=== PATIENT | male | born 1930 | race Caucasian/White ===

== ENCOUNTER 2016-09-11 19:34 | Inpatient (IN) | payer OTHER ==
[~2016-09-11] VITALS: Ht 170.2 cm; Wt 68.2 kg
[~2016-09-11 19:34] MED LIST: ACET-1311 PO; ASPEC81 PO; ATOR-22 PO; CLOP1TAB5 PO; ESCI1TAB9 PO; FINA5TAB PO; LEVO100T7 PO; MECL1TAB42 PO; NRN100 PO; OMEG10007 PO; PANT40TA PO; TAMS0.4C38 PO
[2016-09-11] MEDS ORDERED: SODIUM CHLORIDE 0.9% 1000ML 1,000 ML IV SCH (19:43)
[2016-09-11] MEDS ORDERED: OMEP20CA59 PO (19:56)
[2016-09-11] MEDS ORDERED: NiCARDipine IV 25 MG in SODIUM CHLORIDE 0.9% 250ML 240 ML IV STA (20:01)
--- NOTE | 2016-09-11 20:05 | DIAGNOSTIC IMAGING REPORT ---
SINGLE VIEW CHEST CLINICAL HISTORY: Strokelike symptoms. FINDINGS: An AP, portable, upright chest radiograph is compared to study dated 02/20/2016. The examination is degraded by portable technique and patient rotation. The heart is top normal for projection and there is atherosclerotic calcification of the thoracic aorta. The pulmonary vasculature is noncongested. There is chronic elevation of right hemidiaphragm. Bibasilar airspace opacities are identified. No large pleural effusion or pneumothorax is seen. The skeletal structures are osteopenic. Degenerative change is noted throughout the thoracic spine. IMPRESSION: 1. There are bibasilar airspace opacities. This could represent atelectasis and/or an infectious/inflammatory pneumonitis. Clinical correlation will be required. 2. No large pleural effusion is seen. Electronically signed by: Ayo Wiggins M.D. 09/11/2016 8:04 PM Dictated Date/Time: 09/11/2016 8:02 PM
--- NOTE | 2016-09-11 20:08 | EMERGENCY ROOM VISIT NOTE ---
History Report prepared by Kobe: Jose Gomez Under the Supervision of: Dr. Lio Roy M.D. First contact with patient: 19:43 Chief Complaint: STROKE SYMPTOMS Stated Complaint: STROKE SX History of Present Illness The patient is a 85 year old male who presents to the Emergency Room via ALS with complaints of stroke-like symptoms that began 4 hours ago. The patient experienced a flash of light behind his left eye earlier in the day that has resolved at this time. This evening, he had a sudden onset of left sided weakness. He currently lives at home. He denies any other symptoms at this time. Source of History: patient Onset: 4 hours ago Position: other (Left side) Symptom Intensity: moderate Quality: other (weakness) Timing: constant Note: He had a flash of light in his left eye this morning. The patient denies any other symptoms. Review of Systems See HPI for pertinent positives & negatives. A total of 10 systems reviewed and were otherwise negative. Past Medical & Surgical Medical Problems: (1) Ferrer esophagus (2) BPH (benign prostatic hyperplasia) (3) CKD (chronic kidney disease), stage III (4) CVA (cerebral vascular accident) (5) CVA (cerebral vascular accident) (6) Diabetes type 2, controlled (7) Dyslipidemia (8) Heart attack (9) HTN (hypertension) (10) Hypothyroid (11) Stroke (12) Subdural bleeding (13) TIA (transient ischemic attack) (14) Unilateral weakness Surgical Problems: (1) H/O esophagogastroduodenoscopy (2) History of hip replacement, total (3) History of prostate surgery (4) S/P hernia repair (5) S/P hip replacement Family History Omitted due to advanced age. Social History Smoking Status: Former Smoker Alcohol Use: none Drug Use: none Marital Status: Housing Status: lives with family, other Occupation Status: retired Current/Historical Medications Scheduled Aspirin (Aspirin EC Low Dose), 162 MG PO QAM Atorvastatin (Lipitor), 20 MG PO QPM Clopidogrel Bisulfate (Plavix), 75 MG PO QAM Escitalopram Oxalate (Lexapro), 10 MG PO QAM Finasteride (Proscar), 5 MG PO DAILY Omeprazole (Prilosec), 20 MG PO BID Pantoprazole (Protonix), 40 MG PO QPM Tamsulosin Hcl (Flomax), 0.4 MG PO QPM Scheduled PRN Acetaminophen (Tylenol), 650 MG PO Q4 PRN for Pain Meclizine Hcl (Meclizine Hcl), 1 TAB PO TID PRN for Dizziness or Vertigo Allergies Coded Allergies: Clindamycin (Verified Allergy, Intermediate, rash, 09/11/16) Sulfamethoxazole w/Trimethoprim (Verified Allergy, Mild, RASH, 09/11/16) redness os face Vancomycin (Verified Allergy, Mild, RASH, DRY SKIN, 09/11/16) Sulfa Antibiotics (Unverified Allergy, Unknown, unknown, 09/11/16) Physical Exam Vital Signs Date Time Temp Pulse Resp B/P Pulse Ox O2 Delivery O2 Flow Rate FiO2 09/11/16 23:37 75 09/11/16 23:27 87 20 138/85 96 Nasal Cannula 2.0 09/11/16 22:15 74 132/70 94 Room Air 09/11/16 22:01 86 128/59 97 Room Air 09/11/16 21:50 88 129/63 97 Room Air 09/11/16 21:40 88 20 135/67 97 Room Air 09/11/16 21:25 96 20 146/70 96 09/11/16 21:20 91 20 150/68 97 Room Air 09/11/16 21:15 92 18 150/77 96 Room Air 09/11/16 21:10 89 20 150/67 95 Room Air 09/11/16 21:05 94 20 156/78 95 Room Air 09/11/16 20:55 106 18 172/85 94 Room Air 09/11/16 20:43 206/107 09/11/16 20:21 91 12 211/116 98 Nasal Cannula 2.0 09/11/16 19:59 82 09/11/16 19:51 36.8 86 12 229/121 100 Nasal Cannula 4.0 09/11/16 19:51 100 Nasal Cannula 2.0 Physical Exam GENERAL: Patient is a healthy-appearing well-nourished HEAD: Normocephalic atraumatic EYES: Ocular movements intact pupils equal and react to light OROPHARYNX mucous membranes are moist no exudates present no erythema or edema present NECK: Supple no nuchal rigidity CHEST: Good equal expansion LUNGS: Clear and equal to auscultation CARDIAC: Normal S1 and S2 ABDOMEN: Soft nontender no guarding BACK: No CVA tenderness EXTREMITIES: No pain upon palpation normal muscle strength in all groups no clubbing cyanosis or edema NEURO: Patient is following commands is answering questions appropriately. Alert and oriented x3 Cranial Nerves 2-12 grossly intact. The patient has 3/5 strength in his left arm and leg. Medical Decision & Procedures ER Provider Diagnostic Interpretation: Radiology results as stated below per my review and radiologist interpretation: CT SCAN OF THE BRAIN WITHOUT IV CONTRAST CLINICAL HISTORY: Strokelike symptoms. COMPARISON STUDY: CT of the brain dated 02/18/2016. MRI of the brain dated 02/19/2016. TECHNIQUE: Unenhanced axial CT scan of the brain is performed from the vertex to the skull base. CT DOSE: 537.48 mGy.cm FINDINGS: Brain parenchyma: Right MCA territory encephalomalacia is unchanged and consistent with a remote infarct. There are age-related involutional changes noting moderate subcortical and periventricular microangiopathic change. Wallerian degeneration is noted in the right alok. There is no hemorrhage, mass effect, or evidence of acute territorial ischemia by CT criteria. Faria-white matter is preserved. No extra-axial fluid collection is seen. Ventricles, sulci, cisterns: Prominent secondary to involutional change. Intracranial vasculature: There is atherosclerotic calcification of the cavernous carotid and vertebral arteries. Calvarium: Unremarkable. Sinuses and mastoids: The visualized paranasal sinuses are clear. The mastoid air cells are well pneumatized. Orbits: The bony orbits are grossly intact. There are bilateral ocular lens implants. IMPRESSION: 1. There is no hemorrhage, mass effect, or evidence of acute territorial ischemia by CT criteria. 2. Senescent changes and remote right MCA territory infarct as above. Electronically signed by: Ayo Wiggins M.D. 09/11/2016 8:22 PM Dictated Date/Time: 09/11/2016 8:19 PM SINGLE VIEW CHEST CLINICAL HISTORY: Strokelike symptoms. FINDINGS: An AP, portable, upright chest radiograph is compared to study dated 02/20/2016. The examination is degraded by portable technique and patient rotation. The heart is top normal for projection and there is atherosclerotic calcification of the thoracic aorta. The pulmonary vasculature is noncongested. There is chronic elevation of right hemidiaphragm. Bibasilar airspace opacities are identified. No large pleural effusion or pneumothorax is seen. The skeletal structures are osteopenic. Degenerative change is noted throughout the thoracic spine. IMPRESSION: 1. There are bibasilar airspace opacities. This could represent atelectasis and/or an infectious/inflammatory pneumonitis. Clinical correlation will be required. 2. No large pleural effusion is seen. Electronically signed by: Ayo Wiggins M.D. 09/11/2016 8:04 PM Dictated Date/Time: 09/11/2016 8:02 PM MRI HEAD: No evidence of acute infarct. No ICH, mass effect or edema. No abnormal foci or enhancement in the brain parenchyma. Unchanged right MCA territory encephalomalacia, compatible with prior infarct. FLAIR signal hyperintensities in the periventricular and subcortical white matter, likely chronic small vessel disease. 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 Unchanged atherosclerosis of the proximal left ICA with less than 50% stenosis. Visualized vertebral arteries are patent. No evidence of dissection. Radiologist: Gino Snyder MD Laboratory Results Test 09/11/16 19:40 09/11/16 20:27 09/11/16 23:47 Prothrombin Time 10.5 SECONDS (9.0-12.0) Prothromb Time International Ratio 1.0 (0.9-1.1) Activated Partial Thromboplast Time 27.6 SECONDS (21.0-31.0) Partial Thromboplastin Ratio 1.1 Total Creatine Kinase 115 U/L (39-308) Creatine Kinase MB 1.0 ng/ml (0.5-3.6) Creatine Kinase MB Ratio 0.9 (0-3.0) Chemistry Specimen Hemolysis Bedside Prothrombin Time INR 1.0 (0.9-1.1) Magnesium Level 1.8 mg/dl (1.8-2.4) Total Bilirubin 0.5 mg/dl (0.2-1) Direct Bilirubin 0.1 mg/dl (0-0.2) Aspartate Amino Transf (AST/SGOT) 42 U/L (15-37) Alanine Aminotransferase (ALT/SGPT) 52 U/L (12-78) Alkaline Phosphatase 141 U/L (45-117) Total Protein 7.4 gm/dl (6.4-8.2) Thyroid Stimulating Hormone (TSH) 131.000 uIu/ml (0.300-4.500) Labs reviewed by ED physician. Medications Administered Medications (Trade) Dose Ordered Sig/Octavia Route Start Time Stop Time Status Last Admin Dose Admin Sodium Chloride 1,000 ml @ 50 mls/hr Q20H IV 09/11/16 19:43 09/12/16 01:11 DC 09/11/16 21:15 50 MLS/HR Nicardipine HCl 25 mg/Sodium Chloride 250 ml @ 0 mls/hr Q0M STAT IV 09/11/16 20:01 09/11/16 20:02 DC 09/11/16 20:41 50 MLS/HR Levetiracetam/ Dextrose (Keppra Iv/D5 100ml) 110 ml @ 440 mls/hr ONE STAT IV 09/11/16 20:43 09/11/16 20:57 DC 09/11/16 21:03 440 MLS/HR Lorazepam (Ativan Inj) 1 mg NOW STAT IV 09/11/16 21:03 09/11/16 21:04 DC 09/11/16 21:07 1 MG ECG Indication: weakness Rate (beats per minute): 88 Rhythm: normal sinus Findings: other (Left ventricular Hypertrophy and an old septal infarct) ED Course 1942: Past medical records reviewed. The patient was evaluated in room A9. A complete history and physical examination was performed. 1942: Sodium Chloride 1000 ml @ 50 mls/hr IV 2000: Nicardipine HCl 25 mg/Sodium Chloride 250 ml @ 0 mls/hr Protocol 0 MG/HR IV 2042: Levetiracetam 1000 mg/Dextrose 110 ml @ 440 mls/hr IV 3: Lorazepam 1 mg IV 2330: Upon reexamination the patient is resting. I discussed results and treatment plan with the patient. He verbalizes agreement and understanding. I spoke with Dr. Mclean from the [facility]. The patient will be evaluated for further management. Medical Decision Differential diagnosis: Etiologies such as metabolic, infection, hypo/hyperglycemia, electrolyte abnormalities, cardiac sources, intracerebral event, toxicologic, neurologic, as well as others were entertained. This is an 85-year-old male who presents emergency part complaining of left- sided weakness. The patient is out of time frame window for the use of TPA and in addition has several other contraindications including the history of a subdural hematoma, his high blood pressure as well as seizure-like activity. After riding in the emergency department the patient began having left-sided seizure-like activity where his left arm and left leg began jerking. Because of this the patient was loaded with the thousand milligrams of Keppra and given Ativan in the emergency department. He was originally started on a nicardipine drip however after the Ativan the patient's blood pressure fell and the nicardipine drip was stopped. Repeat examination revealed improvement patient' s symptoms. the patient's CAT scan does not show any acute process. Therefore he was sent for an MRI of the head and neck area I will discuss the case with the hospitalist service. Consults Time Called: 2319 Consulting Physician: Dr. Vinay Colin Hospitalist Returned Call: 2330 He will be evaluating the patient for further management. Impression Primary Impression: Left-sided weakness Additional Impression: Seizure Critical Care I have personally spent greater than 90 minutes of critical care time in the direct management of this patient. This includes bedside care, interpretation of diagnostic studies, and testing, discussion with consultants, patient, and family members, and other required patient management activities. This 90 minutes is in excess of all separately billable procedures. Scribe Attestation The scribe's documentation has been prepared under my direction and personally reviewed by me in its entirety. I confirm that the note above accurately reflects all work, treatment, procedures, and medical decision making performed by me. Departure Information Dispostion Being Evaluated By Hospitalist Referrals Aniceto Horvath M.D. (PCP) Patient Instructions My [facility] Problem Qualifiers
--- NOTE | 2016-09-11 20:23 | DIAGNOSTIC IMAGING REPORT ---
CT SCAN OF THE BRAIN WITHOUT IV CONTRAST CLINICAL HISTORY: Strokelike symptoms. COMPARISON STUDY: CT of the brain dated 02/18/2016. MRI of the brain dated 02/19/2016. TECHNIQUE: Unenhanced axial CT scan of the brain is performed from the vertex to the skull base. CT DOSE: 537.48 mGy.cm FINDINGS: Brain parenchyma: Right MCA territory encephalomalacia is unchanged and consistent with a remote infarct. There are age-related involutional changes noting moderate subcortical and periventricular microangiopathic change. Wallerian degeneration is noted in the right alok. There is no hemorrhage, mass effect, or evidence of acute territorial ischemia by CT criteria. Faria-white matter is preserved. No extra-axial fluid collection is seen. Ventricles, sulci, cisterns: Prominent secondary to involutional change. Intracranial vasculature: There is atherosclerotic calcification of the cavernous carotid and vertebral arteries. Calvarium: Unremarkable. Sinuses and mastoids: The visualized paranasal sinuses are clear. The mastoid air cells are well pneumatized. Orbits: The bony orbits are grossly intact. There are bilateral ocular lens implants. IMPRESSION: 1. There is no hemorrhage, mass effect, or evidence of acute territorial ischemia by CT criteria. 2. Senescent changes and remote right MCA territory infarct as above. Electronically signed by: Ayo Wiggins M.D. 09/11/2016 8:22 PM Dictated Date/Time: 09/11/2016 8:19 PM
[2016-09-11 20:26] LABS: BASO ABS # 0.06 K/uL (0-0.2); COMPLETE YES; EOS % 8.5 %; HEMATOCRIT 40.5 % (42-52); IG% 0.2 %; LYMPH % 16.2 %; LYMPH ABS # 1.01 K/uL (1.2-3.4); MEAN CELL VOLUME 89.8 fL (80-100); MEAN CORPUSCULAR HEMOGLOBIN 29.9 pg (25-34); MEAN CORPUSCULAR HGB CONC 33.3 g/dl (32-36); MEAN PLATELET VOLUME 9.9 fL (7.4-10.4); MONO % 7.1 %; PLATELET COUNT 258 K/uL (130-400); RED BLOOD COUNT 4.51 M/uL (4.7-6.1); WHITE BLOOD COUNT 6.23 K/uL (4.8-10.8)
[2016-09-11] MEDS ORDERED: LEVETIRACETAM IV 1,000 MG in DEXTROSE 5% 100ML 100 ML IV STA (20:43)
[2016-09-11 20:53] LABS: PARTIAL THROMBOPLASTIN RATIO 1.1; PROTHROMBIN TIME (PATIENT) 10.5 SECONDS (9.0-12.0)
[2016-09-11] MEDS ORDERED: LORAZEPAM 2 MG/ML 1 ML VIAL IV STA (21:03)
[2016-09-11 21:10] LABS: BUN/CREATININE RATIO 13.6 (10-20); CALCIUM 9.1 mg/dl (8.5-10.1); CKMB/CK RATIO 0.9 (0-3.0); CREATININE 1.7 mg/dl (0.60-1.40); POTASSIUM 4.1 mmol/L (3.5-5.1)
[2016-09-11] MEDS ORDERED: GADAVIST IV PRN (23:15)
[2016-09-12] VITALS (9 sets, daily range): BP systolic 146–171; BP diastolic 73–83; PULSE 59–86; TEMP 36.6–37.1; O2SAT 93–100; Ht 170.2 cm; Wt 68.2 kg
[2016-09-12] MEDS ORDERED: GLUCOSE 40% GEL 15 GM TUBE PO PRN (00:30)
[2016-09-12] MEDS ORDERED: NITROGLYCERIN 0.4 MG SL PER TAB CHARGE SL PRN (00:30)
[2016-09-12] MEDS ORDERED: GLUCOSE 10 TABS/TUBE PO PRN (00:30)
[2016-09-12] MEDS ORDERED: ACETAMINOPHEN 325 MG TAB PO PRN ×2 (00:30)
[2016-09-12] MEDS ORDERED: PHARMACIST DISCHARGE MED REC CONSULT PRN (00:30)
[2016-09-12] MEDS ORDERED: GLUCAGON FOR INJ 1 MG VIAL SQ PRN (00:30)
[2016-09-12] MEDS ORDERED: SODIUM CHLORIDE 0.9% 1000ML 1,000 ML IV ONE (00:30)
[2016-09-12] MEDS ORDERED: LORAZEPAM INJ 1 MG in SYRINGE 0.5 ML IV PRN (00:30)
[2016-09-12] MEDS ORDERED: DEXTROSE 50% 50 ML SYR IV PRN (00:30)
[2016-09-12 00:47] LABS: MAGNESIUM 1.8 mg/dl (1.8-2.4)
--- NOTE | 2016-09-12 02:19 | HISTORY & PHYSICAL EXAMINATION ---
DATE OF ADMISSION: 09/11/2016 PRIMARY CARE PHYSICIAN: Dr. Mckee. History obtained from the patient, records, and the patient's . Limited history from the patient secondary to obtunded state. CHIEF COMPLAINT: Stroke. HISTORY OF PRESENT ILLNESS: Medical history is significant for CVA, history of subdural hematoma secondary to fall, hypertension, hypothyroidism, (chronic anemia, baseline hemoglobin 13), BPH, chronic renal insufficiency (baseline creatinine 1.6), PVD as per records, history of MRSA as per records. hypothyroidism Recent confinement 2015 for left-sided weakness. MRI showed tiny infarct in the right ventricular region. Patient was already on Aspirin and Plavix at that time. Aspirin dose increased from 162 mg daily. Yesterday afternoon, the patient complained to of transient flash of light on the left eye. Later on, the patient was noted to have weakness on the left side, unable to walk, some facial drooping, slurring speech noted by . compliant w/ giving px home meds. In the Emergency Room, SBP was noted to be 220s. Patient started on Cardene drip. Generalized tonic clonic seizures witnessed in the Emergency Room. Patient given Keppra. Patient currently obtunded. MEDICAL HISTORY: As above. Carotid Dopplers from 07/2015 showed occluded right ICA, unchanged from previous exam, 50% left ICA occlusion. SURGERIES: He has had hip replacement, prostate surgery, hernia surgery. HOME MEDICATIONS: Tylenol, Lipitor, Plavix, Lexapro, Proscar, meclizine, Prilosec, Protonix, Flomax (Levoxyl 100 mcg daily as per outpx EMR) ALLERGIES: ALLERGIC TO CLINDAMYCIN, VANCOMYCIN, BACTRIM, SULFA. FAMILY HISTORY: Heart disease. PERSONAL AND SOCIAL HISTORY: Past tobacco abuse. 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 Lives with . REVIEW OF SYSTEMS: Could not be obtained. PHYSICAL EXAMINATION: VITAL SIGNS: Blood pressure was noted to be 229/121, later 130/80, pulse rate 86, RR 18, temperature 36.8, sats 98 on room air. GENERAL: Noted to be obtunded. No respiratory distress. Frail. SKIN: Pallor. HEENT: Pale palpebral conjunctivae. Dry mucosa. Facial droop on the left. NECK: No JVD. Supple. CHEST: Decreased effort. HEART: Regular rate and rhythm. ABDOMEN: Soft. EXTREMITIES: No edema, no tenderness. NEUROLOGIC: Obtunded. left facial asymmetry. Decreased movement, L LABORATORY DATA: Hemoglobin 13.7, hematocrit 41, white cell count 6.1, platelets 252. Sodium 140, potassium 4.1, chloride 106, CO2 of 28, BUN 20, creatinine 1.7, glucose 103. TSH 130. CT of the head, old stroke on the right MCA. EKG: Normal sinus rhythm with PACs. ASSESSMENT: 1. Left-sided weakness possible recurrent cerebrovascular accident. 2. New onset seizures. 3. Hypertensive urgency improved after nicardipine infusion started in the ER. Not on maintenance meds at home. 4. Hypothyroidism. TSH markedly elevated. ? compliance 5. Past tobacco abuse. 6. Chronic renal insufficiency, creatinine at baseline. 7. DM2, diet controlled. Well controlled as of recent outpx HgA1c. 8. History of traumatic subdural hematoma. PLAN: PCU, neuro checks. Continue home antiplatelet tx for secondary stroke prevention Follow MRI results. EEG. Keppra for seizure prophylaxis. Further management pending MRI results. Neurology consult RE L sided weakness and seizures. Permissive hypertension for now. Insulin sliding scale BG goal 140-180, px due for hemoglobin A1c check. Clarify levothyroxine med intake w/ px (med listed in outpx med list but not listed in med rec list done at the ER) DNR as per , Jo-Ann Franz, requesting updates [phone]. MTDD
[2016-09-12 05:41] LABS: BASO % 0.1 %; BASO ABS # 0.01 K/uL (0-0.2); COMPLETE YES; EOS % 0.1 %; HEMATOCRIT 37.1 % (42-52); IG% 0.1 %; LYMPH % 4.9 %; LYMPH ABS # 0.43 K/uL (1.2-3.4); MEAN CELL VOLUME 91.2 fL (80-100); MEAN CORPUSCULAR HEMOGLOBIN 30.7 pg (25-34); MEAN CORPUSCULAR HGB CONC 33.7 g/dl (32-36); MEAN PLATELET VOLUME 9.4 fL (7.4-10.4); MONO % 5.5 %; NEUT % 89.3 %; PLATELET COUNT 240 K/uL (130-400); RED BLOOD COUNT 4.07 M/uL (4.7-6.1); WHITE BLOOD COUNT 8.75 K/uL (4.8-10.8)
[2016-09-12 06:06] LABS: BUN/CREATININE RATIO 15.5 (10-20); CALCIUM 8.1 mg/dl (8.5-10.1); CREATININE 1.4 mg/dl (0.60-1.40); POTASSIUM 4.4 mmol/L (3.5-5.1)
[2016-09-12] MEDS: HEPARIN SOD 5000 UNIT/0.5 ML CARP SQ SCH ×3 (06:07→20:05)
[2016-09-12 06:59] LABS: ESTIMATED AVERAGE GLUCOSE 117 mg/dl; HA1C FLAG Normal (Normal)
[2016-09-12] MEDS: INSULIN ASPART 100 UNITS/ML 3 ML PEN SC SCH ×4 (07:00→20:28)
--- NOTE | 2016-09-12 07:12 | DIAGNOSTIC IMAGING REPORT ---
NECK MRA HISTORY: Dyspnea. Mental status change. Pt c/o left sided weakness TECHNIQUE: [id number] and gadolinium-enhanced MRA of the neck was performed both before and after the intravenous administration of contrast. All measurements were calculated based on NASCET criteria. COMPARISON STUDY: 02/19/2016 FINDINGS: The aortic arch and proximal great vessels are widely patent. Continued occlusion right internal carotid artery. This is unchanged. 40-50% narrowing left internal carotid artery. Unremarkable vertebral basilar component of the study. IMPRESSION: 1. Complete occlusion right internal carotid artery. 2. This is unchanged from the prior study of 02/19/2016. 3. Moderate atherosclerotic change left carotid bifurcation and left internal carotid artery with no evidence for a high-grade stenosis. A 40-50% narrowing may be present. Electronically signed by: Raj Hernandez M.D. 09/12/2016 7:11 AM Dictated Date/Time: 09/12/2016 7:09 AM
--- NOTE | 2016-09-12 07:44 | DIAGNOSTIC IMAGING REPORT ---
Brain MRI WITH AND WITHOUT CONTRAST HISTORY: Pt c/o left sided weakness TECHNIQUE: Multiplanar multisequence MRI of the brain was performed both before and after the intravenous administration of contrast. COMPARISON STUDY: Head CT 09/11/2016. Brain MRI 2115. FINDINGS: No areas of restricted diffusion to suggest acute infarction. Old large right MCA territory infarct is again noted. Presumed moderate microvascular ischemic changes are again noted. The paranasal sinuses and right mastoid air cells are clear. There are few partially opacified left inferior mastoid air cells, unchanged. Chronic occlusion of the right internal carotid artery is again noted. Old lacunar infarction within the alok and bilateral basal ganglia persist. Mild to moderate atrophic changes within the brain. No abnormal enhancement. IMPRESSION: No significant change compared to the prior study. No acute intracranial abnormality. Old infarcts as described above. Electronically signed by: Artie Guerrero M.D. 09/12/2016 7:43 AM Dictated Date/Time: 09/12/2016 7:38 AM
[2016-09-12 08:13] LABS: URINE APPEARANCE CLEAR (CLEAR); URINE BILIRUBIN NEG (NEG); URINE COLOR YELLOW; URINE EPITHELIAL CELL AUTO >30 /lpf (0-5); URINE NITRITE NEG (NEG); URINE SPECIFIC GRAVITY 1.018 (1.000-1.030); UROBILINOGEN NEG (NEG); ZZUR CULT IF INDIC CLEAN CATCH NO
[2016-09-12 08:18] LABS: MANUAL MICROSCOPIC REQUIRED? NO; REVIEW REQ? YES
[2016-09-12] MEDS ORDERED: NON-FORMULARY MEDICATION (Omeprazole (Prilosec) 20 MG) PO SCH (09:00)
[2016-09-12 09:07] LABS: BENZODIAZEPINE, URINE NEG (NEG); COCAINE,URINE NEG (NEG); PHENCYCLIDINE, URINE NEG (NEG)
[2016-09-12] MEDS: LEVETIRACETAM IV 500 MG in DEXTROSE 5% 100ML 100 ML IV SCH ×2 (09:13→20:04)
[2016-09-12] MEDS ORDERED: CLONIDINE HCL 0.1 MG TAB PO PRN (09:45)
--- NOTE | 2016-09-12 10:00 | Progress Note ---
Medicine Progress Note Date & Time of Visit: Sep 12, 2016 at 09:45. Subjective patient seen resting in bed, comfortable states he could not fall asleep last night, tired this AM, dizzy when standing today left sided weakness, slurred speech resolved though denies any focal neuro symptoms no headache, chest pain, palpitations ,nausea no other symptoms Objective Last 8 Hrs Date Time Temp Pulse Resp B/P Pulse Ox O2 Delivery O2 Flow Rate FiO2 09/12/16 07:39 36.9 67 18 155/83 99 2.0 09/12/16 04:12 36.8 74 22 163/76 99 Nasal Cannula 2.0 09/12/16 04:00 98 Nasal Cannula 2.0 Physical Exam: General- oriented x 3, not in distress, speaks in sentences Head- atraumatic Eyes- EOMI, anicteric Neck- supple, no JVD, no adenopathy Lungs- clear to auscultation bilaterally Heart- normal rate, regular rhythm; no murmurs Abdomen- normal bowel sounds, soft, nontender Extremities- no pretibial edema, no calf tenderness; peripheral pulses intact Neuro- alert, oriented x 3; CN 2-12 grossly intact, motor 5/5 except left lower leg 4/5, sensation 100% Skin- warm & dry Laboratory Results: Last 24 Hours Test 09/11/16 19:40 09/11/16 20:06 09/11/16 20:27 09/11/16 23:47 White Blood Count 6.23 K/uL Red Blood Count 4.51 M/uL Hemoglobin 13.5 g/dL Hematocrit 40.5 % Mean Corpuscular Volume 89.8 fL Mean Corpuscular Hemoglobin 29.9 pg Mean Corpuscular Hemoglobin Concent 33.3 g/dl Platelet Count 258 K/uL Mean Platelet Volume 9.9 fL Neutrophils (%) (Auto) 67.0 % Lymphocytes (%) (Auto) 16.2 % Monocytes (%) (Auto) 7.1 % Eosinophils (%) (Auto) 8.5 % Basophils (%) (Auto) 1.0 % Neutrophils # (Auto) 4.18 K/uL Lymphocytes # (Auto) 1.01 K/uL Monocytes # (Auto) 0.44 K/uL Eosinophils # (Auto) 0.53 K/uL Basophils # (Auto) 0.06 K/uL RDW Standard Deviation 49.5 fL RDW Coefficient of Variation 15.2 % Immature Granulocyte % (Auto) 0.2 % Immature Granulocyte # (Auto) 0.01 K/uL Prothrombin Time 10.5 SECONDS Prothromb Time International Ratio 1.0 Activated Partial Thromboplast Time 27.6 SECONDS Partial Thromboplastin Ratio 1.1 Sodium Level 140 mmol/L Potassium Level 4.1 mmol/L Chloride Level 105 mmol/L Carbon Dioxide Level 28 mmol/L Anion Gap 7.0 mmol/L Blood Urea Nitrogen 23 mg/dl Creatinine 1.70 mg/dl Est Creatinine Clear Calc Drug Dose 30.8 ml/min Estimated GFR () 42.3 Estimated GFR (Non- 36.5 BUN/Creatinine Ratio 13.6 Random Glucose 115 mg/dl Calcium Level 9.1 mg/dl Total Creatine Kinase 115 U/L Creatine Kinase MB 1.0 ng/ml Creatine Kinase MB Ratio 0.9 Troponin I 0.057 ng/ml Chemistry Specimen Hemolysis Bedside Glucose 113 mg/dl Bedside Prothrombin Time INR 1.0 Magnesium Level 1.8 mg/dl Total Bilirubin 0.5 mg/dl Direct Bilirubin 0.1 mg/dl Aspartate Amino Transf (AST/SGOT) 42 U/L Alanine Aminotransferase (ALT/SGPT) 52 U/L Alkaline Phosphatase 141 U/L Total Protein 7.4 gm/dl Albumin 3.6 gm/dl Thyroid Stimulating Hormone (TSH) 131.000 uIu/ml Test 09/12/16 05:25 09/12/16 06:33 09/12/16 07:50 White Blood Count 8.75 K/uL Red Blood Count 4.07 M/uL Hemoglobin 12.5 g/dL Hematocrit 37.1 % Mean Corpuscular Volume 91.2 fL Mean Corpuscular Hemoglobin 30.7 pg Mean Corpuscular Hemoglobin Concent 33.7 g/dl Platelet Count 240 K/uL Mean Platelet Volume 9.4 fL Neutrophils (%) (Auto) 89.3 % Lymphocytes (%) (Auto) 4.9 % Monocytes (%) (Auto) 5.5 % Eosinophils (%) (Auto) 0.1 % Basophils (%) (Auto) 0.1 % Neutrophils # (Auto) 7.81 K/uL Lymphocytes # (Auto) 0.43 K/uL Monocytes # (Auto) 0.48 K/uL Eosinophils # (Auto) 0.01 K/uL Basophils # (Auto) 0.01 K/uL RDW Standard Deviation 50.9 fL RDW Coefficient of Variation 15.2 % Immature Granulocyte % (Auto) 0.1 % Immature Granulocyte # (Auto) 0.01 K/uL Sodium Level 139 mmol/L Potassium Level 4.4 mmol/L Chloride Level 104 mmol/L Carbon Dioxide Level 26 mmol/L Anion Gap 9.0 mmol/L Blood Urea Nitrogen 22 mg/dl Creatinine 1.40 mg/dl Est Creatinine Clear Calc Drug Dose 37.4 ml/min Estimated GFR () 53.5 Estimated GFR (Non- 46.1 BUN/Creatinine Ratio 15.5 Random Glucose 134 mg/dl Estimated Average Glucose 117 mg/dl Hemoglobin A1c 5.7 % Calcium Level 8.1 mg/dl Troponin I 0.048 ng/ml Albumin 3.4 gm/dl Free Thyroxine 0.48 ng/dl Bedside Glucose 111 mg/dl Urine Color YELLOW Urine Appearance CLEAR Urine pH 7.0 Urine Specific [place] 1.018 Urine Protein 2+ Urine Glucose (UA) NEG Urine Ketones NEG Urine Occult Blood TRACE Urine Nitrite NEG Urine Bilirubin NEG Urine Urobilinogen NEG Urine Leukocyte Esterase NEG Urine WBC (Auto) 1-5 /hpf Urine RBC (Auto) 0-4 /hpf Urine Hyaline Casts (Auto) 1-5 /lpf Urine Epithelial Cells (Auto) >30 /lpf Urine Bacteria (Auto) NEG Urine Renal Epithelial Cells /lpf Urine Opiates Screen NEG Urine Methadone, Qualitative NEG Urine Barbiturates NEG Urine Phencyclidine (PCP) Level NEG Ur Amphetamine/Methamphetamine NEG MDMA (Ecstasy) Screen NEG Urine Benzodiazepines Screen NEG Urine Cocaine Metabolite NEG Urine Marijuana (THC) NEG Assessment & Plan 85 year old male with history of CVA, Subdural hematoma secondary to Fall, HTN, CKD 3, Hypothyroidism, BPH, PVD, presenting with left sided weakness. LEFT SIDED WEAKNESS, RESOLVED, POSSIBLE TIA HISTORY OF R MCA CVA, R ICA OCCLUSION - Brain MRI: IMPRESSION: No significant change compared to the prior study. No acute intracranial abnormality. Old infarcts as described above. Head MRA: IMPRESSION: 1. Complete occlusion right internal carotid artery. 2. This is unchanged from the prior study of 02/19/2016. 3. Moderate atherosclerotic change left carotid bifurcation and left internal carotid artery with no evidence for a high-grade stenosis. A 40-50% narrowing may be present. - symptoms seems to have resolved as of this morning - on Aspirin, Plavix, Atorvastatin management of Hypertension as noted below Neuro consulted HYPERTENSIVE EMERGENCY, RESOLVED - Nicardipine drip discontinue - BP 150s-170s - maintain BP on the higher for adequate cerebral perfusion PRN Hydralazine for systolic BP > 180 - may need to be started on regular BP medication in the future NEW ONSET GENERALIZED TONIC CLONIC SEIZURES - in the setting of above - Keppra 500mg BID started POSSIBLE BILATERAL LOWER LOBE PNEUMONIA, secondary to Aspiration Pneumonia in the setting of recent CVA, current TIA, and Seizure - patient reports episodes of coughing while eating at home has noted cough recently, occasionally productive - start Augmentin BID x 5 days at least HYPOTHYROIDISM - TSH 131, t4 0.48 - adherent with medications per patient - increase Lthyroxine from 100 to 125mcg daily repeat Thyroid Function Tests in 3-4 weeks HISTORY OF SUBDURAL HEMATOMA CKD 3 at baseline crea 1.6 usually BPH no urinary symptoms DVT Prophylaxis Heparin Disposition pending lives at home with , requires walker with ambulation PT/OT Current Inpatient Medications: Current Inpatient Medications Medications (Trade) Dose Ordered Sig/Octavia Route Start Time Stop Time Status Last Admin Dose Admin Gadobutrol (Gadavist) 7 mmol UD PRN IV 09/11/16 23:15 09/15/16 23:14 Heparin Sodium (Porcine) 5000 unit 5,000 unit Q8 SQ 09/12/16 06:00 10/12/16 05:59 09/12/16 06:07 5,000 UNIT Sodium Chloride (Nss 1000ml) 1,000 ml @ 60 mls/hr [id number] ONCE IV 09/12/16 00:30 09/12/16 17:09 09/12/16 06:07 60 MLS/HR Acetaminophen (Tylenol Tab) 650 mg Q4H PRN PO 09/12/16 00:30 10/12/16 00:29 Nitroglycerin (Nitrostat Tab) 0.4 mg UD PRN SL 09/12/16 00:30 10/12/16 00:29 Insulin Aspart (novoLOG ASPART) SLIDING SCALE If C... ACHS SC 09/12/16 07:00 10/12/16 06:59 Glucose (Glucose 40% Gel) 15-30 GRAMS 15 GRAMS... UD PRN PO 09/12/16 00:30 10/12/16 00:29 Glucose (Glucose Chew Tab) 4-8 Tablets 4 Tabl... UD PRN PO 09/12/16 00:30 10/12/16 00:29 Dextrose (Dextrose 50% 50ML Syringe) 25-50ML OF 50% DW IV FOR... UD PRN IV 09/12/16 00:30 10/12/16 00:29 Glucagon 1 mg 1 mg UD PRN SQ 09/12/16 00:30 10/12/16 00:29 Lorazepam 1 mg/ Syringe 1 ml @ 0.5 mls/min Q5M PRN IV 09/12/16 00:30 10/12/16 00:29 Levetiracetam/ Dextrose (Keppra Iv/D5 100ml) 105 ml @ 420 mls/hr Q12H IV 09/12/16 09:00 10/12/16 08:59 09/12/16 09:13 420 MLS/HR Aspirin (Ecotrin Tab) 162 mg QAM PO 09/12/16 09:00 10/12/16 08:59 Atorvastatin Calcium (Lipitor Tab) 20 mg QPM PO 09/12/16 21:00 10/12/16 20:59 Clopidogrel Bisulfate (plAVix TAB) 75 mg QAM PO 09/12/16 09:00 10/12/16 08:59 Escitalopram Oxalate (Lexapro Tab) 10 mg QAM PO 09/12/16 09:00 10/12/16 08:59 Pantoprazole Sodium (Protonix Tab) 40 mg QPM PO 09/12/16 21:00 10/12/16 20:59 Tamsulosin HCl (Flomax Cap) 0.4 mg QPM PO 09/12/16 21:00 10/12/16 20:59 Miscellaneous Information (Pharmacist Discharge Med Rec Consult) 1 ea UD PRN N/A 09/12/16 00:30 10/12/16 00:29
[2016-09-12] MEDS: ESCITALOPRAM OXALATE 10 MG TAB PO SCH (10:17)
[2016-09-12] MEDS: ASPIRIN 81 MG ECTAB PO SCH (10:17)
[2016-09-12] MEDS: CLOPIDOGREL BISULFATE 75 MG TAB PO SCH (10:18)
[2016-09-12] MEDS ORDERED: AMOXICILLIN/CLAVULANATE TAB 875 MG TAB PO SCH (11:00)
[2016-09-12] MEDS: AMOXICILLIN/CLAV POTAS 600 MG/42.9MG/5 ML 75 ML PO SCH ×2 (12:06→18:29)
--- NOTE | 2016-09-12 13:50 | Neurology Consultation ---
Neurology Consultation Date of Consultation: Sep 12, 2016. Attending Physician: Elmo Tejeda MD Primary Care Physician: No Doctor, Assigned Reason for Consultation: ?seizure, left sided weakness History of Present Illness Source: patient Angus is a 85 year old male with PMH CVA, history of SDH, HTN, hypothyroidism, ( chronic anemia, baseline hemoglobin 13), BPH, chronic renal insufficiency ( baseline creatinine 1.6), PVD as per records, history of MRSA as per records.hypothyroidism He had a hospitalization in 2016 for Left-sided weakness. He was on aspirin and plavix at that time and the aspirin was increased to 162 mg daily. He reportedly had a flash of light in the left eye, left sided weakness, facial drooping, slurred speech. His blood pressure on this admission in ED was 220s. there was a witnessed seizure in the ED and patient was started on Keppra. Past Medical/Surgical History Medical Problems: (1) CVA (cerebral vascular accident) Status: Acute Social History Smoking Status: Never smoker Drug Use: none Marital Status: Housing Status: lives with family, other Occupation Status: retired Allergies Coded Allergies: Clindamycin (Verified Allergy, Intermediate, rash, 09/11/16) Sulfamethoxazole w/Trimethoprim (Verified Allergy, Mild, RASH, 09/11/16) redness os face Vancomycin (Verified Allergy, Mild, RASH, DRY SKIN, 09/11/16) Sulfa Antibiotics (Unverified Allergy, Unknown, unknown, 09/11/16) Current Inpatient Medications Current Inpatient Medications Medications (Trade) Dose Ordered Sig/Octavia Route Start Time Stop Time Status Last Admin Dose Admin Gadobutrol (Gadavist) 7 mmol UD PRN IV 09/11/16 23:15 09/15/16 23:14 Heparin Sodium (Porcine) 5000 unit 5,000 unit Q8 SQ 09/12/16 06:00 10/12/16 05:59 09/12/16 06:07 5,000 UNIT Sodium Chloride (Nss 1000ml) 1,000 ml @ 60 mls/hr [id number] ONCE IV 09/12/16 00:30 09/12/16 17:09 09/12/16 06:07 60 MLS/HR Acetaminophen (Tylenol Tab) 650 mg Q4H PRN PO 09/12/16 00:30 10/12/16 00:29 Nitroglycerin (Nitrostat Tab) 0.4 mg UD PRN SL 09/12/16 00:30 10/12/16 00:29 Insulin Aspart (novoLOG ASPART) SLIDING SCALE If C... ACHS SC 09/12/16 07:00 10/12/16 06:59 Glucose (Glucose 40% Gel) 15-30 GRAMS 15 GRAMS... UD PRN PO 09/12/16 00:30 10/12/16 00:29 Glucose (Glucose Chew Tab) 4-8 Tablets 4 Tabl... UD PRN PO 09/12/16 00:30 10/12/16 00:29 Dextrose (Dextrose 50% 50ML Syringe) 25-50ML OF 50% DW IV FOR... UD PRN IV 09/12/16 00:30 10/12/16 00:29 Glucagon 1 mg 1 mg UD PRN SQ 09/12/16 00:30 10/12/16 00:29 Lorazepam 1 mg/ Syringe 1 ml @ 0.5 mls/min Q5M PRN IV 09/12/16 00:30 10/12/16 00:29 Levetiracetam/ Dextrose (Keppra Iv/D5 100ml) 105 ml @ 420 mls/hr Q12H IV 09/12/16 09:00 10/12/16 08:59 09/12/16 09:13 420 MLS/HR Aspirin (Ecotrin Tab) 162 mg QAM PO 09/12/16 09:00 10/12/16 08:59 09/12/16 10:17 162 MG Atorvastatin Calcium (Lipitor Tab) 20 mg QPM PO 09/12/16 21:00 10/12/16 20:59 Clopidogrel Bisulfate (plAVix TAB) 75 mg QAM PO 09/12/16 09:00 10/12/16 08:59 09/12/16 10:18 75 MG Escitalopram Oxalate (Lexapro Tab) 10 mg QAM PO 09/12/16 09:00 10/12/16 08:59 09/12/16 10:17 10 MG Pantoprazole Sodium (Protonix Tab) 40 mg QPM PO 09/12/16 21:00 10/12/16 20:59 Tamsulosin HCl (Flomax Cap) 0.4 mg QPM PO 09/12/16 21:00 10/12/16 20:59 Miscellaneous Information (Pharmacist Discharge Med Rec Consult) 1 ea UD PRN N/A 09/12/16 00:30 10/12/16 00:29 Clonidine HCl (Catapres Tab) 0.1 mg Q6H PRN PO 09/12/16 09:45 10/12/16 09:44 Amoxicillin/ Clavulanate Potassium (Augmentin Es 600 Mg/42.9mg 5 ml Susp) 875 mg BIDM PO 09/12/16 11:30 09/19/16 11:29 09/12/16 12:06 875 MG Physical Exam Vital Signs (Past 24 Hrs): Date Time Temp Pulse Resp B/P Pulse Ox O2 Delivery O2 Flow Rate FiO2 09/12/16 12:00 Nasal Cannula 2.0 09/12/16 11:51 78 153/75 09/12/16 11:03 37.1 59 18 146/73 100 2.0 09/12/16 08:00 Nasal Cannula 2.0 09/12/16 07:39 36.9 67 18 155/83 99 2.0 09/12/16 04:12 36.8 74 22 163/76 99 Nasal Cannula 2.0 09/12/16 04:00 98 Nasal Cannula 2.0 09/12/16 01:00 36.7 86 18 171/75 98 Nasal Cannula 2.0 09/12/16 00:34 100 Nasal Cannula 2.0 09/12/16 00:32 80 20 123/94 99 Nasal Cannula 2.0 09/12/16 00:27 78 18 111/76 99 Nasal Cannula 2.0 09/11/16 23:37 75 09/11/16 23:27 87 20 138/85 96 Nasal Cannula 2.0 09/11/16 22:15 74 132/70 94 Room Air 09/11/16 22:01 86 128/59 97 Room Air 09/11/16 21:50 88 129/63 97 Room Air 09/11/16 21:40 88 20 135/67 97 Room Air 09/11/16 21:25 96 20 146/70 96 09/11/16 21:20 91 20 150/68 97 Room Air 09/11/16 21:15 92 18 150/77 96 Room Air 09/11/16 21:10 89 20 150/67 95 Room Air 09/11/16 21:05 94 20 156/78 95 Room Air 09/11/16 20:55 106 18 172/85 94 Room Air 09/11/16 20:43 206/107 09/11/16 20:21 91 12 211/116 98 Nasal Cannula 2.0 09/11/16 19:59 82 09/11/16 19:51 36.8 86 12 229/121 100 Nasal Cannula 4.0 09/11/16 19:51 100 Nasal Cannula 2.0 Physical Exam: Constitutional: appearance nourished, healthy and normal Ears, Nose, Mouth and Throat: mucous membranes moist, no injection and skin normal, eyes normal Cardiovascular: normal S-1 and S-2 and regular rate and rhythm Respiratory: clear to auscultation (CTA) and no rales, rhonchi or wheeze Musculoskeletal: no peripheral edema and good distal pulses Skin: no stigmata of neurocutaneous disease noted and normal and intact Eyes: PERRL miotic, left sided field cut NEUROLOGIC EXAMINATION: Mental status: Alert and interactive Oriented 2017, [facility] Oriented to person Speech fluent with no evidence of aphasia Cranial Nerves smile and eye brow raise symmetric, tongue midline Reflexes: Deep tendon reflexes were symmetrical and graded 2/5. Plantar responses were flexor. Sensory: no deficit to cool or light touch Coordination: holds hand in air without pronator drift Gait/Stance: Posture lying in bed Strength: left side hand bioassayist, biceps triceps 4/5, right 5/5 bilaterally lifts legs against gravity Laboratory Results Past 24 Hours: 09/12/16 05:25 Red Blood Count 4.07, Mean Corpuscular Volume 91.2, Mean Corpuscular Hemoglobin 30.7, Mean Corpuscular Hemoglobin Concent 33.7, Mean Platelet Volume 9.4, Neutrophils (%) (Auto) 89.3, Lymphocytes (%) (Auto) 4.9, Monocytes (%) (Auto) 5.5, Eosinophils (%) (Auto) 0.1, Basophils (%) (Auto) 0.1, Neutrophils # (Auto) 7.81, Lymphocytes # (Auto) 0.43, Monocytes # (Auto) 0.48, Eosinophils # (Auto) 0.01, Basophils # (Auto) 0.01 09/12/16 05:25 Test 09/11/16 19:40 09/11/16 20:27 09/11/16 23:47 09/12/16 05:25 Prothrombin Time 10.5 SECONDS (9.0-12.0) Prothromb Time International Ratio 1.0 (0.9-1.1) Activated Partial Thromboplast Time 27.6 SECONDS (21.0-31.0) Partial Thromboplastin Ratio 1.1 Total Creatine Kinase 115 U/L (39-308) Creatine Kinase MB 1.0 ng/ml (0.5-3.6) Creatine Kinase MB Ratio 0.9 (0-3.0) Chemistry Specimen Hemolysis Bedside Prothrombin Time INR 1.0 (0.9-1.1) Magnesium Level 1.8 mg/dl (1.8-2.4) Total Bilirubin 0.5 mg/dl (0.2-1) Direct Bilirubin 0.1 mg/dl (0-0.2) Aspartate Amino Transf (AST/SGOT) 42 U/L (15-37) Alanine Aminotransferase (ALT/SGPT) 52 U/L (12-78) Alkaline Phosphatase 141 U/L (45-117) Total Protein 7.4 gm/dl (6.4-8.2) Thyroid Stimulating Hormone (TSH) 131.000 uIu/ml (0.300-4.500) White Blood Count 8.75 K/uL (4.8-10.8) Red Blood Count 4.07 M/uL (4.7-6.1) Hemoglobin 12.5 g/dL (14.0-18.0) Hematocrit 37.1 % (42-52) Mean Corpuscular Volume 91.2 fL (80-100) Mean Corpuscular Hemoglobin 30.7 pg (25-34) Mean Corpuscular Hemoglobin Concent 33.7 g/dl (32-36) Platelet Count 240 K/uL (130-400) Mean Platelet Volume 9.4 fL (7.4-10.4) Neutrophils (%) (Auto) 89.3 % Lymphocytes (%) (Auto) 4.9 % Monocytes (%) (Auto) 5.5 % Eosinophils (%) (Auto) 0.1 % Basophils (%) (Auto) 0.1 % Neutrophils # (Auto) 7.81 K/uL (1.4-6.5) Lymphocytes # (Auto) 0.43 K/uL (1.2-3.4) Monocytes # (Auto) 0.48 K/uL (0.11-0.59) Eosinophils # (Auto) 0.01 K/uL (0-0.5) Basophils # (Auto) 0.01 K/uL (0-0.2) RDW Standard Deviation 50.9 fL (36.4-46.3) RDW Coefficient of Variation 15.2 % (11.5-14.5) Immature Granulocyte % (Auto) 0.1 % Immature Granulocyte # (Auto) 0.01 K/uL (0.00-0.02) Anion Gap 9.0 mmol/L (3-11) Est Creatinine Clear Calc Drug Dose 37.4 ml/min Estimated GFR () 53.5 Estimated GFR (Non- 46.1 BUN/Creatinine Ratio 15.5 (10-20) Estimated Average Glucose 117 mg/dl Hemoglobin A1c 5.7 % (4.5-5.6) Calcium Level 8.1 mg/dl (8.5-10.1) Troponin I 0.048 ng/ml (0-0.045) Albumin 3.4 gm/dl (3.4-5.0) Free Thyroxine 0.48 ng/dl (0.80-1.60) Test 09/12/16 07:50 09/12/16 11:09 Urine Color YELLOW Urine Appearance CLEAR (CLEAR) Urine pH 7.0 (4.5-7.5) Urine Specific [place] 1.018 (1.000-1.030) Urine Protein 2+ (NEG) Urine Glucose (UA) NEG (NEG) Urine Ketones NEG (NEG) Urine Occult Blood TRACE (NEG) Urine Nitrite NEG (NEG) Urine Bilirubin NEG (NEG) Urine Urobilinogen NEG (NEG) Urine Leukocyte Esterase NEG (NEG) Urine WBC (Auto) 1-5 /hpf (0-5) Urine RBC (Auto) 0-4 /hpf (0-4) Urine Hyaline Casts (Auto) 1-5 /lpf (0-5) Urine Epithelial Cells (Auto) >30 /lpf (0-5) Urine Bacteria (Auto) NEG (NEG) Urine Renal Epithelial Cells /lpf (0-5) Urine Opiates Screen NEG (NEG) Urine Methadone, Qualitative NEG (NEG) Urine Barbiturates NEG (NEG) Urine Phencyclidine (PCP) Level NEG (NEG) Ur Amphetamine/Methamphetamine NEG (NEG) MDMA (Ecstasy) Screen NEG (NEG) Urine Benzodiazepines Screen NEG (NEG) Urine Cocaine Metabolite NEG (NEG) Urine Marijuana (THC) NEG (NEG) Bedside Glucose 116 mg/dl (70-99) Imaging MRI with and without contrast- No areas of restricted diffusion to suggest acute infarction. Old large right MCA territory infarct is again noted. Presumed moderate microvascular ischemic changes are again noted. The paranasal sinuses and right mastoid air cells are clear. There are few partially opacified left inferior mastoid air cells, unchanged. Chronic occlusion of the right internal carotid artery is again noted. Old lacunar infarction within the alok and bilateral basal ganglia persist. Mild to moderate atrophic changes within the brain. No abnormal enhancement. MRA -Complete occlusion right internal carotid artery. This is unchanged from the prior study of 02/19/2016. Moderate atherosclerotic change left carotid bifurcation and left internal carotid artery with no evidence for a high-grade stenosis. A 40-50% narrowing may be present. CT head- hemorrhage, mass effect, or evidence of acute territorial ischemia by CT criteria. Senescent changes and remote right MCA territory infarct as above. Impression 85 year old male with left sided weakness and witnessed seizure in ED Plan 1. seizure was loaded with 1 g Keppra and started on Keppra 500 mg q 12 hours 2. PT/OT, speech therapy 3. continue aspirin 162 mg and plavix 75 mg daily 4. 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 EEG read pending 6. permissive hypertension consider patients age 7. likely seizure event no evidence of new stroke. Hypo perfusion due to occluded CHRISTINA but blood pressure was high in ED I have seen and discussed above patient with Dr Darling Longoria, neurology Pt with known, remote CHRISTINA occlusion and large RMCA infarct. Pt is a poor historian, noted vaguely described lightheadedness and flashing in L(?) eye and increase in L weakness which pt feels has still persisted. He subsequently noted to have sz activity LUE in the ER. There was no clear documented hypotension. MRI of the brain does not show a new ischemic event and there is no evidence of PRES. The pt could have potentially had an unwitnessed partial or generalized sz with an increase in L weakness post-sz. Thereafter pt did have a witnessed sz. The pt There is no obvious toxic or metabolic reason for increased baseline weakness. The pt could have hypoperfused relate to arrhythmia and that cause the visual phen and increased weakness. I would continue Keppra perform and echo, EEG and telemetric monitoring. I would modify stroke risk factors and if no cardioembolic source found not change antiplt tx as the pt has not had a new stroke. Will follow with you, BOOGIE Longoria MD
[2016-09-12] MEDS: TAMSULOSIN HCL 0.4 MG CAP PO SCH (20:05)
[2016-09-12] MEDS: ATORVASTATIN 20 MG TAB PO SCH (20:05)
[2016-09-12] MEDS: PANTOprazole SOD 40 MG TAB PO SCH (20:05)
[2016-09-13] VITALS (12 sets, daily range): BP systolic 157–171; BP diastolic 78–87; PULSE 51–66; TEMP 36.5–36.8; O2SAT 95–99
[2016-09-13] MEDS: HEPARIN SOD 5000 UNIT/0.5 ML CARP SQ SCH ×3 (06:13→21:22)
[2016-09-13 06:33] LABS: BASO % 1.1 %; BASO ABS # 0.07 K/uL (0-0.2); COMPLETE YES; EOS % 6.3 %; HEMATOCRIT 36.8 % (42-52); IG% 0.2 %; LYMPH % 11.2 %; LYMPH ABS # 0.73 K/uL (1.2-3.4); MEAN CORPUSCULAR HGB CONC 32.6 g/dl (32-36); MONO % 8.3 %; NEUT % 72.9 %; PLATELET COUNT 231 K/uL (130-400); WHITE BLOOD COUNT 6.51 K/uL (4.8-10.8)
[2016-09-13] MEDS: INSULIN ASPART 100 UNITS/ML 3 ML PEN SC SCH ×4 (07:00→21:00)
[2016-09-13 07:08] LABS: BUN/CREATININE RATIO 14.6 (10-20); CALCIUM 8.4 mg/dl (8.5-10.1); CREATININE 1.5 mg/dl (0.60-1.40); POTASSIUM 4.1 mmol/L (3.5-5.1)
[2016-09-13 07:12] LABS: CHOLESTEROL/HDL RATIO 1.7
[2016-09-13] MEDS: LEVETIRACETAM IV 500 MG in DEXTROSE 5% 100ML 100 ML IV SCH ×2 (08:17→21:21)
[2016-09-13] MEDS: ASPIRIN 81 MG ECTAB PO SCH (08:17)
[2016-09-13] MEDS: ESCITALOPRAM OXALATE 10 MG TAB PO SCH (08:18)
[2016-09-13] MEDS: CLOPIDOGREL BISULFATE 75 MG TAB PO SCH (08:18)
[2016-09-13] MEDS: AMOXICILLIN/CLAV POTAS 600 MG/42.9MG/5 ML 75 ML PO SCH ×2 (08:31→16:20)
--- NOTE | 2016-09-13 10:31 | Clinical Documentation Query ---
CLINICAL DOCUMENTATION QUERY 85 year old male with hx of recent CVA who presents with seizure and TIA. Daily progress notes state possible pneumonia and episodes of cough while eating at home. In your clinical opinion is this patient being managed for: ( ) Possible aspiration pneumonia in setting of recent CVA, current TIA, and/or seizure. ( ) Other explanation of clinical findings (Please Explain) ( ) Unable to determine (Please Define) ( ) Need to Discuss ( ) Not Agree The medical record reflects the following clinical findings, treatment, and risk factors. Clinical Indicators: As above. Treatment: Aspiration precautions, oral care, mechanical soft diet w/ honey thick liquids, speech therapy consult, Augmentin Risk Factors: Age, CVA, Seizure, and cough with PO intake. Please clarify and document your clinical opinion in the progress notes and discharge summary. Terms such as "probable", "suspected", "likely", "questionable", "possible", or "still to be ruled out" are acceptable. IF IN AGREEMENT, YOU MUST DOCUMENT ABOVE DIAGNOSTIC STATEMENT IN DAILY PROGRESS NOTES AND DISCHARGE SUMMARY. This document is not part of the patient's record. Thank You, Kyle Barton, RUKHSANA [phone]
[2016-09-13] MEDS ORDERED: METOCLOPRAMIDE HCL INJ 5 MG/ML 2 ML VIAL IV PRN (10:45)
--- NOTE | 2016-09-13 12:50 | ECHOCARDIOGRAM REPORT ---
*NOTICE TO RECEIVING CONSTITUTION PARTY AGENCY This information is strictly Confidential and protected under [place] law. [place] law prohibits you from making any further disclosure of this information unless further disclosure is expressly permitted by the written consent of the person to whom it pertains or is authorized by law. A general authorization for the release of medical or other information is not sufficient for this purpose. Hospital accepts no responsibility if the information is made available to any other person, INCLUDING THE PATIENT. Interpretation Summary * Name: MARIS HAWK Study Date: 09/13/2016 09:00 AM BP: 160/80 mmHg * Patient Location: C.2T\S\S234\S\1 HR: 58 * : 1930 (M/d/yyyy) Gender: Male Height: 67 in * Age: 85 yrs Ethnicity: [place] Weight: 152 lb * Ordering Physician: Elmo Tejeda * Referring Physician: Self, Referred * Performed By: Marianna Santana RCS * * Reason For Study: ELEVATED TROPONIN * BSA: 1.8 m2 * -- Conclusions -- * The left ventricular cavity is small. * There is severe concentric left ventricular hypertrophy. * Ejection Fraction = 45-50%. * There is severe right ventricular hypertrophy. * The right ventricular systolic function is normal. * Grade I diastolic dysfunction, (abnormal relaxation pattern). Procedure Details * A complete two-dimensional transthoracic echocardiogram was performed (2D, M-mode, Doppler and color flow Doppler). Left Ventricle * The left ventricular cavity is small. * There is severe concentric left ventricular hypertrophy. * Ejection Fraction = 45-50%. Right Ventricle * The right ventricle is grossly normal size. * There is severe right ventricular hypertrophy. * The right ventricular systolic function is normal. Atria * The left atrial size is normal. * Right atrial size is normal. * The interatrial septum is intact with no evidence for an atrial septal defect. Mitral Valve * The mitral valve leaflets appear thickened, but open well. * Significant mitral regurgitation is absent. Tricuspid Valve * The tricuspid valve is not well visualized, but is grossly normal. * Significant tricuspid regurgitation is absent. Aortic Valve * The aortic valve is tricuspid. The leaflet thickness if normal. There is no aortic stenosis, and no significant insufficiency. * Aortic valve sclerosis mild, without significant aortic valvular stenosis. * There is no significant aortic regurgitation. Pulmonic Valve * The pulmonic valve is not well visualized. * There is no significant pulmonary regurgitation. Great Vessels * The aortic root and proximal ascending aorta are normal sized. Pericardium/Pleural * There is no pericardial effusion. Left Ventricular Diastolic Function * Grade I diastolic dysfunction, (abnormal relaxation pattern). MMode 2D Measurements and Calculations IVSd 2.0 cm IVSs 2.0 cm LVIDd 3.4 cm LVIDs 2.4 cm LVPWd 1.6 cm LVPWs 1.6 cm IVS/LVPW 1.3 FS 30.4 % EDV(Teich) 49.1 ml ESV(Teich) 20.2 ml EF(Teich) 59.0 % EDV(cubed) 41.1 ml ESV(cubed) 13.8 ml EF(cubed) 66.3 % % IVS thick -10 % % LVPW thick 1.5 % LV mass(C)d 260.2 grams LV mass(C)dI 144.6 grams/m\S\2 LV mass(C)s 170.8 grams LV mass(C)sI 94.9 grams/m\S\2 SV(Teich) 29.0 ml SI(Teich) 16.1 ml/m\S\2 SV(cubed) 27.2 ml SI(cubed) 15.1 ml/m\S\2 Ao root diam 4.4 cm Ao root area 15.5 cm\S\2 ACS 2.1 cm LA dimension 2.5 cm LA/Ao 0.56 LVOT diam 2.0 cm LVOT area 3.1 cm\S\2 LVAd ap4 26.9 cm\S\2 LVLd ap4 7.4 cm EDV(MOD-sp4) 78.7 ml EDV(sp4-el) 83.4 ml LVAs ap4 17.4 cm\S\2 LVLs ap4 6.4 cm ESV(MOD-sp4) 40.6 ml ESV(sp4-el) 40.3 ml EF(MOD-sp4) 48.3 % EF(sp4-el) 51.7 % LVAd ap2 22.4 cm\S\2 LVLd ap2 6.0 cm EDV(MOD-sp2) 70.0 ml EDV(sp2-el) 70.6 ml LVAs ap2 14.9 cm\S\2 LVLs ap2 5.1 cm ESV(MOD-sp2) 38.9 ml ESV(sp2-el) 36.8 ml EF(MOD-sp2) 44.4 % EF(sp2-el) 47.9 % LVLd %diff -22.62 % EDV(MOD-bp) 80.9 ml LVLs %diff -24.26 % ESV(MOD-bp) 44.3 ml EF(MOD-bp) 45.2 % SV(MOD-sp4) 38.0 ml SI(MOD-sp4) 21.1 ml/m\S\2 SV(MOD-sp2) 31.1 ml SI(MOD-sp2) 17.3 ml/m\S\2 SV(MOD-bp) 36.6 ml SI(MOD-bp) 20.3 ml/m\S\2 SV(sp4-el) 43.1 ml SI(sp4-el) 23.9 ml/m\S\2 SV(sp2-el) 33.8 ml SI(sp2-el) 18.8 ml/m\S\2 Doppler Measurements and Calculations MV E max florian 71.2 cm/sec MV A max florian 108.9 cm/sec MV E/A 0.65 MV P1/2t max florian 90.6 cm/sec MV P1/2t 90.5 msec MVA(P1/2t) 2.4 cm\S\2 MV dec slope 293.4 cm/sec\S\2 MV dec time 0.44 sec Ao V2 max 123.3 cm/sec Ao max PG 6.1 mmHg Ao max PG (full) 2.1 mmHg CHRISTINE(V,A) 2.5 cm\S\2 CHRISTINE(V,D) 2.5 cm\S\2 LV V1 max PG 3.9 mmHg LV V1 max 99.2 cm/sec MR max florian 542.7 cm/sec MR max PG 117.8 mmHg PA V2 max 89.5 cm/sec PA max PG 3.2 mmHg
--- NOTE | 2016-09-13 13:19 | ELECTROENCEPHALOGRAPH REPORT ---
CLINICAL DIAGNOSIS: Acute right hemisphere cerebrovascular accident with seizure at presentation. REQUESTING: Dr. Mclean. ELECTROENCEPHALOGRAM DIAGNOSIS: Mildly diffusely abnormal EEG during wakefulness. DESCRIPTION OF TRACING: This EEG was done as a bedside recording with a simultaneous video analysis of patient movement and behavior. No stimulation in the form of photic stimulation or hyperventilation was performed and drowsiness appears to occur towards the end of the recording. Under these conditions, there is evidence for a background rhythm in the alpha range of 9 Hz of maximum frequency and often shifts into the theta range of about 8 Hz. This is maximum posterior head regions and bilaterally symmetrical. Polymorphic mid frequency to slightly lower frequency theta activity is seen over all head regions. From time to time, there appears to be an excess amount of theta activity over the T5 electrode, but after checking various montages this appears to be electrode artifact but does occur intermittently. Otherwise, there is no significant focal slow wave activity, rhythmic discharges, spike wave activity or other potentially epileptogenic discharges. Beta activity is difficult to see in the frontal leads. As the tracing progresses the rhythm shifts into slightly slower frequencies but sustained periods of sleep were not seen. INTERPRETATION: This EEG reveals evidence for at most a mild nonspecific generalized abnormalities consisting of a poorly sustained background alpha rhythm and slightly excessive amounts of theta activity. Despite the presence of an underlying right middle cerebral artery infarction there is no focal slowing over the right hemisphere nor is there evidence for potentially epileptogenic activity despite the history of seizure at presentation. The absence of such activity; however, does not exclude the diagnosis of a seizure disorder.
--- NOTE | 2016-09-13 14:26 | Neurology Progress Notes ---
Neurology Progress Note Date of Service Sep 13, 2016. Aung Greco is a 85 year old male with PMH CVA, history of SDH, HTN, hypothyroidism, ( chronic anemia, baseline hemoglobin 13), BPH, chronic renal insufficiency ( baseline creatinine 1.6), PVD as per records, history of MRSA as per records.hypothyroidism He had a hospitalization in 2016 for Left-sided weakness. He was on aspirin and plavix at that time and the aspirin was increased to 162 mg daily. He reportedly had a flash of light in the left eye, left sided weakness, facial drooping, slurred speech. His blood pressure on this admission in ED was 220s. there was a witnessed seizure in the ED and patient was started on Keppra. Today is alert and more conversive, denies pain, CP, SOB, abdominal pain, N, V, headache Objective Date Time Temp Pulse Resp B/P Pulse Ox O2 Delivery O2 Flow Rate FiO2 09/13/16 12:36 36.6 62 20 157/85 95 Room Air 09/13/16 12:10 95 Room Air 09/13/16 10:40 60 96 09/13/16 08:00 99 Nasal Cannula 2.0 09/13/16 07:42 36.8 51 18 160/80 99 2.0 09/13/16 04:03 36.6 58 20 158/82 98 Nasal Cannula 2.0 09/13/16 04:00 Nasal Cannula 2.0 09/13/16 00:12 36.6 56 18 159/78 98 Nasal Cannula 2.0 09/13/16 00:00 Nasal Cannula 2.0 09/12/16 20:37 36.6 62 20 154/73 93 Room Air 09/12/16 16:00 Nasal Cannula 2.0 09/12/16 15:22 36.8 60 20 161/76 98 Nasal Cannula 2.0 Last 24 Hours Test 09/12/16 16:09 09/12/16 20:08 09/13/16 05:40 09/13/16 06:36 Bedside Glucose 95 mg/dl 111 mg/dl 94 mg/dl White Blood Count 6.51 K/uL Red Blood Count 4.00 M/uL Hemoglobin 12.0 g/dL Hematocrit 36.8 % Mean Corpuscular Volume 92.0 fL Mean Corpuscular Hemoglobin 30.0 pg Mean Corpuscular Hemoglobin Concent 32.6 g/dl Platelet Count 231 K/uL Mean Platelet Volume 10.0 fL Neutrophils (%) (Auto) 72.9 % Lymphocytes (%) (Auto) 11.2 % Monocytes (%) (Auto) 8.3 % Eosinophils (%) (Auto) 6.3 % Basophils (%) (Auto) 1.1 % Neutrophils # (Auto) 4.75 K/uL Lymphocytes # (Auto) 0.73 K/uL Monocytes # (Auto) 0.54 K/uL Eosinophils # (Auto) 0.41 K/uL Basophils # (Auto) 0.07 K/uL RDW Standard Deviation 51.1 fL RDW Coefficient of Variation 15.0 % Immature Granulocyte % (Auto) 0.2 % Immature Granulocyte # (Auto) 0.01 K/uL Sodium Level 139 mmol/L Potassium Level 4.1 mmol/L Chloride Level 106 mmol/L Carbon Dioxide Level 28 mmol/L Anion Gap 5.0 mmol/L Blood Urea Nitrogen 22 mg/dl Creatinine 1.50 mg/dl Est Creatinine Clear Calc Drug Dose 34.9 ml/min Estimated GFR () 49.2 Estimated GFR (Non- 42.4 BUN/Creatinine Ratio 14.6 Random Glucose 101 mg/dl Calcium Level 8.4 mg/dl Triglycerides Level 54 mg/dl Cholesterol Level 118 mg/dl HDL Cholesterol 70 mg/dl LDL Cholesterol, Calculated 37 mg/dl VLDL Cholesterol, Calculated 11 mg/dl Cholesterol/HDL Ratio 1.7 Test 09/13/16 11:07 Bedside Glucose 94 mg/dl Imaging: EEG reveals evidence for at most a mild nonspecific generalized abnormalities consisting of a poorly sustained background alpha rhythm and slightly excessive amounts of theta activity. Despite the presence of an underlying right middle cerebral artery infarction there is no focal slowing over the right hemisphere nor is there evidence for potentially epileptogenic activity despite the history of seizure at presentation. The absence of such activity; however, does not exclude the diagnosis of a seizure disorder. TTE- The left ventricular cavity is small. * There is severe concentric left ventricular hypertrophy. * Ejection Fraction = 45-50%. * There is severe right ventricular hypertrophy. * The right ventricular systolic function is normal. * Grade I diastolic dysfunction, (abnormal relaxation pattern). NO ASD Exam: Physical Exam: Constitutional: appearance nourished, thin frail Ears, Nose, Mouth and Throat: mucous membranes moist, no injection and skin normal, eyes normal Cardiovascular: normal S-1 and S-2 and regular rate and rhythm Respiratory: clear to auscultation (CTA) and no rales, rhonchi or wheeze Musculoskeletal: no peripheral edema and good distal pulses Skin: no stigmata of neurocutaneous disease noted and normal and intact Eyes: extraocular muscles intact (EOMI) and pupils equal, round and reactive to light (PERRL), miotic, field cut to left hemianopsia NEUROLOGIC EXAMINATION: Mental status: Alert and interactive Oriented hospital but states is in the [facility] Oriented to person Speech fluent with no evidence of aphasia Cranial Nerves smile and eye brow raise symmetric tongue midline Reflexes: Deep tendon reflexes were symmetrical and graded 2/5. Plantar responses were flexor. 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 ACHS SC 09/12/16 07:00 10/12/16 06:59 Glucose (Glucose 40% Gel) 15-30 GRAMS 15 GRAMS... UD PRN PO 09/12/16 00:30 10/12/16 00:29 Glucose (Glucose Chew Tab) 4-8 Tablets 4 Tabl... UD PRN PO 09/12/16 00:30 10/12/16 00:29 Dextrose (Dextrose 50% 50ML Syringe) 25-50ML OF 50% DW IV FOR... UD PRN IV 09/12/16 00:30 10/12/16 00:29 Glucagon 1 mg 1 mg UD PRN SQ 09/12/16 00:30 10/12/16 00:29 Lorazepam 1 mg/ Syringe 1 ml @ 0.5 mls/min Q5M PRN IV 09/12/16 00:30 10/12/16 00:29 Levetiracetam/ Dextrose (Keppra Iv/D5 100ml) 105 ml @ 420 mls/hr Q12H IV 09/12/16 09:00 10/12/16 08:59 09/13/16 08:17 420 MLS/HR Aspirin (Ecotrin Tab) 162 mg QAM PO 09/12/16 09:00 10/12/16 08:59 09/13/16 08:17 162 MG Atorvastatin Calcium (Lipitor Tab) 20 mg QPM PO 09/12/16 21:00 10/12/16 20:59 09/12/16 20:05 20 MG Clopidogrel Bisulfate (plAVix TAB) 75 mg QAM PO 09/12/16 09:00 10/12/16 08:59 09/13/16 08:18 75 MG Escitalopram Oxalate (Lexapro Tab) 10 mg QAM PO 09/12/16 09:00 10/12/16 08:59 09/13/16 08:18 10 MG Pantoprazole Sodium (Protonix Tab) 40 mg QPM PO 09/12/16 21:00 10/12/16 20:59 09/12/16 20:05 40 MG Tamsulosin HCl (Flomax Cap) 0.4 mg QPM PO 09/12/16 21:00 10/12/16 20:59 09/12/16 20:05 0.4 MG Clonidine HCl (Catapres Tab) 0.1 mg Q6H PRN PO 09/12/16 09:45 10/12/16 09:44 Amoxicillin/ Clavulanate Potassium (Augmentin Es 600 Mg/42.9mg 5 ml Susp) 875 mg BIDM PO 09/12/16 11:30 09/19/16 11:29 09/13/16 08:31 875 MG Metoclopramide HCl (Reglan Inj) 10 mg Q6H PRN IV 09/13/16 10:45 10/13/16 10:44 Impression 85 year old male with left sided weakness and witnessed seizure in ED Plan 1. seizure was loaded with 1 g Keppra and started on Keppra 500 mg q 12 hours 2. PT/OT, speech therapy 3. continue aspirin 162 mg and plavix 75 mg daily 4. 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 EEG read no epileptic spikes 6. permissive hypertension consider patients age 7. likely seizure event no evidence of new stroke. Hypo perfusion due to occluded CHRISTINA but blood pressure was high in ED 8. will need outpatient monitoring with ZIO patch for possible hypo perfusion due to occlusion of CHRISTINA 9. discharge to home with home PT follow with neurology 3-4 weeks Darling Ashraf PAC schedule I have seen and discussed above patient with Dr Darling Longoria, neurology PT seen and examined, feels he has residual mild L weakness worse than after his stroke. Witnessed sz in ER, but weakness complaint preceded. Given no new infarct and subsequent sz suspect unwitnessed sz prior to increased weakness. The pt could have hypoperfused at at home given his visual complaints, rec monitoring. Pt will need to see us in follow-up post dc. Will sign off, BOOGIE Longoria MD
--- NOTE | 2016-09-13 18:46 | Progress Note ---
Medicine Progress Note Date & Time of Visit: Sep 13, 2016 at 18:42. Subjective patient seen resting in bed, comfortable states he feels fine overall no new weakness/numbness or focal neuro deficit denies chest pain, dyspnea no other symptoms Objective Last 8 Hrs Date Time Temp Pulse Resp B/P Pulse Ox O2 Delivery O2 Flow Rate FiO2 09/13/16 16:00 99 Room Air 09/13/16 15:24 36.5 62 20 163/87 97 Room Air 09/13/16 12:36 36.6 62 20 157/85 95 Room Air 09/13/16 12:10 95 Room Air 09/13/16 12:00 99 Room Air Physical Exam: General- oriented x 3, not in distress, speaks in sentences Eyes- anicteric Neck- no JVD, no adenopathy Lungs- clear to auscultation bilaterally, no rales/wheeze Heart- normal rate, regular rhythm; no murmurs Abdomen- normal bowel sounds, soft, nontender Extremities- no pretibial edema, no calf tenderness; peripheral pulses intact Neuro- alert, oriented x 3; no gross deficits Skin- warm & dry Laboratory Results: Last 24 Hours Test 09/12/16 20:08 09/13/16 05:40 09/13/16 06:36 09/13/16 11:07 Bedside Glucose 111 mg/dl 94 mg/dl 94 mg/dl White Blood Count 6.51 K/uL Red Blood Count 4.00 M/uL Hemoglobin 12.0 g/dL Hematocrit 36.8 % Mean Corpuscular Volume 92.0 fL Mean Corpuscular Hemoglobin 30.0 pg Mean Corpuscular Hemoglobin Concent 32.6 g/dl Platelet Count 231 K/uL Mean Platelet Volume 10.0 fL Neutrophils (%) (Auto) 72.9 % Lymphocytes (%) (Auto) 11.2 % Monocytes (%) (Auto) 8.3 % Eosinophils (%) (Auto) 6.3 % Basophils (%) (Auto) 1.1 % Neutrophils # (Auto) 4.75 K/uL Lymphocytes # (Auto) 0.73 K/uL Monocytes # (Auto) 0.54 K/uL Eosinophils # (Auto) 0.41 K/uL Basophils # (Auto) 0.07 K/uL RDW Standard Deviation 51.1 fL RDW Coefficient of Variation 15.0 % Immature Granulocyte % (Auto) 0.2 % Immature Granulocyte # (Auto) 0.01 K/uL Sodium Level 139 mmol/L Potassium Level 4.1 mmol/L Chloride Level 106 mmol/L Carbon Dioxide Level 28 mmol/L Anion Gap 5.0 mmol/L Blood Urea Nitrogen 22 mg/dl Creatinine 1.50 mg/dl Est Creatinine Clear Calc Drug Dose 34.9 ml/min Estimated GFR () 49.2 Estimated GFR (Non- 42.4 BUN/Creatinine Ratio 14.6 Random Glucose 101 mg/dl Calcium Level 8.4 mg/dl Triglycerides Level 54 mg/dl Cholesterol Level 118 mg/dl HDL Cholesterol 70 mg/dl LDL Cholesterol, Calculated 37 mg/dl VLDL Cholesterol, Calculated 11 mg/dl Cholesterol/HDL Ratio 1.7 Test 09/13/16 16:11 Bedside Glucose 95 mg/dl Assessment & Plan 85 year old male with history of CVA, Subdural hematoma secondary to Fall, HTN, CKD 3, Hypothyroidism, BPH, PVD, presenting with left sided weakness. LEFT SIDED WEAKNESS, RESOLVED, POSSIBLE TIA HISTORY OF R MCA CVA, R ICA OCCLUSION - Brain MRI: IMPRESSION: No significant change compared to the prior study. No acute intracranial abnormality. Old infarcts as described above. Head MRA: IMPRESSION: 1. Complete occlusion right internal carotid artery. 2. This is unchanged from the prior study of 02/19/2016. 3. Moderate atherosclerotic change left carotid bifurcation and left internal carotid artery with no evidence for a high-grade stenosis. A 40-50% narrowing may be present. - symptoms resolved - already on Aspirin, Plavix, Atorvastatin management of Hypertension as noted below appreciate Neuro consult HYPERTENSIVE EMERGENCY, RESOLVED - Nicardipine drip discontinue - BP 150s-170s - maintain BP on the higher for adequate cerebral perfusion PRN Hydralazine for systolic BP > 180 - may need to be started on regular BP medication in the future CHF, SYSTOLIC AND DIASTOLIC, NEW - no signs of overt volume overload - will consult Cardiology NEW ONSET GENERALIZED TONIC CLONIC SEIZURES - in the setting of above - Keppra 500mg BID started EEG noted POSSIBLE BILATERAL LOWER LOBE PNEUMONIA, secondary to Aspiration Pneumonia in the setting of recent CVA, current TIA, and Seizure - patient reports episodes of coughing while eating at home has noted cough recently, occasionally productive - Day 2 Augmentin BID x 5 days at least - Speech Therapy eval noted HYPOTHYROIDISM - TSH 131, t4 0.48 - adherent with medications per patient - increase Lthyroxine from 100 to 125mcg daily repeat Thyroid Function Tests in 3-4 weeks HISTORY OF SUBDURAL HEMATOMA CKD 3 at baseline crea 1.6 usually BPH no urinary symptoms DVT Prophylaxis Heparin Disposition pending lives at home with , requires walker with ambulation PT/OT Current Inpatient Medications: Current Inpatient Medications Medications (Trade) Dose Ordered Sig/Octavia Route Start Time Stop Time Status Last Admin Dose Admin Gadobutrol (Gadavist) 7 mmol UD PRN IV 09/11/16 23:15 09/15/16 23:14 Heparin Sodium (Porcine) (Heparin Sq 5000 Unit/0.5ml) 5,000 unit Q8 SQ 09/12/16 06:00 10/12/16 05:59 09/13/16 16:21 5,000 UNIT Acetaminophen (Tylenol Tab) 650 mg Q4H PRN PO 09/12/16 00:30 10/12/16 00:29 Nitroglycerin (Nitrostat Tab) 0.4 mg UD PRN SL 09/12/16 00:30 10/12/16 00:29 Insulin Aspart (novoLOG ASPART) SLIDING SCALE If C... ACHS SC 09/12/16 07:00 10/12/16 06:59 Glucose (Glucose 40% Gel) 15-30 GRAMS 15 GRAMS... UD PRN PO 09/12/16 00:30 10/12/16 00:29 Glucose (Glucose Chew Tab) 4-8 Tablets 4 Tabl... UD PRN PO 09/12/16 00:30 10/12/16 00:29 Dextrose (Dextrose 50% 50ML Syringe) 25-50ML OF 50% DW IV FOR... UD PRN IV 09/12/16 00:30 10/12/16 00:29 Glucagon 1 mg 1 mg UD PRN SQ 09/12/16 00:30 10/12/16 00:29 Lorazepam 1 mg/ Syringe 1 ml @ 0.5 mls/min Q5M PRN IV 09/12/16 00:30 10/12/16 00:29 Levetiracetam/ Dextrose (Keppra Iv/D5 100ml) 105 ml @ 420 mls/hr Q12H IV 09/12/16 09:00 10/12/16 08:59 09/13/16 08:17 420 MLS/HR Aspirin (Ecotrin Tab) 162 mg QAM PO 09/12/16 09:00 10/12/16 08:59 09/13/16 08:17 162 MG Atorvastatin Calcium (Lipitor Tab) 20 mg QPM PO 09/12/16 21:00 10/12/16 20:59 09/12/16 20:05 20 MG Clopidogrel Bisulfate (plAVix TAB) 75 mg QAM PO 09/12/16 09:00 10/12/16 08:59 09/13/16 08:18 75 MG Escitalopram Oxalate (Lexapro Tab) 10 mg QAM PO 09/12/16 09:00 10/12/16 08:59 09/13/16 08:18 10 MG Pantoprazole Sodium (Protonix Tab) 40 mg QPM PO 09/12/16 21:00 10/12/16 20:59 09/12/16 20:05 40 MG Tamsulosin HCl (Flomax Cap) 0.4 mg QPM PO 09/12/16 21:00 10/12/16 20:59 09/12/16 20:05 0.4 MG Clonidine HCl (Catapres Tab) 0.1 mg Q6H PRN PO 09/12/16 09:45 10/12/16 09:44 Amoxicillin/ Clavulanate Potassium (Augmentin Es 600 Mg/42.9mg 5 ml Susp) 875 mg BIDM PO 09/12/16 11:30 09/19/16 11:29 09/13/16 16:20 875 MG Metoclopramide HCl (Reglan Inj) 10 mg Q6H PRN IV 09/13/16 10:45 10/13/16 10:44
[2016-09-13] MEDS: ATORVASTATIN 20 MG TAB PO SCH (21:22)
[2016-09-13] MEDS: PANTOprazole SOD 40 MG TAB PO SCH (21:22)
[2016-09-13] MEDS: TAMSULOSIN HCL 0.4 MG CAP PO SCH (21:22)
[2016-09-14] VITALS (7 sets, daily range): BP systolic 121–204; BP diastolic 72–95; PULSE 59–65; TEMP 36.5–37; O2SAT 91–98
[2016-09-14] MEDS: HEPARIN SOD 5000 UNIT/0.5 ML CARP SQ SCH ×4 (05:57→22:17)
[2016-09-14] MEDS: LEVOTHYROXINE 125 MCG TAB PO SCH (05:58)
[2016-09-14 06:35] LABS: BASO ABS # 0.07 K/uL (0-0.2); COMPLETE YES; EOS % 9.1 %; HEMATOCRIT 38.8 % (42-52); IG% 0.1 %; LYMPH % 13.8 %; LYMPH ABS # 0.93 K/uL (1.2-3.4); MEAN CELL VOLUME 90.2 fL (80-100); MEAN CORPUSCULAR HEMOGLOBIN 30.2 pg (25-34); MEAN CORPUSCULAR HGB CONC 33.5 g/dl (32-36); MEAN PLATELET VOLUME 9.8 fL (7.4-10.4); MONO % 10.1 %; NEUT % 65.9 %; PLATELET COUNT 250 K/uL (130-400); WHITE BLOOD COUNT 6.73 K/uL (4.8-10.8)
[2016-09-14] MEDS: INSULIN ASPART 100 UNITS/ML 3 ML PEN SC SCH ×3 (07:00→16:15)
[2016-09-14] MEDS: CLOPIDOGREL BISULFATE 75 MG TAB PO SCH (09:23)
[2016-09-14] MEDS: LEVETIRACETAM IV 500 MG in DEXTROSE 5% 100ML 100 ML IV SCH ×2 (09:23→20:11)
[2016-09-14] MEDS: AMOXICILLIN/CLAV POTAS 600 MG/42.9MG/5 ML 75 ML PO SCH ×2 (09:23→17:46)
[2016-09-14] MEDS: ESCITALOPRAM OXALATE 10 MG TAB PO SCH (09:23)
[2016-09-14] MEDS: ASPIRIN 81 MG ECTAB PO SCH (09:24)
--- NOTE | 2016-09-14 12:18 | CARDIOLOGY CONSULTATION ---
DATE OF CONSULTATION: 09/14/2016 CONSULTATION FOR: [facility] p[facility]. REASON FOR CONSULTATION: Heart failure. HISTORY OF PRESENT ILLNESS: The patient is an 85-year-old who was admitted with a TIA and seizures. The patient has known cerebrovascular disease and a previous subdural hematoma. On the day of admission, he told his he was having transient flashes in his left eye and then developed left-sided weakness. He was brought to the Emergency Department where he had a generalized tonic clonic seizure. He was also noted to be markedly hypertensive, which has improved after admission. He has been seen by neurology term managing his seizures. Our last contact with this patient was in 2012 whenever we cleared him for an orthopedic procedure. Despite having cerebrovascular disease including severe carotid artery disease, the patient has no significant past cardiac history. No history of congestive heart failure or ischemic heart disease. I have reviewed the patient's chest x-ray on admission and it shows no significant evidence of congestive heart failure. The patient's cardiac troponins are modestly elevated and are not related to acute coronary syndrome. ALLERGIES: SULFA ANTIBIOTICS, CLINDAMYCIN AND VANCOMYCIN. PAST MEDICAL HISTORY: As outlined above, the patient has a significant cerebrovascular disease including severe carotid artery disease and a previous subdural hematoma. He is treated for hypothyroidism, hypertension, chronic renal insufficiency, and benign prostatic hypertrophy. SOCIAL HISTORY: He is a lifelong nonsmoker. He is and lives with his family. FAMILY MEDICAL HISTORY: Noncontributory. REVIEW OF SYSTEMS: A 10-point review of systems is negative except for the history of chief complaint. PHYSICAL EXAMINATION: GENERAL: The patient was comfortably sitting in a chair. VITAL SIGNS: Blood pressure is 120/70, pulse is regular at 60. He is afebrile. HEENT: He is normocephalic. Pupils are equal and reactive to light. Extraocular muscles are intact bilaterally. NECK: The neck veins are flat. Carotids have good upstrokes bilaterally without bruits. Thyroid is nonpalpable. RESPIRATORY: Breath sounds equal bilaterally and clear to auscultation. CARDIOVASCULAR: Heart has a regular rhythm. Normal S1, S2. No S3, S4. No cardiac rubs or murmurs. GASTROINTESTINAL: Abdomen is soft, nontender without organomegaly. EXTREMITIES: Free of edema, digit clubbing, or cyanosis. NEUROLOGIC: Grossly intact. SKIN: Warm to touch. LYMPH NODES: Negative to palpation. LABORATORY AND IMAGING DATA: Creatinine is 1.5, potassium is 4.4; hemoglobin is 13.0. He is currently in sinus rhythm on telemetry. Echocardiogram this admission suggests hypertrophic cardiomyopathy without an outflow track obstruction, most likely due to hypertension and hypertensive heart disease. His estimated left ventricular ejection fraction is mildly reduced at around 45-50%. There is evidence of diastolic dysfunction. IMPRESSION: 1. Acute cerebrovascular accident in an elderly gentleman with severe cerebrovascular disease. 2. Seizure disorder. 3. Doubt acute heart failure despite the echocardiogram findings of mildly reduced systolic function and a hypertrophic cardiomyopathy. RECOMMENDATIONS: I think conservative management is indicated at this time and the patient should be treated for his acute CVA and seizures. I would also as you have done, manage his hypertension.
--- NOTE | 2016-09-14 12:56 | Neurology Progress Notes ---
Neurology Progress Note Date of Service Sep 14, 2016. Aung Greco is a 85 year old male with PMH CVA, history of SDH, HTN, hypothyroidism, ( chronic anemia, baseline hemoglobin 13), BPH, chronic renal insufficiency ( baseline creatinine 1.6), PVD as per records, history of MRSA as per records.hypothyroidism He had a hospitalization in 2016 for Left-sided weakness. He was on aspirin and plavix at that time and the aspirin was increased to 162 mg daily. He reportedly had a flash of light in the left eye, left sided weakness, facial drooping, slurred speech. His blood pressure on this admission in ED was 220s. there was a witnessed seizure in the ED and patient was started on Keppra. He is currently sitting bedside eating his dinner and hoping to go home soon. denies CP, SOB, abdominal pain, new one sided weakness, numbness tingling, N, V. Objective Date Time Temp Pulse Resp B/P Pulse Ox O2 Delivery O2 Flow Rate FiO2 09/14/16 12:00 Room Air 09/14/16 10:55 36.7 61 18 121/72 96 Room Air 09/14/16 08:00 Room Air 09/14/16 07:28 37.0 63 18 174/85 96 Room Air 09/14/16 04:00 Room Air 09/14/16 03:27 36.5 61 17 161/83 98 Room Air 09/14/16 00:01 97 Room Air 09/13/16 23:41 36.8 57 16 164/87 97 Room Air 09/13/16 20:06 36.7 66 20 171/79 96 Room Air 09/13/16 20:00 Room Air 09/13/16 16:00 99 Room Air 09/13/16 15:24 36.5 62 20 163/87 97 Room Air Last 24 Hours Test 09/13/16 16:11 09/13/16 20:46 09/14/16 06:06 09/14/16 06:59 Bedside Glucose 95 mg/dl 87 mg/dl 90 mg/dl White Blood Count 6.73 K/uL Red Blood Count 4.30 M/uL Hemoglobin 13.0 g/dL Hematocrit 38.8 % Mean Corpuscular Volume 90.2 fL Mean Corpuscular Hemoglobin 30.2 pg Mean Corpuscular Hemoglobin Concent 33.5 g/dl Platelet Count 250 K/uL Mean Platelet Volume 9.8 fL Neutrophils (%) (Auto) 65.9 % Lymphocytes (%) (Auto) 13.8 % Monocytes (%) (Auto) 10.1 % Eosinophils (%) (Auto) 9.1 % Basophils (%) (Auto) 1.0 % Neutrophils # (Auto) 4.43 K/uL Lymphocytes # (Auto) 0.93 K/uL Monocytes # (Auto) 0.68 K/uL Eosinophils # (Auto) 0.61 K/uL Basophils # (Auto) 0.07 K/uL RDW Standard Deviation 48.4 fL RDW Coefficient of Variation 14.7 % Immature Granulocyte % (Auto) 0.1 % Immature Granulocyte # (Auto) 0.01 K/uL Test 09/14/16 11:12 Bedside Glucose 99 mg/dl Imaging: no new imaging Exam: Physical Exam: Constitutional: appearance nourished, healthy and normal Ears, Nose, Mouth and Throat: mucous membranes moist, no injection and skin normal, eyes normal Cardiovascular: normal S-1 and S-2 and regular rate and rhythm Respiratory: clear to auscultation (CTA) and no rales, ronchi or wheeze Musculoskeletal: no peripheral edema and good distal pulses Skin: no stigmata of neurocutaneous disease noted and normal and intact Eyes: extraocular muscles intact (EOMI) and pupils equal, round and reactive to light (PERRL), left hemianopsia (previous stroke) NEUROLOGIC EXAMINATION: Mental status: Alert and interactive Oriented he thinks he is in the [facility] Oriented to person Speech fluent with no evidence of aphasia Cranial Nerves slight left sided nasolabial flattening Coordination: right sided finger to nose left bi pass due to field cut Gait/Stance: Posture sitting up in bed 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 ACHS SC 09/12/16 07:00 10/12/16 06:59 Glucose (Glucose 40% Gel) 15-30 GRAMS 15 GRAMS... UD PRN PO 09/12/16 00:30 10/12/16 00:29 Glucose (Glucose Chew Tab) 4-8 Tablets 4 Tabl... UD PRN PO 09/12/16 00:30 10/12/16 00:29 Dextrose (Dextrose 50% 50ML Syringe) 25-50ML OF 50% DW IV FOR... UD PRN IV 09/12/16 00:30 10/12/16 00:29 Glucagon 1 mg 1 mg UD PRN SQ 09/12/16 00:30 10/12/16 00:29 Lorazepam 1 mg/ Syringe 1 ml @ 0.5 mls/min Q5M PRN IV 09/12/16 00:30 10/12/16 00:29 Levetiracetam/ Dextrose (Keppra Iv/D5 100ml) 105 ml @ 420 mls/hr Q12H IV 09/12/16 09:00 10/12/16 08:59 09/14/16 09:23 420 MLS/HR Aspirin (Ecotrin Tab) 162 mg QAM PO 09/12/16 09:00 10/12/16 08:59 09/14/16 09:24 162 MG Atorvastatin Calcium (Lipitor Tab) 20 mg QPM PO 09/12/16 21:00 10/12/16 20:59 09/13/16 21:22 20 MG Clopidogrel Bisulfate (plAVix TAB) 75 mg QAM PO 09/12/16 09:00 10/12/16 08:59 09/14/16 09:23 75 MG Escitalopram Oxalate (Lexapro Tab) 10 mg QAM PO 09/12/16 09:00 10/12/16 08:59 09/14/16 09:23 10 MG Pantoprazole Sodium (Protonix Tab) 40 mg QPM PO 09/12/16 21:00 10/12/16 20:59 09/13/16 21:22 40 MG Tamsulosin HCl (Flomax Cap) 0.4 mg QPM PO 09/12/16 21:00 10/12/16 20:59 09/13/16 21:22 0.4 MG Clonidine HCl (Catapres Tab) 0.1 mg Q6H PRN PO 09/12/16 09:45 10/12/16 09:44 Amoxicillin/ Clavulanate Potassium (Augmentin Es 600 Mg/42.9mg 5 ml Susp) 875 mg BIDM PO 09/12/16 11:30 09/19/16 11:29 09/14/16 09:23 875 MG Metoclopramide HCl (Reglan Inj) 10 mg Q6H PRN IV 09/13/16 10:45 10/13/16 10:44 Levothyroxine Sodium (Synthroid Tab) 125 mcg DAILYBB PO 09/14/16 06:00 10/14/16 05:59 09/14/16 05:58 125 MCG Impression 85 year old male with left sided weakness and witnessed seizure in ED Plan 1. seizure was loaded with 1 g Keppra and started on Keppra 500 mg q 12 hours may need to increase at some point but currently has not had any additional seizure- he does not drive but should have safety information and first aid information for home use 2. PT/OT, speech therapy 3. continue aspirin 162 mg and Plavix 75 mg daily may need to continue dual therapy for life time 4. 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 EEG read no epileptic spikes 6. optimize blood pressure but no tight control due to age 7. likely seizure event no evidence of new stroke. Hypo perfusion due to occluded CHRISTINA but blood pressure was high in ED 8. will need outpatient monitoring with ZIO patch for possible hypo perfusion due to occlusion of CHRISTINA 9. discharge to home with home PT 10. will sign off for now call with questions concerns follow with neurology 3-4 weeks Darling Ashraf PAC schedule I have discussed above patient with Dr Aashish Gray, neurology Reviewed and patient examined minor left sided weakness at most and he feels this is baseline for him agree event could have been post cva seizure but also could have been a focal hypoperfusion issue due to collateral failure in light of total ica occlusion on right and dependency on cross filling from left carotid and posterior circulation will be on keppra 500 bid and asa and follow up with Darling vega and Darling Longoria MD assuming discharge today or tomorrow Aashish Gray MD
--- NOTE | 2016-09-14 18:27 | Progress Note ---
Medicine Progress Note Date & Time of Visit: Sep 14, 2016 at 18:26. Subjective delayed entry date of service as noted above resting in bed, comfortable denies new weakness or numbness no chest pain,dyspnea, dizziness no other symptoms Objective Last 8 Hrs Date Time Temp Pulse Resp B/P Pulse Ox O2 Delivery O2 Flow Rate FiO2 09/14/16 16:00 Room Air 09/14/16 15:53 37.0 59 20 156/80 94 Room Air 09/14/16 12:00 Room Air 09/14/16 10:55 36.7 61 18 121/72 96 Room Air Physical Exam: General- oriented x 3, not in distress Eyes- anicteric Neck- no JVD Lungs- clear to auscultation bilaterally, no rales/wheeze Heart- normal rate, regular rhythm; no murmurs Abdomen- normal bowel sounds, soft, nontender Extremities- no pretibial edema, no calf tenderness Neuro- alert, oriented x 3; no gross deficits Skin- warm & dry Laboratory Results: Last 24 Hours Test 09/13/16 20:46 09/14/16 06:06 09/14/16 06:59 09/14/16 11:12 Bedside Glucose 87 mg/dl 90 mg/dl 99 mg/dl White Blood Count 6.73 K/uL Red Blood Count 4.30 M/uL Hemoglobin 13.0 g/dL Hematocrit 38.8 % Mean Corpuscular Volume 90.2 fL Mean Corpuscular Hemoglobin 30.2 pg Mean Corpuscular Hemoglobin Concent 33.5 g/dl Platelet Count 250 K/uL Mean Platelet Volume 9.8 fL Neutrophils (%) (Auto) 65.9 % Lymphocytes (%) (Auto) 13.8 % Monocytes (%) (Auto) 10.1 % Eosinophils (%) (Auto) 9.1 % Basophils (%) (Auto) 1.0 % Neutrophils # (Auto) 4.43 K/uL Lymphocytes # (Auto) 0.93 K/uL Monocytes # (Auto) 0.68 K/uL Eosinophils # (Auto) 0.61 K/uL Basophils # (Auto) 0.07 K/uL RDW Standard Deviation 48.4 fL RDW Coefficient of Variation 14.7 % Immature Granulocyte % (Auto) 0.1 % Immature Granulocyte # (Auto) 0.01 K/uL Test 09/14/16 16:10 Bedside Glucose 92 mg/dl Assessment & Plan 85 year old male with history of CVA, Subdural hematoma secondary to Fall, HTN, CKD 3, Hypothyroidism, BPH, PVD, presenting with left sided weakness. LEFT SIDED WEAKNESS, RESOLVED, POSSIBLE TIA HISTORY OF R MCA CVA, R ICA OCCLUSION - Brain MRI: IMPRESSION: No significant change compared to the prior study. No acute intracranial abnormality. Old infarcts as described above. Head MRA: IMPRESSION: 1. Complete occlusion right internal carotid artery. 2. This is unchanged from the prior study of 02/19/2016. 3. Moderate atherosclerotic change left carotid bifurcation and left internal carotid artery with no evidence for a high-grade stenosis. A 40-50% narrowing may be present. - symptoms resolved - already on Aspirin, Plavix, Atorvastatin management of Hypertension as noted below appreciate Neuro consult - repeat PT eval to determine need for Rehab/SNF HYPERTENSIVE EMERGENCY, RESOLVED - Nicardipine drip discontinue - BP 150s-170s - maintain BP on the higher for adequate cerebral perfusion PRN Hydralazine for systolic BP > 180 - monitor CHF, SYSTOLIC AND DIASTOLIC, NEW - no signs of overt volume overload - Cardiology consulted: no further interventions at this time NEW ONSET GENERALIZED TONIC CLONIC SEIZURES - in the setting of above - Keppra 500mg BID started EEG noted POSSIBLE BILATERAL LOWER LOBE PNEUMONIA, secondary to Aspiration Pneumonia in the setting of recent CVA, current TIA, and Seizure - patient reports episodes of coughing while eating at home has noted cough recently, occasionally productive - Day 3 Augmentin BID x 5 days at least - Speech Therapy eval noted HYPOTHYROIDISM - TSH 131, t4 0.48 - adherent with medications per patient - increased Lthyroxine from 100 to 125mcg daily repeat Thyroid Function Tests in 3-4 weeks HISTORY OF SUBDURAL HEMATOMA CKD 3 at baseline crea 1.6 usually BPH no urinary symptoms DVT Prophylaxis Heparin Disposition pending lives at home with , requires walker with ambulation PT/OT Current Inpatient Medications: Current Inpatient Medications Medications (Trade) Dose Ordered Sig/Octavia Route Start Time Stop Time Status Last Admin Dose Admin Gadobutrol (Gadavist) 7 mmol UD PRN IV 09/11/16 23:15 09/15/16 23:14 Heparin Sodium (Porcine) (Heparin Sq 5000 Unit/0.5ml) 5,000 unit Q8 SQ 09/12/16 06:00 10/12/16 05:59 09/14/16 05:57 5,000 UNIT Acetaminophen (Tylenol Tab) 650 mg Q4H PRN PO 09/12/16 00:30 10/12/16 00:29 Nitroglycerin (Nitrostat Tab) 0.4 mg UD PRN SL 09/12/16 00:30 10/12/16 00:29 Glucose (Glucose 40% Gel) 15-30 GRAMS 15 GRAMS... UD PRN PO 09/12/16 00:30 10/12/16 00:29 Glucose (Glucose Chew Tab) 4-8 Tablets 4 Tabl... UD PRN PO 09/12/16 00:30 10/12/16 00:29 Dextrose (Dextrose 50% 50ML Syringe) 25-50ML OF 50% DW IV FOR... UD PRN IV 09/12/16 00:30 10/12/16 00:29 Glucagon 1 mg 1 mg UD PRN SQ 09/12/16 00:30 10/12/16 00:29 Lorazepam 1 mg/ Syringe 1 ml @ 0.5 mls/min Q5M PRN IV 09/12/16 00:30 10/12/16 00:29 Levetiracetam/ Dextrose (Keppra Iv/D5 100ml) 105 ml @ 420 mls/hr Q12H IV 09/12/16 09:00 10/12/16 08:59 09/14/16 09:23 420 MLS/HR Aspirin (Ecotrin Tab) 162 mg QAM PO 09/12/16 09:00 10/12/16 08:59 09/14/16 09:24 162 MG Atorvastatin Calcium (Lipitor Tab) 20 mg QPM PO 09/12/16 21:00 10/12/16 20:59 09/13/16 21:22 20 MG Clopidogrel Bisulfate (plAVix TAB) 75 mg QAM PO 09/12/16 09:00 10/12/16 08:59 09/14/16 09:23 75 MG Escitalopram Oxalate (Lexapro Tab) 10 mg QAM PO 09/12/16 09:00 10/12/16 08:59 09/14/16 09:23 10 MG Pantoprazole Sodium (Protonix Tab) 40 mg QPM PO 09/12/16 21:00 10/12/16 20:59 09/13/16 21:22 40 MG Tamsulosin HCl (Flomax Cap) 0.4 mg QPM PO 09/12/16 21:00 10/12/16 20:59 09/13/16 21:22 0.4 MG Clonidine HCl (Catapres Tab) 0.1 mg Q6H PRN PO 09/12/16 09:45 10/12/16 09:44 Amoxicillin/ Clavulanate Potassium (Augmentin Es 600 Mg/42.9mg 5 ml Susp) 875 mg BIDM PO 09/12/16 11:30 09/19/16 11:29 09/14/16 17:46 875 MG Metoclopramide HCl (Reglan Inj) 10 mg Q6H PRN IV 09/13/16 10:45 10/13/16 10:44 Levothyroxine Sodium (Synthroid Tab) 125 mcg DAILYBB PO 09/14/16 06:00 10/14/16 05:59 09/14/16 05:58 125 MCG
[2016-09-14] MEDS: TAMSULOSIN HCL 0.4 MG CAP PO SCH (20:10)
[2016-09-14] MEDS: ATORVASTATIN 20 MG TAB PO SCH (20:10)
[2016-09-14] MEDS: PANTOprazole SOD 40 MG TAB PO SCH (20:11)
[2016-09-15] VITALS (10 sets, daily range): BP systolic 121–180; BP diastolic 71–88; PULSE 48–74; TEMP 36.4–37; O2SAT 95–98
[2016-09-15] MEDS: LEVOTHYROXINE 125 MCG TAB PO SCH (05:57)
[2016-09-15] MEDS: HEPARIN SOD 5000 UNIT/0.5 ML CARP SQ SCH ×3 (05:57→22:13)
[2016-09-15 06:20] LABS: BASO % 1.6 %; BASO ABS # 0.09 K/uL (0-0.2); COMPLETE YES; EOS % 11.6 %; HEMATOCRIT 36.3 % (42-52); IG% 0.2 %; LYMPH % 14.5 %; LYMPH ABS # 0.84 K/uL (1.2-3.4); MEAN CORPUSCULAR HEMOGLOBIN 30.4 pg (25-34); MEAN CORPUSCULAR HGB CONC 34.2 g/dl (32-36); MEAN PLATELET VOLUME 9.6 fL (7.4-10.4); MONO % 15.3 %; NEUT % 56.8 %; PLATELET COUNT 234 K/uL (130-400); RED BLOOD COUNT 4.08 M/uL (4.7-6.1)
[2016-09-15] MEDS: ESCITALOPRAM OXALATE 10 MG TAB PO SCH (07:46)
[2016-09-15] MEDS: LEVETIRACETAM IV 500 MG in DEXTROSE 5% 100ML 100 ML IV SCH (07:46)
[2016-09-15] MEDS: ASPIRIN 81 MG ECTAB PO SCH (07:47)
[2016-09-15] MEDS: CLOPIDOGREL BISULFATE 75 MG TAB PO SCH (07:47)
[2016-09-15] MEDS: AMOXICILLIN/CLAV POTAS 600 MG/42.9MG/5 ML 75 ML PO SCH ×2 (07:49→17:09)
--- NOTE | 2016-09-15 12:45 | CARDIOLOGY PROGRESS NOTE ---
DATE: 09/15/2016 DATE: 09/15/2016. FOLLOW-UP VISIT SUBJECTIVE: The patient is an 85-year-old who was admitted with a TIA and seizures. He had an uneventful night and is currently sitting up in the chair eating lunch. He states that he feels well and has no complaints. OBJECTIVE: GENERAL: He is alert and oriented. VITAL SIGNS: Blood pressure is 130/70. Pulse is regular at 60. He is afebrile. HEAD, EYES, EARS, NOSE, AND THROAT: Normocephalic. Pupils are equal and reactive to light. Extraocular muscles are intact bilaterally. NECK: The neck veins are flat. Carotids have good upstrokes bilaterally without bruits. Thyroid is nonpalpable. RESPIRATORY: Breath sounds equal bilaterally and clear to auscultation. CARDIOVASCULAR: Heart has a regular rhythm. Normal S1, S2. No S3, S4. No cardiac rubs or murmurs. GASTROINTESTINAL: Abdomen is soft, nontender without organomegaly. EXTREMITIES: Free of edema, digit clubbing, or cyanosis. NEUROLOGIC: Grossly intact. SKIN: Warm to touch. LYMPH NODES: Negative to palpation. LABORATORY DATA: The patient reminds in a sinus rhythm on telemetry. IMPRESSION: 1. Acute cerebrovascular accident in an elderly gentleman with severe cerebrovascular disease. 2. Seizure disorder. RECOMMENDATIONS: The patient is stable from a cardiac standpoint and can be discharged to a rehab center or for outpatient followup per the hospitalist.
--- NOTE | 2016-09-15 16:46 | Progress Note ---
Medicine Progress Note Date & Time of Visit: Sep 15, 2016 at 16:42. Subjective resting inbed, comfortable tolerating PT denies headache, chest pain, dyspnea, palpitations, dizziness no neuro symptoms no other symptoms Objective Last 8 Hrs Date Time Temp Pulse Resp B/P Pulse Ox O2 Delivery O2 Flow Rate FiO2 09/15/16 16:20 74 177/88 09/15/16 16:00 Room Air 09/15/16 14:51 36.7 63 18 180/84 98 Room Air 09/15/16 12:00 Room Air 09/15/16 10:50 36.8 59 20 159/79 96 Room Air Physical Exam: General- oriented x 3, not in distress Neck- no JVD Lungs- clear breath sounds bilaterally, no rales/wheeze Heart- normal rate, regular rhythm; no murmurs Abdomen- normal bowel sounds, soft, nontender Extremities- no pretibial edema, no calf tenderness Neuro- alert, oriented x 3; no gross deficits Skin- warm & dry Laboratory Results: Last 24 Hours Test 09/14/16 20:37 09/15/16 05:35 09/15/16 06:31 09/15/16 10:47 Bedside Glucose 126 mg/dl 85 mg/dl 95 mg/dl White Blood Count 5.80 K/uL Red Blood Count 4.08 M/uL Hemoglobin 12.4 g/dL Hematocrit 36.3 % Mean Corpuscular Volume 89.0 fL Mean Corpuscular Hemoglobin 30.4 pg Mean Corpuscular Hemoglobin Concent 34.2 g/dl Platelet Count 234 K/uL Mean Platelet Volume 9.6 fL Neutrophils (%) (Auto) 56.8 % Lymphocytes (%) (Auto) 14.5 % Monocytes (%) (Auto) 15.3 % Eosinophils (%) (Auto) 11.6 % Basophils (%) (Auto) 1.6 % Neutrophils # (Auto) 3.30 K/uL Lymphocytes # (Auto) 0.84 K/uL Monocytes # (Auto) 0.89 K/uL Eosinophils # (Auto) 0.67 K/uL Basophils # (Auto) 0.09 K/uL RDW Standard Deviation 48.6 fL RDW Coefficient of Variation 15.0 % Immature Granulocyte % (Auto) 0.2 % Immature Granulocyte # (Auto) 0.01 K/uL Test 3/18/17 16:20 Bedside Glucose 92 mg/dl Assessment & Plan 85 year old male with history of CVA, Subdural hematoma secondary to Fall, HTN, CKD 3, Hypothyroidism, BPH, PVD, presenting with left sided weakness. LEFT SIDED WEAKNESS, RESOLVED, POSSIBLE TIA HISTORY OF R MCA CVA, R ICA OCCLUSION - Brain MRI: IMPRESSION: No significant change compared to the prior study. No acute intracranial abnormality. Old infarcts as described above. Head MRA: IMPRESSION: 1. Complete occlusion right internal carotid artery. 2. This is unchanged from the prior study of 02/19/2016. 3. Moderate atherosclerotic change left carotid bifurcation and left internal carotid artery with no evidence for a high-grade stenosis. A 40-50% narrowing may be present. - symptoms resolved - already on Aspirin, Plavix, Atorvastatin management of Hypertension as noted below appreciate Neuro consult - PT recommending inpatient Rehab/SNF HYPERTENSIVE EMERGENCY, RESOLVED - Nicardipine drip discontinued - BP today 180s PRN Clonidine CHF, SYSTOLIC AND DIASTOLIC, NEW - no signs of overt volume overload - Cardiology consulted: no further interventions at this time appreciate the recommendations NEW ONSET GENERALIZED TONIC CLONIC SEIZURES - in the setting of above - Keppra 500mg BID started EEG noted POSSIBLE BILATERAL LOWER LOBE PNEUMONIA, secondary to Aspiration Pneumonia in the setting of recent CVA, current TIA, and Seizure - patient reports episodes of coughing while eating at home has noted cough recently, occasionally productive - Day 4 Augmentin BID x 5 days at least no respiratory symptoms - Speech Therapy eval noted HYPOTHYROIDISM - TSH 131, t4 0.48 - adherent with medications per patient - increased Lthyroxine from 100 to 125mcg daily repeat Thyroid Function Tests in 3-4 weeks HISTORY OF SUBDURAL HEMATOMA CKD 3 at baseline crea 1.6 usually BPH no urinary symptoms DVT Prophylaxis Heparin Disposition pending lives at home with , requires walker with ambulation PT/OT Current Inpatient Medications: Current Inpatient Medications Medications (Trade) Dose Ordered Sig/Octavia Route Start Time Stop Time Status Last Admin Dose Admin Gadobutrol (Gadavist) 7 mmol UD PRN IV 09/11/16 23:15 09/15/16 23:14 Heparin Sodium (Porcine) (Heparin Sq 5000 Unit/0.5ml) 5,000 unit Q8 SQ 09/12/16 06:00 10/12/16 05:59 09/14/16 05:57 5,000 UNIT Acetaminophen (Tylenol Tab) 650 mg Q4H PRN PO 09/12/16 00:30 10/12/16 00:29 Nitroglycerin (Nitrostat Tab) 0.4 mg UD PRN SL 09/12/16 00:30 10/12/16 00:29 Glucose (Glucose 40% Gel) 15-30 GRAMS 15 GRAMS... UD PRN PO 09/12/16 00:30 10/12/16 00:29 Glucose (Glucose Chew Tab) 4-8 Tablets 4 Tabl... UD PRN PO 09/12/16 00:30 10/12/16 00:29 Dextrose (Dextrose 50% 50ML Syringe) 25-50ML OF 50% DW IV FOR... UD PRN IV 09/12/16 00:30 10/12/16 00:29 Glucagon 1 mg 1 mg UD PRN SQ 09/12/16 00:30 10/12/16 00:29 Lorazepam 1 mg/ Syringe 1 ml @ 0.5 mls/min Q5M PRN IV 09/12/16 00:30 10/12/16 00:29 Levetiracetam/ Dextrose (Keppra Iv/D5 100ml) 105 ml @ 420 mls/hr Q12H IV 09/12/16 09:00 10/12/16 08:59 09/15/16 07:46 420 MLS/HR Aspirin (Ecotrin Tab) 162 mg QAM PO 09/12/16 09:00 10/12/16 08:59 09/15/16 07:47 162 MG Atorvastatin Calcium (Lipitor Tab) 20 mg QPM PO 09/12/16 21:00 10/12/16 20:59 09/14/16 20:10 20 MG Clopidogrel Bisulfate (plAVix TAB) 75 mg QAM PO 09/12/16 09:00 10/12/16 08:59 09/15/16 07:47 75 MG Escitalopram Oxalate (Lexapro Tab) 10 mg QAM PO 09/12/16 09:00 10/12/16 08:59 09/15/16 07:46 10 MG Pantoprazole Sodium (Protonix Tab) 40 mg QPM PO 09/12/16 21:00 10/12/16 20:59 09/14/16 20:11 40 MG Tamsulosin HCl (Flomax Cap) 0.4 mg QPM PO 09/12/16 21:00 10/12/16 20:59 09/14/16 20:10 0.4 MG Clonidine HCl (Catapres Tab) 0.1 mg Q6H PRN PO 09/12/16 09:45 10/12/16 09:44 Amoxicillin/ Clavulanate Potassium (Augmentin Es 600 Mg/42.9mg 5 ml Susp) 875 mg BIDM PO 09/12/16 11:30 09/19/16 11:29 09/15/16 07:49 875 MG Metoclopramide HCl (Reglan Inj) 10 mg Q6H PRN IV 09/13/16 10:45 10/13/16 10:44 Levothyroxine Sodium (Synthroid Tab) 125 mcg DAILYBB PO 09/14/16 06:00 10/14/16 05:59 09/15/16 05:57 125 MCG Amlodipine Besylate (Norvasc Tab) 2.5 mg QAM PO 09/16/16 09:00 10/16/16 08:59 Amlodipine Besylate (Norvasc Tab) 2.5 mg 1700 ONCE PO 09/15/16 17:00 09/15/16 17:01
--- NOTE | 2016-09-15 16:49 | Progress Note ---
Progress Note Date of Service Sep 15, 2016. Progress Note attempted to call Jo-Ann and daughter Aguila but no answer will try again Elmo Tejeda MD
[2016-09-15] MEDS ORDERED: AMLODIPINE BESYLATE 5 MG TAB PO ONE (17:00)
[2016-09-15] MEDS: LEVETIRACETAM 500 MG TAB PO SCH (19:45)
[2016-09-15] MEDS: TAMSULOSIN HCL 0.4 MG CAP PO SCH (19:46)
[2016-09-15] MEDS: ATORVASTATIN 20 MG TAB PO SCH (19:47)
[2016-09-15] MEDS: PANTOprazole SOD 40 MG TAB PO SCH (19:48)
[2016-09-15] MEDS: BOOST VANILLA PO SCH ×2 (22:14)
[2016-09-16] VITALS (10 sets, daily range): BP systolic 93–144; BP diastolic 56–81; PULSE 54–85; TEMP 36.3–37; O2SAT 95–97
[2016-09-16] MEDS: LEVOTHYROXINE 125 MCG TAB PO SCH (05:36)
[2016-09-16] MEDS: HEPARIN SOD 5000 UNIT/0.5 ML CARP SQ SCH ×3 (05:36→20:15)
[2016-09-16 06:16] LABS: BASO % 1.4 %; BASO ABS # 0.09 K/uL (0-0.2); COMPLETE YES; EOS % 12.6 %; HEMATOCRIT 37.6 % (42-52); IG% 0.2 %; LYMPH % 12.5 %; LYMPH ABS # 0.78 K/uL (1.2-3.4); MEAN CELL VOLUME 88.3 fL (80-100); MEAN CORPUSCULAR HEMOGLOBIN 29.8 pg (25-34); MEAN CORPUSCULAR HGB CONC 33.8 g/dl (32-36); MEAN PLATELET VOLUME 9.7 fL (7.4-10.4); MONO % 11.7 %; NEUT % 61.6 %; PLATELET COUNT 253 K/uL (130-400); RED BLOOD COUNT 4.26 M/uL (4.7-6.1); WHITE BLOOD COUNT 6.26 K/uL (4.8-10.8)
[2016-09-16] MEDS: AMOXICILLIN/CLAV POTAS 600 MG/42.9MG/5 ML 75 ML PO SCH ×2 (08:02→17:32)
[2016-09-16] MEDS: BOOST VANILLA PO SCH ×6 (08:06→20:17)
[2016-09-16] MEDS: CLOPIDOGREL BISULFATE 75 MG TAB PO SCH (08:07)
[2016-09-16] MEDS: ESCITALOPRAM OXALATE 10 MG TAB PO SCH (08:07)
[2016-09-16] MEDS: ASPIRIN 81 MG ECTAB PO SCH (08:07)
[2016-09-16] MEDS: LEVETIRACETAM 500 MG TAB PO SCH ×2 (08:08→20:12)
[2016-09-16] MEDS ORDERED: AMLODIPINE BESYLATE 5 MG TAB PO SCH (09:00)
--- NOTE | 2016-09-16 19:04 | Progress Note ---
Medicine Progress Note Date & Time of Visit: Sep 16, 2016 at 19:02. Subjective seen with at bedside states he feels fine today no new neuro deficits no chest pain, dyspnea, weakness no other symptoms Objective Last 8 Hrs Date Time Temp Pulse Resp B/P Pulse Ox O2 Delivery O2 Flow Rate FiO2 09/16/16 16:00 Room Air 09/16/16 15:30 36.3 54 18 144/74 97 Room Air 09/16/16 12:00 Room Air 09/16/16 11:11 36.6 75 18 97/62 96 Room Air Physical Exam: General- oriented x 3, not in distress Neck- no JVD Lungs- clear breath sounds , no rales/wheeze, bilaterally Heart- normal rate, regular rhythm; no murmurs Abdomen- normal bowel sounds, soft, nontender Extremities- no pretibial edema, no calf tenderness Neuro- alert, oriented x 3; no gross deficits Skin- warm & dry Laboratory Results: Last 24 Hours Test 09/15/16 20:01 09/16/16 05:35 09/16/16 11:27 09/16/16 16:14 Bedside Glucose 89 mg/dl 149 mg/dl 84 mg/dl White Blood Count 6.26 K/uL Red Blood Count 4.26 M/uL Hemoglobin 12.7 g/dL Hematocrit 37.6 % Mean Corpuscular Volume 88.3 fL Mean Corpuscular Hemoglobin 29.8 pg Mean Corpuscular Hemoglobin Concent 33.8 g/dl Platelet Count 253 K/uL Mean Platelet Volume 9.7 fL Neutrophils (%) (Auto) 61.6 % Lymphocytes (%) (Auto) 12.5 % Monocytes (%) (Auto) 11.7 % Eosinophils (%) (Auto) 12.6 % Basophils (%) (Auto) 1.4 % Neutrophils # (Auto) 3.86 K/uL Lymphocytes # (Auto) 0.78 K/uL Monocytes # (Auto) 0.73 K/uL Eosinophils # (Auto) 0.79 K/uL Basophils # (Auto) 0.09 K/uL RDW Standard Deviation 47.2 fL RDW Coefficient of Variation 14.8 % Immature Granulocyte % (Auto) 0.2 % Immature Granulocyte # (Auto) 0.01 K/uL Test 09/16/16 18:16 Assessment & Plan 85 year old male with history of CVA, Subdural hematoma secondary to Fall, HTN, CKD 3, Hypothyroidism, BPH, PVD, presenting with left sided weakness. LEFT SIDED WEAKNESS, RESOLVED, POSSIBLE TIA HISTORY OF R MCA CVA, R ICA OCCLUSION - Brain MRI: IMPRESSION: No significant change compared to the prior study. No acute intracranial abnormality. Old infarcts as described above. Head MRA: IMPRESSION: 1. Complete occlusion right internal carotid artery. 2. This is unchanged from the prior study of 02/19/2016. 3. Moderate atherosclerotic change left carotid bifurcation and left internal carotid artery with no evidence for a high-grade stenosis. A 40-50% narrowing may be present. - symptoms resolved - already on Aspirin, Plavix, Atorvastatin management of Hypertension as noted below appreciate Neuro consult - PT recommending inpatient Rehab/SNF patient and would prefer to possibly be discharged home with PT PT re-eval tomorrow HYPERTENSIVE EMERGENCY, RESOLVED - Nicardipine drip discontinued - BP improving PRN Clonidine CHF, SYSTOLIC AND DIASTOLIC, NEW - no signs of overt volume overload - Cardiology consulted: no further interventions at this time appreciate the recommendations NEW ONSET GENERALIZED TONIC CLONIC SEIZURES - in the setting of above - Keppra 500mg BID started EEG noted POSSIBLE BILATERAL LOWER LOBE PNEUMONIA, secondary to Aspiration Pneumonia in the setting of recent CVA, current TIA, and Seizure - patient reports episodes of coughing while eating at home has noted cough recently, occasionally productive - Day 5 Augmentin BID x 5 days at least no respiratory symptoms - Speech Therapy eval noted HYPOTHYROIDISM - TSH 131, t4 0.48 - adherent with medications per patient - increased Lthyroxine from 100 to 125mcg daily repeat Thyroid Function Tests in 3-4 weeks HISTORY OF SUBDURAL HEMATOMA CKD 3 at baseline crea 1.6 usually monitor PRP BPH no urinary symptoms DVT Prophylaxis Heparin Disposition pending lives at home with , requires walker with ambulation PT/OT re eval prefers to go home with PT/OT Current Inpatient Medications: Current Inpatient Medications Medications (Trade) Dose Ordered Sig/Octavia Route Start Time Stop Time Status Last Admin Dose Admin Heparin Sodium (Porcine) (Heparin Sq 5000 Unit/0.5ml) 5,000 unit Q8 SQ 09/12/16 06:00 10/12/16 05:59 09/16/16 05:36 5,000 UNIT Acetaminophen (Tylenol Tab) 650 mg Q4H PRN PO 09/12/16 00:30 10/12/16 00:29 Nitroglycerin (Nitrostat Tab) 0.4 mg UD PRN SL 09/12/16 00:30 10/12/16 00:29 Glucose (Glucose 40% Gel) 15-30 GRAMS 15 GRAMS... UD PRN PO 09/12/16 00:30 10/12/16 00:29 Glucose (Glucose Chew Tab) 4-8 Tablets 4 Tabl... UD PRN PO 09/12/16 00:30 10/12/16 00:29 Dextrose (Dextrose 50% 50ML Syringe) 25-50ML OF 50% DW IV FOR... UD PRN IV 09/12/16 00:30 10/12/16 00:29 Glucagon 1 mg 1 mg UD PRN SQ 09/12/16 00:30 10/12/16 00:29 Lorazepam/Syringe (Ativan Inj/ Syringe) 1 ml @ 0.5 mls/min Q5M PRN IV 09/12/16 00:30 10/12/16 00:29 Aspirin (Ecotrin Tab) 162 mg QAM PO 09/12/16 09:00 10/12/16 08:59 09/16/16 08:07 162 MG Atorvastatin Calcium (Lipitor Tab) 20 mg QPM PO 09/12/16 21:00 10/12/16 20:59 09/15/16 19:47 20 MG Clopidogrel Bisulfate (plAVix TAB) 75 mg QAM PO 09/12/16 09:00 10/12/16 08:59 09/16/16 08:07 75 MG Escitalopram Oxalate (Lexapro Tab) 10 mg QAM PO 09/12/16 09:00 10/12/16 08:59 09/16/16 08:07 10 MG Pantoprazole Sodium (Protonix Tab) 40 mg QPM PO 09/12/16 21:00 10/12/16 20:59 09/15/16 19:48 40 MG Tamsulosin HCl (Flomax Cap) 0.4 mg QPM PO 09/12/16 21:00 10/12/16 20:59 09/15/16 19:46 0.4 MG Clonidine HCl (Catapres Tab) 0.1 mg Q6H PRN PO 09/12/16 09:45 10/12/16 09:44 Amoxicillin/ Clavulanate Potassium (Augmentin Es 600 Mg/42.9mg 5 ml Susp) 875 mg BIDM PO 09/12/16 11:30 09/19/16 11:29 09/16/16 17:32 875 MG Metoclopramide HCl (Reglan Inj) 10 mg Q6H PRN IV 09/13/16 10:45 10/13/16 10:44 Levothyroxine Sodium (Synthroid Tab) 125 mcg DAILYBB PO 09/14/16 06:00 10/14/16 05:59 09/16/16 05:36 125 MCG Enteral Nutritional Formula (Boost) 1 can TID PO 09/15/16 21:00 10/15/16 20:59 09/16/16 13:41 1 CAN Levetiracetam (Keppra Tab) 500 mg BID PO 09/15/16 21:00 10/15/16 20:59 09/16/16 08:08 500 MG
[2016-09-16 19:52] LABS: BUN/CREATININE RATIO 14.7 (10-20); CALCIUM 9.4 mg/dl (8.5-10.1); CREATININE 1.9 mg/dl (0.60-1.40); POTASSIUM 3.9 mmol/L (3.5-5.1)
[2016-09-16] MEDS: ATORVASTATIN 20 MG TAB PO SCH (20:12)
[2016-09-16] MEDS: PANTOprazole SOD 40 MG TAB PO SCH (20:13)
[2016-09-16] MEDS: TAMSULOSIN HCL 0.4 MG CAP PO SCH (20:13)
[2016-09-16] MEDS ORDERED: SODIUM CHLORIDE 0.9% 1000ML 1,000 ML IV SCH (23:00)
[2016-09-17] VITALS (11 sets, daily range): BP systolic 102–117; BP diastolic 58–68; PULSE 52–61; TEMP 36.2–36.8; O2SAT 95–98
[2016-09-17] MEDS: LEVOTHYROXINE 125 MCG TAB PO SCH (06:15)
[2016-09-17] MEDS: HEPARIN SOD 5000 UNIT/0.5 ML CARP SQ SCH ×3 (06:16→19:50)
[2016-09-17 06:53] LABS: BASO % 1.1 %; BASO ABS # 0.07 K/uL (0-0.2); COMPLETE YES; EOS % 11.9 %; HEMATOCRIT 35.3 % (42-52); IG% 0.3 %; LYMPH % 15.5 %; LYMPH ABS # 0.95 K/uL (1.2-3.4); MEAN CELL VOLUME 90.7 fL (80-100); MEAN CORPUSCULAR HEMOGLOBIN 30.3 pg (25-34); MEAN CORPUSCULAR HGB CONC 33.4 g/dl (32-36); MEAN PLATELET VOLUME 9.6 fL (7.4-10.4); MONO % 12.6 %; NEUT % 58.6 %; PLATELET COUNT 237 K/uL (130-400); RED BLOOD COUNT 3.89 M/uL (4.7-6.1); WHITE BLOOD COUNT 6.13 K/uL (4.8-10.8)
[2016-09-17] MEDS: ESCITALOPRAM OXALATE 10 MG TAB PO SCH (09:35)
[2016-09-17] MEDS: ASPIRIN 81 MG ECTAB PO SCH (09:35)
[2016-09-17] MEDS: CLOPIDOGREL BISULFATE 75 MG TAB PO SCH (09:35)
[2016-09-17] MEDS: LEVETIRACETAM 500 MG TAB PO SCH ×2 (09:35→19:46)
[2016-09-17] MEDS: AMOXICILLIN/CLAV POTAS 600 MG/42.9MG/5 ML 75 ML PO SCH ×2 (09:36→17:29)
[2016-09-17] MEDS: BOOST VANILLA PO SCH ×6 (09:36→19:45)
--- NOTE | 2016-09-17 12:54 | DIAGNOSTIC IMAGING REPORT ---
CHEST ONE VIEW PORTABLE HISTORY: Choking episode. r/o aspiration pneumonia COMPARISON: Chest 09/11/2016. FINDINGS: No pneumothorax. No pleural effusions. The heart is normal in size. Hazy appearance the lung bases persist. No new focal lung consolidations. IMPRESSION: Hazy bibasilar airspace opacities, unchanged. This could represent atelectasis or pneumonia. Electronically signed by: Artie Guerrero M.D. 09/17/2016 12:53 PM Dictated Date/Time: 09/17/2016 12:52 PM
--- NOTE | 2016-09-17 14:16 | Progress Note ---
Medicine Progress Note Date & Time of Visit: Sep 17, 2016 at 14:11. Subjective patient with possible aspiration during lunch today CXR: no changes on exam, patient denies dyspnea, has occasional cough after the event denies chest pain no other symptoms Objective Last 8 Hrs Date Time Temp Pulse Resp B/P Pulse Ox O2 Delivery O2 Flow Rate FiO2 09/17/16 12:17 36.2 60 18 113/64 98 Room Air 09/17/16 12:00 96 Room Air 09/17/16 08:01 36.6 52 18 111/66 98 Room Air 09/17/16 08:00 96 Room Air Physical Exam: General- oriented x 3, not in distress Neck- no JVD Lungs- clear breath sounds , no rales/wheezes, b/l Heart- normal rate, regular rhythm; no murmurs Abdomen- normal bowel sounds, soft, nontender Extremities- no pretibial edema, no calf tenderness Neuro- alert, oriented x 3; no gross deficits Skin- warm & dry Laboratory Results: Last 24 Hours Test 09/16/16 16:14 09/16/16 19:00 09/17/16 06:12 Bedside Glucose 84 mg/dl Sodium Level 140 mmol/L Potassium Level 3.9 mmol/L Chloride Level 103 mmol/L Carbon Dioxide Level 28 mmol/L Anion Gap 9.0 mmol/L Blood Urea Nitrogen 28 mg/dl Creatinine 1.90 mg/dl Est Creatinine Clear Calc Drug Dose 27.5 ml/min Estimated GFR () 37.0 Estimated GFR (Non- 31.9 BUN/Creatinine Ratio 14.7 Random Glucose 124 mg/dl Calcium Level 9.4 mg/dl White Blood Count 6.13 K/uL Red Blood Count 3.89 M/uL Hemoglobin 11.8 g/dL Hematocrit 35.3 % Mean Corpuscular Volume 90.7 fL Mean Corpuscular Hemoglobin 30.3 pg Mean Corpuscular Hemoglobin Concent 33.4 g/dl Platelet Count 237 K/uL Mean Platelet Volume 9.6 fL Neutrophils (%) (Auto) 58.6 % Lymphocytes (%) (Auto) 15.5 % Monocytes (%) (Auto) 12.6 % Eosinophils (%) (Auto) 11.9 % Basophils (%) (Auto) 1.1 % Neutrophils # (Auto) 3.59 K/uL Lymphocytes # (Auto) 0.95 K/uL Monocytes # (Auto) 0.77 K/uL Eosinophils # (Auto) 0.73 K/uL Basophils # (Auto) 0.07 K/uL RDW Standard Deviation 49.2 fL RDW Coefficient of Variation 14.9 % Immature Granulocyte % (Auto) 0.3 % Immature Granulocyte # (Auto) 0.02 K/uL Assessment & Plan 85 year old male with history of CVA, Subdural hematoma secondary to Fall, HTN, CKD 3, Hypothyroidism, BPH, PVD, presenting with left sided weakness. LEFT SIDED WEAKNESS, RESOLVED, POSSIBLE TIA HISTORY OF R MCA CVA, R ICA OCCLUSION - Brain MRI: IMPRESSION: No significant change compared to the prior study. No acute intracranial abnormality. Old infarcts as described above. Head MRA: IMPRESSION: 1. Complete occlusion right internal carotid artery. 2. This is unchanged from the prior study of 02/19/2016. 3. Moderate atherosclerotic change left carotid bifurcation and left internal carotid artery with no evidence for a high-grade stenosis. A 40-50% narrowing may be present. - symptoms resolved - already on Aspirin, Plavix, Atorvastatin management of Hypertension as noted below appreciate Neuro consult - PT recommending inpatient Rehab/SNF patient and would prefer to possibly be discharged home with PT case management on board HYPERTENSIVE EMERGENCY, RESOLVED - Nicardipine drip discontinued - BP improving PRN Clonidine CHF, SYSTOLIC AND DIASTOLIC, NEW - no signs of overt volume overload - Cardiology consulted: no further interventions at this time appreciate the recommendations NEW ONSET GENERALIZED TONIC CLONIC SEIZURES - in the setting of above - Keppra 500mg BID started EEG noted POSSIBLE BILATERAL LOWER LOBE PNEUMONIA, secondary to Aspiration Pneumonia in the setting of recent CVA, current TIA, and Seizure - patient reports episodes of coughing while eating at home has noted cough recently, occasionally productive - Day 6 Augmentin BID x 7 days at least no respiratory symptoms - Speech Therapy eval noted HYPOTHYROIDISM - TSH 131, t4 0.48 - adherent with medications per patient - increased Lthyroxine from 100 to 125mcg daily repeat Thyroid Function Tests in 3-4 weeks HISTORY OF SUBDURAL HEMATOMA CKD 3 crea 1.9 IV fluids given crea 1.6 usually monitor BPH no urinary symptoms ASPIRATION repeat CXR: no changes repeat Speech Eval today DVT Prophylaxis Heparin Disposition pending lives at home with , requires walker with ambulation PT/OT re eval prefers to go home with PT/OT Current Inpatient Medications: Current Inpatient Medications Medications (Trade) Dose Ordered Sig/Octavia Route Start Time Stop Time Status Last Admin Dose Admin Heparin Sodium (Porcine) (Heparin Sq 5000 Unit/0.5ml) 5,000 unit Q8 SQ 09/12/16 06:00 10/12/16 05:59 09/17/16 06:16 5,000 UNIT Acetaminophen (Tylenol Tab) 650 mg Q4H PRN PO 09/12/16 00:30 10/12/16 00:29 Nitroglycerin (Nitrostat Tab) 0.4 mg UD PRN SL 09/12/16 00:30 10/12/16 00:29 Glucose (Glucose 40% Gel) 15-30 GRAMS 15 GRAMS... UD PRN PO 09/12/16 00:30 10/12/16 00:29 Glucose (Glucose Chew Tab) 4-8 Tablets 4 Tabl... UD PRN PO 09/12/16 00:30 10/12/16 00:29 Dextrose (Dextrose 50% 50ML Syringe) 25-50ML OF 50% DW IV FOR... UD PRN IV 09/12/16 00:30 10/12/16 00:29 Glucagon 1 mg 1 mg UD PRN SQ 09/12/16 00:30 10/12/16 00:29 Lorazepam/Syringe (Ativan Inj/ Syringe) 1 ml @ 0.5 mls/min Q5M PRN IV 09/12/16 00:30 10/12/16 00:29 Aspirin (Ecotrin Tab) 162 mg QAM PO 09/12/16 09:00 10/12/16 08:59 09/17/16 09:35 162 MG Atorvastatin Calcium (Lipitor Tab) 20 mg QPM PO 09/12/16 21:00 10/12/16 20:59 09/16/16 20:12 20 MG Clopidogrel Bisulfate (plAVix TAB) 75 mg QAM PO 09/12/16 09:00 10/12/16 08:59 09/17/16 09:35 75 MG Escitalopram Oxalate (Lexapro Tab) 10 mg QAM PO 09/12/16 09:00 10/12/16 08:59 09/17/16 09:35 10 MG Pantoprazole Sodium (Protonix Tab) 40 mg QPM PO 09/12/16 21:00 10/12/16 20:59 09/16/16 20:13 40 MG Tamsulosin HCl (Flomax Cap) 0.4 mg QPM PO 09/12/16 21:00 10/12/16 20:59 09/16/16 20:13 0.4 MG Clonidine HCl (Catapres Tab) 0.1 mg Q6H PRN PO 09/12/16 09:45 10/12/16 09:44 Amoxicillin/ Clavulanate Potassium (Augmentin Es 600 Mg/42.9mg 5 ml Susp) 875 mg BIDM PO 09/12/16 11:30 09/19/16 11:29 09/17/16 09:36 875 MG Metoclopramide HCl (Reglan Inj) 10 mg Q6H PRN IV 09/13/16 10:45 10/13/16 10:44 Levothyroxine Sodium (Synthroid Tab) 125 mcg DAILYBB PO 09/14/16 06:00 10/14/16 05:59 09/17/16 06:15 125 MCG Enteral Nutritional Formula (Boost) 1 can TID PO 09/15/16 21:00 10/15/16 20:59 09/17/16 09:36 1 CAN Levetiracetam 500 mg 500 mg BID PO 09/15/16 21:00 10/15/16 20:59 09/17/16 09:35 500 MG Sodium Chloride (Nss 1000ml) 1,000 ml @ 60 mls/hr [id number] IV 09/16/16 23:00 09/17/16 15:39 09/16/16 23:00 60 MLS/HR
[2016-09-17] MEDS: ATORVASTATIN 20 MG TAB PO SCH (19:45)
[2016-09-17] MEDS: TAMSULOSIN HCL 0.4 MG CAP PO SCH (19:46)
[2016-09-17] MEDS: PANTOprazole SOD 40 MG TAB PO SCH (19:46)
[2016-09-18] VITALS (9 sets, daily range): BP systolic 110–146; BP diastolic 54–84; PULSE 56–71; TEMP 36.4–36.8; O2SAT 94–98
[2016-09-18 06:33] LABS: BASO % 0.5 %; BASO ABS # 0.04 K/uL (0-0.2); COMPLETE YES; EOS % 7.5 %; HEMATOCRIT 31.9 % (42-52); IG% 0.2 %; LYMPH % 8.9 %; LYMPH ABS # 0.78 K/uL (1.2-3.4); MEAN CELL VOLUME 90.4 fL (80-100); MEAN CORPUSCULAR HEMOGLOBIN 30.6 pg (25-34); MEAN CORPUSCULAR HGB CONC 33.9 g/dl (32-36); MEAN PLATELET VOLUME 9.8 fL (7.4-10.4); MONO % 9.1 %; NEUT % 73.8 %; PLATELET COUNT 221 K/uL (130-400); RED BLOOD COUNT 3.53 M/uL (4.7-6.1); WHITE BLOOD COUNT 8.81 K/uL (4.8-10.8)
[2016-09-18] MEDS: LEVOTHYROXINE 125 MCG TAB PO SCH (06:51)
[2016-09-18] MEDS: HEPARIN SOD 5000 UNIT/0.5 ML CARP SQ SCH ×2 (07:05→14:35)
[2016-09-18] MEDS: LEVETIRACETAM 500 MG TAB PO SCH (08:01)
[2016-09-18] MEDS: CLOPIDOGREL BISULFATE 75 MG TAB PO SCH (08:01)
[2016-09-18] MEDS: BOOST VANILLA PO SCH ×4 (08:01→14:34)
[2016-09-18] MEDS: ESCITALOPRAM OXALATE 10 MG TAB PO SCH (08:01)
[2016-09-18] MEDS: ASPIRIN 81 MG ECTAB PO SCH (08:01)
[2016-09-18] MEDS: AMOXICILLIN/CLAV POTAS 600 MG/42.9MG/5 ML 75 ML PO SCH ×2 (08:01→16:45)
--- NOTE | 2016-09-18 13:53 | Progress Note ---
Medicine Progress Note Date & Time of Visit: Sep 18, 2016 at 13:47. Subjective patient seen sitting up in chair states he feels fine overall tolerating diet well denies symptoms states he is ready and would like to be discharge today Objective Last 8 Hrs Date Time Temp Pulse Resp B/P Pulse Ox O2 Delivery O2 Flow Rate FiO2 09/18/16 12:00 96 Room Air 09/18/16 11:14 36.5 62 18 110/67 98 Room Air 09/18/16 08:00 96 Room Air 09/18/16 07:37 36.8 56 18 131/63 96 Room Air Physical Exam: General- oriented x 3, not in distress Lungs- clear breath sounds , no rales/wheezes, bilaterally Heart- normal rate, regular rhythm; no murmurs Abdomen- normal bowel sounds, soft, nontender Extremities- no pretibial edema, no calf tenderness Neuro- alert, oriented x 3; no gross deficits Skin- warm & dry Laboratory Results: Last 24 Hours Test 09/18/16 05:35 09/18/16 06:22 09/18/16 11:14 White Blood Count 8.81 K/uL Red Blood Count 3.53 M/uL Hemoglobin 10.8 g/dL Hematocrit 31.9 % Mean Corpuscular Volume 90.4 fL Mean Corpuscular Hemoglobin 30.6 pg Mean Corpuscular Hemoglobin Concent 33.9 g/dl Platelet Count 221 K/uL Mean Platelet Volume 9.8 fL Neutrophils (%) (Auto) 73.8 % Lymphocytes (%) (Auto) 8.9 % Monocytes (%) (Auto) 9.1 % Eosinophils (%) (Auto) 7.5 % Basophils (%) (Auto) 0.5 % Neutrophils # (Auto) 6.51 K/uL Lymphocytes # (Auto) 0.78 K/uL Monocytes # (Auto) 0.80 K/uL Eosinophils # (Auto) 0.66 K/uL Basophils # (Auto) 0.04 K/uL RDW Standard Deviation 50.3 fL RDW Coefficient of Variation 15.2 % Immature Granulocyte % (Auto) 0.2 % Immature Granulocyte # (Auto) 0.02 K/uL Bedside Glucose 94 mg/dl 132 mg/dl Assessment & Plan 85 year old male with history of CVA, Subdural hematoma secondary to Fall, HTN, CKD 3, Hypothyroidism, BPH, PVD, presenting with left sided weakness. LEFT SIDED WEAKNESS, RESOLVED, POSSIBLE TIA HISTORY OF R MCA CVA, R ICA OCCLUSION - Brain MRI: IMPRESSION: No significant change compared to the prior study. No acute intracranial abnormality. Old infarcts as described above. Head MRA: IMPRESSION: 1. Complete occlusion right internal carotid artery. 2. This is unchanged from the prior study of 02/19/2016. 3. Moderate atherosclerotic change left carotid bifurcation and left internal carotid artery with no evidence for a high-grade stenosis. A 40-50% narrowing may be present. - symptoms resolved - already on Aspirin, Plavix, Atorvastatin management of Hypertension as noted below evaluated by Neurologist - PT recommending inpatient Rehab/SNF patient and would prefer discharge to home with PT aware of possible risks involved including falls HYPERTENSIVE EMERGENCY, RESOLVED - Nicardipine drip discontinued - BP improving no BP medications started PRN Clonidine - monitor as outpatient NEW ONSET GENERALIZED TONIC CLONIC SEIZURES - in the setting of above - Keppra 500mg BID started EEG :: This EEG reveals evidence for at most a mild nonspecific generalized abnormalities consisting of a poorly sustained background alpha rhythm and slightly excessive amounts of theta activity. Despite the presence of an underlying right middle cerebral artery infarction there is no focal slowing over the right hemisphere nor is there evidence for potentially epileptogenic activity despite the history of seizure at presentation. The absence of such activity; however, does not exclude the diagnosis of a seizure disorder. - no recurrence inpatient CHF, SYSTOLIC AND DIASTOLIC, NEW - no signs of overt volume overload - echo: * -- Conclusions -- * The left ventricular cavity is small. * There is severe concentric left ventricular hypertrophy. * Ejection Fraction = 45-50%. * There is severe right ventricular hypertrophy. * The right ventricular systolic function is normal. * Grade I diastolic dysfunction, (abnormal relaxation pattern). - Cardiology consulted: no further interventions at this time POSSIBLE BILATERAL LOWER LOBE PNEUMONIA, secondary to Aspiration Pneumonia in the setting of recent CVA, current TIA, and Seizure - patient reports episodes of coughing while eating at home has noted cough recently, occasionally productive - CXR: IMPRESSION: Hazy bibasilar airspace opacities, unchanged. This could represent atelectasis or pneumonia. - finished Augmentin BID x 7 days at least no respiratory symptoms - Speech Therapy eval noted * 1. Pureed diet, HONEY thick liquids. 2. Aspiration precautions, NO straws. No mixed consistencies. 3. Only feed when awake/alert. Fully upright for meals and for 30-60 minutes after meals. Stringent oral care to minimized oral bacteria that can be aspirated in saliva. 4. Alternate solids and liquids. Rest breaks as needed. Slow rate and monitor for impulsivity. 5. Would benefit from continued speech therapy upon discharge for carryover of diet and safe swallow stratgies at home. HYPOTHYROIDISM - TSH 131, t4 0.48 - adherent with medications per patient - increased Lthyroxine from 100 to 125mcg daily repeat Thyroid Function Tests in 3-4 weeks HISTORY OF SUBDURAL HEMATOMA CKD 3 crea 1.9 IV fluids given crea 1.6 usually monitor as outpatient BPH no urinary symptoms ASPIRATION RISK repeat CXR: no changes repeat Speech Eval recommendation: 1. Pureed diet, HONEY thick liquids. 2. Aspiration precautions, NO straws. No mixed consistencies. 3. Only feed when awake/alert. Fully upright for meals and for 30-60 minutes after meals. Stringent oral care to minimized oral bacteria that can be aspirated in saliva. 4. Alternate solids and liquids. Rest breaks as needed. Slow rate and monitor for impulsivity. 5. Would benefit from continued speech therapy upon discharge for carryover of diet and safe swallow stratgies at home. DVT Prophylaxis Heparin given Disposition pending - PT recommending inpatient Rehab/SNF patient and would prefer discharge to home with PT aware of possible risks involved including falls - d/c home today - ff up with PCP in 1 week Neurologist in 3-4 weeks Current Inpatient Medications: Current Inpatient Medications Medications (Trade) Dose Ordered Sig/Octavia Route Start Time Stop Time Status Last Admin Dose Admin Heparin Sodium (Porcine) (Heparin Sq 5000 Unit/0.5ml) 5,000 unit Q8 SQ 09/12/16 06:00 10/12/16 05:59 09/18/16 07:05 5,000 UNIT Acetaminophen (Tylenol Tab) 650 mg Q4H PRN PO 09/12/16 00:30 10/12/16 00:29 Nitroglycerin (Nitrostat Tab) 0.4 mg UD PRN SL 09/12/16 00:30 10/12/16 00:29 Glucose (Glucose 40% Gel) 15-30 GRAMS 15 GRAMS... UD PRN PO 09/12/16 00:30 10/12/16 00:29 Glucose (Glucose Chew Tab) 4-8 Tablets 4 Tabl... UD PRN PO 09/12/16 00:30 10/12/16 00:29 Dextrose (Dextrose 50% 50ML Syringe) 25-50ML OF 50% DW IV FOR... UD PRN IV 09/12/16 00:30 10/12/16 00:29 Glucagon 1 mg 1 mg UD PRN SQ 09/12/16 00:30 10/12/16 00:29 Lorazepam/Syringe (Ativan Inj/ Syringe) 1 ml @ 0.5 mls/min Q5M PRN IV 09/12/16 00:30 10/12/16 00:29 Aspirin (Ecotrin Tab) 162 mg QAM PO 09/12/16 09:00 10/12/16 08:59 09/18/16 08:01 162 MG Atorvastatin Calcium (Lipitor Tab) 20 mg QPM PO 09/12/16 21:00 10/12/16 20:59 09/17/16 19:45 20 MG Clopidogrel Bisulfate (plAVix TAB) 75 mg QAM PO 09/12/16 09:00 10/12/16 08:59 09/18/16 08:01 75 MG Escitalopram Oxalate (Lexapro Tab) 10 mg QAM PO 09/12/16 09:00 10/12/16 08:59 09/18/16 08:01 10 MG Pantoprazole Sodium (Protonix Tab) 40 mg QPM PO 09/12/16 21:00 10/12/16 20:59 09/17/16 19:46 40 MG Tamsulosin HCl (Flomax Cap) 0.4 mg QPM PO 09/12/16 21:00 10/12/16 20:59 09/17/16 19:46 0.4 MG Clonidine HCl (Catapres Tab) 0.1 mg Q6H PRN PO 09/12/16 09:45 10/12/16 09:44 Amoxicillin/ Clavulanate Potassium (Augmentin Es 600 Mg/42.9mg 5 ml Susp) 875 mg BIDM PO 09/12/16 11:30 09/19/16 11:29 09/18/16 08:01 875 MG Metoclopramide HCl (Reglan Inj) 10 mg Q6H PRN IV 09/13/16 10:45 10/13/16 10:44 Levothyroxine Sodium (Synthroid Tab) 125 mcg DAILYBB PO 09/14/16 06:00 10/14/16 05:59 09/18/16 06:51 125 MCG Enteral Nutritional Formula (Boost) 1 can TID PO 09/15/16 21:00 10/15/16 20:59 09/18/16 08:01 1 CAN Levetiracetam (Keppra Tab) 500 mg BID PO 09/15/16 21:00 10/15/16 20:59 09/18/16 08:01 500 MG
[2016-09-18] MEDS ORDERED: LEVE500T PO (13:57)
[2016-09-18] MEDS ORDERED: Enteral Nutrition Formula PO (13:57)
[2016-09-18] MEDS ORDERED: ACET-1311 PO (13:57)
[2016-09-18] MEDS ORDERED: SYN125 PO (13:57)
[2016-09-18] MEDS ORDERED: PANT40TA PO (13:58)
--- NOTE | 2016-09-18 14:02 | Discharge Instructions ---
Discharge Instructions Date of Service Sep 18, 2016. Admission Reason for Admission: CVA Discharge Discharge Diagnosis / Problem: POSSIBLE TRANSIENT ISCHEMIC ATTACK Discharge Goals Goal(s): Diagnostic testing, Therapeutic intervention Activity Recommendations Activity Limitations: as noted below (NO HEAVY EXERTION UNTIL RE-EVALUATED BY PRIMARY CARE PHYSICIAN) Driving or Machine Use: NO DRIVING . Instructions / Follow-Up Instructions / Follow-Up FOLLOW UP WITH DR. NORTH ON Saturday09/25/16 AT 11:-00AM. PLEASE REVIEW YOUR NEW MEDICATION LIST AND FOLLOW INSTRUCTIONS CAREFULLY. NO DRIVING, BATHING, SWIMMING, OR OPERATING HEAVY MACHINERIES. CALL 911 IF WITH RECURRENCE OF SYMPTOMS OR IF WITH SEIZURE RECURRENCE. FOLLOW SPEECH THERAPY RECOMMENDATIONS: * 1. Pureed diet, HONEY thick liquids. 2. Aspiration precautions, NO straws. No mixed consistencies. 3. Only feed when awake/alert. Fully upright for meals and for 30-60 minutes after meals. Stringent oral care to minimized oral bacteria that can be aspirated in saliva. 4. Alternate solids and liquids. Rest breaks as needed. Slow rate. 5. continued speech therapy upon discharge for carryover of diet and safe swallow strategies at home. Risk Factors for Stroke: You can reduce your chances of stroke by working with your medical provider to adopt a healthy lifestyle. Some specific ways to lower your chance of stroke are: * If you are a smoker, now is the time to stop smoking cigarettes * If you are diabetic, improve the control of your blood sugars * Avoid excessive amounts of alcohol * Control high blood pressure * Lose weight if you are overweight * Be sure to lead an active lifestyle * Eat a healthy diet low in salt, cholesterol and fat You should know about other risk factors for stroke that you are unable to control. These include: * Age 55 years or older * Male gender * Certain racial groups: , or / * Family History of Stroke, Mini stroke or Heart Attack * Sickle Cell Disease Follow Up: It is important for you to keep your follow up appointments with your medical provider. Call your Primary Care doctor if any of the following symptoms or problems start or get worse: * Shortness of breath or difficulty breathing * Wake up at night short of breath * Chest pain * Cough * Swelling of your hands, feet, or legs * More fatigued or tired with your normal activity * Palpitations - sudden fast heart beats WEIGHT * Weigh yourself every morning after using the bathroom. * Use the same scale. * Wear the same amount of clothing. * Write your weight down on a chart. * Call your Primary Care doctor if you gain more than 2-3 pounds in 1-2 days. MEDICATIONS * Use this discharge instruction sheet for medication instructions. * Take your medications at the time your doctor ordered. * Do not skip a dose of your medicines. * If you miss a dose of medicine, take it as soon as possible, but DO NOT DOUBLE A DOSE. * Read your medicine information when you get home. * Know all of the side effects of your medicine. If in doubt, ask your pharmacist * Call your Primary Care doctor's office if you have any side effects. * Be sure all of your doctors know what medicine and herbs you take (including cold, flu, and herbal medicine). Take the following with you to your follow-up doctor appointments: * Weight Chart * Medication List * List of questions Do not drink excessive alcohol, beer or wine. Current Hospital Diet Patient's current hospital diet: Diabetes Type 2 Diet, AHA Diet (Heart Healthy) Discharge Diet Recommended Diet: AHA Diet (Heart Healthy), Diabetes Type 2 Diet Diet Texture: Pureed (blended smooth) Liquid Consistency: Honey Thick Pending Studies Studies pending at discharge: yes List of pending studies: repeat blood work (PRP and TSH/Free T4) Laboratory Results Hemoglobin A1c Test 09/12/16 05:25 Range/Units Estimated Average Glucose 117 mg/dl Hemoglobin A1c 5.7 H 4.5-5.6 % Lipid Panel Test 09/13/16 05:40 Range/Units Triglycerides Level 54 0-150 mg/dl Cholesterol Level 118 0-200 mg/dl HDL Cholesterol 70 mg/dl Cholesterol/HDL Ratio 1.7 LDL Cholesterol, Calculated 37 mg/dl Medical Emergencies . Who to Call and When: Medical Emergencies: Call 911 immediately if you experience any of the following warning signs and symptoms of Stroke: * Sudden numbness or weakness of the face, arm or leg, especially on one side of the body * Sudden confusion, trouble speaking or understanding * Sudden trouble seeing in one or both eyes * Sudden trouble walking, dizziness, loss of balance or coordination * Sudden severe headache with no cause Do not delay calling 911 if you experience any warning signs or symptoms of a stroke. Delay in seeking medical attention may affect what treatments can be given to you. . Non-Emergent Contact Non-Emergency issues call your: Primary Care Provider Call Non-Emergent contact if: you have a fever, your pain is not controlled, you have any medication questions . Past History Medical & Surgical History: (1) Subdural bleeding (2) Diabetes type 2, controlled (3) HTN (hypertension) (4) Unilateral weakness (5) Hypothyroid (6) BPH (benign prostatic hyperplasia) (7) Dyslipidemia (8) CKD (chronic kidney disease), stage III (9) Ferrer esophagus (10) Stroke . "Provider Documentation" section prepared by Elmo Tejeda. Stroke Core Measures Reason no t-PA for Stroke: Treatment not indicated Reason no antithrom by day 2: Treatment provided - N/A Reason no antithrom at D/C: Treatment provided - N/A Reason no statin at D/C: Treatment provided - N/A Reason no anticoag w/a fib: Treatment not indicated VTE Core Measure Inpt VTE Proph given/why not?: Unfractionated heparin SQ
--- NOTE | 2016-09-18 14:14 | Discharge Summary ---
Discharge Summary Date of Service Sep 18, 2016. Discharge Summary Admission Date: Sep 11, 2016 at 23:58 Discharge Date: Sep 18, 2016 Discharge Disposition: Home with services Principal Diagnosis: LEFT SIDED WEAKNESS, RESOLVED, POSSIBLE TIA HISTORY OF R MCA CVA, R ICA OCCLUSION Secondary Diagnoses/Problems: PLEASE REFER TO HOSPITAL COURSE BELOW. Procedures: Brain MRI WITH AND WITHOUT CONTRAST HISTORY: Pt c/o left sided weakness TECHNIQUE: Multiplanar multisequence MRI of the brain was performed both before and after the intravenous administration of contrast. COMPARISON STUDY: Head CT 09/11/2016. Brain MRI 2115. FINDINGS: No areas of restricted diffusion to suggest acute infarction. Old large right MCA territory infarct is again noted. Presumed moderate microvascular ischemic changes are again noted. The paranasal sinuses and right mastoid air cells are clear. There are few partially opacified left inferior mastoid air cells, unchanged. Chronic occlusion of the right internal carotid artery is again noted. Old lacunar infarction within the alok and bilateral basal ganglia persist. Mild to moderate atrophic changes within the brain. No abnormal enhancement. IMPRESSION: No significant change compared to the prior study. No acute intracranial abnormality. Old infarcts as described above. NECK MRA HISTORY: Dyspnea. Mental status change. Pt c/o left sided weakness TECHNIQUE: Xlri-gt-[id number] and gadolinium-enhanced MRA of the neck was performed both before and after the intravenous administration of contrast. All measurements were calculated based on NASCET criteria. COMPARISON STUDY: 02/19/2016 FINDINGS: The aortic arch and proximal great vessels are widely patent. Continued occlusion right internal carotid artery. This is unchanged. 40-50% narrowing left internal carotid artery. Unremarkable vertebral basilar component of the study. IMPRESSION: 1. Complete occlusion right internal carotid artery. 2. This is unchanged from the prior study of 02/19/2016. 3. Moderate atherosclerotic change left carotid bifurcation and left internal carotid artery with no evidence for a high-grade stenosis. A 40-50% narrowing may be present. CHEST ONE VIEW PORTABLE HISTORY: Choking episode. r/o aspiration pneumonia COMPARISON: Chest 09/11/2016. FINDINGS: No pneumothorax. No pleural effusions. The heart is normal in size. Hazy appearance the lung bases persist. No new focal lung consolidations. IMPRESSION: Hazy bibasilar airspace opacities, unchanged. This could represent atelectasis or pneumonia. Consultations: NEUROLOGIST DR. GAFFNEY/DR. ALEMAN, [employer] DR. CONNELL Pending Studies/Follow-Up: REPEAT PRP AND THYROID FUNCTION TEST; PLEASE REFER TO HOSPITAL COURSE BELOW FOR FURTHER DETAILS. Medication Reconciliation New Medications: Levetiractam (Levetiracetam) 500 Mg Tab 500 MG PO BID for 30 Days, #60 TAB 1 Refill Levothyroxine Sodium (Synthroid) 125 Mcg Tab 125 MCG PO DAILYBB for 30 Days, #30 TAB 2 Refills [Enteral Nutrition Formula] () 1 CAN LIQD 1 CAN PO TID for 30 Days, #90 BTL 2 Refills Changed Medications: Acetaminophen (Tylenol) 325 Mg Tab 650 MG PO Q4 PRN for Pain for 10 Days, TAB (Medication details modified) do not exceed more than 3,000mg per day Pantoprazole (Protonix) 40 Mg Tab 40 MG PO DAILY, #30 TAB (Changed from: QPM) 30 minutes before breakfast Continued Medications: Aspirin (Aspirin EC Low Dose) 81 Mg Ectab 162 MG PO QAM for 30 Days, 3 Refills Atorvastatin (Lipitor) 20 Mg Tab 20 MG PO QPM, TAB Clopidogrel Bisulfate (Plavix) 75 Mg Tab 75 MG PO QAM, TAB Escitalopram Oxalate (Lexapro) 10 Mg Tab 10 MG PO QAM, TAB Finasteride (Proscar) 5 Mg Tab 5 MG PO DAILY, TAB Meclizine Hcl (Meclizine Hcl) 25 Mg Tab 1 TAB PO TID PRN for Dizziness or Vertigo for 10 Days, #30 TAB Tamsulosin Hcl (Flomax) 0.4 Mg Cap 0.4 MG PO QPM, CAP Discontinued Medications: Omeprazole (Prilosec) 20 Mg Capcr 20 MG PO BID, CAP Admission Information HPI (per Admitting provider): Medical history is significant for CVA, history of subdural hematoma secondary to fall, hypertension, hypothyroidism, (chronic anemia, baseline hemoglobin 13), BPH, chronic renal insufficiency (baseline creatinine 1.6), PVD as per records, history of MRSA as per records. hypothyroidism Recent confinement 2015 for left-sided weakness. MRI showed tiny infarct in the right ventricular region. Patient was already on Aspirin and Plavix at that time. Aspirin dose increased from 162 mg daily. Yesterday afternoon, the patient complained to of transient flash of light on the left eye. Later on, the patient was noted to have weakness on the left side, unable to walk, some facial drooping, slurring speech noted by . compliant w/ giving px home meds. In the Emergency Room, SBP was noted to be 220s. Patient started on Cardene drip. Generalized tonic clonic seizures witnessed in the Emergency Room. Patient given Keppra. Patient currently obtunded. Physical Exam (per Admitting): VITAL SIGNS: Blood pressure was noted to be 229/121, later 130/80, pulse rate 86, RR 18, temperature 36.8, sats 98 on room air. GENERAL: Noted to be obtunded. No respiratory distress. Frail. SKIN: Pallor. HEENT: Pale palpebral conjunctivae. Dry mucosa. Facial droop on the left. NECK: No JVD. Supple. CHEST: Decreased effort. HEART: Regular rate and rhythm. ABDOMEN: Soft. EXTREMITIES: No edema, no tenderness. NEUROLOGIC: Obtunded. left facial asymmetry. Decreased movement, L Hospital Course 85 year old male with history of CVA, Subdural hematoma secondary to Fall, HTN, CKD 3, Hypothyroidism, BPH, PVD, presenting with left sided weakness. LEFT SIDED WEAKNESS, RESOLVED, POSSIBLE TRANSIENT ISCHEMIC ATTACK HISTORY OF RIGHT MCA DISTRIBUTION CVA, RIGHT ICA OCCLUSION - Brain MRI: IMPRESSION: No significant change compared to the prior study. No acute intracranial abnormality. Old infarcts as described above. Head MRA: IMPRESSION: 1. Complete occlusion right internal carotid artery. 2. This is unchanged from the prior study of 02/19/2016. 3. Moderate atherosclerotic change left carotid bifurcation and left internal carotid artery with no evidence for a high-grade stenosis. A 40-50% narrowing may be present. - symptoms resolved - already on Aspirin, Plavix, Atorvastatin management of Hypertension as noted below evaluated by Neurologist - PT recommending inpatient Rehab/SNF patient and would prefer discharge to home with PT aware of possible risks involved including falls HYPERTENSIVE EMERGENCY, RESOLVED - BP 229/121 on admission - Nicardipine drip discontinued - BP improved with no BP medications started - monitor as outpatient NEW ONSET GENERALIZED TONIC CLONIC SEIZURES - in the setting of above - Keppra 500mg BID started EEG :: This EEG reveals evidence for at most a mild nonspecific generalized abnormalities consisting of a poorly sustained background alpha rhythm and slightly excessive amounts of theta activity. Despite the presence of an underlying right middle cerebral artery infarction there is no focal slowing over the right hemisphere nor is there evidence for potentially epileptogenic activity despite the history of seizure at presentation. The absence of such activity; however, does not exclude the diagnosis of a seizure disorder. - no recurrence as inpatient - ff up with Neurologist in 3-4 weeks CHF, SYSTOLIC AND DIASTOLIC, NEW - no signs of overt volume overload - found on echo - echo: * -- Conclusions -- * The left ventricular cavity is small. * There is severe concentric left ventricular hypertrophy. * Ejection Fraction = 45-50%. * There is severe right ventricular hypertrophy. * The right ventricular systolic function is normal. * Grade I diastolic dysfunction, (abnormal relaxation pattern). - Cardiology consulted: no further interventions at this time - monitor POSSIBLE BILATERAL LOWER LOBE PNEUMONIA, secondary to Aspiration Pneumonia in the setting of recent CVA, current TIA, and Seizure - patient reports episodes of coughing while eating at home has noted cough recently, occasionally productive - CXR: IMPRESSION: Hazy bibasilar airspace opacities, unchanged. This could represent atelectasis or pneumonia. - finished Augmentin BID x 7 days at least no respiratory symptoms - Speech Therapy eval noted * 1. Pureed diet, HONEY thick liquids. 2. Aspiration precautions, NO straws. No mixed consistencies. 3. Only feed when awake/alert. Fully upright for meals and for 30-60 minutes after meals. Stringent oral care to minimized oral bacteria that can be aspirated in saliva. 4. Alternate solids and liquids. Rest breaks as needed. Slow rate and monitor for impulsivity. 5. Would benefit from continued speech therapy upon discharge for carryover of diet and safe swallow stratgies at home. HYPOTHYROIDISM - TSH 131, t4 0.48 - adherent with medications per patient - increased Lthyroxine from 100 to 125mcg daily repeat Thyroid Function Tests in 3-4 weeks HISTORY OF SUBDURAL HEMATOMA CKD 3 crea 1.9 IV fluids given crea 1.6 usually monitor as outpatient BPH no urinary symptoms ASPIRATION RISK repeat CXR: no changes repeat Speech Eval recommendation: 1. Pureed diet, HONEY thick liquids. 2. Aspiration precautions, NO straws. No mixed consistencies. 3. Only feed when awake/alert. Fully upright for meals and for 30-60 minutes after meals. Stringent oral care to minimized oral bacteria that can be aspirated in saliva. 4. Alternate solids and liquids. Rest breaks as needed. Slow rate and monitor for impulsivity. 5. Would benefit from continued speech therapy upon discharge for carryover of diet and safe swallow stratgies at home. DVT Prophylaxis Heparin given Disposition pending - PT recommending inpatient Rehab/SNF patient and would prefer discharge to home with PT aware of possible risks involved including falls - d/c home today - ff up with PCP in 1 week Neurologist in 3-4 weeks Total time spent on discharge = 45 minutes This includes examination of the patient, discharge planning, medication reconciliation, and communication with other providers. Discharge Instructions Discharge Instructions Date of Service Sep 18, 2016. Admission Reason for Admission: CVA Discharge Discharge Diagnosis / Problem: POSSIBLE TRANSIENT ISCHEMIC ATTACK Discharge Goals Goal(s): Diagnostic testing, Therapeutic intervention Activity Recommendations Activity Limitations: as noted below (NO HEAVY EXERTION UNTIL RE-EVALUATED BY PRIMARY CARE PHYSICIAN) Driving or Machine Use: NO DRIVING . Instructions / Follow-Up Instructions / Follow-Up PLEASE REVIEW YOUR NEW MEDICATION LIST AND FOLLOW INSTRUCTIONS CAREFULLY. NO DRIVING, BATHING, SWIMMING, OR OPERATING HEAVY MACHINERIES. CALL 911 IF WITH RECURRENCE OF SYMPTOMS OR IF WITH SEIZURE RECURRENCE. FOLLOW SPEECH THERAPY RECOMMENDATIONS: * 1. Pureed diet, HONEY thick liquids. 2. Aspiration precautions, NO straws. No mixed consistencies. 3. Only feed when awake/alert. Fully upright for meals and for 30-60 minutes after meals. Stringent oral care to minimized oral bacteria that can be aspirated in saliva. 4. Alternate solids and liquids. Rest breaks as needed. Slow rate. 5. continued speech therapy upon discharge for carryover of diet and safe swallow strategies at home. Risk Factors for Stroke: You can reduce your chances of stroke by working with your medical provider to adopt a healthy lifestyle. Some specific ways to lower your chance of stroke are: * If you are a smoker, now is the time to stop smoking cigarettes * If you are diabetic, improve the control of your blood sugars * Avoid excessive amounts of alcohol * Control high blood pressure * Lose weight if you are overweight * Be sure to lead an active lifestyle * Eat a healthy diet low in salt, cholesterol and fat You should know about other risk factors for stroke that you are unable to control. These include: * Age 55 years or older * Male gender * Certain racial groups: , or / * Family History of Stroke, Mini stroke or Heart Attack * Sickle Cell Disease Follow Up: It is important for you to keep your follow up appointments with your medical provider. Call your Primary Care doctor if any of the following symptoms or problems start or get worse: * Shortness of breath or difficulty breathing * Wake up at night short of breath * Chest pain * Cough * Swelling of your hands, feet, or legs * More fatigued or tired with your normal activity * Palpitations - sudden fast heart beats WEIGHT * Weigh yourself every morning after using the bathroom. * Use the same scale. * Wear the same amount of clothing. * Write your weight down on a chart. * Call your Primary Care doctor if you gain more than 2-3 pounds in 1-2 days. MEDICATIONS * Use this discharge instruction sheet for medication instructions. * Take your medications at the time your doctor ordered. * Do not skip a dose of your medicines. * If you miss a dose of medicine, take it as soon as possible, but DO NOT DOUBLE A DOSE. * Read your medicine information when you get home. * Know all of the side effects of your medicine. If in doubt, ask your pharmacist * Call your Primary Care doctor's office if you have any side effects. * Be sure all of your doctors know what medicine and herbs you take (including cold, flu, and herbal medicine). Take the following with you to your follow-up doctor appointments: * Weight Chart * Medication List * List of questions Do not drink excessive alcohol, beer or wine. Current Hospital Diet Patient's current hospital diet: Diabetes Type 2 Diet, AHA Diet (Heart Healthy) Discharge Diet Recommended Diet: AHA Diet (Heart Healthy), Diabetes Type 2 Diet Diet Texture: Pureed (blended smooth) Liquid Consistency: Honey Thick Pending Studies Studies pending at discharge: yes List of pending studies: repeat blood work (PRP and TSH/Free T4) Laboratory Results Hemoglobin A1c Test 09/12/16 05:25 Range/Units Estimated Average Glucose 117 mg/dl Hemoglobin A1c 5.7 H 4.5-5.6 % Lipid Panel Test 09/13/16 05:40 Range/Units Triglycerides Level 54 0-150 mg/dl Cholesterol Level 118 0-200 mg/dl HDL Cholesterol 70 mg/dl Cholesterol/HDL Ratio 1.7 LDL Cholesterol, Calculated 37 mg/dl Medical Emergencies . Who to Call and When: Medical Emergencies: Call 911 immediately if you experience any of the following warning signs and symptoms of Stroke: * Sudden numbness or weakness of the face, arm or leg, especially on one side of the body * Sudden confusion, trouble speaking or understanding * Sudden trouble seeing in one or both eyes * Sudden trouble walking, dizziness, loss of balance or coordination * Sudden severe headache with no cause Do not delay calling 911 if you experience any warning signs or symptoms of a stroke. Delay in seeking medical attention may affect what treatments can be given to you. . Non-Emergent Contact Non-Emergency issues call your: Primary Care Provider Call Non-Emergent contact if: you have a fever, your pain is not controlled, you have any medication questions . Past History Medical & Surgical History: (1) Subdural bleeding (2) Diabetes type 2, controlled (3) HTN (hypertension) (4) Unilateral weakness (5) Hypothyroid (6) BPH (benign prostatic hyperplasia) (7) Dyslipidemia (8) CKD (chronic kidney disease), stage III (9) Ferrer esophagus (10) Stroke . "Provider Documentation" section prepared by Elmo Tejeda. Stroke Core Measures Reason no t-PA for Stroke: Treatment not indicated Reason no antithrom by day 2: Treatment provided - N/A Reason no antithrom at D/C: Treatment provided - N/A Reason no statin at D/C: Treatment provided - N/A Reason no anticoag w/a fib: Treatment not indicated VTE Core Measure Inpt VTE Proph given/why not?: Unfractionated heparin SQ
[2017-01-21] MEDS ORDERED: LEVO125T5 PO (14:34)
[2017-01-21] MEDS ORDERED: PANT40TA PO (14:34)
[2017-01-21] MEDS ORDERED: ASPI81TA28 PO (14:34)
[2017-01-21] MEDS ORDERED: LEVE500T PO (14:34)
[2017-02-07] MEDS ORDERED: LEVE500T13 PO (14:28)
== END 2016-09-18 17:30 | disposition home health service (06) | DRG 69 ==
LOC: ENRESERVTM → ENRESERVDT → EDBD 19:34 → C.EDA 19:39 → C.2T 23:58
PROVIDERS: ADMIT Internal Medicine; ATTEND Internal Medicine
DX: G45.9 Transient cerebral ischemic attack, unspecified (principal); I50.41 Acute combined systolic (congestive) and diastolic (congestive) heart failure; J69.0 Pneumonitis due to inhalation of food and vomit; G40.309 Generalized idiopathic epilepsy and epileptic syndromes, not intractable, without status epilepticus; I65.21 Occlusion and stenosis of right carotid artery; I12.9 Hypertensive chronic kidney disease with stage 1 through stage 4 chronic kidney disease, or unspecified chronic kidney disease; E03.9 Hypothyroidism, unspecified; N18.3 Chronic kidney disease, stage 3 (moderate); E11.9 Type 2 diabetes mellitus without complications; N40.0 Benign prostatic hyperplasia without lower urinary tract symptoms; I25.10 Atherosclerotic heart disease of native coronary artery without angina pectoris; Z66 Do not resuscitate; Z79.02 Long term (current) use of antithrombotics/antiplatelets; Z79.82 Long term (current) use of aspirin; Z79.899 Other long term (current) drug therapy; Z86.14 Personal history of Methicillin resistant Staphylococcus aureus infection; Z86.73 Personal history of transient ischemic attack (TIA), and cerebral infarction without residual deficits; Z87.828 Personal history of other (healed) physical injury and trauma; Z82.49 Family history of ischemic heart disease and other diseases of the circulatory system; Z87.891 Personal history of nicotine dependence

== ENCOUNTER → 2016-09-24 | Outpatient (CLI) | payer OTHER ==
[~2016-09-24] MED LIST changes: +ASPI81TA28 PO; +Enteral Nutrition Formula PO; +LEVE500T PO; +LEVE500T13 PO; -LEVO100T7 PO; +LEVO125T4 PO; -NRN100 PO; -OMEG10007 PO; +SYN125 PO
[2016-09-24 10:01] LABS: BASO % 1.4 %; BASO ABS # 0.08 K/uL (0-0.2); COMPLETE YES; EOS % 9.9 %; HEMATOCRIT 37.7 % (42-52); IG% 0.3 %; LYMPH % 22.2 %; LYMPH ABS # 1.28 K/uL (1.2-3.4); MEAN CORPUSCULAR HEMOGLOBIN 30.2 pg (25-34); MEAN CORPUSCULAR HGB CONC 32.9 g/dl (32-36); MEAN PLATELET VOLUME 9.8 fL (7.4-10.4); MONO % 10.4 %; NEUT % 55.8 %; PLATELET COUNT 307 K/uL (130-400); WHITE BLOOD COUNT 5.77 K/uL (4.8-10.8)
[2016-09-24 10:07] LABS: BLOOD UREA NITROGEN 20 mg/dl (7-18); BUN/CREATININE RATIO 11.9 (10-20); CALCIUM 9.2 mg/dl (8.5-10.1); CARBON DIOXIDE 29 mmol/L (21-32); CHLORIDE 104 mmol/L (98-107); GLUCOSE 88 mg/dl (70-99); POTASSIUM 3.9 mmol/L (3.5-5.1); SODIUM 140 mmol/L (136-145)
[2016-09-24 10:11] LABS: FERRITIN 35.6 ng/ml (8.0-388.0); PHOSPHORUS 2.6 mg/dl (2.5-4.9); TOTAL IRON BINDING CAPACITY 287 mcg/dl (250-450)
--- NOTE | 2016-09-28 11:02 | CODING QUERY MEDICAL NECESSITY ---
SUPPORTING DIAGNOSIS NEEDED A supporting diagnosis is required for the test/procedure performed on this patient in order for us to be reimbursed by the patient's insurance. Please provide a supporting diagnosis for the following test/procedure listed below next to the test name along with your signature. *If there is no additional diagnosis for this patient that would support the following test/procedure please document that below next to the test/procedure. Test(s)/Procedure(s) that require a supporting diagnosis: DOS 09/24 * Vitamin B12 DIAGNOSIS: Provider Signature: Date: Thank you Maureen Ortez Health Information Management Once completed, please kindly fax back to [phone] For questions please call [phone]
== END ==
LOC: C.LABCC 09:33
PROVIDERS: ATTEND Internal Medicine
DX: D64.9 Anemia, unspecified (principal); N18.3 Chronic kidney disease, stage 3 (moderate)

== ENCOUNTER 2017-02-05 01:56 | Observation (INO) | payer OTHER ==
[~2017-02-05] VITALS: Ht 170.2 cm; Wt 64.1 kg
[~2017-02-05 01:56] MED LIST changes: -ACET-1311 PO; -ASPEC81 PO; -Enteral Nutrition Formula PO; -LEVE500T13 PO; -SYN125 PO
[2017-02-05] MEDS ORDERED: LORAZEPAM 2 MG/ML 1 ML VIAL ONE (02:00)
[2017-02-05] MEDS ORDERED: SODIUM CHLORIDE 0.9% 1000ML 1,000 ML IV SCH (02:02)
[2017-02-05 02:52] LABS: MEAN CELL VOLUME 89.2 fL (80-100); MEAN CORPUSCULAR HEMOGLOBIN 29.4 pg (25-34); MEAN PLATELET VOLUME 9.3 fL (7.4-10.4); PLATELET COUNT 239 K/uL (130-400); RED BLOOD COUNT 4.15 M/uL (4.7-6.1)
[2017-02-05 03:04] LABS: PROTHROMBIN TIME (PATIENT) 10.6 SECONDS (9.0-12.0)
[2017-02-05 03:13] LABS: BASO % 0.3 %; BASO ABS # 0.04 K/uL (0-0.2); COMPLETE YES; EOS % 0.7 %; IG% 0.3 %; LYMPH % 3.9 %; LYMPH ABS # 0.47 K/uL (1.2-3.4); MONO % 4.4 %; NEUT % 90.4 %
[2017-02-05 03:19] LABS: BLOOD UREA NITROGEN 22 mg/dl (7-18); CALCIUM 9.4 mg/dl (8.5-10.1); CARBON DIOXIDE 27 mmol/L (21-32); CHLORIDE 109 mmol/L (98-107); GLUCOSE 138 mg/dl (70-99); POTASSIUM 3.7 mmol/L (3.5-5.1); SODIUM 143 mmol/L (136-145)
[2017-02-05 03:24] LABS: CKMB/CK RATIO 1.8 (0-3.0)
[2017-02-05] MEDS ORDERED: POTASSIUM CHLORIDE 10 MEQ TABCR PO STA (03:39)
[2017-02-05 04:34] LABS: MAGNESIUM 1.8 mg/dl (1.8-2.4); THYROID STIMULATING HORMONE 0.125 uIu/ml (0.300-4.500)
[2017-02-05] MEDS ORDERED: PHARMACIST DISCHARGE MED REC CONSULT PRN (04:45)
[2017-02-05] MEDS ORDERED: ONDANSETRON INJ 2 MG/ML 2 ML VIAL IV PRN (04:45)
[2017-02-05] MEDS ORDERED: OXYCODONE/ACETAMINOPHEN 5-325 TAB PO PRN (04:45)
[2017-02-05] MEDS ORDERED: LORAZEPAM INJ 1 MG in SYRINGE 0.5 ML IV PRN (04:45)
[2017-02-05] MEDS ORDERED: ACETAMINOPHEN 325 MG TAB PO PRN (04:45)
[2017-02-05] MEDS ORDERED: HYDROmorphone INJ 0.5 MG/0.5 ML SYR IV PRN (04:45)
[2017-02-05] MEDS ORDERED: NITROGLYCERIN 0.4 MG SL PER TAB CHARGE SL PRN (04:45)
--- NOTE | 2017-02-05 04:57 | EMERGENCY ROOM VISIT NOTE ---
History Report prepared by Kobe: Jose Gomez Under the Supervision of: Dr. Pablito Escobedo M.D. First contact with patient: 01:55 Chief Complaint: NEURO SYMPTOMS Stated Complaint: NEURO SYMPTOMS History of Present Illness The patient is a 86 year old male who presents to the Emergency Room with neurological symptoms. This history is limited secondary to the patient's altered mental status. Per EMS, the patient was last known well by his at 9 PM yesterday, when his symptoms began. At this time, he began having intermittent left sided tremors, difficulty seeing out of his left eye, and some left sided facial droop. The only complaint that the patient had before the neurological symptoms began is he had a headache. His blood sugar was 113. His strength was not equal, which is abnormal for the patient. The patient's states that he has a seizure disorder, but has never had a full-blown seizure. She also said that he has DNR status and would only like comfort measures. Source of History: EMS History Limited By: AMS Onset: 3 hours ago Position: other (Global) Symptom Intensity: moderate Quality: other (Left sided weakness) Timing: constant Review of Systems ROS is limited secondary to the patient's altered mental status. Past Medical & Surgical Medical Problems: (1) Ferrer esophagus (2) BPH (benign prostatic hyperplasia) (3) CKD (chronic kidney disease), stage III (4) CVA (cerebral vascular accident) (5) CVA (cerebral vascular accident) (6) Diabetes type 2, controlled (7) Dyslipidemia (8) Heart attack (9) HTN (hypertension) (10) Hypothyroid (11) Stroke (12) Subdural bleeding (13) TIA (transient ischemic attack) (14) Unilateral weakness Surgical Problems: (1) H/O esophagogastroduodenoscopy (2) History of hip replacement, total (3) History of prostate surgery (4) S/P hernia repair (5) S/P hip replacement Family History Omitted due to advanced age. Social History Smoking Status: Former Smoker Alcohol Use: none Drug Use: none Marital Status: Housing Status: lives with family, other Occupation Status: retired Current/Historical Medications Scheduled Aspirin (Aspirin Ec), 162 MG PO QAM Atorvastatin (Lipitor), 20 MG PO QPM Clopidogrel Bisulfate (Plavix), 75 MG PO QAM Escitalopram Oxalate (Lexapro), 10 MG PO QAM Finasteride (Proscar), 5 MG PO DAILY Levetiractam (Levetiracetam), 500 MG PO BID Levothyroxine Sodium (Levothyroxine Sodium), 1 TAB PO QAM Pantoprazole (Protonix), 40 MG PO QAM Tamsulosin Hcl (Flomax), 0.4 MG PO QPM Scheduled PRN Meclizine Hcl (Meclizine Hcl), 1 TAB PO TID PRN for Dizziness or Vertigo Allergies Coded Allergies: Clindamycin (Verified Allergy, Intermediate, rash, 02/05/17) CI Pigment Blue 63 (Verified Allergy, Mild, RASH, 02/05/17) Dabigatran (Verified Allergy, Mild, RASH, 02/05/17) Sulfamethoxazole w/Trimethoprim (Verified Allergy, Mild, RASH, 02/05/17) redness os face Vancomycin (Verified Allergy, Mild, RASH, DRY SKIN, 02/05/17) Warfarin (Verified Allergy, Mild, RASH, 02/05/17) Yellow Dye (Verified Allergy, Mild, RASH, 02/05/17) Sulfa Antibiotics (Unverified Allergy, Unknown, unknown, 02/05/17) Physical Exam Vital Signs Date Time Temp Pulse Resp B/P (MAP) Pulse Ox O2 Delivery O2 Flow Rate FiO2 02/05/17 03:35 67 18 138/65 96 Room Air 02/05/17 02:07 97 Room Air 02/05/17 02:07 37.0 88 18 188/88 94 Room Air 02/05/17 02:04 89 Physical Exam Constitutional: Vital signs reviewed. Eyes: Pupils are equal round reactive to light. Conjunctiva are noninjected. ENT: Pharynx is clear without erythema or exudate. Mucous membranes are moist. Neck supple without meningeal signs. Respiratory: Clear to auscultation bilaterally. Breath sounds are equal bilaterally. Cardiovascular: Regular rate and rhythm. No rubs or gallops. GI: Soft, nondistended and nontender. Bowel sounds are present. Musculoskeletal: No peripheral edema. Integumentary: No cyanosis. Neurologic: The patient is awake and alert. Cranial nerves are intact except for a mild left facial droop. The patient is unable to lift his left leg and arm against gravity. Psychiatric: Unable to assess. Medical Decision & Procedures ER Provider Diagnostic Interpretation: Radiology results as stated below per my review and the radiologist's interpretation: CT HEAD: Comparison: 09/11/2016 CT head and MRI dated 02/19/2016 No evidence of acute infarct, hemorrhage, mass, or edema. Large area of encephalomalacia within the right MCA territory consistent with remote infarct. Chronic small vessel ischemic disease and senescent changes. Minimal mucosal thickening in the paranasal sinuses. No acute osseous abnormality. Radiologist: Winston Blake MD CHEST X-RAY 1 VIEW: No acute cardiopulmonary process Per me. Laboratory Results 02/05/17 02:30 Red Blood Count 4.15, Mean Corpuscular Volume 89.2, Mean Corpuscular Hemoglobin 29.4, Mean Corpuscular Hemoglobin Concent 33.0, Mean Platelet Volume 9.3, Neutrophils (%) (Auto) 90.4, Lymphocytes (%) (Auto) 3.9, Monocytes (%) (Auto) 4.4, Eosinophils (%) (Auto) 0.7, Basophils (%) (Auto) 0.3, Neutrophils # (Auto) 10.85, Lymphocytes # (Auto) 0.47, Monocytes # (Auto) 0.53, Eosinophils # (Auto) 0.08, Basophils # (Auto) 0.04 02/05/17 02:30 Test 02/05/17 02:30 02/05/17 04:38 02/05/17 04:39 White Blood Count 12.00 K/uL (4.8-10.8) Red Blood Count 4.15 M/uL (4.7-6.1) Hemoglobin 12.2 g/dL (14.0-18.0) Hematocrit 37.0 % (42-52) Mean Corpuscular Volume 89.2 fL (80-100) Mean Corpuscular Hemoglobin 29.4 pg (25-34) Mean Corpuscular Hemoglobin Concent 33.0 g/dl (32-36) Platelet Count 239 K/uL (130-400) Mean Platelet Volume 9.3 fL (7.4-10.4) Neutrophils (%) (Auto) 90.4 % Lymphocytes (%) (Auto) 3.9 % Monocytes (%) (Auto) 4.4 % Eosinophils (%) (Auto) 0.7 % Basophils (%) (Auto) 0.3 % Neutrophils # (Auto) 10.85 K/uL (1.4-6.5) Lymphocytes # (Auto) 0.47 K/uL (1.2-3.4) Monocytes # (Auto) 0.53 K/uL (0.11-0.59) Eosinophils # (Auto) 0.08 K/uL (0-0.5) Basophils # (Auto) 0.04 K/uL (0-0.2) RDW Standard Deviation 45.0 fL (36.4-46.3) RDW Coefficient of Variation 13.7 % (11.5-14.5) Immature Granulocyte % (Auto) 0.3 % Immature Granulocyte # (Auto) 0.03 K/uL (0.00-0.02) Prothrombin Time 10.6 SECONDS (9.0-12.0) Prothromb Time International Ratio 1.0 (0.9-1.1) Activated Partial Thromboplast Time 25.0 SECONDS (21.0-31.0) Partial Thromboplastin Ratio 1.0 Anion Gap 7.0 mmol/L (3-11) Est Creatinine Clear Calc Drug Dose 34.3 ml/min Estimated GFR () 48.8 Estimated GFR (Non- 42.1 BUN/Creatinine Ratio 15.0 (10-20) Calcium Level 9.4 mg/dl (8.5-10.1) Magnesium Level 1.8 mg/dl (1.8-2.4) Total Creatine Kinase 49 U/L (39-308) Creatine Kinase MB 0.9 ng/ml (0.5-3.6) Creatine Kinase MB Ratio 1.8 (0-3.0) Troponin I 0.021 ng/ml (0-0.045) Thyroid Stimulating Hormone (TSH) 0.125 uIu/ml (0.300-4.500) Laboratory results as reviewed by me. Medications Administered Medications (Trade) Dose Ordered Sig/Octavia Route Start Time Stop Time Status Last Admin Dose Admin Lorazepam (Ativan Inj) 2 mg STK-MED ONCE .ROUTE 02/05/17 02:00 02/05/17 02:01 DC 02/05/17 02:00 0.5 MG Sodium Chloride 1,000 ml @ 50 mls/hr Q20H IV 02/05/17 02:02 02/05/17 04:53 DC 02/05/17 02:02 50 MLS/HR ECG Indication: altered mental status Rate (beats per minute): 84 Rhythm: sinus rhythm Findings: PAC, T-wave inversion (1 and aVL) ED Course 0155: The patient was evaluated in room A2. A complete history and physical exam was performed. 0200: Ordered Lorazepam 0.5 mg 0202: Ordered Sodium Chloride 1000 ml @ 50 mls/hr IV 0239: Upon reassessment, the patient is drowsy but arousable. He is moving his left arm but not his left leg. 0312: There is no change in the patient's symptoms. 0317: At this time, I spoke with Dr. Mclean of the [facility]ist group. We discussed the patient's case. He will be evaluating the patient for further management and care. Medical Decision This is an 86-year-old male who presents with headache and neurologic symptoms. Differential diagnosis includes simple partial seizure, intracranial hemorrhage, intracranial mass, CVA, TIA, metabolic derangement. I did perform a limited focused review of portions of the patient's old chart on the electronic medical record. The patient was treated as an inpatient in August of this year for a possible CVA/TIA. I did evaluate the patient as noted above. I did obtain history from the paramedics as well as the patient. History is limited as he is somewhat confused. The patient was placed on a continuous director of cardiac rehabilitation. I did order and personally review the patient's 12-lead EKG and chest x-ray as described above. I did order and review the patient's blood work as noted in the electronic medical record. I did order a CT of the head. I did review the images myself as well as the radiology report as described above. While in the emergency department the patient had seizure-like activity. He had tensing of his left leg and twitching of the left arm. He was awake and attempted to stop the twitching using his right arm. He was given Ativan 0.5 mg IV which stopped his symptoms. I did reassess the patient several times. He no longer had seizure-like activity. He did have persistent left-sided weakness. He will be hospitalized for further care and evaluation. He is not a TPA candidate as the patient is outside of the time window. His symptoms started at 9 PM yesterday. Medication Reconcilliation Current Medication List: was personally reviewed by me Soraya Pressure Screening Patient's blood pressure: Elevated blood pressure Blood pressure disposition: Referred to PCP Consults Time Called: [phone] Consulting Physician: Dr. Vinay Colin Hospitalist Returned Call: [phone] He will be evaluating the patient for further management and care. Impression Primary Impression: Left-sided weakness Additional Impression: Seizure-like activity Scribe Attestation The scribe's documentation has been prepared under my direct and personally reviewed by me in its entirety. I confirm that the note above accurately reflects all work, treatment, procedures, and medical decision making performed by me. Departure Information Dispostion Being Evaluated By Hospitalist Referrals Miguel Mckee, D.OConstance (PCP) Patient Instructions My [facility] Problem Qualifiers
[2017-02-05 05:00] LABS: AST/SGOT 18 U/L (15-37)
[2017-02-05] MEDS ORDERED: LEVETIRACETAM IV 750 MG in DEXTROSE 5% 100ML 100 ML IV STA (05:02)
[2017-02-05 05:05] LABS: ALKALINE PHOSPHATASE 85 U/L (45-117); ALT/SGPT 26 U/L (12-78)
[2017-02-05] MEDS ORDERED: LORAZEPAM 2 MG/ML 1 ML VIAL IV PRN (05:15)
[2017-02-05] MEDS ORDERED: SODIUM CHLOR 0.45% + 20MEQ KCL 1,000 ML IV ONE (05:30)
[2017-02-05] MEDS ORDERED: IV FLUIDS COMPLETED PRN (05:30)
[2017-02-05] MEDS ORDERED: MAGNESIUM SULFATE 1GM / D5W 1 GM in PREMIXED IN D5W 100 ML IV STA (05:32)
[2017-02-05] MEDS: LEVOTHYROXINE 125 MCG TAB PO SCH (06:00)
[2017-02-05] MEDS: HEPARIN SOD 5000 UNIT/0.5 ML CARP SQ SCH ×3 (06:00→21:25)
[2017-02-05 06:06] VITALS: BP 172/80; PULSE 65; TEMP 36.9; O2SAT 98; Ht 170.2 cm; Wt 64.1 kg
--- NOTE | 2017-02-05 06:31 | DIAGNOSTIC IMAGING REPORT ---
CHEST ONE VIEW PORTABLE CLINICAL HISTORY: Stroke COMPARISON STUDY: Chest radiograph September 17, 2016. FINDINGS: Lung volumes are normal. No pneumothorax or pleural effusion is present. There is no evidence of pulmonary edema. Cardiomediastinal silhouette is stable. Minimal left basilar opacity likely reflects atelectasis. There is no consolidation to suggest pneumonia. IMPRESSION: No acute cardiopulmonary findings. Electronically signed by: Sadiq Vallejo M.D. 02/05/2017 6:30 AM Dictated Date/Time: 02/05/2017 6:29 AM
--- NOTE | 2017-02-05 06:38 | DIAGNOSTIC IMAGING REPORT ---
CT HEAD WITHOUT CONTRAST (CT) CLINICAL HISTORY: Stroke LEFT-SIDED WEAKNESS COMPARISON STUDY: 09/11/2016 TECHNIQUE: Axial CT of the brain is performed from the vertex to the skull base. IV contrast was not administered for this examination. A dose lowering technique was utilized adhering to the principles of ALARA. CT DOSE: 638.56 mGycm FINDINGS: No intra or extra-axial mass lesions are visualized. There is no CT evidence of acute cortical infarction. There is no evidence of midline shift. There is no acute hemorrhage. No calvarial fractures are visualized. There are patchy white matter hypodensities likely on a small vessel basis. There is an old large infarct in the right middle cerebral artery distribution. There is no evidence of pathologic ventricular dilatation. There is no evidence of acute sinusitis IMPRESSION: Old large right MCA territory infarct. No acute intracranial findings. Electronically signed by: Dawit Roque M.D. 02/05/2017 6:36 AM Dictated Date/Time: 02/05/2017 6:35 AM
--- NOTE | 2017-02-05 06:56 | HISTORY & PHYSICAL EXAMINATION ---
DATE OF ADMISSION: 02/05/2017 PRIMARY CARE DOCTOR: Dr. Mckee CHIEF COMPLAINT: Left face, L arm twitching as per . HISTORY OF PRESENT ILLNESS: History obtained from the patient's , ER physician and records. Limited history obtained from patient secondary to lethargic state post benzo administration at the ER. Medical history is significant for CVA, history of traumatic subdural hematoma, hypertension, hypothyroidism, chronic anemia (baseline hemoglobin of 12), chronic renal insufficiency (baseline creatinine of 1.6), PVD, hx MRSA. Recent confinement was in August 2016 for for possible TIA, new-onset seizures. Patient discharged on Keppra. He was seen at the [facility] a few days ago. Exam as per neurologist disclosed dysarthria, left upper motor neuron facial paralysis, mild left-sided neglect more clumsiness on the left hand. Concern for orthostatic hypotensive episodes as per provider note. Last night, the patient told that he was not feeling well. later found him later on more confused than usual; usual left-sided weakness as per ; twitching of the left eye and left arm, different from generalized tonic-clonic seizures from a few months back. Patient is compliant with meds as per . No incontinence. Involuntary movement terminated by Ativan at the Emergency Room. MEDICAL HISTORY: As above. SURGERIES: Hip replacement, prostate surgery and hernia surgery. HOME MEDICATIONS: Include; Keppra, meclizine, Protonix, Flomax, aspirin, Lipitor, Plavix, Lexapro, Proscar and levothyroxine. ALLERGIES: CLINDAMYCIN, VANCOMYCIN, COUMADIN, BACTRIM, YELLOW DYE, PIGMENTS, SULFA AND DABIGATRAN. FAMILY HISTORY: Heart disease. 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 REVIEW OF SYSTEMS: Could not be obtained. PHYSICAL EXAMINATION: VITAL SIGNS: Blood pressure was noted to be 130/80 IL 70 RR 18, T 37 O2 sats 97 on room air. GENERAL: Noted to be lethargic, in no respiratory distress. SKIN: Pallor. HEENT: Pale palpable conjunctivae. Dry mucosa. Minimal left-sided facial asymmetry ( chronic) NECK: Short neck. LUNGS: Decreased effort. HEART: Regular rate and rhythm. ABDOMEN: Soft. EXTREMITIES: No edema. No tenderness NEUROLOGIC: lethargy. LABORATORIES: Hemoglobin was noted to be 12.2, hematocrit 37, white cell count 12 and platelets 239. Sodium 140, potassium 3.7, chloride 109, CO2 27, BUN 20, creatinine 1.5 and glucose 138. TSH 0.125 CT of the head initial read; no evidence of acute infarct or hemorrhage, large right MCA remote infarct, chronic small vessel ischemic disease. ASSESSMENT: 1. Left-sided weakness with twitching possible new focal seizures different from usual GTC seizures as per patient's 2. hx cerebrovascular disease on aspirin and Plavix. 3. Peripheral vascular disease as per records. 4. Chronic renal insufficiency, creatinine at baseline. 5. Chronic anemia secondary to CKD, hemoglobin at baseline 6. History of traumatic subdural hematoma. 7. Hypothyroidism. TSH was noted to be low. 8. Past tobacco abuse PLAN: GMF check EEG. Check Keppra level. Increase Keppra dose from 500 mg BID to 750 mg BID for now. (Further increasing dose may be limited by kidney function.) Neurology consult RE new focal seizures. Recheck rest of TFTs, maintenance levothyroxine may need dose adjustment DVT prophylaxis, Heparin subQ. DNR as per /POA, Mrs. Jo-Ann Franz, She requests updates from providers at [phone]. MTDD
[2017-02-05] MEDS: CLOPIDOGREL BISULFATE 75 MG TAB PO SCH (07:31)
[2017-02-05] MEDS: PANTOprazole SOD 40 MG TAB PO SCH (07:31)
[2017-02-05] MEDS: ESCITALOPRAM OXALATE 10 MG TAB PO SCH (07:31)
[2017-02-05] MEDS: ASPIRIN 81 MG ECTAB PO SCH (07:31)
[2017-02-05 08:00] VITALS: BP 166/73; PULSE 48; TEMP 36.9; O2SAT 98
[2017-02-05 12:00] VITALS: BP 164/87; PULSE 68; TEMP 36.9; O2SAT 98
--- NOTE | 2017-02-05 14:13 | Neurology Consultation ---
Neurology Consultation Date of Consultation: Feb 05, 2017. Attending Physician: Tyson Lakhani MD Primary Care Physician: Miguel Mckee D.OConstance Reason for Consultation: focal seizure History of Present Illness Source: patient, hospital records Angus is a 86 year old male with PMH CVA, traumatic SDH, HTN, hypothyroid, chronic anemia, chronic renal insufficency, PVD. He was seen in the hospital and then as a post operative visit in our clinic after admission August 2016. He was seen then for a possible TIA and new onset seizures. He was discharged on Keppra. had found him more confused than usual, he has left sided weakness at baseline, he had some twitching of his left eye and left arm. no biting of tongue or incontinence was reported. Today he states he had a stroke and his left side was weak and he bumped his arm on the dresser. There is no family in room. He states he is doing well. denies CP, SOB, abdominal pain, slurred speech , facial droop, N, V, swallow difficulties. Past Medical/Surgical History Medical Problems: (1) CVA (cerebral vascular accident) Status: Acute (2) Left-sided weakness Status: Acute (3) Seizure-like activity Status: Acute Social History Smoking Status: Never smoker Smokeless Tobacco Use: No Alcohol Use: none Drug Use: none Marital Status: Housing Status: lives with family, other Occupation Status: retired Allergies Coded Allergies: Clindamycin (Verified Allergy, Intermediate, rash, 02/05/17) CI Pigment Blue 63 (Verified Allergy, Mild, RASH, 02/05/17) Dabigatran (Verified Allergy, Mild, RASH, 02/05/17) Sulfamethoxazole w/Trimethoprim (Verified Allergy, Mild, RASH, 02/05/17) redness os face Vancomycin (Verified Allergy, Mild, RASH, DRY SKIN, 02/05/17) Warfarin (Verified Allergy, Mild, RASH, 02/05/17) Yellow Dye (Verified Allergy, Mild, RASH, 02/05/17) Sulfa Antibiotics (Unverified Allergy, Unknown, unknown, 02/05/17) Current Inpatient Medications Current Inpatient Medications Medications (Trade) Dose Ordered Sig/Octavia Route Start Time Stop Time Status Last Admin Dose Admin Heparin Sodium (Porcine) (Heparin Sq 5000 Unit/0.5ml) 5,000 unit Q8 SQ 02/05/17 06:00 03/07/17 05:59 Acetaminophen (Tylenol Tab) 650 mg Q4H PRN PO 02/05/17 04:45 03/07/17 04:44 Nitroglycerin (Nitrostat Tab) 0.4 mg UD PRN SL 02/05/17 04:45 03/07/17 04:44 Miscellaneous Information (Pharmacist Discharge Med Rec Consult) 1 ea UD PRN N/A 02/05/17 04:45 03/07/17 04:44 Lorazepam 1 mg/ Syringe 1 ml @ 0.5 mls/min UD PRN IV 02/05/17 04:45 03/07/17 04:44 Oxycodone/ Acetaminophen (Percocet 5-325mg Tab) 1 tab Q6H PRN PO 02/05/17 04:45 02/19/17 04:44 Hydromorphone HCl (Dilaudid Inj) 0.5 mg Q3H PRN IV 02/05/17 04:45 02/19/17 04:44 Ondansetron HCl (Zofran Inj) 4 mg Q6H PRN IV 02/05/17 04:45 03/07/17 04:44 Aspirin (Ecotrin Tab) 162 mg QAM PO 02/05/17 09:00 03/07/17 08:59 02/05/17 07:31 162 MG Atorvastatin Calcium (Lipitor Tab) 20 mg QPM PO 02/05/17 21:00 03/07/17 20:59 Clopidogrel Bisulfate (plAVix TAB) 75 mg QAM PO 02/05/17 09:00 03/07/17 08:59 02/05/17 07:31 75 MG Escitalopram Oxalate (Lexapro Tab) 10 mg QAM PO 02/05/17 09:00 03/07/17 08:59 02/05/17 07:31 10 MG Levothyroxine Sodium (Synthroid Tab) 125 mcg DAILYBB PO 02/05/17 06:00 03/07/17 05:59 Pantoprazole Sodium (Protonix Tab) 40 mg QAM PO 02/05/17 09:00 03/07/17 08:59 02/05/17 07:31 40 MG Tamsulosin HCl (Flomax Cap) 0.4 mg QPM PO 02/05/17 21:00 03/07/17 20:59 Potassium Chloride/Sodium Chloride 1,000 ml @ 60 mls/hr [id number] ONCE IV 02/05/17 05:30 02/05/17 22:09 02/05/17 06:07 60 MLS/HR Levetiracetam (Keppra Tab) 750 mg BID PO 02/05/17 21:00 03/07/17 20:59 Lorazepam (Ativan Inj) 1 mg Q5M PRN IV 02/05/17 05:15 03/07/17 05:14 Miscellaneous (Iv Fluids Completed) 1 ea PRN PRN N/A 02/05/17 05:30 02/05/18 05:29 Finasteride (Proscar Tab) 5 mg DAILY PO 02/06/17 09:00 03/08/17 08:59 Physical Exam Vital Signs (Past 24 Hrs): Date Time Temp Pulse Resp B/P (MAP) Pulse Ox O2 Delivery O2 Flow Rate FiO2 02/05/17 12:00 36.9 68 16 164/87 (112) 98 Room Air 02/05/17 12:00 98 Room Air 02/05/17 08:00 98 Room Air 02/05/17 08:00 36.9 48 16 166/73 (104) 98 Room Air 02/05/17 06:06 36.9 65 16 172/80 98 Room Air 02/05/17 04:56 60 18 97 02/05/17 03:35 67 18 138/65 96 Room Air 02/05/17 02:07 97 Room Air 02/05/17 02:07 37.0 88 18 188/88 94 Room Air 02/05/17 02:04 89 Physical Exam: Constitutional: appearance nourished, pale Ears, Nose, Mouth and Throat: mucous membranes moist, no injection and skin normal, eyes normal Cardiovascular: normal S-1 and S-2 and regular rate and rhythm Respiratory: clear to auscultation (CTA) and no rales, rhonchi or wheeze Musculoskeletal: no peripheral edema and decreased distal pulses Skin: no stigmata of neurocutaneous disease noted and normal and intact Eyes: extraocular muscles intact (EOMI) and pupils equal, round and reactive to light (PERRL) NEUROLOGIC EXAMINATION: Mental status: Alert and interactive Oriented hospital Oriented to person Speech fluent with no evidence of aphasia Cranial Nerves smile and eye brow raise symmetric, tongue midline Reflexes: Deep tendon reflexes were symmetrical and graded 2/5. Plantar responses neutral Sensory: to light touch Coordination: difficulty with finger to nose (baseline vision issues) Gait/Stance: Posture lying in bed Motor: could maintain left arm in air Strength: right biceps triceps hand address change clerk 5/5, left biceps triceps hand address change clerk 4/5, hip flex right 5/5 plantar flex ext 5/5, hip flex left unable to lift against gravity, plantar flex ext 4/5 Laboratory Results Past 24 Hours: 02/05/17 02:30 Red Blood Count 4.15, Mean Corpuscular Volume 89.2, Mean Corpuscular Hemoglobin 29.4, Mean Corpuscular Hemoglobin Concent 33.0, Mean Platelet Volume 9.3, Neutrophils (%) (Auto) 90.4, Lymphocytes (%) (Auto) 3.9, Monocytes (%) (Auto) 4.4, Eosinophils (%) (Auto) 0.7, Basophils (%) (Auto) 0.3, Neutrophils # (Auto) 10.85, Lymphocytes # (Auto) 0.47, Monocytes # (Auto) 0.53, Eosinophils # (Auto) 0.08, Basophils # (Auto) 0.04 02/05/17 02:30 Test 02/05/17 02:30 02/05/17 06:02 White Blood Count 12.00 K/uL (4.8-10.8) Red Blood Count 4.15 M/uL (4.7-6.1) Hemoglobin 12.2 g/dL (14.0-18.0) Hematocrit 37.0 % (42-52) Mean Corpuscular Volume 89.2 fL (80-100) Mean Corpuscular Hemoglobin 29.4 pg (25-34) Mean Corpuscular Hemoglobin Concent 33.0 g/dl (32-36) Platelet Count 239 K/uL (130-400) Mean Platelet Volume 9.3 fL (7.4-10.4) Neutrophils (%) (Auto) 90.4 % Lymphocytes (%) (Auto) 3.9 % Monocytes (%) (Auto) 4.4 % Eosinophils (%) (Auto) 0.7 % Basophils (%) (Auto) 0.3 % Neutrophils # (Auto) 10.85 K/uL (1.4-6.5) Lymphocytes # (Auto) 0.47 K/uL (1.2-3.4) Monocytes # (Auto) 0.53 K/uL (0.11-0.59) Eosinophils # (Auto) 0.08 K/uL (0-0.5) Basophils # (Auto) 0.04 K/uL (0-0.2) RDW Standard Deviation 45.0 fL (36.4-46.3) RDW Coefficient of Variation 13.7 % (11.5-14.5) Immature Granulocyte % (Auto) 0.3 % Immature Granulocyte # (Auto) 0.03 K/uL (0.00-0.02) Prothrombin Time 10.6 SECONDS (9.0-12.0) Prothromb Time International Ratio 1.0 (0.9-1.1) Activated Partial Thromboplast Time 25.0 SECONDS (21.0-31.0) Partial Thromboplastin Ratio 1.0 Anion Gap 7.0 mmol/L (3-11) Est Creatinine Clear Calc Drug Dose 34.3 ml/min Estimated GFR () 48.8 Estimated GFR (Non- 42.1 BUN/Creatinine Ratio 15.0 (10-20) Calcium Level 9.4 mg/dl (8.5-10.1) Magnesium Level 1.8 mg/dl (1.8-2.4) Total Bilirubin 0.4 mg/dl (0.2-1) Direct Bilirubin < 0.1 mg/dl (0-0.2) Aspartate Amino Transf (AST/SGOT) 18 U/L (15-37) Alanine Aminotransferase (ALT/SGPT) 26 U/L (12-78) Alkaline Phosphatase 85 U/L (45-117) Total Creatine Kinase 49 U/L (39-308) Creatine Kinase MB 0.9 ng/ml (0.5-3.6) Creatine Kinase MB Ratio 1.8 (0-3.0) Troponin I 0.021 ng/ml (0-0.045) Total Protein 6.7 gm/dl (6.4-8.2) Albumin 3.3 gm/dl (3.4-5.0) Thyroid Stimulating Hormone (TSH) 0.125 uIu/ml (0.300-4.500) Free Thyroxine 1.56 ng/dl (0.80-1.60) Total Triiodothyronine 0.84 ng/ml (0.60-1.81) Date/Time Source Procedure Growth Status 02/05/17 06:30 Nasal MRSA DNA Surveillance Screen - Final Specimen Negative for MRSA by DNA Probe Complete Imaging CT head-Old large right MCA territory infarct. No acute intracranial findings. Impression 86 year old male PMH large right MCA territory infarct, and seizure disorder. Plan 1. CT head no new infarct seen 2. know left sided weakness. currently on aspirin 162 mg and plavix 75 mg daily 3. Keppra was increased from 500 mg twice daily to 750 mg twice daily - his GFR is 42.1 bun/creat /.50 this is the top of recommended dosing 4. seizure precautions and fall precautions 5. Keppra level pending 6. family input will be helpful for event 7. physical and occupational therapy -discharge needs 8. further recommendations to follow I have seen and discussed above patient with Dr Aashish Gray, neurology Reviewed history with and patient ( who is not reliable ) and the above note exam is not helpful but shows the mild old left hemiparesis and labs show no new cva and eeg shows only mild generalized slowing we have to postulate recurrent focalmotor seizures based on the available data and concur with the decision to raise the keppra to 750 bid which is about as high as we can go based on renal data but we will also check levels and see back in clinic in four to to six weeks and observe here for another 24 hours at the least we will check back tomorrow Discussed with Darling Gray MD
[2017-02-05 14:41] LABS: URINE APPEARANCE CLEAR (CLEAR); URINE BILIRUBIN NEG (NEG); URINE COLOR YELLOW; URINE EPITHELIAL CELL AUTO >30 /lpf (0-5); URINE NITRITE NEG (NEG); URINE SPECIFIC GRAVITY 1.024 (1.000-1.030); UROBILINOGEN NEG (NEG); ZZUR CULT IF INDIC CLEAN CATCH NO
[2017-02-05 14:46] LABS: MANUAL MICROSCOPIC REQUIRED? NO; REVIEW REQ? YES
[2017-02-05 15:10] VITALS: BP 174/73; PULSE 51
[2017-02-05 16:07] VITALS: BP 152/74; PULSE 51; TEMP 37; O2SAT 98
--- NOTE | 2017-02-05 16:22 | ELECTROENCEPHALOGRAPH REPORT ---
CLINICAL DIAGNOSIS: Possible seizures versus transient ischemic attack. EEG DIAGNOSIS: Mildly diffusely abnormal EEG during apparent clinical wakefulness. DESCRIPTION OF TRACING: This EEG was done as a bedside recording and is of reasonable technical quality and the patient is described as less than ideally cooperative. Video analysis of patient movement and behavior was obtained. Photic stimulation was performed. Hyperventilation was not. Drowsiness and light sleep are not clearly recorded. Under these conditions, there is evidence for what appears to be a background rhythm in the alpha range of up to 9 Hz of maximum frequency and 30 microvolts of maximum amplitude. This is bilaterally symmetrical in maximum posterior head regions. Polymorphic mid to lower frequency theta activity of modest voltage is seen over all head regions without focal or regional predominance. Occasional waveforms in the delta range are superimposed. These are of low amplitude and occur randomly and not rhythmically. Beta activity is seen bifrontally. Photic stimulation provoked some minimal driving response. There is no photomyogenic or photoparoxysmal component. At no time during the waking tracing is there evidence for potentially epileptogenic activity in the form of polyspike or spike wave bursts, focal sharp waves or focal spikes. INTERPRETATION: This EEG reveals evidence for a mild diffuse abnormalities consisting of slightly excessive amounts of theta activity with occasional activity in the delta range. None of these abnormalities are lateralizing and there is no potentially epileptogenic activity but the absence of the latter does not exclude the diagnosis of a seizure disorder. MTDD
--- NOTE | 2017-02-05 19:05 | Progress Note ---
Internal Med Progress Note Date of Service: Feb 05, 2017. Provider Documentation: resting comfortably. Alert and oriented. feeling cold. Afebrile. Denies chest pain or sob. Neurology agrees the increase of Keppra dose to 750mg bid. Having bradycardia on and off. Will monitor. ASSESSMENT & PLAN: [] DVT PROPHYLAXIS [] DISPOSITION [] Vital Signs: Date Time Temp Pulse Resp B/P (MAP) Pulse Ox O2 Delivery O2 Flow Rate FiO2 02/05/17 16:07 37.0 51 20 152/74 (100) 98 Room Air 02/05/17 16:00 Room Air 02/05/17 15:10 51 02/05/17 12:00 36.9 68 16 164/87 (112) 98 Room Air 02/05/17 12:00 98 Room Air 02/05/17 08:00 98 Room Air 02/05/17 08:00 36.9 48 16 166/73 (104) 98 Room Air 02/05/17 06:06 36.9 65 16 172/80 98 Room Air 02/05/17 04:56 60 18 97 02/05/17 03:35 67 18 138/65 96 Room Air 02/05/17 02:07 97 Room Air 02/05/17 02:07 37.0 88 18 188/88 94 Room Air 02/05/17 02:04 89 Lab Results: Results Past 24 Hours Test 02/05/17 02:30 02/05/17 06:02 02/05/17 14:20 Range/Units White Blood Count 12.00 4.8-10.8 K/uL Red Blood Count 4.15 4.7-6.1 M/uL Hemoglobin 12.2 14.0-18.0 g/dL Hematocrit 37.0 42-52 % Mean Corpuscular Volume 89.2 80-100 fL Mean Corpuscular Hemoglobin 29.4 25-34 pg Mean Corpuscular Hemoglobin Concent 33.0 32-36 g/dl Platelet Count 239 130-400 K/uL Mean Platelet Volume 9.3 7.4-10.4 fL Neutrophils (%) (Auto) 90.4 % Lymphocytes (%) (Auto) 3.9 % Monocytes (%) (Auto) 4.4 % Eosinophils (%) (Auto) 0.7 % Basophils (%) (Auto) 0.3 % Neutrophils # (Auto) 10.85 1.4-6.5 K/uL Lymphocytes # (Auto) 0.47 1.2-3.4 K/uL Monocytes # (Auto) 0.53 0.11-0.59 K/uL Eosinophils # (Auto) 0.08 0-0.5 K/uL Basophils # (Auto) 0.04 0-0.2 K/uL RDW Standard Deviation 45.0 36.4-46.3 fL RDW Coefficient of Variation 13.7 11.5-14.5 % Immature Granulocyte % (Auto) 0.3 % Immature Granulocyte # (Auto) 0.03 0.00-0.02 K/uL Prothrombin Time 10.6 9.0-12.0 SECONDS Prothromb Time International Ratio 1.0 0.9-1.1 Activated Partial Thromboplast Time 25.0 21.0-31.0 SECONDS Partial Thromboplastin Ratio 1.0 Sodium Level 143 136-145 mmol/L Potassium Level 3.7 3.5-5.1 mmol/L Chloride Level 109 98-107 mmol/L Carbon Dioxide Level 27 21-32 mmol/L Anion Gap 7.0 3-11 mmol/L Blood Urea Nitrogen 22 7-18 mg/dl Creatinine 1.50 0.60-1.40 mg/dl Est Creatinine Clear Calc Drug Dose 34.3 ml/min Estimated GFR () 48.8 Estimated GFR (Non- 42.1 BUN/Creatinine Ratio 15.0 10-20 Random Glucose 138 70-99 mg/dl Calcium Level 9.4 8.5-10.1 mg/dl Magnesium Level 1.8 1.8-2.4 mg/dl Total Bilirubin 0.4 0.2-1 mg/dl Direct Bilirubin < 0.1 0-0.2 mg/dl Aspartate Amino Transf (AST/SGOT) 18 15-37 U/L Alanine Aminotransferase (ALT/SGPT) 26 12-78 U/L Alkaline Phosphatase 85 45-117 U/L Total Creatine Kinase 49 39-308 U/L Creatine Kinase MB 0.9 0.5-3.6 ng/ml Creatine Kinase MB Ratio 1.8 0-3.0 Troponin I 0.021 0-0.045 ng/ml Total Protein 6.7 6.4-8.2 gm/dl Albumin 3.3 3.4-5.0 gm/dl Thyroid Stimulating Hormone (TSH) 0.125 0.300-4.500 uIu/ml Free Thyroxine 1.56 0.80-1.60 ng/dl Total Triiodothyronine 0.84 0.60-1.81 ng/ml Urine Color YELLOW Urine Appearance CLEAR CLEAR Urine pH 6.0 4.5-7.5 Urine Specific Brandon 1.024 1.000-1.030 Urine Protein NEG NEG Urine Glucose (UA) NEG NEG Urine Ketones NEG NEG Urine Occult Blood 2+ NEG Urine Nitrite NEG NEG Urine Bilirubin NEG NEG Urine Urobilinogen NEG NEG Urine Leukocyte Esterase NEG NEG Urine WBC (Auto) 0 0-5 /hpf Urine RBC (Auto) 10-30 0-4 /hpf Urine Hyaline Casts (Auto) 1-5 0-5 /lpf Urine Epithelial Cells (Auto) >30 0-5 /lpf Urine Bacteria (Auto) NEG NEG Urine Renal Epithelial Cells 0-5 0-5 /lpf Microbiology Results 02/05/17 MRSA DNA Surveillance Screen - Final, Complete Specimen Negative for MRSA by DNA Probe
[2017-02-05] MEDS: TAMSULOSIN HCL 0.4 MG CAP PO SCH (19:26)
[2017-02-05] MEDS: LEVETIRACETAM 500 MG TAB PO SCH (19:26)
[2017-02-05 20:00] VITALS: O2SAT 98
[2017-02-05] MEDS ORDERED: ATORVASTATIN 20 MG TAB PO SCH (21:00)
[2017-02-06 00:06] VITALS: BP 138/62; PULSE 54; TEMP 36.5; O2SAT 98
[2017-02-06 03:35] VITALS: BP 126/71; PULSE 56; TEMP 36.5; O2SAT 98
[2017-02-06 05:52] LABS: BASO % 0.6 %; BASO ABS # 0.04 K/uL (0-0.2); COMPLETE YES; EOS % 5.8 %; HEMATOCRIT 36.1 % (42-52); IG% 0.3 %; LYMPH % 12.4 %; LYMPH ABS # 0.84 K/uL (1.2-3.4); MEAN CELL VOLUME 90.9 fL (80-100); MEAN CORPUSCULAR HEMOGLOBIN 29.5 pg (25-34); MEAN CORPUSCULAR HGB CONC 32.4 g/dl (32-36); MEAN PLATELET VOLUME 9.3 fL (7.4-10.4); MONO % 9.7 %; NEUT % 71.2 %; PLATELET COUNT 216 K/uL (130-400); RED BLOOD COUNT 3.97 M/uL (4.7-6.1); WHITE BLOOD COUNT 6.77 K/uL (4.8-10.8)
[2017-02-06] MEDS: LEVOTHYROXINE 125 MCG TAB PO SCH (06:10)
[2017-02-06] MEDS: HEPARIN SOD 5000 UNIT/0.5 ML CARP SQ SCH ×3 (06:13→21:49)
[2017-02-06 06:34] LABS: BUN/CREATININE RATIO 16.2 (10-20); CALCIUM 8.8 mg/dl (8.5-10.1); CREATININE 1.4 mg/dl (0.60-1.40); POTASSIUM 4.1 mmol/L (3.5-5.1)
[2017-02-06 07:28] VITALS: BP 150/71; PULSE 53; TEMP 36.4; O2SAT 98
[2017-02-06] MEDS: ASPIRIN 81 MG ECTAB PO SCH (08:41)
[2017-02-06] MEDS: LEVETIRACETAM 500 MG TAB PO SCH ×2 (08:41→19:41)
[2017-02-06] MEDS: PANTOprazole SOD 40 MG TAB PO SCH (08:41)
[2017-02-06] MEDS: FINASTERIDE 5 MG TAB PO SCH (08:41)
[2017-02-06] MEDS: ESCITALOPRAM OXALATE 10 MG TAB PO SCH (08:41)
[2017-02-06] MEDS: CLOPIDOGREL BISULFATE 75 MG TAB PO SCH (08:41)
[2017-02-06 10:54] VITALS: BP 148/63; PULSE 53; TEMP 36.6; O2SAT 99
[2017-02-06 15:25] VITALS: BP 137/70; PULSE 51; TEMP 36.4; O2SAT 96
--- NOTE | 2017-02-06 16:19 | PROGRESS NOTE ---
DATE: 02/06/2017 DATE: 02/06/2017 Angus looks good today. The left arm according to him is back to nearly its baseline. I was really not impressed that it was that much weaker than it had been when I saw him in clinic not long ago. He is more alert. He is making some sense, although there is an element of a vascular dementia operating here and no more involuntary repetitive movements of the left side have been reported. At this point, then we are going to keep him on 750 of Keppra twice a day which is about the maximum we can in light of his renal function and hope that this will be sufficient to prevent further focal motor seizures which is probably what did transpire in his case. 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 Now, however, the story is a little more convincing for seizures and hopefully with the Keppra these can be stopped. I will check back with her tomorrow, but again if he is stable, I think neurology has no other suggestions other than to have him follow up in our clinic in about 6 weeks post hospitalization.
[2017-02-06 18:56] VITALS: BP 142/81; PULSE 52; TEMP 36.8; O2SAT 99
--- NOTE | 2017-02-06 19:32 | Progress Note ---
Internal Med Progress Note Date of Service: Feb 06, 2017. Provider Documentation: resting comfortably. alert and oriented x 3 denies chest pain or sob had breakfast afebrile Exam: General-alert and oriented. Not in distress ENT-Normal hearing Neck-no neck masses supple Lungs-cta b/l no wheezing no crackles present Heart-s1 and s2 heard regular rate and rhythm no murmurs Abdomen-soft bowel sounds present non tender no distension Extremities- no erythema no edema Neuro-alert and oriented moves extremities ASSESSMENT & PLAN: 1. Left-sided weakness with twitching possible new focal seizures keppra dose maximized to 750mg bid stable appreciate neurology inputs. 2. hx cerebrovascular disease on aspirin and Plavix.stable. 3. Peripheral vascular disease as per records. 4. Chronic renal insufficiency, creatinine at baseline. 5. Chronic anemia secondary to CKD, hemoglobin at baseline 6. History of traumatic subdural hematoma.Ct head no new findings. 7. Hypothyroidism. TSH was noted to be low.Free t3 and t4 normal. DVT PROPHYLAXIS hep sub q DISPOSITION monitor in tele pt/ot PT recommends rehab social service for d/c planning Vital Signs: Date Time Temp Pulse Resp B/P (MAP) Pulse Ox O2 Delivery O2 Flow Rate FiO2 02/06/17 18:56 36.8 52 16 142/81 (101) 99 Room Air 02/06/17 16:00 Room Air 02/06/17 15:25 36.4 51 16 137/70 (92) 96 Room Air 02/06/17 12:00 Room Air 02/06/17 10:54 36.6 53 16 148/63 (91) 99 Room Air 02/06/17 08:30 Room Air 02/06/17 07:28 36.4 53 18 150/71 (97) 98 Room Air 02/06/17 04:04 Room Air 02/06/17 03:35 36.5 56 18 126/71 (89) 98 Room Air 02/06/17 00:06 36.5 54 15 138/62 (87) 98 Room Air 02/06/17 00:03 Room Air 02/05/17 20:00 98 Room Air Lab Results: Results Past 24 Hours Test 02/06/17 05:37 Range/Units White Blood Count 6.77 4.8-10.8 K/uL Red Blood Count 3.97 4.7-6.1 M/uL Hemoglobin 11.7 14.0-18.0 g/dL Hematocrit 36.1 42-52 % Mean Corpuscular Volume 90.9 80-100 fL Mean Corpuscular Hemoglobin 29.5 25-34 pg Mean Corpuscular Hemoglobin Concent 32.4 32-36 g/dl Platelet Count 216 130-400 K/uL Mean Platelet Volume 9.3 7.4-10.4 fL Neutrophils (%) (Auto) 71.2 % Lymphocytes (%) (Auto) 12.4 % Monocytes (%) (Auto) 9.7 % Eosinophils (%) (Auto) 5.8 % Basophils (%) (Auto) 0.6 % Neutrophils # (Auto) 4.82 1.4-6.5 K/uL Lymphocytes # (Auto) 0.84 1.2-3.4 K/uL Monocytes # (Auto) 0.66 0.11-0.59 K/uL Eosinophils # (Auto) 0.39 0-0.5 K/uL Basophils # (Auto) 0.04 0-0.2 K/uL RDW Standard Deviation 46.8 36.4-46.3 fL RDW Coefficient of Variation 14.0 11.5-14.5 % Immature Granulocyte % (Auto) 0.3 % Immature Granulocyte # (Auto) 0.02 0.00-0.02 K/uL Sodium Level 141 136-145 mmol/L Potassium Level 4.1 3.5-5.1 mmol/L Chloride Level 109 98-107 mmol/L Carbon Dioxide Level 28 21-32 mmol/L Anion Gap 4.0 3-11 mmol/L Blood Urea Nitrogen 23 7-18 mg/dl Creatinine 1.40 0.60-1.40 mg/dl Est Creatinine Clear Calc Drug Dose 35.2 ml/min Estimated GFR () 53.1 Estimated GFR (Non- 45.8 BUN/Creatinine Ratio 16.2 10-20 Random Glucose 91 70-99 mg/dl Calcium Level 8.8 8.5-10.1 mg/dl
[2017-02-06] MEDS: TAMSULOSIN HCL 0.4 MG CAP PO SCH (19:41)
[2017-02-06] MEDS ORDERED: ATORVASTATIN 40 MG TAB PO SCH (21:00)
[2017-02-07 00:20] VITALS: BP 109/57; PULSE 68; TEMP 36.4; O2SAT 98
[2017-02-07 03:37] VITALS: BP 124/56; PULSE 61; TEMP 36.4; O2SAT 93
[2017-02-07] MEDS: LEVOTHYROXINE 125 MCG TAB PO SCH (06:23)
[2017-02-07] MEDS: HEPARIN SOD 5000 UNIT/0.5 ML CARP SQ SCH ×2 (06:24→14:34)
[2017-02-07 07:23] VITALS: BP 145/72; PULSE 49; TEMP 36.5; O2SAT 97
[2017-02-07] MEDS: FINASTERIDE 5 MG TAB PO SCH (08:00)
[2017-02-07] MEDS: PANTOprazole SOD 40 MG TAB PO SCH (08:01)
[2017-02-07] MEDS: ASPIRIN 81 MG ECTAB PO SCH (08:01)
[2017-02-07] MEDS: CLOPIDOGREL BISULFATE 75 MG TAB PO SCH (08:01)
[2017-02-07] MEDS: LEVETIRACETAM 500 MG TAB PO SCH (08:01)
[2017-02-07] MEDS: ESCITALOPRAM OXALATE 10 MG TAB PO SCH (08:01)
[2017-02-07 08:02] LABS: BUN/CREATININE RATIO 14.1 (10-20); CALCIUM 9.4 mg/dl (8.5-10.1); CREATININE 1.5 mg/dl (0.60-1.40); POTASSIUM 4.2 mmol/L (3.5-5.1)
[2017-02-07 11:24] VITALS: BP 125/74; PULSE 63; TEMP 36.5; O2SAT 98
[2017-02-07] MEDS ORDERED: LEVE500T13 PO (14:28)
--- NOTE | 2017-02-07 14:30 | Discharge Instructions ---
Discharge Instructions Date of Service Feb 07, 2017. Admission Reason for Admission: Seziure-Like Activity Discharge Discharge Diagnosis / Problem: SEIZURE DISORDER Discharge Goals Goal(s): Decrease discomfort, Improve disease control, Diagnostic testing, Therapeutic intervention Activity Recommendations Activity Level: Assistance Required Therapies: Physical Therapy, Occupational Therapy . Additional Information Patient informed of condition: Yes Advance Directives: Yes DNR: Yes Level of Care: Skilled Communicable Disease: No Prognosis: Stable Lowe Catheter: No Instructions / Follow-Up Instructions / Follow-Up FOLLOW UP WITH FAMILY PHYSICIAN AFTER DISCHARGE FORM REHAB KEPRRA DOSE INCREASED TO 750 MG BID NEED TO FOLLOW UP WITH NEUROLOGY DR GAFFNEY IN 6 WEEKS PLEASE CALL OFFICE FOR APPOINTMENT Current Hospital Diet Patient's current hospital diet: AHA Diet (Heart Healthy) Discharge Diet Recommended Diet: AHA Diet (Heart Healthy) Pending Studies Studies pending at discharge: no Medical Emergencies . Who to Call and When: Medical Emergencies: If at any time you feel your situation is an emergency, please call 911 immediately. . Non-Emergent Contact Non-Emergency issues call your: Primary Care Provider . . "Provider Documentation" section prepared by Jackie Garcia. . Core Measure Problem Core Measures: None
[2017-02-07 15:15] VITALS: BP 115/71; PULSE 56; TEMP 36.4; O2SAT 99
[2017-02-07 16:23] VITALS: BP 115/71; PULSE 56; TEMP 36.4; O2SAT 99
--- NOTE | 2017-02-07 16:30 | Progress Note ---
Internal Med Progress Note Date of Service: Feb 07, 2017. Provider Documentation: SUBJECTIVE: no sign of distress, sitting up on chair able to converse no sz activity noted OBJECTIVE: Vital Signs-as noted below Exam: General-pleasant, elderly male , no sign of distress Eyes-sclera non icteric ENT-NAD Neck-no JVD Lungs-CTA. no wheeze or rales Heart-regular S1.S2 Abdomen-soft, non tender Extremities-large ecchymosis , bruise on rt arm Neuro-no focal deficit Lab data as noted below. ASSESSMENT & PLAN: FOCAL SEIZURE ACTIVITY pt presented with Left-sided weakness with twitching possible new focal seizures Keppra dose maximized to 750mg bid appreciate neurology inputs. 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 No acute intracranial findings. out pt follow up with Neurology in 6 months HX OF CVA : . hx cerebrovascular disease on aspirin and Plavix.stable. CKD STAGE 3 : Chronic renal insufficiency, creatinine at baseline. HX OF SUBDURAL HEMATOMA History of traumatic subdural hematoma.Ct head no new findings. HYPOTHYROIDISM TSH was noted to be low.Free t3 and t4 normal. no intervention needed repeat TSH in 3-6 months DVT PROPHYLAXIS hep sub q DISPOSITION stable to be transferred to [facility] for rehab updated at bedside Vital Signs: Date Time Temp Pulse Resp B/P (MAP) Pulse Ox O2 Delivery O2 Flow Rate FiO2 02/07/17 16:23 36.4 56 20 99 Room Air 02/07/17 16:00 Room Air 02/07/17 15:15 36.4 56 20 115/71 (86) 99 Room Air 02/07/17 12:10 Room Air 02/07/17 11:24 36.5 63 18 125/74 (91) 98 Room Air 02/07/17 08:15 Room Air 02/07/17 07:23 36.5 49 18 145/72 (96) 97 Room Air 02/07/17 04:03 Room Air 02/07/17 03:37 36.4 61 20 124/56 (78) 93 Room Air 02/07/17 00:20 36.4 68 16 109/57 (74) 98 Room Air 02/07/17 00:01 Room Air 02/06/17 20:00 Room Air 02/06/17 18:56 36.8 52 16 142/81 (101) 99 Room Air Lab Results: Results Past 24 Hours Test 02/07/17 06:53 Range/Units Sodium Level 142 136-145 mmol/L Potassium Level 4.2 3.5-5.1 mmol/L Chloride Level 109 98-107 mmol/L Carbon Dioxide Level 29 21-32 mmol/L Anion Gap 4.0 3-11 mmol/L Blood Urea Nitrogen 21 7-18 mg/dl Creatinine 1.50 0.60-1.40 mg/dl Est Creatinine Clear Calc Drug Dose 33.2 ml/min Estimated GFR () 48.8 Estimated GFR (Non- 42.1 BUN/Creatinine Ratio 14.1 10-20 Random Glucose 93 70-99 mg/dl Calcium Level 9.4 8.5-10.1 mg/dl
--- NOTE | 2017-02-07 16:33 | Discharge Summary ---
Discharge Summary Date of Service Feb 07, 2017. 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 No acute intracranial findings. EEG : INTERPRETATION: This EEG reveals evidence for a mild diffuse abnormalities consisting of slightly excessive amounts of theta activity with occasional activity in the delta range. None of these abnormalities are lateralizing and there is no potentially epileptogenic activity but the absence of the latter does not exclude the diagnosis of a seizure disorder. Consultations: NEUROLOGY DR GAFFNEY Medication Reconciliation New Medications: Levetiracetam (Keppra) 500 Mg Tab 750 MG PO BID for 30 Days, #90 TAB Continued Medications: Aspirin (Aspirin Ec) 81 Mg Tab 162 MG PO QAM Atorvastatin (Lipitor) 20 Mg Tab 20 MG PO QPM, TAB Clopidogrel Bisulfate (Plavix) 75 Mg Tab 75 MG PO QAM, TAB Escitalopram Oxalate (Lexapro) 10 Mg Tab 10 MG PO QAM, TAB Finasteride (Proscar) 5 Mg Tab 5 MG PO DAILY, TAB Levothyroxine Sodium (Levothyroxine Sodium) 125 Mcg Tab 1 TAB PO QAM, TAB 3 Refills Meclizine Hcl (Meclizine Hcl) 25 Mg Tab 1 TAB PO TID PRN for Dizziness or Vertigo for 10 Days, #30 TAB Pantoprazole (Protonix) 40 Mg Tab 40 MG PO QAM, #30 TAB Tamsulosin Hcl (Flomax) 0.4 Mg Cap 0.4 MG PO QPM, CAP Discontinued Medications: Levetiractam (Levetiracetam) 500 Mg Tab 500 MG PO BID Admission Information HPI (per Admitting provider): DATE OF ADMISSION: 02/05/2017 PRIMARY CARE DOCTOR: Dr. Mckee CHIEF COMPLAINT: Left face, L arm twitching as per . HISTORY OF PRESENT ILLNESS: History obtained from the patient's , ER physician and records. Limited history obtained from patient secondary to lethargic state post benzo administration at the ER. Medical history is significant for CVA, history of traumatic subdural hematoma, hypertension, hypothyroidism, chronic anemia (baseline hemoglobin of 12), chronic renal insufficiency (baseline creatinine of 1.6), PVD, hx MRSA. Recent confinement was in August 2016 for for possible TIA, new-onset seizures. Patient discharged on Keppra. He was seen at the [facility] a few days ago. Exam as per neurologist disclosed dysarthria, left upper motor neuron facial paralysis, mild left-sided neglect more clumsiness on the left hand. Concern for orthostatic hypotensive episodes as per provider note. Last night, the patient told that he was not feeling well. later found him later on more confused than usual; usual left-sided weakness as per ; twitching of the left eye and left arm, different from generalized tonic-clonic seizures from a few months back. Patient is compliant with meds as per . No incontinence. Involuntary movement terminated by Ativan at the Emergency Room. MEDICAL HISTORY: As above. SURGERIES: Hip replacement, prostate surgery and hernia surgery. HOME MEDICATIONS: Include; Keppra, meclizine, Protonix, Flomax, aspirin, Lipitor, Plavix, Lexapro, Proscar and levothyroxine. ALLERGIES: CLINDAMYCIN, VANCOMYCIN, COUMADIN, BACTRIM, YELLOW DYE, PIGMENTS, SULFA AND DABIGATRAN. FAMILY HISTORY: Heart disease. 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 Physical Exam (per Admitting): REVIEW OF SYSTEMS: Could not be obtained. PHYSICAL EXAMINATION: VITAL SIGNS: Blood pressure was noted to be 130/80 MA 70 RR 18, T 37 O2 sats 97 on room air. GENERAL: Noted to be lethargic, in no respiratory distress. SKIN: Pallor. HEENT: Pale palpable conjunctivae. Dry mucosa. Minimal left-sided facial asymmetry ( chronic) NECK: Short neck. LUNGS: Decreased effort. HEART: Regular rate and rhythm. ABDOMEN: Soft. EXTREMITIES: No edema. No tenderness NEUROLOGIC: lethargy. Hospital Course FOCAL SEIZURE ACTIVITY pt presented with Left-sided weakness with twitching possible new focal seizures Keppra dose maximized to 750mg bid appreciate neurology inputs. 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 No acute intracranial findings. out pt follow up with Neurology in 6 months HX OF CVA : . hx cerebrovascular disease on aspirin and Plavix.stable. CKD STAGE 3 : Chronic renal insufficiency, creatinine at baseline. HX OF SUBDURAL HEMATOMA History of traumatic subdural hematoma.Ct head no new findings. HYPOTHYROIDISM TSH was noted to be low.Free t3 and t4 normal. no intervention needed repeat TSH in 3-6 months DVT PROPHYLAXIS hep sub q DISPOSITION stable to be transferred to [facility] for rehab updated at bedside Discharge Instructions Discharge Instructions Date of Service Feb 07, 2017. Admission Reason for Admission: Seizure-Like Activity Discharge Discharge Diagnosis / Problem: SEIZURE DISORDER Discharge Goals Goal(s): Decrease discomfort, Improve disease control, Diagnostic testing, Therapeutic intervention Activity Recommendations Activity Level: Assistance Required Therapies: Physical Therapy, Occupational Therapy . Additional Information Patient informed of condition: Yes Advance Directives: Yes DNR: Yes Level of Care: Skilled Communicable Disease: No Prognosis: Stable Lowe Catheter: No Instructions / Follow-Up Instructions / Follow-Up FOLLOW UP WITH FAMILY PHYSICIAN AFTER DISCHARGE FORM REHAB KEPRRA DOSE INCREASED TO 750 MG BID NEED TO FOLLOW UP WITH NEUROLOGY DR GAFFNEY IN 6 WEEKS PLEASE CALL OFFICE FOR APPOINTMENT Current Hospital Diet Patient's current hospital diet: AHA Diet (Heart Healthy) Discharge Diet Recommended Diet: AHA Diet (Heart Healthy) Pending Studies Studies pending at discharge: no Medical Emergencies . Who to Call and When: Medical Emergencies: If at any time you feel your situation is an emergency, please call 911 immediately. . Non-Emergent Contact Non-Emergency issues call your: Primary Care Provider . . "Provider Documentation" section prepared by Jackie Garcia. . Core Measure Problem Core Measures: None Additional Copies To Miguel Mckee D.O. Mateer, John, M.D. (MEDICINE)
--- NOTE | 2017-02-07 17:03 | PROGRESS NOTE ---
DATE: 02/07/2017 SUBJECTIVE: Angus is being discharged today and will be placed in [employer], which I think is a good idea. His has been having increasing problems handling him at home. He has been able to maintain hydration. He has had some orthostatic episodes, and I think in an institution, he will get more consistent care. No more seizure activity has been reported, although he did apparently talked about some numbness and tingling in his hand a headache this morning, but this cleared up. He is on Keppra 750 mg twice a day. Exam shows a very mild left hemiparesis. I saw him walking in the [place] with a physical therapist. He recognized me. He was alert. His speech was slightly dysarthric, but I think his exam actually looks better than it has in a while. For now, I am going to keep him on the Keppra 750 twice a day. We will see him back in neurology clinic in about 6 weeks. Will probably check a Keppra level then as his renal function does limit the amount we can give him unless of course his level would not be in the toxic range despite the lack of renal clearance. Hopefully, this will be necessary and he will remain seizure free on the current dosing. MTDD
== END 2017-02-07 17:40 ==
LOC: C.EDA 01:56 → ENRESERV 04:44 → C.MSICU 05:10 → EDBEDREQ 05:13 → CANRESERV 06:27 → ENRESERV 06:27 → CANBEDREQ 08:11 → C.2T 18:39
PROVIDERS: ADMIT Internal Medicine; ATTEND Hospitalist
DX: G40.909 Epilepsy, unspecified, not intractable, without status epilepticus (principal); E11.22 Type 2 diabetes mellitus with diabetic chronic kidney disease; I12.9 Hypertensive chronic kidney disease with stage 1 through stage 4 chronic kidney disease, or unspecified chronic kidney disease; N18.3 Chronic kidney disease, stage 3 (moderate); E11.51 Type 2 diabetes mellitus with diabetic peripheral angiopathy without gangrene; E78.5 Hyperlipidemia, unspecified; K22.70 Barrett's esophagus without dysplasia; E03.9 Hypothyroidism, unspecified; D64.9 Anemia, unspecified; R53.1 Weakness; N40.0 Benign prostatic hyperplasia without lower urinary tract symptoms; Z66 Do not resuscitate; Z86.73 Personal history of transient ischemic attack (TIA), and cerebral infarction without residual deficits; Z87.891 Personal history of nicotine dependence; Z79.82 Long term (current) use of aspirin; Z79.02 Long term (current) use of antithrombotics/antiplatelets; Z79.899 Other long term (current) drug therapy

== ENCOUNTER 2018-09-08 21:34 | Inpatient (IN) ==
[2018-09-08] MEDS ORDERED: SODIUM CHLORIDE 0.9% 1000ML 1,000 ML IV SCH (21:45)
[2018-09-08] MEDS ORDERED: OPTIRAY 320 125ml IV PRN (21:50)
--- NOTE | 2018-09-08 21:58 | CT Scan Report ---
CT OF THE HEAD WITHOUT CONTRAST CLINICAL HISTORY: Stroke evaluation COMPARISON STUDY: Head CT February 05, 2017. MRI of the brain September 01, 2016. TECHNIQUE: Helical axial images of the head were obtained without IV contrast. Automated exposure con trol was utilized for the study. A dose lowering technique was utilized adhering to the principles o f ALARA. FINDINGS: No acute intracranial hemorrhage, midline shift or mass effect is present. Extensive enceph alomalacia within the right MCA territory is unchanged since head CT of February 05, 2017. Ventricular s ystem is stable. The basilar cisterns are patent. There are no extra-axial collections. There are no findings to suggest acute dural sinus thrombosis or acute territorial infarct. The appearance of the brain is unchanged. Exam is mildly compromised by motion artifact. There are no significant calvarial abnormalities. IMPRESSION: 1. No acute intracranial findings. 2. Large old right MCA territory infarct unchanged since head CT of February 05, 2017. Electronically signed by: Sadiq Vallejo M.D. 09/08/2018 9:56 PM
--- NOTE | 2018-09-08 22:04 | CT Scan Report ---
CT ANGIOGRAPHY OF THE NECK WITH CONTRAST CLINICAL HISTORY: Weakness. Possible stroke. COMPARISON STUDY: MRA of the neck September 11, 2016. Technique: CT angiography of the carotid and vertebral arteries was obtained using NewscronraAito BV 320 IV and 3D reconstruction on an independent workstation. NASCET criteria was utilized. Automated exposure c ontrol was utilized for the study. A dose lowering technique was utilized adhering to the principles of ALARA. Findings: Chronic occlusion of the right internal carotid artery is unchanged and MRI of September 11 17. There is severe stenosis at the origin the right vertebral artery. There is mild stenosis at the origin of the left vertebral artery. There is no dissection within the major vasculature of the neck. There is moderate calcified atherosclerotic plaque within the proximal left internal carotid artery. This results in 50% narrowing of the proximal left internal carotid artery. No cervical lymphadenopa thy is present. Biapical scarring within the lungs is noted. IMPRESSION: 1. Chronic occlusion of the right internal carotid artery, unchanged since MRA of September 11, 2016. 2. 50% stenosis of the proximal left internal carotid artery due to calcified atherosclerotic plaque. 3. 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 Electronically signed by: Sadiq Vallejo M.D. 09/08/2018 10:03 PM
--- NOTE | 2018-09-08 22:08 | CT Scan Report ---
CTA ANGIOGRAPHY OF THE HEAD CLINICAL HISTORY: Weakness. Possible stroke. COMPARISON STUDY: MRA of the head February 19, 2016. TECHNIQUE: Helical axial images of the head were obtained following uneventful intravenous administr ation of 150 cc of Optiray 320. Automated exposure control was utilized for the study. A dose lower ing technique was utilized adhering to the principles of ALARA. CT DOSE: 1094.99 mGy.cm FINDINGS: No acute intracranial hemorrhage, midline shift or mass effect is present. An old large rig ht MCA territory infarct is unchanged since prior exams. Chronic occlusion of the right internal cowan tid artery with distal reconstitution at the level of the supraclinoid ICA is again noted. No additio nal vessel occlusions are noted. There is no intracranial aneurysm. There is mild atherosclerotic liu que within the left cavernous carotid without stenosis. There is mild atherosclerotic plaque within t he intracranial portions of the bilateral vertebral arteries. Posterior circulation is intact. IMPRESSION: 1. Chronic occlusion of the right internal carotid artery with reconstitution at the level of the sup raclinoid ICA which is unchanged since MRA of February 19, 2016. 2. No change in appearance of the intracranial circulation. Electronically signed by: Sadiq Vallejo M.D. 09/08/2018 10:07 PM
[2018-09-08 22:13] LABS: Basophils # (auto) 0.06 K/uL (0-0.2); Eosinophils # (auto) 0.19 K/uL (0-0.5); Eosinophils % (auto) 3.2 %; Hematocrit (blood only) 36.9 % (42-52); Immature Granulocytes # (auto) 0.01 K/uL (0.00-0.02); Immature Granulocytes % (auto) 0.2 %; Lymphocytes # (auto) 0.67 K/uL (1.2-3.4); Lymphocytes % (auto) 11.3 %; Mean Corpuscular Hgb Conc 32.5 g/dL (32-36); Mean Corpuscular Volume 93.2 fL (80-100); Mean Platelet Volume 9.7 fL (7.4-10.4); Monocytes # (auto) 0.41 K/uL (0.11-0.59); Monocytes % (auto) 6.9 %; Neutrophils % (auto) 77.4 %; Platelet Count 214 K/uL (130-400); RDW Coefficient of Variation 13.8 % (11.5-14.5); RDW Standard Deviation 46.9 fL (36.4-46.3); Red Blood Count 3.96 M/uL (4.7-6.1); White Blood Count 5.94 K/uL (4.8-10.8)
--- NOTE | 2018-09-08 22:22 | Emergency Department Note ---
Entered by Ayo Rosario acting as a scribe for Arcenio Cruz DO History of Present Illness General Chief complaint: Stroke Alert Stated complaint: SEIZURE Source: family and EMS History of Present Illness Provider complaint: Stroke Onset (ago): hour(s) Location: left Pain Consistency: + constant Relieved By: + none Associated symptoms: + headaches (left sided) and + other (left sided numbness in his upper extremity) Treatments prior to arrival: other (Ativan) The patient is a 87 year old male who presents to the Emergency Room with complaints of a stroke. The patient, who is alert and oriented, complains of left sided numbness in his upper extremity. EMS provides much of the HPI. They report that the patient has left sided facial droop, diminished strength on the left. They note he has a history of strokes and add that the symptoms have always improved on their own. They states that the weakness/numbness/tingling in his arms and legs began 4 hours ago and the patient was unable to sit up. The patient was unable to sit up. Per the patient's mother and daughter, who were consulted, they do not want TPA. The patient complains of a headache on the left side. He also adds that he took all his medications today. Home Medications Home Medications Medication Instructions Recorded Confirmed Type acetaminophen [Tylenol] 650 mg PO Q4 PRN 09/08/18 09/08/18 History aspirin [Aspir-81] 81 mg PO DAILY 09/08/18 09/08/18 History atorvastatin 20 mg PO QDD 09/08/18 09/08/18 History buspirone 5 mg PO BID 09/08/18 09/08/18 History calcium carbonate [Calcium 500] 150 mg PO DAILY 09/08/18 09/08/18 History escitalopram oxalate [Lexapro] 10 mg PO DAILY 09/08/18 09/08/18 History levetiracetam 750 mg PO BID 09/08/18 09/08/18 History levothyroxine 88 mcg PO DAILYBB 09/08/18 09/08/18 History loratadine [Claritin] 10 mg PO DAILY 09/08/18 09/08/18 History meclizine 25 mg PO TID PRN 09/08/18 09/08/18 History [id number] 4 drp OTIC (EAR) TID 09/08/18 09/08/18 History omega 3-[id number]-fish oil [Fish Oil] 1 cap PO DAILY 09/08/18 09/08/18 History Allergies Allergy/AdvReac Type Severity Reaction Status Date / Time clindamycin Allergy Intermediate rash Verified 09/08/18 23:32 Bactrim Allergy Mild RASH Verified 02/05/17 02:49 blue dye Allergy Mild RASH Verified 09/08/18 23:32 dabigatran etexilate Allergy Mild RASH Verified 09/08/18 23:32 sulfamethoxazole Allergy Mild RASH Verified 09/08/18 23:32 trimethoprim Allergy Mild RASH Verified 09/08/18 23:32 vancomycin Allergy Mild RASH, DRY Verified 09/08/18 23:32 SKIN warfarin Allergy Mild RASH Verified 09/08/18 23:32 yellow dye Allergy Mild RASH Verified 09/08/18 23:32 Sulfa (Sulfonamide Allergy Unknown unknown Verified 09/08/18 23:32 Antibiotics) Past Med/Surg History Medical History Type 2 diabetes mellitus (Chronic) Stroke Social History Communication Ability: Effective Beliefs That Will Affect Care: None marital status: Current Living Situation: Spouse Feels Safe at Home: Yes Safety Concerns: Feels Safe At This Time Smoking Status: Former smoker Hx Alcohol Use: No Hx Substance Use: No Review of Systems See HPI for pertinent positives & negatives. and A total of 10 systems reviewed and were otherwise negative Physical Exam Vital Signs Vital Signs - 24 hr 09/08/18 21:36 09/08/18 22:06 09/08/18 22:23 Temperature 36.4 C L Temperature Source Oral Sepsis Recent Fever Within 48 Hours No Sepsis Action Taken by Nursing No Action Required Pulse Rate - Lying Pulse Rate 70 64 57 L Pulse Rate [Right Finger] Pulse Rate from SpO2 Sensor 64 58 L Pulse Rhythm [Right Finger] Pulse Strength [Right Finger] Respiratory Rate 19 7 L 12 Respiratory Effort / Characteristics Non-Labored Spontaneous Respiratory Depth Normal Respiratory Pattern Blood Pressure - Lying Blood Pressure 174/74 H 163/93 H 159/80 H Blood Pressure [Right Arm] Blood Pressure Mean 107 116 106 Blood Pressure Mean [Right Arm] Blood Pressure Position Lying Blood Pressure Position [Right Arm] Pulse Oximetry 96 90 99 Oxygen Delivery Method Room Air Nasal Cannula Oxygen Flow Rate 2 09/08/18 22:25 09/08/18 22:30 09/08/18 22:45 Temperature Temperature Source Sepsis Recent Fever Within 48 Hours Sepsis Action Taken by Nursing Pulse Rate - Lying Pulse Rate 60 58 L Pulse Rate [Right Finger] Pulse Rate from SpO2 Sensor 60 58 L Pulse Rhythm [Right Finger] Pulse Strength [Right Finger] Respiratory Rate 21 18 Respiratory Effort / Characteristics Respiratory Depth Respiratory Pattern Blood Pressure - Lying Blood Pressure 179/85 H 166/100 H Blood Pressure [Right Arm] Blood Pressure Mean 116 122 Blood Pressure Mean [Right Arm] Blood Pressure Position Blood Pressure Position [Right Arm] Pulse Oximetry 90 99 99 Oxygen Delivery Method Room Air Nasal Cannula Nasal Cannula Oxygen Flow Rate 2 2 09/08/18 23:45 09/09/18 00:45 09/09/18 01:45 Temperature Temperature Source Sepsis Recent Fever Within 48 Hours Sepsis Action Taken by Nursing Pulse Rate - Lying Pulse Rate Pulse Rate [Right Finger] 55 L 53 L 48 L Pulse Rate from SpO2 Sensor Pulse Rhythm [Right Finger] Regular Regular Regular Pulse Strength [Right Finger] Normal Normal Normal Respiratory Rate 17 18 18 Respiratory Effort / Characteristics Non-Labored Spontaneous Non-Labored Non-Labored Spontaneous Respiratory Depth Normal Normal Normal Respiratory Pattern Blood Pressure - Lying Blood Pressure Blood Pressure [Right Arm] 176/86 H 170/83 H 157/74 H Blood Pressure Mean Blood Pressure Mean [Right Arm] 116 112 101 Blood Pressure Position Blood Pressure Position [Right Arm] Pulse Oximetry 100 99 98 Oxygen Delivery Method Nasal Cannula Nasal Cannula Nasal Cannula Oxygen Flow Rate 2 2 09/09/18 02:45 09/09/18 03:55 09/09/18 08:06 Temperature 36.3 C L 36.7 C Temperature Source Oral Oral Sepsis Recent Fever Within 48 Hours Sepsis Action Taken by Nursing Pulse Rate - Lying Pulse Rate Pulse Rate [Right Finger] 48 L 50 L 45 L Pulse Rate from SpO2 Sensor Pulse Rhythm [Right Finger] Regular Regular Pulse Strength [Right Finger] Normal Normal Respiratory Rate 18 16 20 Respiratory Effort / Characteristics Non-Labored Spontaneous Non-Labored Spontaneous Respiratory Depth Normal Normal Respiratory Pattern Regular Regular Blood Pressure - Lying Blood Pressure Blood Pressure [Right Arm] 156/71 H 180/87 H 154/77 H Blood Pressure Mean Blood Pressure Mean [Right Arm] 99 118 102 Blood Pressure Position Blood Pressure Position [Right Arm] Lying Pulse Oximetry 99 95 96 Oxygen Delivery Method Nasal Cannula Room Air Oxygen Flow Rate 2 09/09/18 08:20 09/09/18 11:17 09/09/18 14:48 Temperature 36.7 C Temperature Source Oral Sepsis Recent Fever Within 48 Hours Sepsis Action Taken by Nursing Pulse Rate - Lying 47 L Pulse Rate 60 Pulse Rate [Right Finger] 43 L Pulse Rate from SpO2 Sensor Pulse Rhythm [Right Finger] Pulse Strength [Right Finger] Respiratory Rate 20 Respiratory Effort / Characteristics Non-Labored Spontaneous Respiratory Depth Normal Respiratory Pattern Regular Blood Pressure - Lying 155/84 H Blood Pressure Blood Pressure [Right Arm] 137/70 Blood Pressure Mean Blood Pressure Mean [Right Arm] 92 Blood Pressure Position Blood Pressure Position [Right Arm] Pulse Oximetry 95 97 Oxygen Delivery Method Room Air Oxygen Flow Rate GENERAL: Patient is awake and alert. The patient answers questions appropriately. He seems somewhat anxious. EYES: The conjunctivae are clear. Pupils are constricted and minimally reactive to light bilaterally. There is no gaze preference appreciated. EARS, NOSE, MOUTH AND THROAT: The nose is without any evidence of any deformity. Mucous membranes are moist tongue is midline NECK: The neck is nontender and supple. RESPIRATORY: Normal respiratory effort is noted there is no evidence of wheezing rhonchi or rales CARDIOVASCULAR: Irregular rhythm was noted to auscultation. No definite murmur was noted. GASTROINTESTINAL: The abdomen is soft. Bowel sounds are present in all quadrants. Abdomen is nontender MUSCULOSKELETAL/EXTREMITIES: There is no evidence of gross deformity full range of motion is noted in the hips and shoulders SKIN: There is no obvious evidence of any rash. There are no petechiae, pallor or cyanosis noted. NEUROLOGIC: Patient is awake alert and oriented x3. Patient has a left facial droop which appears to involve the corner of the mouth as well as mild ptosis of the left eye. Resident Manager strength is diminished in the left upper extremity compared to the right. Strength in the left lower extremity is diminished compared to the right. Speech is slow but understandable. No seizure activity is currently noted. Course 2147: Past medical records reviewed. The patient was evaluated in room B01, and a complete history and physical examination were performed. 2199: I reviewed the patient's case with Dr. Benito Hospitalist. He will evaluate the patient for further management. Administered Medications Aspirin (Ecotrin Ectab) 81 mg PO DAILY RAY Stop: 10/09/18 08:59 Last Admin: 09/09/18 10:04 Dose: Not Given Documented by: [id number] Atorvastatin Calcium (Lipitor) 20 mg PO QDD RAY Stop: 10/09/18 16:29 Last Admin: 09/09/18 16:14 Dose: 20 mg Documented by: [id number] Buspirone HCl (Buspar) 5 mg PO BID RAY Stop: 10/09/18 08:59 Last Admin: 09/09/18 10:03 Dose: Not Given Documented by: [id number] Escitalopram Oxalate (Lexapro) 10 mg PO DAILY RAY Stop: 10/09/18 08:59 Last Admin: 09/09/18 10:04 Dose: Not Given Documented by: [id number] Heparin Sodium (Porcine) (Heparin Sodium (Porcine)) 5,000 units SQ Q8 RAY Stop: 10/09/18 05:59 Last Admin: 09/09/18 14:27 Dose: 5,000 units Documented by: [id number] Cosigned by: [id number] Admin: 09/09/18 05:29 Dose: 5,000 units Documented by: [id number] Cosigned by: [id number] Sodium Chloride (Nss 1000ml) 1,000 mls @ 50 mls/hr IV .Q20H STA Stop: 09/09/18 23:48 Last Admin: 09/09/18 05:20 Dose: 50 mls/hr Documented by: [id number] Levetiracetam (Keppra) 1,000 mg PO BID RAY Stop: 10/09/18 08:59 Last Admin: 09/09/18 10:04 Dose: Not Given Documented by: [id number] Levothyroxine Sodium (Synthroid) 88 mcg PO DAILYBB [facility] Stop: 10/09/18 06:29 Last Admin: 09/09/18 05:30 Dose: 88 mcg Documented by: [id number] Loratadine (Claritin) 10 mg PO DAILY RAY Stop: 10/09/18 08:59 Last Admin: 09/09/18 10:04 Dose: Not Given Documented by: [id number] Discontinued Medications Clopidogrel Bisulfate (Plavix) 75 mg PO NOW ONE Stop: 09/09/18 03:50 Last Admin: 09/09/18 05:20 Dose: 75 mg Documented by: [id number] Sodium Chloride (Nss 1000ml) 1,000 mls @ 50 mls/hr IV .Q20H RAY Stop: 10/08/18 21:44 Last Admin: 09/08/18 22:07 Dose: 50 mls/hr Documented by: [id number] Levetiracetam 1,000 mg/ (Dextrose) 110 mls @ 440 mls/hr IV NOW STA Stop: 09/08/18 21:58 Last Infusion: 09/08/18 23:10 Dose: 0 mls/hr Documented by: [id number] Admin: 09/08/18 22:54 Dose: 440 mls/hr Documented by: [id number] Ioversol (Optiray 320 125ml) 115 ml IV ONCE PRN PRN Reason: Interaction Checking Stop: 09/12/18 21:49 Last Admin: 09/08/18 21:50 Dose: 115 ml Documented by: [id number] Medical Decision Making Differential Diagnosis Differential includes acute coronary syndrome, myocardial infarction, CVA, TIA, anemia, infection, pneumonia, UTI, pyelonephritis, poor nutrition, dehydration, electrolyte disturbance,hypoglycemia. Medical Records Attestation: I reviewed the patient's medical records. Home Medications Current Medication List: was personally reviewed by me Laboratory Data Attestation: I reviewed the patient's lab results. Result diagrams: 09/09/18 06:24 09/09/18 06:24 Lab Results 09/08/18 09/08/18 09/08/18 Range/Units 21:50 21:50 21:50 WBC 5.94 (4.8-10.8) K/uL RBC 3.96 L (4.7-6.1) M/uL Hgb 12.0 L (14.0-18.0) g/dL Hct 36.9 L (42-52) % MCV 93.2 (80-100) fL MCH 30.3 (25-34) pg MCHC 32.5 (32-36) g/dL RDW Std Deviation 46.9 H (36.4-46.3) fL RDW Coeff of Marti 13.8 (11.5-14.5) % Plt Count 214 (130-400) K/uL MPV 9.7 (7.4-10.4) fL Immature Gran % (Auto) 0.2 % Neut % (Auto) 77.4 % Lymph % (Auto) 11.3 % [place] % (Auto) 6.9 % Eos % (Auto) 3.2 % Baso % (Auto) 1.0 % Immature Gran # (Auto) 0.01 (0.00-0.02) K/uL Neut # (Auto) 4.60 (1.4-6.5) K/uL Lymph # (Auto) 0.67 L (1.2-3.4) K/uL [place] # (Auto) 0.41 (0.11-0.59) K/uL Eos # (Auto) 0.19 (0-0.5) K/uL Baso # (Auto) 0.06 (0-0.2) K/uL PT 11.2 (9.0-12.0) Seconds INR 1.1 (0.9-1.1) APTT 26.8 (21.0-31.0) Seconds PTT Ratio 1.0 Sodium 139 (136-145) mmol/L Potassium 4.1 (3.5-5.1) mmol/L Chloride 104 (98-107) mmol/L Carbon Dioxide 29 (21-32) mmol/L Anion Gap 5.0 (3-11) BUN 26 H (7-18) mg/dl Creatinine 1.52 H (0.6-1.4) mg/dl Est Cr Clr Drug Dosing Not Reportable Est GFR ( Amer) 47.7 Est GFR (Non-Af Amer) 41.2 BUN/Creatinine Ratio 17.3 (10-20) Glucose 111 H (70-99) mg/dl Calcium 8.5 (8.5-10.1) mg/dl Magnesium 1.8 (1.8-2.4) mg/dl Total Bilirubin 0.3 (0.2-1) mg/dl AST 15 (15-37) U/L ALT 20 (12-78) U/L Alkaline Phosphatase 74 (45-117) U/L Troponin I 0.023 (0-0.045) ng/ml Total Protein 6.1 L (6.4-8.2) gm/dl Albumin 2.8 L (3.4-5.0) gm/dl Globulin 3.3 (2.5-4.0) gm/dl Albumin/Globulin Ratio 0.9 (0.9-2) Triglycerides (0-150) mg/dl Cholesterol (0-200) mg/dl LDL Cholesterol, Calc mg/dl VLDL Cholesterol, Calc mg/dl HDL Cholesterol mg/dl Cholesterol/HDL Ratio TSH 1.940 (0.300-4.500) uIu/ml Blood Type Antibody Screen 09/08/18 09/09/18 09/09/18 Range/Units 21:50 06:24 06:24 WBC 6.97 (4.8-10.8) K/uL RBC 4.40 L (4.7-6.1) M/uL Hgb 13.3 L (14.0-18.0) g/dL Hct 40.6 L (42-52) % MCV 92.3 (80-100) fL MCH 30.2 (25-34) pg MCHC 32.8 (32-36) g/dL RDW Std Deviation 46.8 H (36.4-46.3) fL RDW Coeff of Marti 13.9 (11.5-14.5) % Plt Count 250 (130-400) K/uL MPV 10.0 (7.4-10.4) fL Immature Gran % (Auto) 0.1 % Neut % (Auto) 70.4 % Lymph % (Auto) 15.9 % [place] % (Auto) 10.5 % Eos % (Auto) 2.4 % Baso % (Auto) 0.7 % Immature Gran # (Auto) 0.01 (0.00-0.02) K/uL Neut # (Auto) 4.90 (1.4-6.5) K/uL Lymph # (Auto) 1.11 L (1.2-3.4) K/uL [place] # (Auto) 0.73 H (0.11-0.59) K/uL Eos # (Auto) 0.17 (0-0.5) K/uL Baso # (Auto) 0.05 (0-0.2) K/uL PT (9.0-12.0) Seconds INR (0.9-1.1) APTT (21.0-31.0) Seconds PTT Ratio Sodium 139 (136-145) mmol/L Potassium 4.0 (3.5-5.1) mmol/L Chloride 106 (98-107) mmol/L Carbon Dioxide 29 (21-32) mmol/L Anion Gap 4.0 (3-11) BUN 23 H (7-18) mg/dl Creatinine 1.46 H (0.6-1.4) mg/dl Est Cr Clr Drug Dosing 33.0 Est GFR ( Amer) 50.1 Est GFR (Non-Af Amer) 43.2 BUN/Creatinine Ratio 15.8 (10-20) Glucose 101 H (70-99) mg/dl Calcium 8.9 (8.5-10.1) mg/dl Magnesium (1.8-2.4) mg/dl Total Bilirubin (0.2-1) mg/dl AST (15-37) U/L ALT (12-78) U/L Alkaline Phosphatase (45-117) U/L Troponin I (0-0.045) ng/ml Total Protein (6.4-8.2) gm/dl Albumin (3.4-5.0) gm/dl Globulin (2.5-4.0) gm/dl Albumin/Globulin Ratio (0.9-2) Triglycerides 38 (0-150) mg/dl Cholesterol 130 (0-200) mg/dl LDL Cholesterol, Calc 64 mg/dl VLDL Cholesterol, Calc 8 mg/dl HDL Cholesterol 58 mg/dl Cholesterol/HDL Ratio 2 TSH (0.300-4.500) uIu/ml Blood Type A Positive Antibody Screen NEGATIVE Imaging Data Radiologist's Impression: Radiology results as stated below per my review and the radiologist's interpretation: CT ANGIOGRAPHY OF THE NECK WITH CONTRAST CLINICAL HISTORY: Weakness. Possible stroke. COMPARISON STUDY: MRA of the neck September 11, 2016. Technique: CT angiography of the carotid and vertebral arteries was obtained using [employer] 320 IV and 3D reconstruction on an independent workstation. NASCET criteria was utilized. Automated exposure control was utilized for the study. A dose lowering technique was utilized adhering to the principles of ALARA. Findings: Chronic occlusion of the right internal carotid artery is unchanged and MRI of September 11, 2016. There is severe stenosis at the origin the right vertebral artery. There is mild stenosis at the origin of the left vertebral artery. There is no dissection within the major vasculature of the neck. There is moderate calcified atherosclerotic plaque within the proximal left internal carotid artery. This results in 50% narrowing of the proximal left internal carotid artery. No cervical lymphadenopathy is present. Biapical scarring within the lungs is noted. IMPRESSION: 1. Chronic occlusion of the right internal carotid artery, unchanged since MRA of September 11, 2016. 2. 50% stenosis of the proximal left internal carotid artery due to calcified atherosclerotic plaque. 3. 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 Electronically signed by: Sadiq Vallejo M.D. 09/08/2018 10:03 PM CTA ANGIOGRAPHY OF THE HEAD CLINICAL HISTORY: Weakness. Possible stroke. COMPARISON STUDY: MRA of the head February 19, 2016. TECHNIQUE: Helical axial images of the head were obtained following uneventful intravenous administration of 150 cc of Optiray 320. Automated exposure control was utilized for the study. A dose lowering technique was utilized adhering to the principles of ALARA. CT DOSE: 1094.99 mGy.cm FINDINGS: No acute intracranial hemorrhage, midline shift or mass effect is present. An old large right MCA territory infarct is unchanged since prior exams. Chronic occlusion of the right internal carotid artery with distal reconstitution at the level of the supraclinoid ICA is again noted. No additional vessel occlusions are noted. There is no intracranial aneurysm. There is mild atherosclerotic plaque within the left cavernous carotid without stenosis. There is mild atherosclerotic plaque within the intracranial portions of the bilateral vertebral arteries. Posterior circulation is intact. IMPRESSION: 1. Chronic occlusion of the right internal carotid artery with reconstitution at the level of the supraclinoid ICA which is unchanged since MRA of February 19, 2016. 2. No change in appearance of the intracranial circulation. Electronically signed by: Sadiq Vallejo M.D. 09/08/2018 10:[address] OF THE HEAD WITHOUT CONTRAST CLINICAL HISTORY: Stroke evaluation COMPARISON STUDY: Head CT February 05, 2017. MRI of the brain September 01, 2016. TECHNIQUE: Helical axial images of the head were obtained without IV contrast. Automated exposure control was utilized for the study. A dose lowering technique was utilized adhering to the principles of ALARA. FINDINGS: No acute intracranial hemorrhage, midline shift or mass effect is present. Extensive encephalomalacia within the right MCA territory is unchanged since head CT of February 05, 2017. Ventricular system is stable. The basilar cisterns are patent. There are no extra-axial collections. There are no findings to suggest acute dural sinus thrombosis or acute territorial infarct. The appearance of the brain is unchanged. Exam is mildly compromised by motion artifact. There are no significant calvarial abnormalities. IMPRESSION: 1. No acute intracranial findings. 2. Large old right MCA territory infarct unchanged since head CT of February 05, 2017. Electronically signed by: Sadiq Vallejo M.D. 09/08/2018 9:56 PM XR chest 1V portable CLINICAL HISTORY: weakness COMPARISON STUDY: Chest radiograph February 05, 2017. FINDINGS: Lung volumes are normal. There is no pneumothorax or pleural effusion. Cardiac size is normal. There is no consolidation to suggest pneumonia. Cardiomediastinal silhouette is stable. Appearance of the chest is unchanged. IMPRESSION: No acute cardiopulmonary findings. Electronically signed by: Sadiq Vallejo M.D. 09/08/2018 10:35 PM Blood Pressure Blood Pressure Findings: Elevated blood pressure Blood Pressure Disposition: further management by hospitalist STEPHAN Narrative The patient is an 87-year-old male who presented to the emergency department for evaluation of stroke. Additional history is obtained from the prehospital personnel as well as the patient's family. The patient arrived at the emergency department and was made a stroke alert for acute onset of left-sided weakness as well as questionable seizure activity. Initially I did discuss the patient's condition with his niece as well as his significant other. They describe the episode which occurred at approximately 5 PM where the patient complained that he could not sit up in bed. When they attempted to help him up in bed they noticed that he was having left-sided weakness. The patient has had similar episodes in the past which have been termed TIA. I discussed the patient's laboratory and radiographic studies with his significant other as well as his knees. I did discuss the possibility of the patient requiring TPA however at this time the patient's family members do not wish me to give the patient TPA because he has advanced directives. I discussed the benefits and risks of TPA which could include bleeding into the brain or GI bleeding. At this time the family still does not wish that the patient received TPA given his underlying medical issues. The patient was reevaluated multiple times. I discussed this case with the on-call [facility] hospitalist group. They have agreed to evaluate the patient in the emergency department for further management and disposition. Impression & Plan CVA (cerebral vascular accident) Discharge Plan Visit Data *Final* Discharge Date/Time: 09/09/18 03:16 Chief Complaint: Stroke Alert Stated Complaint: SEIZURE ED Provider: Arcenio Cruz Discharge Problem: CVA (cerebral vascular accident) Patient Disposition: Admitted As Inpatient Discharge Instructions Interventions: ED Discharge Assessment Last Done: 09/09/18 03:16 The scribe's documentation has been prepared under my direction and personally reviewed by me in its entirety. I confirm that the note above accurately reflects all work, treatment, procedures, and medical decision making performed by me.
[2018-09-08 22:24] LABS: INR 1.1 (0.9-1.1); Partial Thromboplastin Time 26.8 Seconds (21.0-31.0); Prothrombin Time 11.2 Seconds (9.0-12.0)
[2018-09-08 22:32] LABS: Alanine Aminotransferase 20 U/L (12-78); Albumin Level 2.8 gm/dl (3.4-5.0); Aspartate Aminotransferase 15 U/L (15-37); BUN Creatinine Ratio 17.3 (10-20); Blood Urea Nitrogen 26 mg/dl (7-18); Calcium 8.5 mg/dl (8.5-10.1); Carbon Dioxide 29 mmol/L (21-32); Chloride 104 mmol/L (98-107); Est GFR (African American) 47.7; Est GFR (Non-African American) 41.2; Glucose 111 mg/dl (70-99); Magnesium 1.8 mg/dl (1.8-2.4); Potassium 4.1 mmol/L (3.5-5.1); Sodium 139 mmol/L (136-145)
--- NOTE | 2018-09-08 22:36 | XRay Report ---
XR chest 1V portable CLINICAL HISTORY: weakness COMPARISON STUDY: Chest radiograph February 05, 2017. FINDINGS: Lung volumes are normal. There is no pneumothorax or pleural effusion. Cardiac size is norm al. There is no consolidation to suggest pneumonia. Cardiomediastinal silhouette is stable. Appearanc e of the chest is unchanged. IMPRESSION: No acute cardiopulmonary findings. Electronically signed by: Sadiq Vallejo M.D. 09/08/2018 10:35 PM
[2018-09-08 22:37] LABS: Albumin Globulin Ratio 0.9 (0.9-2); Alkaline Phosphatase 74 U/L (45-117); Bilirubin,Total 0.3 mg/dl (0.2-1); Globulin 3.3 gm/dl (2.5-4.0); Total Protein 6.1 gm/dl (6.4-8.2); Troponin I 0.023 ng/ml (0-0.045)
--- NOTE | 2018-09-09 02:21 | History & Physical Report ---
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 Aspirin failure hypertension, elevated secondary to intracranial process History traumatic subdural hematoma hypothyroidism, euthyroid as of today's TSH CRI creatinine at baseline chronic anemia secondary to CKD, hemoglobin at baseline (baseline hemoglobin of 12), History of bladder cancer/BPH status post surgery PVD as per records past tobacco abuse Medical telemetry Neurochecks Add Plavix to aspirin for possible aspirin failure until new stroke ruled out by MRI/MRA of the brain Increase Keppra dose to 1 g twice daily, seizure precautions, Ativan as needed Neurology consult RE left-sided weakness, breakthrough seizure Permissive hypertension until new stroke ruled out DVT prophylaxis. Heparin subcu DNR as per patient's previous wishes as per niece. Patient's requesting updates from providers. Ms. Jo-Ann Franz, contact numbers [phone]. (2) Left-sided weakness: History of Present Illness Chief Complaint: Left-sided weakness, breakthrough seizures as per records Primary Care Provider: Miguel Mckee History obtained from the patient's niece and records. Limited history obtained from patient secondary to lethargic state. Medical history is significant for CVA, seizure disorder, history of traumatic subdural hematoma, hypertension, hypothyroidism, chronic anemia (baseline hemoglobin of 12), chronic renal insufficiency (baseline creatinine of 1.5-1.6), PVD, hx MRSA, bladder cancer/BPH status post surgery, past tobacco abuse. Recent confinement January 2017 for breakthrough seizures. Patient presented with left-sided weakness post twitching. Yesterday morning patient lip noted to be droopy by patient . Patient subsequently noted to have jerking of the left arm followed by the left leg. Left side later noted to be weak. Episode similar to January 2017 events as per patient niece. Patient received IV Ativan en route to the ER. Patient compliant with home AED regimen. Keppra 1 g IV given at the ER. 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 Allergies Allergy/AdvReac Type Severity Reaction Status Date / Time clindamycin Allergy Intermediate rash Verified 09/08/18 23:32 Bactrim Allergy Mild RASH Verified 02/05/17 02:49 blue dye Allergy Mild RASH Verified 09/08/18 23:32 dabigatran etexilate Allergy Mild RASH Verified 09/08/18 23:32 sulfamethoxazole Allergy Mild RASH Verified 09/08/18 23:32 trimethoprim Allergy Mild RASH Verified 09/08/18 23:32 vancomycin Allergy Mild RASH, DRY Verified 09/08/18 23:32 SKIN warfarin Allergy Mild RASH Verified 09/08/18 23:32 yellow dye Allergy Mild RASH Verified 09/08/18 23:32 Sulfa (Sulfonamide Allergy Unknown unknown Verified 09/08/18 23:32 Antibiotics) Home Medications Home Medications Medication Instructions Recorded Confirmed Type acetaminophen [Tylenol] 650 mg PO Q4 PRN 09/08/18 09/08/18 History aspirin [Aspir-81] 81 mg PO DAILY 09/08/18 09/08/18 History atorvastatin 20 mg PO QDD 09/08/18 09/08/18 History buspirone 5 mg PO BID 09/08/18 09/08/18 History calcium carbonate [Calcium 500] 150 mg PO DAILY 09/08/18 09/08/18 History escitalopram oxalate [Lexapro] 10 mg PO DAILY 09/08/18 09/08/18 History levetiracetam 750 mg PO BID 09/08/18 09/08/18 History levothyroxine 88 mcg PO DAILYBB 09/08/18 09/08/18 History loratadine [Claritin] 10 mg PO DAILY 09/08/18 09/08/18 History meclizine 25 mg PO TID PRN 09/08/18 09/08/18 History [id number] 4 drp OTIC (EAR) TID 09/08/18 09/08/18 History omega 0-sdh-avv-fish oil [Fish Oil] 1 cap PO DAILY 09/08/18 09/08/18 History Past Med/Surg History Medical History Type 2 diabetes mellitus (Chronic) Stroke Social History Communication Ability: Effective Beliefs That Will Affect Care: None marital status: Current Living Situation: Spouse Feels Safe at Home: Yes Safety Concerns: Feels Safe At This Time Smoking Status: Former smoker Hx Alcohol Use: No Hx Substance Use: No Review of Systems Could not be reliably obtained Physical Exam Vital Signs (Past 24 Hours): Last Vital Signs Temp 36.4 C L 09/08/18 21:36 Pulse 48 L 09/09/18 01:45 Resp 18 09/09/18 01:45 BP 157/74 H 09/09/18 01:45 Pulse Ox 98 09/09/18 01:45 Physical Exam: GENERAL: Obtunded, no respiratory distress SKIN: Pallor, warm HEENT: Pale palpebral conjunctivae, no ptosis, subtle lip asymmetry, dry buccal mucosa NECK : Supple, no tenderness CHEST : Decreased breath sounds, no tenderness HEART : Bradycardic, no obvious murmurs ABDOMEN: Soft, nontender EXTREMITIES : No LE swelling/tenderness, no other conspicuous deformities noted NEUROLOGIC : Obtunded, subtle lip asymmetry, MMTS RUE/RLE 4-5/5, LUE/LLE 4/5, gait and stance not assessed Results & Data Laboratory Results Laboratory Results WBC 5.94 K/uL (4.8-10.8) 09/08/18 21:50 RBC 3.96 M/uL (4.7-6.1) L 09/08/18 21:50 Hgb 12.0 g/dL (14.0-18.0) L 09/08/18 21:50 Hct 36.9 % (42-52) L 09/08/18 21:50 MCV 93.2 fL (80-100) 09/08/18 21:50 MCH 30.3 pg (25-34) 09/08/18 21:50 MCHC 32.5 g/dL (32-36) 09/08/18 21:50 RDW Std Deviation 46.9 fL (36.4-46.3) H 09/08/18 21:50 RDW Coeff of Marti 13.8 % (11.5-14.5) 09/08/18 21:50 Plt Count 214 K/uL (130-400) 09/08/18 21:50 MPV 9.7 fL (7.4-10.4) 09/08/18 21:50 Immature Gran % (Auto) 0.2 % 09/08/18 21:50 Neut % (Auto) 77.4 % 09/08/18 21:50 Lymph % (Auto) 11.3 % 09/08/18 21:50 [place] % (Auto) 6.9 % 09/08/18 21:50 Eos % (Auto) 3.2 % 09/08/18 21:50 Baso % (Auto) 1.0 % 09/08/18 21:50 Immature Gran # (Auto) 0.01 K/uL (0.00-0.02) 09/08/18 21:50 Neut # (Auto) 4.60 K/uL (1.4-6.5) 09/08/18 21:50 Lymph # (Auto) 0.67 K/uL (1.2-3.4) L 09/08/18 21:50 [place] # (Auto) 0.41 K/uL (0.11-0.59) 09/08/18 21:50 Eos # (Auto) 0.19 K/uL (0-0.5) 09/08/18 21:50 Baso # (Auto) 0.06 K/uL (0-0.2) 09/08/18 21:50 PT 11.2 Seconds (9.0-12.0) 09/08/18 21:50 INR 1.1 (0.9-1.1) 09/08/18 21:50 APTT 26.8 Seconds (21.0-31.0) 09/08/18 21:50 PTT Ratio 1.0 09/08/18 21:50 Sodium 139 mmol/L (136-145) 09/08/18 21:50 Potassium 4.1 mmol/L (3.5-5.1) 09/08/18 21:50 Chloride 104 mmol/L (98-107) 09/08/18 21:50 Carbon Dioxide 29 mmol/L (21-32) 09/08/18 21:50 Anion Gap 5.0 (3-11) 09/08/18 21:50 BUN 26 mg/dl (7-18) H 09/08/18 21:50 Creatinine 1.52 mg/dl (0.6-1.4) H 09/08/18 21:50 Est Cr Clr Drug Dosing Not Reportable 09/08/18 21:50 Est GFR ( Amer) 47.7 09/08/18 21:50 Est GFR (Non-Af Amer) 41.2 09/08/18 21:50 BUN/Creatinine Ratio 17.3 (10-20) 09/08/18 21:50 Glucose 111 mg/dl (70-99) H 09/08/18 21:50 Calcium 8.5 mg/dl (8.5-10.1) 09/08/18 21:50 Magnesium 1.8 mg/dl (1.8-2.4) 09/08/18 21:50 Total Bilirubin 0.3 mg/dl (0.2-1) 09/08/18 21:50 AST 15 U/L (15-37) 09/08/18 21:50 ALT 20 U/L (12-78) 09/08/18 21:50 Alkaline Phosphatase 74 U/L (45-117) 09/08/18 21:50 Troponin I 0.023 ng/ml (0-0.045) 09/08/18 21:50 Total Protein 6.1 gm/dl (6.4-8.2) L 09/08/18 21:50 Albumin 2.8 gm/dl (3.4-5.0) L 09/08/18 21:50 Globulin 3.3 gm/dl (2.5-4.0) 09/08/18 21:50 Albumin/Globulin Ratio 0.9 (0.9-2) 09/08/18 21:50 TSH 1.940 uIu/ml (0.300-4.500) 09/08/18 21:50 Blood Type A Positive 09/08/18 21:50 Antibody Screen NEGATIVE 09/08/18 21:[address] head: 1. No acute intracranial findings. 2. Large old right MCA territory infarct unchanged since head CT of February 05, 2017. CT angios head and neck: 1. Chronic occlusion of the right internal carotid artery, unchanged since MRA of September 11, 2016. 2. 50% stenosis of the proximal left internal carotid artery due to calcified atherosclerotic plaque. 3. 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 Chest x-ray showed no acute pathology EKG as per my interpretation : Rate 55, sinus bradycardia, LVH, septal infarct, ST depression lateral leads
[2018-09-09] MEDS ORDERED: SODIUM CHLORIDE 0.9% 1000ML 1,000 ML IV STA (03:49)
[2018-09-09] MEDS ORDERED: LORazepam 1 MG/2 ML VIAL IV PRN (03:49)
[2018-09-09] MEDS ORDERED: CLOPIDOGREL BISULFATE 75 MG TAB PO ONE (03:49)
[2018-09-09] MEDS ORDERED: ACETAMINOPHEN 325 MG TAB PO PRN (03:49)
[2018-09-09] MEDS ORDERED: NITROGLYCERIN SL 0.4 MG/TAB TAB SL PRN (03:49)
[2018-09-09] MEDS ORDERED: PHARMACIST DISCHARGE MED REC CONSULT PRN (03:49)
[2018-09-09] MEDS: HEPARIN SOD 5,000 UNIT/0.5 ML VIAL SQ SCH ×3 (05:29→20:41)
[2018-09-09] MEDS: LEVOTHYROXINE SODIUM 88 MCG TABLET PO SCH (05:30)
[2018-09-09 07:03] LABS: Basophils # (auto) 0.05 K/uL (0-0.2); Basophils % (auto) 0.7 %; Eosinophils # (auto) 0.17 K/uL (0-0.5); Eosinophils % (auto) 2.4 %; Hematocrit (blood only) 40.6 % (42-52); Hemoglobin 13.3 g/dL (14.0-18.0); Immature Granulocytes # (auto) 0.01 K/uL (0.00-0.02); Immature Granulocytes % (auto) 0.1 %; Lymphocytes # (auto) 1.11 K/uL (1.2-3.4); Lymphocytes % (auto) 15.9 %; Mean Corpuscular Hgb Conc 32.8 g/dL (32-36); Mean Corpuscular Volume 92.3 fL (80-100); Monocytes # (auto) 0.73 K/uL (0.11-0.59); Monocytes % (auto) 10.5 %; Neutrophils % (auto) 70.4 %; Platelet Count 250 K/uL (130-400); RDW Coefficient of Variation 13.9 % (11.5-14.5); RDW Standard Deviation 46.8 fL (36.4-46.3); White Blood Count 6.97 K/uL (4.8-10.8)
[2018-09-09 07:29] LABS: BUN Creatinine Ratio 15.8 (10-20); Calcium 8.9 mg/dl (8.5-10.1); Est GFR (African American) 50.1; Est GFR (Non-African American) 43.2
[2018-09-09] MEDS: ESCITALOPRAM OXALATE 20 MG TAB PO SCH ×2 (08:28→10:04)
[2018-09-09] MEDS: levETIRAcetam 500 MG TAB PO SCH ×3 (08:28→20:25)
[2018-09-09] MEDS: ASPIRIN 81 MG ECTAB PO SCH ×2 (08:28→10:04)
[2018-09-09] MEDS: LORATADINE 10 MG TAB PO SCH ×2 (08:28→10:04)
--- NOTE | 2018-09-09 13:16 | Hospitalist Progress Note ---
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 Aspirin failure hypertension, elevated secondary to intracranial process History traumatic subdural hematoma hypothyroidism, euthyroid as of today's TSH CRI creatinine at baseline chronic anemia secondary to CKD, hemoglobin at baseline (baseline hemoglobin of 12), PVD as per records past tobacco abuse Medical telemetry Neurochecks Add Plavix to aspirin for possible aspirin failure until new stroke ruled out by MRI/MRA of the brain Increase Keppra dose to 1 g twice daily, seizure precautions, Ativan as needed Neurology consult RE left-sided weakness, breakthrough seizure Permissive hypertension until new stroke ruled out DVT prophylaxis. Heparin subcu DNR as per patient's previous wishes as per niece. Patient's requesting updates from providers. Ms. Jo-Ann Franz, contact numbers [phone]. Subjective Seen today already, Dr Jeronimo to see 09/10 ROS-Offers no reliable history Physical Exam Gen-AAO x 2, NAD, Afebrile Head-NCAT, EOMI, PERRLA, Anicteric Sclera, No Posterior Pharyngeal Erythema Neck-Supple, No JVD, No Thyromegaly, No Masses, No LAD, No Bruits Lungs-Clear to Auscultation Bilaterally, No Rales, No Rhonchi, No Wheezing, No Crepitus Chest-No S4, +S1, +S2, No S3, No Murmurs, No Rubs, No Gallops, No Ectopy Abdomen-Soft, Bowel Sounds Present, Non Tender, Non Distended, No Hepatomegaly, No Splenomegaly, No Palpable Masses, No Rebound, No Rigidity, No Guarding Musculoskeletal-Full Range of Motion Bilaterally, No CVAT Extremities-No Cyanosis, No Clubbing, No Edema Nuero-Cranial Nerves II-XII grossly intact, Weak on L, Not Sure of Baseline Psych-Confused Physical Exam Vital Signs (Past 24 Hours): Last Vital Signs Temp 36.7 C 09/09/18 11:17 Pulse 43 L 09/09/18 11:17 Resp 20 09/09/18 11:17 BP 137/70 09/09/18 11:17 Pulse Ox 95 09/09/18 11:17
--- NOTE | 2018-09-09 14:03 | Neurology Consultation ---
Date of Consultation September 09, 2018 Assessment & Plan (1) Left-sided weakness: 1. left sided weakness with no pronator drift - may be post seizure Todds paralysis 2. MRI brain pending 3. aspirin 81 mg continue plavix 75 mg added 4. Keppra home dose 750 mg BID increased to 1000 mg BID on admission 5. CTA head and neck- known R ICA occlusion- causing hypoperfusion issues 6. PT/OT speech for any discharge needs 7. optimize HTN, HLD, DM LDL <70 however need to consider patient age 8. further recommendations once MRI is completed 9. orthostatic blood pressures ordered Supervising Physician Co-Signing Physician Notes I have seen and discussed above patient with Dr Aashish Gray, neurology I have seen Mr. Franz today and know him from multiple prior admissions for an essentially identical history as recorded during current admission. He presents with diaphoresis lightheadedness jerking movements of the left arm and left leg and then some transient weakness and in the past we have always attributed these to cerebral hypoperfusion of her regional type related to his total right internal carotid artery occlusion and the fact that perfusion of his right hemisphere is flow dependent from the contralateral internal carotid artery and anterior communicating artery. There has always been a question of whether these are true post infarct seizures as he does have a large MCA infarct and has been on Keppra as a preventative at 750 twice a day. He now presents again with a similar story feels he is back to baseline in terms of his left arm function We are awaiting an MRI to see if he indeed on this occasion did have another infarction involving the right hemisphere which I doubt his Keppra has been raised to thousand twice a day even though I do not think the event question was a seizure. I see no harm in this but in elderly individuals Keppra can exert some unusual effects of toxic levels and we are going to suggest the level be drawn to establish a baseline. We are going to continue his aspirin but I see no harm in adding Plavix for a finite period of time but really do not think again that this was a truly completed infarct and still feel that most of his symptoms are due to regional hypoperfusion related to his unusual intracranial circulation post total internal carotid artery occlusion on the right. He should have orthostatic blood pressures checked and we aborted this as well. Will be back tomorrow to check over the results of the pending studies which essentially include the MRI and results of orthostatic testing. The Keppra level will be pending for at least a week as it is a send out to a reference lab. Aashish Gray MD History of Present Illness Reason for Consultation: right sided weakness Requesting Physician: Johnny Tirado DO Attending Physician: Johnny Tirado DO History of Present Illness Angus is an 85 year old right handed male with a history of a right MCA infarction with mild residual weakness, carotid occlusion on the right, type 2 diabetes, hypothyroidism, BPH, dyslipidemia, hypertension, kidney disease, brought by EMS after an episode of increase left sided weakness. He states he was sitting and he was weak on the left with some jerking activity. He does not think there was any slurred speech or facial droop. He states the symptoms last < 1 hour and his left sided weakness is currently the same as when he was admitted. denies CP, SOB, abdominal pain, current headache, vision changes other than his chronic issues or swallowing issues. Allergies Allergy/AdvReac Type Severity Reaction Status Date / Time clindamycin Allergy Intermediate rash Verified 09/08/18 23:32 Bactrim Allergy Mild RASH Verified 02/05/17 02:49 blue dye Allergy Mild RASH Verified 09/08/18 23:32 dabigatran etexilate Allergy Mild RASH Verified 09/08/18 23:32 sulfamethoxazole Allergy Mild RASH Verified 09/08/18 23:32 trimethoprim Allergy Mild RASH Verified 09/08/18 23:32 vancomycin Allergy Mild RASH, DRY Verified 09/08/18 23:32 SKIN warfarin Allergy Mild RASH Verified 09/08/18 23:32 yellow dye Allergy Mild RASH Verified 09/08/18 23:32 Sulfa (Sulfonamide Allergy Unknown unknown Verified 09/08/18 23:32 Antibiotics) Home Medications Home Medications Medication Instructions Recorded Confirmed Type acetaminophen [Tylenol] 650 mg PO Q4 PRN 09/08/18 09/08/18 History aspirin [Aspir-81] 81 mg PO DAILY 09/08/18 09/08/18 History atorvastatin 20 mg PO QDD 09/08/18 09/08/18 History buspirone 5 mg PO BID 09/08/18 09/08/18 History calcium carbonate [Calcium 500] 150 mg PO DAILY 09/08/18 09/08/18 History escitalopram oxalate [Lexapro] 10 mg PO DAILY 09/08/18 09/08/18 History levetiracetam 750 mg PO BID 09/08/18 09/08/18 History levothyroxine 88 mcg PO DAILYBB 09/08/18 09/08/18 History loratadine [Claritin] 10 mg PO DAILY 09/08/18 09/08/18 History meclizine 25 mg PO TID PRN 09/08/18 09/08/18 History [id number] 4 drp OTIC (EAR) TID 09/08/18 09/08/18 History omega 0-wbi-tbm-fish oil [Fish Oil] 1 cap PO DAILY 09/08/18 09/08/18 History Patient History Medical History Type 2 diabetes mellitus (Chronic) Stroke Social History Communication Ability: Effective Beliefs That Will Affect Care: None marital status: Current Living Situation: Spouse Feels Safe at Home: Yes Safety Concerns: Feels Safe At This Time Smoking Status: Former smoker Hx Alcohol Use: No Hx Substance Use: No Physical Exam Vital Signs (Past 24 Hours): Last Vital Signs Temp 36.7 C 09/09/18 11:17 Pulse 43 L 09/09/18 11:17 Resp 20 09/09/18 11:17 BP 137/70 09/09/18 11:17 Pulse Ox 95 09/09/18 11:17 Physical Exam: Constitutional: appearance nourished, healthy Ears, Nose, Mouth and Throat: mucous membranes moist, no injection and skin normal, eyes normal Cardiovascular: normal S-1 and S-2 and regular rate and rhythm Respiratory: course breath sounds Musculoskeletal: no peripheral edema and good peripheral pulses Skin: no stigmata of neurocutaneous disease noted and normal and intact Eyes: extraocular muscles intact (EOMI) and pupils equal, round and reactive to light (PERRL) NEUROLOGIC EXAMINATION: Mental status: Alert and interactive Oriented 2018, [facility], [facility] president[facility] Oriented to person Speech fluent with no evidence of aphasia Cranial Nerves smile and eye brow raise symmetric Reflexes: Deep tendon reflexes were symmetrical and graded 2/5. Plantar neutral Sensory: no deficit to light cool or vibration Coordination: unable to do finger to nose due to vision issues Gait/Stance: Posture lying in bed Motor: Negative for pronator drift of out stretched arms with eyes closed. 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, left 4+/5, hip flex right 5/5 left 4+/5, plantar flex ext 5/5 bilaterally Results & Data Laboratory Results Abnormal lab results 09/08/18 09/08/18 09/09/18 Range/Units 21:50 21:50 06:24 RBC 3.96 L 4.40 L (4.7-6.1) M/uL Hgb 12.0 L 13.3 L (14.0-18.0) g/dL Hct 36.9 L 40.6 L (42-52) % RDW Std Deviation 46.9 H 46.8 H (36.4-46.3) fL Lymph # (Auto) 0.67 L 1.11 L (1.2-3.4) K/uL [place] # (Auto) 0.73 H (0.11-0.59) K/uL BUN 26 H (7-18) mg/dl Creatinine 1.52 H (0.6-1.4) mg/dl Glucose 111 H (70-99) mg/dl Total Protein 6.1 L (6.4-8.2) gm/dl Albumin 2.8 L (3.4-5.0) gm/dl 09/09/18 Range/Units 06:24 RBC (4.7-6.1) M/uL Hgb (14.0-18.0) g/dL Hct (42-52) % RDW Std Deviation (36.4-46.3) fL Lymph # (Auto) (1.2-3.4) K/uL [place] # (Auto) (0.11-0.59) K/uL BUN 23 H (7-18) mg/dl Creatinine 1.46 H (0.6-1.4) mg/dl Glucose 101 H (70-99) mg/dl Total Protein (6.4-8.2) gm/dl Albumin (3.4-5.0) gm/dl Diagnostic Findings CT head-No acute intracranial findings. Large old right MCA territory infarct unchanged since head CT of February 05, 2017. CTA head/neck-Chronic occlusion of the right internal carotid artery with reconstitution at the level of the supraclinoid ICA which is unchanged since MRA of February 19, 2016. No change in appearance of the intracranial circulation.
[2018-09-09] MEDS: ATORVASTATIN 20 MG TAB PO SCH (16:14)
[2018-09-09] MEDS ORDERED: GADOBUTROL 65ML VIAL IV PRN (20:24)
--- NOTE | 2018-09-09 23:22 | Magnetic Resonance Report ---
Brain MRI WITH AND WITHOUT CONTRAST HISTORY: recurrent seizures TECHNIQUE: Multiplanar multisequence MRI of the brain was performed both before and after the intrave nous administration of contrast. COMPARISON STUDY: Head CT 09/08/2018. Brain MRI 09/11/2016. FINDINGS: No areas of restricted diffusion to suggest acute infarction. Corpus callosum atrophy, unch anged. The remaining midline structures are intact. Atrophy and moderate microvascular ischemic virgen es are again noted. This is similar to the prior study. There is an enlarged right MCA territory infa rct. Small left mastoid effusion, unchanged. Chronic occlusion of the right internal carotid artery i s again noted. There is no mass, hematoma, midline shift. Multiple old pontine lacunar infarcts remai n unchanged. No abnormal enhancement. IMPRESSION: No significant change compared to the prior study. No acute intracranial abnormality. Old infarcts as described above. Electronically signed by: Artie Guerrero M.D. 09/09/2018 11:21 PM
[2018-09-10] MEDS: HEPARIN SOD 5,000 UNIT/0.5 ML VIAL SQ SCH ×2 (05:41→14:20)
[2018-09-10] MEDS: LEVOTHYROXINE SODIUM 88 MCG TABLET PO SCH (05:42)
[2018-09-10 07:47] LABS: Hematocrit (blood only) 39.1 % (42-52); Mean Corpuscular Hgb Conc 33.2 g/dL (32-36); Mean Corpuscular Volume 91.6 fL (80-100); Mean Platelet Volume 9.8 fL (7.4-10.4); Platelet Count 218 K/uL (130-400); RDW Coefficient of Variation 13.7 % (11.5-14.5); RDW Standard Deviation 45.8 fL (36.4-46.3); Red Blood Count 4.27 M/uL (4.7-6.1); White Blood Count 5.07 K/uL (4.8-10.8)
[2018-09-10] MEDS: levETIRAcetam 500 MG TAB PO SCH (07:52)
[2018-09-10] MEDS: LORATADINE 10 MG TAB PO SCH (07:52)
[2018-09-10] MEDS: ASPIRIN 81 MG ECTAB PO SCH (07:52)
[2018-09-10] MEDS: ESCITALOPRAM OXALATE 20 MG TAB PO SCH (07:53)
[2018-09-10 08:17] LABS: BUN Creatinine Ratio 12.9 (10-20); Calcium 8.9 mg/dl (8.5-10.1); Creatinine Clr Calc Pharmacy 32.2 ml/min; Est GFR (African American) 48.5; Est GFR (Non-African American) 41.9; Potassium 4.2 mmol/L (3.5-5.1)
[2018-09-10 08:33] LABS: Appearance Urine Clear (Clear); Bilirubin Urine Negative (Negative); Blood Urine Negative (Negative); Color Urine Yellow; Glucose Urine UA Negative (Negative); Ketones Urine Negative (Negative); Leukocyte Esterase Urine Negative (Negative); Nitrite Urine Negative (Negative); Protein Urine Negative (Negative); Specific Gravity Urine 1.021 (1.000-1.030); Urobilinogen Urine Negative (Negative)
[2018-09-10] MEDS ORDERED: CLOPIDOGREL BISULFATE 75 MG TAB PO SCH (09:00)
--- NOTE | 2018-09-10 14:28 | Neurology Progress Note ---
Date of Service September 10, 2018 Assessment & Plan (1) Left-sided weakness: 1. left sided weakness with no pronator drift - may be post seizure Todds paralysis or hypoperfusion weakness 2. MRI brain no acute findings 3. aspirin 81 mg continue plavix 75 mg- stopped 4. Keppra home dose 750 mg BID increased to 1000 mg BID on admission 5. CTA head and neck- known R ICA occlusion- causing hypoperfusion issues 6. PT/OT speech for any discharge needs 7. optimize HTN, HLD, DM LDL <70 however need to consider patient age 8. no new stroke will stop plavix 9. orthostatic blood pressures - no recorded Supervising Physician Co-Signing Physician Notes I have seen and discussed above patient with Dr Aashish Gray, neurology I seen Mr. Franz today, reviewed his imaging studies, discussed his case with Darling Ashraf PA-C and agree that he has had no evidence for a new CVA his exam is probably at baseline, no seizure-like activity is been reported and all were going to do here is stop the Plavix as there is really no need, and continue the Keppra to thousand twice a day although I have my doubts that this was necessary either. We will be seeing him back in the office and review of the Keppra level which is been drawn here. If it is at the high end of normal or in the toxic range we will probably reduce it back to the 750 mg twice a day continue the policy that we thought was in place i.e. to let his blood pressure run a little on the high side to ensure adequate perfusion of his right hemisphere which because of his internal carotid artery occlusion and its reliance on collateral vessels he has had a critical point and essentially is a watershed zone. He is being discharged today back home which I think is appropriate as he really does not need any rehabilitation etc. Aashish Horan Angus is an 85 year old right handed male with a history of a right MCA infarction with mild residual weakness, carotid occlusion on the right, type 2 diabetes, hypothyroidism, BPH, dyslipidemia, hypertension, kidney disease, brought by EMS after an episode of increase left sided weakness. He states he was sitting and he was weak on the left with some jerking activity. He does not think there was any slurred speech or facial droop. He states the symptoms last < 1 hour and his left sided weakness is currently the same as when he was admitted. Today he feels he is back to baseline. Discussed there was not stroke on MRI. He would like to go home. denies CP, SOB, abdominal pain, current headache, vision changes other than his chronic issues or swallowing issues. Physical Exam Vital Signs (Past 24 Hours): Last Vital Signs Temp 36.4 C L 09/10/18 11:24 Pulse 44 L 09/10/18 08:00 Resp 18 09/10/18 11:24 BP 189/79 H 09/10/18 07:59 Pulse Ox 97 09/10/18 11:24 Gen: alert NAD PERRL/EOM lungs CTA CV RRR finger to nose will some difficulty due to vision issues no pronator drift strength, hand board saw runner biceps triceps right 5/5, left 4+/5, hip flex right 5/5 left 4+/5, plantar flex ext 5/5 sensation intact to light and cool touch Results & Data Laboratory Results Abnormal lab results 09/10/18 09/10/18 Range/Units 07:24 07:24 RBC 4.27 L (4.7-6.1) M/uL Hgb 13.0 L (14.0-18.0) g/dL Hct 39.1 L (42-52) % BUN 19 H (7-18) mg/dl Creatinine 1.50 H (0.6-1.4) mg/dl Diagnostic Findings MRI brain-No areas of restricted diffusion to suggest acute infarction. Corpus callosum atrophy, unchanged. The remaining midline structures are intact. Atrophy and moderate microvascular ischemic changes are again noted. This is similar to the prior study. There is an enlarged right MCA territory infarct. Small left mastoid effusion, unchanged. Chronic occlusion of the right internal carotid artery is again noted. There is no mass, hematoma, midline shift. Multiple old pontine lacunar infarcts remain unchanged. No abnormal enhancement.
--- NOTE | 2018-09-10 16:06 | Hospitalist Progress Note ---
Date of Service September 10, 2018 Assessment & Plan (1) Left-sided weakness: Possible related to seizure Todds paralysis vs hypoperfusion weakness MRI of head showed no significant change compared to the prior study. No acute intracranial abnormality. CTA head showed Chronic occlusion of the right internal carotid artery with reconstitution at the level of the supraclinoid ICA which is unchanged since MRA of February 19, 2016. Neuro on board Keppra increased to 1g BID Case discussed with neurologyCOLIN from neuro standpoint to discharge home Plavix D/C by neurology since MRI head showed no acute CVA fall precaution Seizure precaution Follow up with neurology Check Keppra level in 4 weeks (2) HTN (hypertension): BP elevated Consider to add low dose amlodipine Monitor BP (3) CKD (chronic kidney disease), stage III: Creatinine stable Monitor BMP DVT px on heparin subq Disposition Discharge home today Subjective Pt was seen and examined Lying in bed with no distress Pt said that he feels fine denies any chest pain, palpitation and SOB Physical Exam Vital Signs (Past 24 Hours): Last Vital Signs Temp 36.4 C L 09/10/18 14:42 Pulse 56 L 09/10/18 14:42 Resp 18 09/10/18 14:42 BP 159/74 H 09/10/18 14:42 Pulse Ox 97 09/10/18 14:42 Physical Exam: General- No acute distress Head- atraumatic Eyes- PERRL, EOMI, ENT- oropharynx clear Neck- supple, no JVD Lungs- clear to auscultation Heart- regular rhythm Abdomen- normal bowel sounds, soft, nontender Extremities- no calf tenderness Neuro- alert, oriented x 3; PERRL, EOMI; no facial palsy; Skin- warm & dry
[2018-09-10] MEDS: ATORVASTATIN 20 MG TAB PO SCH (16:08)
[2018-09-10] MEDS ORDERED: STROKE PATIENT DISCHARGE STA (16:17)
--- NOTE | 2018-09-11 10:00 | Discharge Summary ---
Date of Service September 18, 2018 Admission HPI Per Admitting Provider History obtained from the patient's niece and records. Limited history obtained from patient secondary to lethargic state. Medical history is significant for CVA, seizure disorder, history of traumatic subdural hematoma, hypertension, hypothyroidism, chronic anemia (baseline hemoglobin of 12), chronic renal insufficiency (baseline creatinine of 1.5-1.6), PVD, hx MRSA, bladder cancer/BPH status post surgery, past tobacco abuse. Recent confinement January 2017 for breakthrough seizures. Patient presented with left-sided weakness post twitching. Yesterday morning patient lip noted to be droopy by patient . Patient subsequently noted to have jerking of the left arm followed by the left leg. Left side later noted to be weak. Episode similar to January 2017 events as per patient niece. Patient received IV Ativan en route to the ER. Patient compliant with home AED regimen. Keppra 1 g IV given at the ER. 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
--- NOTE | 2018-09-17 21:32 | Discharge Summary ---
Date of Service September 10, 2018 Admission HPI Per Admitting Provider History obtained from the patient's niece and records. Limited history obtained from patient secondary to lethargic state. Medical history is significant for CVA, seizure disorder, history of traumatic subdural hematoma, hypertension, hypothyroidism, chronic anemia (baseline hemoglobin of 12), chronic renal insufficiency (baseline creatinine of 1.5-1.6), PVD, hx MRSA, bladder cancer/BPH status post surgery, past tobacco abuse. Recent confinement January 2017 for breakthrough seizures. Patient presented with left-sided weakness post twitching. Yesterday morning patient lip noted to be droopy by patient . Patient subsequently noted to have jerking of the left arm followed by the left leg. Left side later noted to be weak. Episode similar to January 2017 events as per patient niece. Patient received IV Ativan en route to the ER. Patient compliant with home AED regimen. Keppra 1 g IV given at the ER. 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 Admission Exam Per Admitting Provider GENERAL: Obtunded, no respiratory distress SKIN: Pallor, warm HEENT: Pale palpebral conjunctivae, no ptosis, subtle lip asymmetry, dry buccal mucosa NECK : Supple, no tenderness CHEST : Decreased breath sounds, no tenderness HEART : Bradycardic, no obvious murmurs ABDOMEN: Soft, nontender EXTREMITIES : No LE swelling/tenderness, no other conspicuous deformities noted NEUROLOGIC : Obtunded, subtle lip asymmetry, MMTS RUE/RLE 4-5/5, LUE/LLE 4/5, gait and stance not assessed Principal Diagnosis Left sided weakness Discharge Exam General- No acute distress Head- atraumatic Eyes- PERRL, EOMI, ENT- oropharynx clear Neck- supple, no JVD Lungs- clear to auscultation Heart- regular rhythm Abdomen- normal bowel sounds, soft, nontender Extremities- no calf tenderness Neuro- alert, oriented x 3; PERRL, EOMI; no facial palsy; Skin- warm & dry Discharge Data Allergies Allergy/AdvReac Type Severity Reaction Status Date / Time clindamycin Allergy Intermediate rash Verified 09/08/18 23:32 Bactrim Allergy Mild RASH Verified 02/05/17 02:49 blue dye Allergy Mild RASH Verified 09/08/18 23:32 dabigatran etexilate Allergy Mild RASH Verified 09/08/18 23:32 sulfamethoxazole Allergy Mild RASH Verified 09/08/18 23:32 trimethoprim Allergy Mild RASH Verified 09/08/18 23:32 vancomycin Allergy Mild RASH, DRY Verified 09/08/18 23:32 SKIN warfarin Allergy Mild RASH Verified 09/08/18 23:32 yellow dye Allergy Mild RASH Verified 09/08/18 23:32 Sulfa (Sulfonamide Allergy Unknown unknown Verified 09/08/18 23:32 Antibiotics) Consultations 09/08/18 22:47 ED Decision to Admit Stat 09/09/18 03:49 Consult Case Management - Discharge Planning Routine Consult Case Management - Discharge Planning Routine Consult Neurology Routine Ordered Studies 09/08/18 21:34 CT angio head w con Stat CT angio neck with con Stat CT head/brain wo con Stat 09/09/18 03:49 MR brain wo/w con Routine Brain MRI WITH AND WITHOUT CONTRAST HISTORY: recurrent seizures TECHNIQUE: Multiplanar multisequence MRI of the brain was performed both before and after the intravenous administration of contrast. COMPARISON STUDY: Head CT 09/08/2018. Brain MRI 09/11/2016. FINDINGS: No areas of restricted diffusion to suggest acute infarction. Corpus callosum atrophy, unchanged. The remaining midline structures are intact. Atrophy and moderate microvascular ischemic changes are again noted. This is similar to the prior study. There is an enlarged right MCA territory infarct. Small left mastoid effusion, unchanged. Chronic occlusion of the right internal carotid artery is again noted. There is no mass, hematoma, midline shift. Multiple old pontine lacunar infarcts remain unchanged. No abnormal enhancement. IMPRESSION: No significant change compared to the prior study. No acute intracranial abnormality. Old infarcts as described above. Electronically signed by: Artie Guerrero M.D. 09/09/2018 11:21 PM Dictated: 09/09/182312 Transcribed: 09/09/182312 CT ANGIOGRAPHY OF THE NECK WITH CONTRAST CLINICAL HISTORY: Weakness. Possible stroke. COMPARISON STUDY: MRA of the neck September 11, 2016. Technique: CT angiography of the carotid and vertebral arteries was obtained using [employer] 320 IV and 3D reconstruction on an independent workstation. NASCET criteria was utilized. Automated exposure control was utilized for the study. A dose lowering technique was utilized adhering to the principles of ALARA. Findings: Chronic occlusion of the right internal carotid artery is unchanged and MRI of September 11, 2016. There is severe stenosis at the origin the right vertebral artery. There is mild stenosis at the origin of the left vertebral artery. There is no dissection within the major vasculature of the neck. There is moderate calcified atherosclerotic plaque within the proximal left internal carotid artery. This results in 50% narrowing of the proximal left internal carotid artery. No cervical lymphadenopathy is present. Biapical scarring within the lungs is noted. IMPRESSION: 1. Chronic occlusion of the right internal carotid artery, unchanged since MRA of September 11, 2016. 2. 50% stenosis of the proximal left internal carotid artery due to calcified atherosclerotic plaque. 3. 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 Electronically signed by: Sadiq Vallejo M.D. 09/08/2018 10:03 PM Dictated: 09/08/182156 Transcribed: 09/08/182156 CTA ANGIOGRAPHY OF THE HEAD CLINICAL HISTORY: Weakness. Possible stroke. COMPARISON STUDY: MRA of the head February 19, 2016. TECHNIQUE: Helical axial images of the head were obtained following uneventful intravenous administration of 150 cc of [employer] 320. Automated exposure control was utilized for the study. A dose lowering technique was utilized adhering to the principles of ALARA. CT DOSE: 1094.99 mGy.cm FINDINGS: No acute intracranial hemorrhage, midline shift or mass effect is present. An old large right MCA territory infarct is unchanged since prior exams. Chronic occlusion of the right internal carotid artery with distal reconstitution at the level of the supraclinoid ICA is again noted. No additional vessel occlusions are noted. There is no intracranial aneurysm. There is mild atherosclerotic plaque within the left cavernous carotid without stenosis. There is mild atherosclerotic plaque within the intracranial portions of the bilateral vertebral arteries. Posterior circulation is intact. IMPRESSION: 1. Chronic occlusion of the right internal carotid artery with reconstitution at the level of the supraclinoid ICA which is unchanged since MRA of February 19, 2016. 2. No change in appearance of the intracranial circulation. Electronically signed by: Sadiq Vallejo M.D. 09/08/2018 10:07 PM Dictated: 09/08/182202 Transcribed: 09/08/182202 CT OF THE HEAD WITHOUT CONTRAST CLINICAL HISTORY: Stroke evaluation COMPARISON STUDY: Head CT February 05, 2017. MRI of the brain September 01, 2016. TECHNIQUE: Helical axial images of the head were obtained without IV contrast. Automated exposure control was utilized for the study. A dose lowering technique was utilized adhering to the principles of ALARA. FINDINGS: No acute intracranial hemorrhage, midline shift or mass effect is present. Extensive encephalomalacia within the right MCA territory is unchanged since head CT of February 05, 2017. Ventricular system is stable. The basilar cisterns are patent. There are no extra-axial collections. There are no findings to suggest acute dural sinus thrombosis or acute territorial infarct. The appearance of the brain is unchanged. Exam is mildly compromised by motion artifact. There are no significant calvarial abnormalities. IMPRESSION: 1. No acute intracranial findings. 2. Large old right MCA territory infarct unchanged since head CT of February 05, 2017. Electronically signed by: Sadiq Vallejo M.D. 09/08/2018 9:56 PM Dictated: 09/08/182149 Transcribed: 09/08/182149 XR chest 1V portable CLINICAL HISTORY: weakness COMPARISON STUDY: Chest radiograph February 05, 2017. FINDINGS: Lung volumes are normal. There is no pneumothorax or pleural effusion. Cardiac size is normal. There is no consolidation to suggest pneumonia. Cardiomediastinal silhouette is stable. Appearance of the chest is unchanged. IMPRESSION: No acute cardiopulmonary findings. Electronically signed by: Sadiq Vallejo M.D. 09/08/2018 10:35 PM Dictated: 09/08/182233 Transcribed: 09/08/182233 Hospital Course (1) Left-sided weakness: Possible related to seizure Todds paralysis vs hypoperfusion weakness MRI of head showed no significant change compared to the prior study. No acute intracranial abnormality. CTA head showed Chronic occlusion of the right internal carotid artery with reconstitution at the level of the supraclinoid ICA which is unchanged since MRA of February 19, 2016. Neuro on board Keppra increased to 1g BID Case discussed with neurology [place] from neuro standpoint to discharge home Plavix D/C by neurology since MRI head showed no acute CVA fall precaution Seizure precaution Follow up with neurology Check Keppra level in 4 weeks (2) HTN (hypertension): BP elevated Consider to add low dose amlodipine Monitor BP (3) CKD (chronic kidney disease), stage III: Creatinine stable Monitor BMP DVT px on heparin subq Disposition Discharge home today Total Time Total Time Spent Total Time Spent (In Minutes): 35 minutes Total Time Includes: Examination of the Patient, Discharge Planning, Medication Reconciliation, Communication With Other Providers and Other Discharge Plan Discharge Items Patient Disposition: Home - Home Health Services Reason For Visit: RECURRENT SEIZURE/CVA Discharge Diagnosis: Left sided weakness Discharge Goals: Decrease discomfort, Diagnostic testing, Improve function and Increase independence Activity: Resume your previous activity Activity Comment: As tolerated Non-emergency contact: Primary Care Provider Call non-emergency contact if: you have any medication questions Follow-up/Referrals: Miguel Mckee [Primary Care Provider] - Diet: Heart Healthy Addtl Provider Instructions: Follow up with your primary care provider on 09/16 @ 1:45 PM Follow up with neurology (office will call you for the appointment) Continue Keppra 1000mg BID check Keppra level in 3-4 weeks Continue physical and occupational therapy Fall precaution Prescriptions: New levetiracetam [Keppra] 1,000 mg tablet 1,000 mg PO BID 30 Days Qty: 60 RF: 0 Continued buspirone 5 mg Tablet 5 mg PO BID RF: 0 advbbzkd-qwuasqgqr-UI 3.5-10,000-1 mg/mL-unit/mL-% Solution 4 drp OTIC (EAR) TID RF: 0 atorvastatin 20 mg Tablet 20 mg PO QDD RF: 0 aspirin [Aspir-81] 81 mg Tablet,Delayed Release (Dr/Ec) 81 mg PO DAILY RF: 0 levothyroxine 88 mcg Tablet 88 mcg PO DAILYBB RF: 0 calcium carbonate [Calcium 500] 500 mg calcium (1,250 mg) Tablet 150 mg PO DAILY RF: 0 meclizine 25 mg Tablet 25 mg PO TID PRN (Reason: Dizziness) RF: 0 loratadine [Claritin] 10 mg Tablet 10 mg PO DAILY RF: 0 escitalopram oxalate [Lexapro] 20 mg Tablet 10 mg PO DAILY RF: 0 acetaminophen [Tylenol] 325 mg Capsule 650 mg PO Q4 PRN (Reason: Pain (Scale Score 1-3)) RF: 0 omega 6-wtm-quj-fish oil [Fish Oil] 1,000 mg (120 mg-180 mg) Capsule 1 cap PO DAILY RF: 0 Discontinued levetiracetam 750 mg Tablet 750 mg PO BID RF: 0 Stand-Alone Forms: [facility] Discharge Orders: Discharge Order (Routine); Ordered 09/10/18 Ordered By: Loni Jeronimo Admission Data Admit Date/Time: 09/09/18 02:31 Attending Provider: Loni Jeronimo Admit Provider: Peng Mclean Primary Care Provider: Miguel Mckee Other Providers: Peng Mclean ; Darling Ashraf ; Aashish Gray Service: Telemetry Medical Other Interventions: Discharge Summary Assessment (RN) Last Done: 09/10/18 17:22 DC Date/Time DO NOT enter until pt leaves facility: 09/10/18 19:03
== END 2018-09-10 19:03 | disposition home health service (06) | DRG 93 ==
LOC: ED 21:34 → SUATTDRO 09-09 02:31 → 2W 09-09 02:31
DX: Z79.899 Other long term (current) drug therapy; Z87.448 Personal history of other diseases of urinary system; Z66 Do not resuscitate; Z88.8 Allergy status to other drugs, medicaments and biological substances; D63.1 Anemia in chronic kidney disease; R53.1 Weakness; I65.21 Occlusion and stenosis of right carotid artery; Z87.820 Personal history of traumatic brain injury; I69.398 Other sequelae of cerebral infarction; Z87.891 Personal history of nicotine dependence; Z88.1 Allergy status to other antibiotic agents; Z85.51 Personal history of malignant neoplasm of bladder; E03.9 Hypothyroidism, unspecified; Z79.82 Long term (current) use of aspirin; Z86.14 Personal history of Methicillin resistant Staphylococcus aureus infection; Z91.048 Other nonmedicinal substance allergy status; Z88.2 Allergy status to sulfonamides; I12.9 Hypertensive chronic kidney disease with stage 1 through stage 4 chronic kidney disease, or unspecified chronic kidney disease; G40.909 Epilepsy, unspecified, not intractable, without status epilepticus; Z82.49 Family history of ischemic heart disease and other diseases of the circulatory system; I73.9 Peripheral vascular disease, unspecified; G83.84 Todd's paralysis (postepileptic); Z98.890 Other specified postprocedural states; N18.3 Chronic kidney disease, stage 3 (moderate)

== ENCOUNTER 2018-12-03 14:18 | Inpatient (IN) ==
--- OUTSIDE RECORDS SUMMARY | 2018-12-03 14:21 | External Medical Summary | Continuity of Care Document ---
:1930 Author Name Katelyn Lopez Address Unavailable Unavailable , Care Team Providers Name Role Phone Levy Lopez Unavailable [email or web address] Unavailable [email or web address] Unavailable Unavailable Unavailable Unavailable Unavailable Problems Arthritis (716.90) (M19.90) Benign prostatic hypertrophy (600.00) (N40.0) Bladder cancer (188.9) (C67.9) Allergies and Adverse Reactions Bactrim TABS (Allergy) Clindamycin HCl CAPS (Allergy) Sulfa Drugs (Allergy) Reaction: Hives, S welling Vancomycin HCl CAPS (Allergy) Medications Tamsulosin HCl - 0.4 MG Oral Capsule; TA KE 1 CAPSULE Daily 1/2 hour after supper Jessica Lockett Quantity: 90 Refills: 3 Finasteride 5 MG Oral Tablet; TAKE ONE TABLET BY MOUTH DAILY Jessica Lockett Quantity: 90 Refills: 3 Zantac 300 MG TABS Refills: 0 Lexapro 10 MG Oral Tablet Refills: 0 Levothyroxine Sodium 75 MCG Oral Tablet Refills: 0 Procedures History of Hip Replacement Status: Compl eted History of Hernia Repair Status: Complet ed Immunizations Immunizations not documented Family History Mother No pertinent family history (V49.89) (Z78.9) Status: Active Father No pertinent family history (V49.89) (Z78.9) Status: Active Social History - Smoking Status Never smoker Plan of Treatment Planned Observations Planned Goals not documented Results No Known Results Results not documented
[2018-12-03] MEDS ORDERED: SODIUM CHLORIDE 0.9% 500 ML IV SCH (14:30)
--- NOTE | 2018-12-03 14:46 | Emergency Department Note ---
Entered by Nery Horvath acting as a scribe for Ayo Johnson MD History of Present Illness General Chief complaint: Weakness Stated complaint: WEAKNESS Time Seen by Provider: 12/03/18 14:22 Source: patient Mode of arrival: wheelchair Limitations: no limitations History of Present Illness Onset (ago): day(s) 3 Location: head Radiation: non-radiation Pain Consistency: + constant Relieved By: + none Exacerbated By: + none Associated symptoms: + other (-urinary symptoms, -diarrhea, -hematochezia); no chest pain, no cough, no fever/chills and no nausea/vomiting Treatments prior to arrival: none The patient is an 88 year old male who presents to the ED with complaints of worsening weakness for the past few days. He states his arms felt "numb and weak" yesterday. The patient reports he lives at home with his . He denies feeling thirsty or dehydrated. He denies any recent cough, cold symptoms or congestion. He denies any nausea, vomiting or diarrhea. He denies any recent fevers, chest pain or urinary symptoms. The patient denies ever feeling like this in the past. He does not take daily blood thinners. He denies any recent hematochezia. He did eat today. Home Medications Home Medications Medication Instructions Recorded Confirmed Type aspirin [Aspir-81] 81 mg PO QAM 09/08/18 12/03/18 History atorvastatin 20 mg PO QPM 09/08/18 12/03/18 History buspirone 5 mg PO BID 09/08/18 12/03/18 History escitalopram oxalate [Lexapro] 20 mg PO QAM 09/08/18 12/03/18 History levothyroxine 88 mcg PO QAM 09/08/18 12/03/18 History meclizine 25 mg PO TID PRN 09/08/18 12/03/18 History omega 8-xez-jvu-fish oil [Fish Oil] 1 cap PO QAM 09/08/18 12/03/18 History calcium carbonate [Calcium 600] 1,200 mg PO QAM 12/03/18 12/03/18 History levetiracetam 500 mg PO BID 12/03/18 12/03/18 History loratadine 10 mg PO QAM 12/03/18 12/03/18 History Allergies Allergy/AdvReac Type Severity Reaction Status Date / Time clindamycin Allergy Intermediate rash Verified 09/08/18 23:32 Bactrim Allergy Mild RASH Verified 02/05/17 02:49 blue dye Allergy Mild RASH Verified 09/08/18 23:32 dabigatran etexilate Allergy Mild RASH Verified 09/08/18 23:32 sulfamethoxazole Allergy Mild RASH Verified 09/08/18 23:32 trimethoprim Allergy Mild RASH Verified 09/08/18 23:32 vancomycin Allergy Mild RASH, DRY Verified 09/08/18 23:32 SKIN warfarin Allergy Mild RASH Verified 09/08/18 23:32 yellow dye Allergy Mild RASH Verified 09/08/18 23:32 Sulfa (Sulfonamide Allergy Unknown unknown Verified 09/08/18 23:32 Antibiotics) Past Med/Surg History Medical History Stroke (Acute) Type 2 diabetes mellitus (Chronic) Social History Preferred Language: Kosovan Communication Ability: Effective Beliefs That Will Affect Care: None marital status: Current Living Situation: Spouse Feels Safe at Home: Yes Smoking Status: Never smoker Hx Alcohol Use: No Hx Substance Use: No Review of Systems See HPI for pertinent positives & negatives. and A total of 10 systems reviewed and were otherwise negative Physical Exam Vital Signs Vital Signs - 24 hr 12/03/18 14:19 12/03/18 14:38 12/03/18 14:40 Temperature 36.6 C Temperature Source Oral Sepsis Recent Fever Within 48 Hours No Sepsis New/Unexplained Change in Mental Status No Sepsis Action Taken by Nursing No Action Required Pulse Rate - Lying Pulse Rate - Sitting Pulse Rate - Standing Pulse Rate 66 64 Pulse Rate from SpO2 Sensor 62 Respiratory Rate 16 15 Respiratory Effort / Characteristics Non-Labored Spontaneous Respiratory Depth Normal Blood Pressure - Lying Blood Pressure - Sitting Blood Pressure- Standing Blood Pressure 121/71 Blood Pressure Mean 87 Blood Pressure Position Sitting Pulse Oximetry 90 94 94 Oxygen Delivery Method Room Air Room Air 12/03/18 14:45 12/03/18 15:00 12/03/18 15:01 Temperature Temperature Source Sepsis Recent Fever Within 48 Hours Sepsis New/Unexplained Change in Mental Status Sepsis Action Taken by Nursing Pulse Rate - Lying Pulse Rate - Sitting Pulse Rate - Standing Pulse Rate 60 57 L 57 L Pulse Rate from SpO2 Sensor 59 L 58 L 57 L Respiratory Rate 13 Respiratory Effort / Characteristics Respiratory Depth Blood Pressure - Lying Blood Pressure - Sitting Blood Pressure- Standing Blood Pressure 114/69 136/83 Blood Pressure Mean 84 100 Blood Pressure Position Pulse Oximetry 94 94 95 Oxygen Delivery Method 12/03/18 15:22 12/03/18 15:23 12/03/18 15:25 Temperature Temperature Source Sepsis Recent Fever Within 48 Hours Sepsis New/Unexplained Change in Mental Status Sepsis Action Taken by Nursing Pulse Rate - Lying 53 L Pulse Rate - Sitting 58 L Pulse Rate - Standing 56 L Pulse Rate 51 L 53 L 65 Pulse Rate from SpO2 Sensor 51 L Respiratory Rate 16 15 19 Respiratory Effort / Characteristics Respiratory Depth Blood Pressure - Lying 123/74 Blood Pressure - Sitting 138/70 Blood Pressure- Standing 121/53 L Blood Pressure 123/74 138/70 121/53 L Blood Pressure Mean 90 92 75 Blood Pressure Position Pulse Oximetry 96 Oxygen Delivery Method 12/03/18 15:30 12/03/18 15:31 12/03/18 16:00 Temperature Temperature Source Sepsis Recent Fever Within 48 Hours Sepsis New/Unexplained Change in Mental Status Sepsis Action Taken by Nursing Pulse Rate - Lying Pulse Rate - Sitting Pulse Rate - Standing Pulse Rate 50 L 51 L 49 L Pulse Rate from SpO2 Sensor 51 L 51 L 48 L Respiratory Rate 22 21 20 Respiratory Effort / Characteristics Respiratory Depth Blood Pressure - Lying Blood Pressure - Sitting Blood Pressure- Standing Blood Pressure 144/67 H Blood Pressure Mean 92 Blood Pressure Position Pulse Oximetry 94 95 96 Oxygen Delivery Method 12/03/18 16:01 12/03/18 16:02 12/03/18 16:30 Temperature Temperature Source Sepsis Recent Fever Within 48 Hours Sepsis New/Unexplained Change in Mental Status Sepsis Action Taken by Nursing Pulse Rate - Lying Pulse Rate - Sitting Pulse Rate - Standing Pulse Rate 48 L 49 L 52 L Pulse Rate from SpO2 Sensor 48 L 50 L Respiratory Rate 12 13 Respiratory Effort / Characteristics Respiratory Depth Blood Pressure - Lying Blood Pressure - Sitting Blood Pressure- Standing Blood Pressure 153/67 H 151/82 H Blood Pressure Mean 95 105 Blood Pressure Position Pulse Oximetry 96 97 Oxygen Delivery Method 12/03/18 17:00 12/03/18 17:01 12/03/18 17:30 Temperature Temperature Source Sepsis Recent Fever Within 48 Hours Sepsis New/Unexplained Change in Mental Status Sepsis Action Taken by Nursing Pulse Rate - Lying Pulse Rate - Sitting Pulse Rate - Standing Pulse Rate 50 L 49 L 47 L Pulse Rate from SpO2 Sensor Respiratory Rate 16 16 Respiratory Effort / Characteristics Respiratory Depth Blood Pressure - Lying Blood Pressure - Sitting Blood Pressure- Standing Blood Pressure 150/62 H 141/81 H Blood Pressure Mean 91 101 Blood Pressure Position Pulse Oximetry Oxygen Delivery Method 12/03/18 17:31 12/03/18 18:00 12/03/18 18:01 Temperature Temperature Source Sepsis Recent Fever Within 48 Hours Sepsis New/Unexplained Change in Mental Status Sepsis Action Taken by Nursing Pulse Rate - Lying Pulse Rate - Sitting Pulse Rate - Standing Pulse Rate 49 L 52 L 50 L Pulse Rate from SpO2 Sensor Respiratory Rate 17 17 14 Respiratory Effort / Characteristics Respiratory Depth Blood Pressure - Lying Blood Pressure - Sitting Blood Pressure- Standing Blood Pressure 185/76 H Blood Pressure Mean 112 Blood Pressure Position Pulse Oximetry Oxygen Delivery Method GENERAL: Patient is in no acute distress. HEENT: No acute trauma, normocephalic atraumatic, mucous membranes are dry, no nasal congestion, no scleral icterus. NECK: No stridor, no adenopathy, no meningismus, trachea is midline. LUNGS: Clear to auscultation bilaterally, no wheeze, no rhonchi, breath sounds equal. HEART: Without murmurs gallops or rubs, regular rate and rhythm. ABDOMEN: Soft, nontender, bowel sounds positive, no hernias, no peritonitis. EXTREMITIES: No cyanosis or edema, full range of motion of all the joints without pain or difficulty, no signs for acute trauma. NEUROLOGIC: Oriented x 3, slight speech slur, no facial droop, no cerebellar dysfunction or pronator drift. SKIN: No rash, no jaundice, no diaphoresis. Course 1427: The patient was evaluated in room C9 and a complete history and physical were performed. 1538: Orthostatic vital signs were negative. 1728: I reevaluated the patient. He is resting comfortably. I spoke with his and she states she cannot care for him at home since he has become too weak. Both she and the patient are agreeable with the patient remaining in the hospital for further evaluation and management. 1740: I discussed the patients case with Cristi Falk. The patient will be further evaluated. Consultations Consultation #1: I discussed the patients case with Cristi Falk. The patient will be further evaluated. Time: 17:40 Administered Medications Discontinued Medications Sodium Chloride (Nss) 500 mls @ 999 mls/hr IV .Q31M RAY Stop: 12/03/18 15:00 Last Infusion: 12/03/18 16:11 Dose: 0 mls/hr Documented by: [id number] Admin: 12/03/18 15:10 Dose: 999 mls/hr Documented by: [id number] Sodium Chloride (Nss 1000ml) 500 mls @ 999 mls/hr IV .Q31M ONE Stop: 12/03/18 18:05 Last Infusion: 12/03/18 18:26 Dose: 0 mls/hr Documented by: [id number] Admin: 12/03/18 17:43 Dose: 999 mls/hr Documented by: [id number] Medical Decision Making Differential Diagnosis The differential diagnoses considered include stroke, intracranial bleeding, dehydration, electrolyte imbalance, anemia, renal or liver failure, UTI, pneumonia and NH. Medical Records Attestation: I reviewed the patient's medical records. Home Medications Current Medication List: was personally reviewed by me Laboratory Data Attestation: I reviewed the patient's lab results. Result diagrams: 12/03/18 14:55 12/03/18 14:55 Lab Results 12/03/18 12/03/18 12/03/18 Range/Units 14:55 14:55 Unknown WBC 8.35 (4.8-10.8) K/uL RBC 4.08 L (4.7-6.1) M/uL Hgb 12.5 L (14.0-18.0) g/dL Hct 36.8 L (42-52) % MCV 90.2 (80-100) fL MCH 30.6 (25-34) pg MCHC 34.0 (32-36) g/dL RDW Std Deviation 47.0 H (36.4-46.3) fL RDW Coeff of Marti 14.2 (11.5-14.5) % Plt Count 264 (130-400) K/uL MPV 9.1 (7.4-10.4) fL Immature Gran % (Auto) 0.1 % Neut % (Auto) 80.3 % Lymph % (Auto) 10.5 % [place] % (Auto) 4.6 % Eos % (Auto) 4.1 % Baso % (Auto) 0.4 % Immature Gran # (Auto) 0.01 (0.00-0.02) K/uL Neut # (Auto) 6.71 H (1.4-6.5) K/uL Lymph # (Auto) 0.88 L (1.2-3.4) K/uL [place] # (Auto) 0.38 (0.11-0.59) K/uL Eos # (Auto) 0.34 (0-0.5) K/uL Baso # (Auto) 0.03 (0-0.2) K/uL Sodium 142 (136-145) mmol/L Potassium 3.8 (3.5-5.1) mmol/L Chloride 110 H (98-107) mmol/L Carbon Dioxide 27 (21-32) mmol/L Anion Gap 5.0 (3-11) BUN 44 H (7-18) mg/dl Creatinine 1.83 H (0.6-1.4) mg/dl Est Cr Clr Drug Dosing Not Reportable Est GFR ( Amer) 37.9 Est GFR (Non-Af Amer) 32.7 BUN/Creatinine Ratio 24.1 H (10-20) Glucose 102 H (70-99) mg/dl Calcium 9.4 (8.5-10.1) mg/dl Magnesium 2.2 (1.8-2.4) mg/dl Total Bilirubin 0.4 (0.2-1) mg/dl AST 17 (15-37) U/L ALT 19 (12-78) U/L Alkaline Phosphatase 51 (45-117) U/L Troponin I < 0.015 (0-0.045) ng/ml Total Protein 7.0 (6.4-8.2) gm/dl Albumin 3.0 L (3.4-5.0) gm/dl Globulin 4.0 (2.5-4.0) gm/dl Albumin/Globulin Ratio 0.8 L (0.9-2) TSH 2.100 (0.300-4.500) uIu/ml Urine Color Dark Yellow Urine Appearance Clear (Clear) Urine pH 5.5 (4.5-7.5) Ur Specific [place] 1.029 (1.000-1.030) Urine Protein Negative (Negative) Urine Glucose (UA) Negative (Negative) Urine Ketones Trace H (Negative) Urine Blood Negative (Negative) Urine Nitrite Negative (Negative) Urine Bilirubin Negative (Negative) Urine Urobilinogen Negative (Negative) Ur Leukocyte Esterase Negative (Negative) Imaging Data Radiologist's Impression: Radiology results as stated below per my review and the radiologist's interpretation: CT OF THE HEAD WITHOUT CONTRAST CLINICAL HISTORY: dizzy, weak COMPARISON STUDY: Head CT and CTA of the head September 08, 2018. MRI of the brain September 09, 2018. CT DOSE: 537.48 mGy.cm TECHNIQUE: Helical axial images of the head were obtained without IV contrast. Automated exposure control was utilized for the study. A dose lowering technique was utilized adhering to the principles of ALARA. FINDINGS: No acute intracranial hemorrhage, midline shift or mass effect is present. Extensive encephalomalacia within the right middle cerebral artery territory is unchanged. This represents old infarct. The ventricular system is stable. The basilar cisterns are patent. There are no extra-axial collections. There are no findings to suggest acute dural sinus thrombosis or acute territorial infarct. The appearance of the brain is unchanged. There are no significant calvarial abnormalities. Visualized portions of the sinuses and mastoid air cells are clear. IMPRESSION: 1. No acute intracranial findings. 2. 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 Electronically signed by: Sadiq Vallejo M.D. 12/03/2018 3:52 PM XR chest 1V portable CLINICAL HISTORY: 88 years-old Male presenting with weakness. TECHNIQUE: Portable upright AP view of the chest was obtained. COMPARISON: 02/05/2017. FINDINGS: Atherosclerosis of the aortic arch. Cardiac silhouette borderline enlarged. Prominent skin fold over the periphery of the right hemithorax. Vague opacity at the left lung base. Trace bilateral pleural effusions may be present. No large pneumothorax. Degenerative changes of the thoracic spine. Upper abdomen normal. IMPRESSION: 1. Left basilar infiltrate concerning for infection or aspiration. Atelectasis may appear similarly. Electronically signed by: Shay Campbell M.D. 12/03/2018 2:49 PM ECG Data Attestation: I personally reviewed and interpreted this ECG as follows: Indication: weakness Rate (beats per minute): 66 Rhythm: sinus rhythm Findings: + other (LVH present, old septal infarct) and + PAC; no PVC and no ST elevation Blood Pressure Blood Pressure Findings: Elevated blood pressure Blood Pressure Disposition: further management by hospitalist [facility] Narrative There is no leukocytosis. There is a mild anemia present but this is baseline for the patient. There was evidence for some mild renal insufficiency/dehydration with a creatinine of 1.83. No elevation to the LFTs. The patient appeared to be in a euthyroid state. EKG showed a sinus rhythm, no acute ischemia. Cardiac enzyme testing x1 is not consistent with acute cardiac injury. Urinalysis did not show evidence for infection. Chest film showed some changes to the left base but this appears chronic looking back at previous films, the possibility of pneumonia versus atelectasis was raised by the radio logist. Brain CT shows evidence for an old stroke, no acute bleed or mass- effect. On exam, the patient was awake, there was some speech slur present, no real focal motor deficits. He was not toxic, he was not febrile. The patient received 500 cc of IV saline, a second 500 cc bolus was given. The patient's arrived. The patient has become so weak that she can no longer care for him at home. Case management was consulted. At this point, the patient likely will require placement for better care. For now, a hospital stay is warranted. The patient requires IV hydration, case management will work on placement. At this point, I believe he is dehydrated and somewhat debilitated, I think the weakness is multifactorial. I spoke with the patient and his , the on-call hospitalist was consulted. Impression & Plan Weakness, Dehydration, Acute kidney injury, History of CVA (cerebrovascular accident) Discharge Plan Visit Data Chief Complaint: Weakness Stated Complaint: WEAKNESS ED Provider: Ayo Johnson Discharge Problem: Weakness, Dehydration, Acute kidney injury, History of CVA (cerebrovascular accident) Patient Disposition: Being Evaluated by Hospitalist Forms Stand Alone Forms: My [facility] Prescriptions Prescriptions: No Action levetiracetam 500 mg tablet 500 mg PO BID RF: 0 calcium carbonate [Calcium 600] 600 mg calcium (1,500 mg) Tablet 1,200 mg PO QAM RF: 0 loratadine 10 mg tablet 10 mg PO QAM RF: 0 buspirone 5 mg Tablet 5 mg PO BID RF: 0 atorvastatin 20 mg Tablet 20 mg PO QPM RF: 0 aspirin [Aspir-81] 81 mg Tablet,Delayed Release (Dr/Ec) 81 mg PO QAM RF: 0 levothyroxine 88 mcg Tablet 88 mcg PO QAM RF: 0 meclizine 25 mg Tablet 25 mg PO TID PRN (Reason: Dizziness) RF: 0 escitalopram oxalate [Lexapro] 20 mg Tablet 20 mg PO QAM RF: 0 omega 2-hht-mss-fish oil [Fish Oil] 1,000 mg (120 mg-180 mg) Capsule 1 cap PO QAM RF: 0 Referrals Referrals: Miguel Mckee, DO [Primary Care Provider] - The scribe's documentation has been prepared under my direction and personally reviewed by me in its entirety. I confirm that the note above accurately reflects all work, treatment, procedures, and medical decision making performed by me.
--- NOTE | 2018-12-03 14:50 | XRay Report ---
XR chest 1V portable CLINICAL HISTORY: 88 years-old Male presenting with weakness. TECHNIQUE: Portable upright AP view of the chest was obtained. COMPARISON: 02/05/2017. FINDINGS: Atherosclerosis of the aortic arch. Cardiac silhouette borderline enlarged. Prominent skin fold over the periphery of the right hemithorax. Vague opacity at the left lung base. Trace bilateral pleural e ffusions may be present. No large pneumothorax. Degenerative changes of the thoracic spine. Upper abd omen normal. IMPRESSION: 1. Left basilar infiltrate concerning for infection or aspiration. Atelectasis may appear similarly. Electronically signed by: Shay Campbell M.D. 12/03/2018 2:49 PM
[2018-12-03 15:03] LABS: Basophils # (auto) 0.03 K/uL (0-0.2); Basophils % (auto) 0.4 %; Eosinophils # (auto) 0.34 K/uL (0-0.5); Eosinophils % (auto) 4.1 %; Hematocrit (blood only) 36.8 % (42-52); Hemoglobin 12.5 g/dL (14.0-18.0); Immature Granulocytes # (auto) 0.01 K/uL (0.00-0.02); Immature Granulocytes % (auto) 0.1 %; Lymphocytes # (auto) 0.88 K/uL (1.2-3.4); Lymphocytes % (auto) 10.5 %; Mean Corpuscular Volume 90.2 fL (80-100); Mean Platelet Volume 9.1 fL (7.4-10.4); Monocytes # (auto) 0.38 K/uL (0.11-0.59); Monocytes % (auto) 4.6 %; Neutrophils # (auto) 6.71 K/uL (1.4-6.5); Neutrophils % (auto) 80.3 %; Platelet Count 264 K/uL (130-400); RDW Coefficient of Variation 14.2 % (11.5-14.5); Red Blood Count 4.08 M/uL (4.7-6.1); White Blood Count 8.35 K/uL (4.8-10.8)
[2018-12-03 15:20] LABS: Alanine Aminotransferase 19 U/L (12-78); Aspartate Aminotransferase 17 U/L (15-37); BUN Creatinine Ratio 24.1 (10-20); Blood Urea Nitrogen 44 mg/dl (7-18); Calcium 9.4 mg/dl (8.5-10.1); Carbon Dioxide 27 mmol/L (21-32); Chloride 110 mmol/L (98-107); Est GFR (African American) 37.9; Est GFR (Non-African American) 32.7; Glucose 102 mg/dl (70-99); Magnesium 2.2 mg/dl (1.8-2.4); Potassium 3.8 mmol/L (3.5-5.1); Sodium 142 mmol/L (136-145)
[2018-12-03 15:31] LABS: Albumin Globulin Ratio 0.8 (0.9-2); Alkaline Phosphatase 51 U/L (45-117); Bilirubin,Total 0.4 mg/dl (0.2-1); Troponin I < 0.015 ng/ml (0-0.045)
--- NOTE | 2018-12-03 15:54 | CT Scan Report ---
CT OF THE HEAD WITHOUT CONTRAST CLINICAL HISTORY: dizzy, weak COMPARISON STUDY: Head CT and CTA of the head September 08, 2018. MRI of the brain September 09, 2018. CT DOSE: 537.48 mGy.cm TECHNIQUE: Helical axial images of the head were obtained without IV contrast. Automated exposure con trol was utilized for the study. A dose lowering technique was utilized adhering to the principles o f ALARA. FINDINGS: No acute intracranial hemorrhage, midline shift or mass effect is present. Extensive enceph alomalacia within the right middle cerebral artery territory is unchanged. This represents old infarc t. The ventricular system is stable. The basilar cisterns are patent. There are no extra-axial collec tions. There are no findings to suggest acute dural sinus thrombosis or acute territorial infarct. Th e appearance of the brain is unchanged. There are no significant calvarial abnormalities. Visualized portions of the sinuses and mastoid air cells are clear. IMPRESSION: 1. No acute intracranial findings. 2. 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 Electronically signed by: Sadiq Vallejo M.D. 12/03/2018 3:52 PM
[2018-12-03 17:14] LABS: Appearance Urine Clear (Clear); Bilirubin Urine Negative (Negative); Blood Urine Negative (Negative); Color Urine Dark Yellow; Glucose Urine UA Negative (Negative); Ketones Urine Trace (Negative); Leukocyte Esterase Urine Negative (Negative); Nitrite Urine Negative (Negative); Protein Urine Negative (Negative); Specific Gravity Urine 1.029 (1.000-1.030); Urobilinogen Urine Negative (Negative); pH Urine 5.5 (4.5-7.5)
[2018-12-03] MEDS ORDERED: SODIUM CHLORIDE 0.9% 1000ML 500 ML IV ONE (17:35)
--- NOTE | 2018-12-03 19:47 | History & Physical Report ---
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 -Hemodynamically stable and afebrile -No leukocytosis. CXR with left basilar infiltrate concerning for infection or aspiration -Does admit to difficulty swallowing with recent episode of aspiration last week -Will cover with Augmentin -Soft bite size diet, aspiration precautions -Speech consult (2) Dizziness: In setting of dehydration, h/o vertigo and CVA -Orthostatic vitals ordered -CT head without evidence of acute abnormality. No new focal deficits on neuro exam -Gentle IV fluid hydration, Meclizine PRN -PT consult for Saman's maneuver, conditioning. OT consult (3) Acute kidney injury superimposed on chronic kidney disease: Creatinine of 1.83, BUN of 44. Baseline Cr mid-1s -Appears dry on exam -Gentle IV fluids given in ED (1 L total, will not continue due to h/o systolic HF) -Monitor BMP (4) Status post multiple cerebral infarctions: (5) Left-sided weakness: CT head without acute abnormalities -Continue 162mg aspirin, statin (6) Seizure disorder: Continue Keppra 500mg BID -[place] [facility] [place] well as [facility] (7) Combined systolic and diastolic heart failure: Appears dry on exam -Is not on diuretics -Received 1 L NSS in ED -Continue to monitor volume status closely (8) Type 2 diabetes mellitus: Controlled with diet -Carb consistent diet -Add SSI if indicated (9) HLD (hyperlipidemia): Continue statin (10) Hypothyroidism: TSH normal. Continue levothyroxine DVT Ppx: SQ heparin Code status: DNR per discussion with patient. Attempted to call , Jo-Ann, multiple times without answer. PCP: Alysia Mckee [facility] Dispo: Observation med tele. Discharge planning ordered for possible placement. Patient seen in collaboration with Dr. Acevedo. Please see addendum. Will be followed by Dr. Tejeda for remainder of admission. 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 Patient lives at home with her primarily manages medications helps with care. Patient has become notably weaker and dizzy over the past few days. Does have a history of vertigo and takes Meclizine PRN. Denies any new focal weakness, but has chronic left-sided weakness. Decreased p.o. intake. is no longer at bedside but states that she does not feel like she can care for him at home and he will need at least temporary placement. Denies any recent sickness. No fever, chills, headache, confusion, chest pain, palpitations, shortness of breath, nausea, vomiting, abdominal pain, dysuria, diarrhea or constipation. Patient notes that he has trouble swallowing sometimes and choked on his food last week and started coughing. Patient is hemodynamically stable and afebrile. No leukocytosis. Hemoglobin is 12.5 (at baseline), creatinine is elevated at 1.83 (baseline mid-ones). CT head without acute abnormalities. CXR with left basilar infiltrate concerning for infection or aspiration. UA is negative. Allergies Allergy/AdvReac Type Severity Reaction Status Date / Time clindamycin Allergy Intermediate rash Verified 09/08/18 23:32 Bactrim Allergy Mild RASH Verified 02/05/17 02:49 blue dye Allergy Mild RASH Verified 09/08/18 23:32 dabigatran etexilate Allergy Mild RASH Verified 09/08/18 23:32 sulfamethoxazole Allergy Mild RASH Verified 09/08/18 23:32 trimethoprim Allergy Mild RASH Verified 09/08/18 23:32 vancomycin Allergy Mild RASH, DRY Verified 09/08/18 23:32 SKIN warfarin Allergy Mild RASH Verified 09/08/18 23:32 yellow dye Allergy Mild RASH Verified 09/08/18 23:32 Sulfa (Sulfonamide Allergy Unknown unknown Verified 09/08/18 23:32 Antibiotics) Home Medications Home Medications Medication Instructions Recorded Confirmed Type aspirin [Aspir-81] 162 mg PO QAM 09/08/18 12/03/18 History atorvastatin 20 mg PO QPM 09/08/18 12/03/18 History buspirone 5 mg PO BID 09/08/18 12/03/18 History escitalopram oxalate [Lexapro] 20 mg PO QAM 09/08/18 12/03/18 History levothyroxine 88 mcg PO QAM 09/08/18 12/03/18 History meclizine 25 mg PO TID PRN 09/08/18 12/03/18 History omega 9-[id number]-mik-fish oil [Fish Oil] 1 cap PO QAM 09/08/18 12/03/18 History calcium carbonate [Calcium 600] 1,200 mg PO QAM 12/03/18 12/03/18 History levetiracetam 500 mg PO BID 12/03/18 12/03/18 History loratadine 10 mg PO QAM 12/03/18 12/03/18 History Past Med/Surg History Medical History CKD (chronic kidney disease), stage III (Chronic) Combined systolic and diastolic heart failure (Chronic) HTN (hypertension) (Chronic) Hypothyroidism (Chronic) HLD (hyperlipidemia) (Chronic) Status post multiple cerebral infarctions (Chronic) L hemiparesis Type 2 diabetes mellitus (Chronic) Bladder tumor (Resolved) s/p surgery Surgical History History of bladder surgery (Resolved) Family History Other Hypertension Social History Preferred Language: Portuguese Communication Ability: Effective Beliefs That Will Affect Care: None marital status: Current Living Situation: Spouse Feels Safe at Home: Yes Smoking Status: Former smoker Hx Alcohol Use: No Hx Substance Use: No Review of Systems Review of Systems: At least ten systems reviewed and negative except as noted in the HPI. Physical Exam Physical Exam: General Appearance: WD/WN, elderly frail man in no apparent distress Head: normocephalic, atraumatic Eyes: normal inspection, PERRL, EOMI ENT: hearing grossly normal, poor dentition, pharynx normal (dry mucous membranes) Neck: supple, no JVD, no adenopathy Respiratory/Chest: Coarse bibasilar crackles. No wheezes or rhonci. No respirat ory distress or accessory muscle use Cardiovascular: bradycardic, regular rhythm, no murmur, normal peripheral pulses Abdomen/GI: normal bowel sounds, soft, non-tender to palpation Extremities/Musculoskelatal: normal inspection, no calf tenderness, normal capillary refill, no pedal edema Neurologic/Psych: alert, normal mood/affect, oriented x 3, dysarthria, L sided weakness (chronic). Follows commands appropriately Skin: normal color, warm/dry Results & Data Vital Signs (Past 12 Hours) Vital Signs Temp Pulse Resp BP Pulse Ox 12/03/18 19:30 52 L 16 12/03/18 19:00 52 L 23 12/03/18 18:55 55 L 15 12/03/18 18:54 52 L 24 152/84 H 12/03/18 18:31 57 L 16 175/141 H 12/03/18 18:30 59 L 16 12/03/18 18:02 49 L 16 12/03/18 18:01 50 L 14 185/76 H 12/03/18 18:00 52 L 17 12/03/18 17:31 49 L 17 12/03/18 17:30 47 L 16 141/81 H 12/03/18 17:01 49 L 150/62 H 12/03/18 17:00 50 L 16 12/03/18 16:30 52 L 13 151/82 H 12/03/18 16:02 49 L 97 12/03/18 16:01 48 L 12 153/67 H 96 12/03/18 16:00 49 L 20 96 12/03/18 15:31 51 L 21 95 12/03/18 15:30 50 L 22 144/67 H 94 12/03/18 15:25 65 19 121/53 L 12/03/18 15:23 53 L 15 138/70 12/03/18 15:22 51 L 16 123/74 96 12/03/18 15:01 57 L 95 12/03/18 15:00 57 L 136/83 94 12/03/18 14:45 60 13 114/69 94 12/03/18 14:40 64 15 94 12/03/18 14:38 94 12/03/18 14:19 36.6 C 66 16 121/71 90 Laboratory Results Short CBC 12/03/18 Range/Units 14:55 WBC 8.35 (4.8-10.8) K/uL Hgb 12.5 L (14.0-18.0) g/dL Hct 36.8 L (42-52) % Plt Count 264 (130-400) K/uL BMP 12/03/18 14:55 Sodium 142 Potassium 3.8 Chloride 110 H Carbon Dioxide 27 BUN 44 H Creatinine 1.83 H Glucose 102 H Calcium 9.4 Cardiac Enzymes 12/03/18 Range/Units 14:55 Troponin I < 0.015 (0-0.045) ng/ml Liver Function 12/03/18 Range/Units 14:55 Total Bilirubin 0.4 (0.2-1) mg/dl AST 17 (15-37) U/L ALT 19 (12-78) U/L Alkaline Phosphatase 51 (45-117) U/L Albumin 3.0 L (3.4-5.0) gm/dl Urine 12/03/18 Range/Units Unknown Urine Color Dark Yellow Urine Appearance Clear (Clear) Urine pH 5.5 (4.5-7.5) Ur Specific [place] 1.029 (1.000-1.030) Urine Protein Negative (Negative) Urine Glucose (UA) Negative (Negative) Diagnostic Findings CT head: IMPRESSION: 1. No acute intracranial findings. 2. 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 CXR: IMPRESSION: 1. Left basilar infiltrate concerning for infection or aspiration. Atelectasis may appear similarly. Code Status & VTE Plan Code Status DNR Supervising Physician Co-Signing Physician Notes Patient is an 88-year-old male with history of CVA, residual left-sided weakness, seizure disorder and other problems presents with history of dizziness which he described as room spinning, generalized weakness. CT head showed no acute findings. He denies any hearing change, tinnitus. He has history of vertigo and takes meclizine as needed. He was found to have SRIRAM on labs, his chronic bradycardia and chest x-ray suggestive of left basilar infiltrate. Please review HPI for complete details of presentation. On exam patient is elderly, no apparent distress, normocephalic atraumatic, basilar crackles on auscultation, bradycardia, abdomen soft nontender, chronic left-sided weakness noted. Patient is admitted for management of SRIRAM, generalized weakness, dizziness, possible aspiration. Agree with starting Augmentin. Speech and swallow eval. Gentle IV fluids, monitor renal function, avoid nephrotoxic agents as able. PT/OT. I personally reviewed the record. Patient is interviewed and examined at bedside. Patient's care is coordinated with Nohelia Vyas PA-C. Please refer to the documentation above for details of patient's presentation and for discussion of other issues.
[2018-12-03] MEDS ORDERED: ACETAMINOPHEN 325 MG TAB PO PRN (20:24)
[2018-12-03] MEDS ORDERED: MECLIZINE HCL 25 MG TAB PO PRN (20:24)
[2018-12-03] MEDS ORDERED: POLYETHYLENE (MIRALAX) 17 GM PACK PO PRN (20:24)
[2018-12-03] MEDS: levETIRAcetam 500 MG TAB PO SCH (21:58)
[2018-12-03] MEDS: ATORVASTATIN 20 MG TAB PO SCH (21:59)
[2018-12-03] MEDS: HEPARIN SOD 5,000 UNIT/0.5 ML VIAL SQ SCH (22:00)
[2018-12-04] MEDS: LEVOTHYROXINE SODIUM 88 MCG TABLET PO SCH (05:40)
[2018-12-04 05:59] LABS: Hematocrit (blood only) 36.4 % (42-52); Hemoglobin 12.3 g/dL (14.0-18.0); Mean Corpuscular Hgb Conc 33.8 g/dL (32-36); Mean Corpuscular Volume 90.5 fL (80-100); Mean Platelet Volume 9.4 fL (7.4-10.4); Platelet Count 254 K/uL (130-400); RDW Standard Deviation 46.6 fL (36.4-46.3); Red Blood Count 4.02 M/uL (4.7-6.1); White Blood Count 8.31 K/uL (4.8-10.8)
[2018-12-04 06:39] LABS: BUN Creatinine Ratio 25.6 (10-20); Calcium 8.8 mg/dl (8.5-10.1); Creatinine Clr Calc Pharmacy 31.8 ml/min; Est GFR (Non-African American) 42.2; Potassium 3.9 mmol/L (3.5-5.1)
[2018-12-04] MEDS: AMOXICILLIN/CLAVULANATE 875 MG TAB PO SCH ×2 (08:04→18:41)
[2018-12-04] MEDS: ASPIRIN 81 MG ECTAB PO SCH (08:05)
[2018-12-04] MEDS: LORATADINE 10 MG TAB PO SCH (08:05)
[2018-12-04] MEDS: OMEGA-3 (PURIFIED FISH OIL) 1 GM CAP PO SCH (08:05)
[2018-12-04] MEDS: CALCIUM 600MG + VIT D 400 IU TAB PO SCH (08:05)
[2018-12-04] MEDS: levETIRAcetam 500 MG TAB PO SCH ×2 (08:06→20:37)
[2018-12-04] MEDS: HEPARIN SOD 5,000 UNIT/0.5 ML VIAL SQ SCH ×2 (08:06→20:35)
--- NOTE | 2018-12-04 10:00 | Hospitalist Progress Note ---
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 -Hemodynamically stable and afebrile -No leukocytosis. CXR with left basilar infiltrate concerning for infection or aspiration - stable overall continue Augmentin awaiting Speech Therapy eval (2) Dizziness: In setting of dehydration, h/o vertigo and CVA -Orthostatic vitals ordered -CT head without evidence of acute abnormality. No new focal deficits on neuro exam -Gentle IV fluid hydration, Meclizine PRN -PT consult for Saman's maneuver, conditioning. OT consult - resolved patient denies dizziness today (3) Acute kidney injury superimposed on chronic kidney disease: Creatinine of 1.83, BUN of 44. Baseline Cr mid-1s -Appears dry on exam -Gentle IV fluids given in ED (1 L total, will not continue due to h/o systolic HF) - crea back to baseline (4) Status post multiple cerebral infarctions: (5) Left-sided weakness: CT head without acute abnormalities -Continue 162mg aspirin, statin (6) Seizure disorder: Continue Keppra 500mg BID -Follows with [facility] [place] as well as [facility] (7) Combined systolic and diastolic heart failure: Appears dry on exam -Is not on diuretics -Received 1 L NSS in ED - euvolemic (8) Type 2 diabetes mellitus: Controlled with diet -Carb consistent diet -Add SSI if indicated (9) HLD (hyperlipidemia): Continue statin (10) Hypothyroidism: TSH normal. Continue levothyroxine DVT Ppx: SQ heparin Code status: DNR per discussion with patient. Attempted to call Jo-Ann, multiple times without answer. PCP: Alysia Mckee [facility] Dispo: Observation med tele. Discharge planning ordered for possible placement. Subjective ff up for aspiration pneumonia seen resting in bed, comfortable states he feels improved compared to yesterday no dyspnea, coughing less no chest pain denies any other symptoms Review of Systems Review of Systems: All systems reviewed & are unremarkable except as noted in HPI & below Physical Exam Physical Exam: General- oriented x 2, not in distress, speaks in sentences with no effort or accessory muscle use Eyes- anicteric Neck- no JVD Lungs- clear breath sounds bilaterally no rales no wheezing Heart- normal rate, regular rhythm; no murmurs Abdomen- normal bowel sounds, nondistended, soft, nontender Extremities- no pretibial edema, no calf tenderness Neuro- alert, oriented x 2; no gross focal neurologic deficits Skin- warm & dry Results & Data Vital Signs (Past 12 Hours) Vital Signs Temp Pulse Pulse Resp BP BP Pulse Ox 12/04/18 07:27 36.4 C L 50 L 18 157/78 H 94 12/04/18 07:24 44 L 12/04/18 04:05 36.7 C 52 L 16 148/64 H 93 12/03/18 23:49 60 Laboratory Results Laboratory Results - last 24 hr 12/03/18 12/04/18 12/04/18 Unknown 05:35 05:35 WBC 8.31 RBC 4.02 L Hgb 12.3 L Hct 36.4 L MCV 90.5 MCH 30.6 MCHC 33.8 RDW Std Deviation 46.6 H RDW Coeff of Marti 14.0 Plt Count 254 MPV 9.4 Sodium 141 Potassium 3.9 Chloride 111 H Carbon Dioxide 26 Anion Gap 4.0 BUN 38 H Creatinine 1.48 H D Est Cr Clr Drug Dosing 31.8 Est GFR ( Amer) 49.0 Est GFR (Non-Af Amer) 42.2 BUN/Creatinine Ratio 25.6 H Glucose 87 Calcium 8.8 Urine Color Dark Yellow Urine Appearance Clear Urine pH 5.5 Ur Specific [place] 1.029 Urine Protein Negative Urine Glucose (UA) Negative Urine Ketones Trace H Urine Blood Negative Urine Nitrite Negative Urine Bilirubin Negative Urine Urobilinogen Negative Ur Leukocyte Esterase Negative
--- NOTE | 2018-12-04 14:04 | Fluoroscopy Report ---
FL video swallow CLINICAL HISTORY: determine appropriate diet COMPARISON STUDY: Modified barium swallow February 20, 2016. FLUOROSCOPY TIME: 2.2 minutes. FINDINGS: Note was made of several episodes of tracheal aspiration with thin liquids and nectar thick liquids. There was also aspiration with honey thick liquids. There was no aspiration with pudding co nsistency. Premature spillage was noted with delayed initiation of the swallowing mechanism. IMPRESSION: 1. Multiple episodes of tracheal aspiration with thin liquids, nectar thick liquids and honey thick l iquids. 2. Full recommendations by speech pathology to follow. Electronically signed by: Sadiq Vallejo M.D. 12/04/2018 2:03 PM
[2018-12-04] MEDS: ATORVASTATIN 20 MG TAB PO SCH (20:36)
--- NOTE | 2018-12-04 23:17 | Consultation Report ---
DATE OF CONSULTATION: 12/04/2018 REASON FOR THE CONSULT: Penile swelling. HISTORY OF PRESENTATION: The patient is an 88-year-old male who presented with dizziness, has multiple medical problems including multiple cerebral infarctions, seizure disorder, heart failure, kidney failure, hypertension, diabetes and mood disorder. In any case, apparently this morning, there was observation that he had some swelling of his penis and looked abnormal. We were consulted. Please refer to the chart for past medical history and other medical problems. PHYSICAL EXAMINATION: GENITOURINARY: The patient had a clear paraphimosis. His foreskin was not reduced and he had swelling of the glans and a constricting band. I was able to with some difficulty reduce the foreskin. He felt much better. The penis looked normal. I advised him not to pull back his foreskin and if he did, to make sure it was reduced. I did not do a digital rectal examination as the patient was in bed. We will be glad to see the patient for further issues if they should arise.
[2018-12-05] MEDS: LEVOTHYROXINE SODIUM 88 MCG TABLET PO SCH (05:17)
[2018-12-05 06:11] LABS: Hematocrit (blood only) 35.3 % (42-52); Hemoglobin 11.8 g/dL (14.0-18.0); Mean Corpuscular Hgb Conc 33.4 g/dL (32-36); Mean Corpuscular Volume 90.1 fL (80-100); Mean Platelet Volume 9.4 fL (7.4-10.4); Platelet Count 243 K/uL (130-400); RDW Coefficient of Variation 13.9 % (11.5-14.5); RDW Standard Deviation 45.9 fL (36.4-46.3); Red Blood Count 3.92 M/uL (4.7-6.1); White Blood Count 6.93 K/uL (4.8-10.8)
[2018-12-05 06:37] LABS: BUN Creatinine Ratio 19.7 (10-20); Calcium 8.8 mg/dl (8.5-10.1); Creatinine Clr Calc Pharmacy 27.7 ml/min; Est GFR (Non-African American) 36.2; Potassium 3.6 mmol/L (3.5-5.1)
[2018-12-05] MEDS: ASPIRIN 81 MG ECTAB PO SCH (07:41)
[2018-12-05] MEDS: LORATADINE 10 MG TAB PO SCH (07:41)
[2018-12-05] MEDS: levETIRAcetam 500 MG TAB PO SCH ×2 (07:41→21:13)
[2018-12-05] MEDS: HEPARIN SOD 5,000 UNIT/0.5 ML VIAL SQ SCH ×2 (07:42→21:15)
[2018-12-05] MEDS: AMOXICILLIN/CLAVULANATE 875 MG TAB PO SCH (07:42)
[2018-12-05] MEDS: CALCIUM 600MG + VIT D 400 IU TAB PO SCH (12:34)
[2018-12-05] MEDS: OMEGA-3 (PURIFIED FISH OIL) 1 GM CAP PO SCH (12:34)
[2018-12-05] MEDS: AMOXICILLIN/CLAVULANATE 500 MG TAB PO SCH (17:37)
--- NOTE | 2018-12-05 17:57 | Hospitalist Progress Note ---
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 CXR with left basilar infiltrate concerning for infection or aspiration -Remains stable, afebrile, saturating well on room air continue Augmentin -Status post speech therapy evaluation Status post radial swallow evaluation: Positive mild to moderate oral dysphagia and severe pharyngeal dysphagia Recommendation: Soft diet with nectar thick liquids Small single sips from a cup only-no straws Oral hygiene: Clean all surfaces of mouth prior to oral intake in the morning after meals and before bed (2) Dizziness: In setting of dehydration, h/o vertigo and CVA -Orthostatic vitals ordered -CT head without evidence of acute abnormality. No new focal deficits on neuro exam -Gentle IV fluid hydration, Meclizine PRN -PT consult for Saman's maneuver, conditioning. OT consult - resolved patient denies dizziness since admission (3) Acute kidney injury superimposed on chronic kidney disease: Creatinine of 1.83, BUN of 44. Baseline Cr mid-1s -Appears dry on exam -Gentle IV fluids given in ED (1 L total, will not continue due to h/o systolic HF) - crea back to baseline (4) Status post multiple cerebral infarctions: (5) Left-sided weakness: CT head without acute abnormalities -Continue 162mg aspirin, statin (6) Seizure disorder: Continue Keppra 500mg BID -[place] [facility] [place] well [place] [facility] (7) Combined systolic and diastolic heart failure: Appears dry on exam -Is not on diuretics -Received 1 L NSS in ED - euvolemic (8) Type 2 diabetes mellitus: Controlled with diet -Carb consistent diet -Add SSI if indicated (9) HLD (hyperlipidemia): Continue statin (10) Hypothyroidism: TSH normal. Continue levothyroxine DVT Ppx: SQ heparin Code status: DNR per discussion with patient. Attempted to call , Jo-Ann, multiple times without answer. PCP: Alysia Mckee [facility] Dispo: PT/OT ordered Subjective Follow-up for aspiration pneumonia Seen resting in bed, comfortable States he continues to feel better today No shortness of breath, cough, sputum No chest pain Denies other symptoms Review of Systems Review of Systems: All systems reviewed & are unremarkable except as noted in HPI & below Physical Exam Physical Exam: General- oriented x 3, not in distress, speaks in sentences with no effort or accessory muscle use Eyes- anicteric Neck- no JVD Lungs- clear BS bilaterally, no crackles or wheezing Heart- normal rate, regular rhythm; no murmurs Abdomen- normal bowel sounds, nondistended, soft, nontender Extremities- no pretibial edema, no calf tenderness Neuro- alert, oriented x 3; no gross focal neurologic deficits Skin- warm & dry Results & Data Vital Signs (Past 12 Hours) Vital Signs Temp Pulse Pulse Resp BP Pulse Ox 12/05/18 15:24 36.5 C 91 H 20 100/62 91 12/05/18 11:30 36.8 C 62 18 128/76 91 12/05/18 07:34 36.8 C 50 L 16 121/64 94 12/05/18 07:05 54 L Laboratory Results Laboratory Results - last 24 hr 12/05/18 12/05/18 12/05/18 05:40 05:40 07:49 WBC 6.93 RBC 3.92 L Hgb 11.8 L Hct 35.3 L MCV 90.1 MCH 30.1 MCHC 33.4 RDW Std Deviation 45.9 RDW Coeff of Marti 13.9 Plt Count 243 MPV 9.4 Sodium 142 Potassium 3.6 Chloride 110 H Carbon Dioxide 25 Anion Gap 7.0 BUN 33 H Creatinine 1.68 H Est Cr Clr Drug Dosing 27.7 Est GFR ( Amer) 42.0 Est GFR (Non-Af Amer) 36.2 BUN/Creatinine Ratio 19.7 Glucose 83 POC Glucose 88 Calcium 8.8 12/05/18 12/05/18 11:43 16:34 WBC RBC Hgb Hct MCV MCH MCHC RDW Std Deviation RDW Coeff of Marti Plt Count MPV Sodium Potassium Chloride Carbon Dioxide Anion Gap BUN Creatinine Est Cr Clr Drug Dosing Est GFR ( Amer) Est GFR (Non-Af Amer) BUN/Creatinine Ratio Glucose POC Glucose 87 91 Calcium
[2018-12-05] MEDS: ATORVASTATIN 20 MG TAB PO SCH (21:13)
[2018-12-06] MEDS: LEVOTHYROXINE SODIUM 88 MCG TABLET PO SCH (06:17)
[2018-12-06] MEDS: OMEGA-3 (PURIFIED FISH OIL) 1 GM CAP PO SCH (08:23)
[2018-12-06] MEDS: ASPIRIN 81 MG ECTAB PO SCH (08:23)
[2018-12-06] MEDS: HEPARIN SOD 5,000 UNIT/0.5 ML VIAL SQ SCH ×2 (08:23→20:15)
[2018-12-06] MEDS: LORATADINE 10 MG TAB PO SCH (08:23)
[2018-12-06] MEDS: levETIRAcetam 500 MG TAB PO SCH ×2 (08:24→20:14)
[2018-12-06] MEDS: CALCIUM 600MG + VIT D 400 IU TAB PO SCH (08:24)
[2018-12-06] MEDS: AMOXICILLIN/CLAVULANATE 500 MG TAB PO SCH ×2 (08:24→16:59)
--- NOTE | 2018-12-06 14:39 | Hospitalist Progress Note ---
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 CXR with left basilar infiltrate concerning for infection or aspiration -Status post speech therapy evaluation Status post radial swallow evaluation: Positive mild to moderate oral dysphagia and severe pharyngeal dysphagia Recommendation: Soft diet with nectar thick liquids Small single sips from a cup only-no straws Oral hygiene: Clean all surfaces of mouth prior to oral intake in the morning after meals and before bed Stable overall Continue Augmentin (2) Dizziness: In setting of dehydration, h/o vertigo and CVA -Orthostatic vitals ordered -CT head without evidence of acute abnormality. No new focal deficits on neuro exam -Gentle IV fluid hydration, Meclizine PRN -PT consult for Saman's maneuver, conditioning. OT consult - resolved patient denies dizziness since admission (3) Acute kidney injury superimposed on chronic kidney disease: Creatinine of 1.83, BUN of 44. Baseline Cr mid-1s -Appears dry on exam -Gentle IV fluids given in ED (1 L total, will not continue due to h/o systolic HF) - crea back to baseline (4) Status post multiple cerebral infarctions: (5) Left-sided weakness: CT head without acute abnormalities -Continue 162mg aspirin, statin (6) Seizure disorder: Continue Keppra 500mg BID -[place] [facility] [place] [facility] (7) Combined systolic and diastolic heart failure: Appears dry on exam -Is not on diuretics -Received 1 L NSS in ED - euvolemic (8) Type 2 diabetes mellitus: Controlled with diet -Carb consistent diet -Add SSI if indicated (9) HLD (hyperlipidemia): Continue statin (10) Hypothyroidism: TSH normal. Continue levothyroxine DVT Ppx: SQ heparin Code status: DNR per discussion with patient. Attempted to call , Jo-Ann, multiple times without answer. PCP: Alysia Mckee [facility] Dispo: PT/OT ordered Plan to discharge to [facility] tomorrow when accepted Subjective Follow-up for aspiration pneumonia Seen sitting up in bed, comfortable, nondistressed States he continued to feel improved Denies cough, shortness of breath No problems with urination or pain in his genitals No other symptoms Review of Systems Review of Systems: All systems reviewed & are unremarkable except as noted in HPI & below Physical Exam Physical Exam: General- oriented x 2, not in distress, speaks in sentences with no effort or accessory muscle use Eyes- anicteric Neck- no JVD Lungs- clear BS bilaterally, no wheezing no crackles Heart- normal rate, regular rhythm; no murmurs Abdomen- normal bowel sounds, nondistended, soft, nontender Extremities- no pretibial edema, no calf tenderness Neuro- alert, oriented x2; no gross focal neurologic deficits Skin- warm & dry Results & Data Vital Signs (Past 12 Hours) Vital Signs Temp Pulse Resp BP Pulse Ox 12/06/18 11:48 36.4 C L 58 L 20 94/59 L 93 12/06/18 07:00 36.9 C 51 L 18 123/68 93 12/06/18 03:51 36.4 C L 50 L 18 122/66 93 Laboratory Results Laboratory Results - last 24 hr 12/05/18 12/05/18 12/06/18 16:34 20:37 07:33 POC Glucose 91 92 82 12/06/18 11:40 POC Glucose 90
[2018-12-06 15:39] LABS: BUN Creatinine Ratio 17.5 (10-20); Calcium 9.6 mg/dl (8.5-10.1); Est GFR (African American) 45.9; Est GFR (Non-African American) 39.6
[2018-12-06] MEDS: ATORVASTATIN 20 MG TAB PO SCH (20:13)
[2018-12-07] MEDS: LEVOTHYROXINE SODIUM 88 MCG TABLET PO SCH (05:53)
[2018-12-07] MEDS: LORATADINE 10 MG TAB PO SCH (08:31)
[2018-12-07] MEDS: levETIRAcetam 500 MG TAB PO SCH (08:31)
[2018-12-07] MEDS: OMEGA-3 (PURIFIED FISH OIL) 1 GM CAP PO SCH (08:31)
[2018-12-07] MEDS: AMOXICILLIN/CLAVULANATE 500 MG TAB PO SCH (08:31)
[2018-12-07] MEDS: ASPIRIN 81 MG ECTAB PO SCH (08:31)
[2018-12-07] MEDS: HEPARIN SOD 5,000 UNIT/0.5 ML VIAL SQ SCH (08:31)
[2018-12-07] MEDS: CALCIUM 600MG + VIT D 400 IU TAB PO SCH (08:32)
--- NOTE | 2018-12-07 14:27 | Hospitalist Progress Note ---
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 CXR with left basilar infiltrate concerning for infection or aspiration -Status post speech therapy evaluation Status post radial swallow evaluation: Positive mild to moderate oral dysphagia and severe pharyngeal dysphagia Recommendation: Soft diet with nectar thick liquids Small single sips from a cup only-no straws Oral hygiene: Clean all surfaces of mouth prior to oral intake in the morning after meals and before bed Given Augmentin twice a day Clinically improved Continue Augmentin twice daily x2 more days to complete 7-day therapy (2) Dizziness: In setting of dehydration, h/o vertigo and CVA -Orthostatic vitals ordered -CT head without evidence of acute abnormality. No new focal deficits on neuro exam -Gentle IV fluid hydration, Meclizine PRN - resolved patient denies dizziness since admission (3) Acute kidney injury superimposed on chronic kidney disease: Creatinine of 1.83, BUN of 44. Baseline Cr mid-1s -Gentle IV fluids given in ED (1 L total, will not continue due to h/o systolic HF) - crea back to baseline (4) Status post multiple cerebral infarctions: (5) Left-sided weakness: CT head without acute abnormalities -Continue 162mg aspirin, statin (6) Seizure disorder: Continue Keppra 500mg BID [place] [facility] [place] [facility] (7) Combined systolic and diastolic heart failure: Patient dry on exam Given IV fluids - euvolemic now (8) Type 2 diabetes mellitus: Controlled with diet -Carb consistent diet -Add SSI if indicated (9) HLD (hyperlipidemia): Continue statin (10) Hypothyroidism: TSH normal. Continue levothyroxine DVT Ppx: SQ heparin Code status: DNR per discussion with patient. PCP: SLOAN Lester Dispo: discharge to [facility] up with PCP in 3-5 days Subjective Follow-up for aspiration pneumonia Seen resting in bed, comfortable In good spirits States he feels fine overall Denies shortness of breath coughing, chest pain Denies any symptoms States he feels better overall next States he is ready and would like to be discharged Review of Systems Review of Systems: All systems reviewed & are unremarkable except as noted in HPI & below Physical Exam Physical Exam: General- oriented x 2, not in distress, speaks in sentences with no effort or accessory muscle use Eyes- anicteric Neck- no JVD Lungs- clear BS, no crackles or wheezing bilaterally Heart- normal rate, regular rhythm; no murmurs Abdomen- normal bowel sounds, nondistended, soft, nontender Extremities- no pretibial edema, no calf tenderness Neuro- alert, oriented x 3; no gross focal neurologic deficits Skin- warm & dry Results & Data Vital Signs (Past 12 Hours) Vital Signs Temp Pulse Resp BP Pulse Ox 12/07/18 11:44 36.4 C L 50 L 134/75 94 12/07/18 07:24 37 C 45 L 20 103/59 L 94 12/07/18 04:20 36.6 C 52 L 18 117/67 95 Laboratory Results Laboratory Results - last 24 hr 12/06/18 12/06/18 12/06/18 15:04 16:38 20:25 Sodium 140 Potassium 4.0 Chloride 107 Carbon Dioxide 28 Anion Gap 6.0 BUN 27 H Creatinine 1.56 H Est Cr Clr Drug Dosing 30.0 Est GFR ( Amer) 45.9 Est GFR (Non-Af Amer) 39.6 BUN/Creatinine Ratio 17.5 Glucose 92 POC Glucose 90 101 H Calcium 9.6 12/07/18 07:30 Sodium Potassium Chloride Carbon Dioxide Anion Gap BUN Creatinine Est Cr Clr Drug Dosing Est GFR ( Amer) Est GFR (Non-Af Amer) BUN/Creatinine Ratio Glucose POC Glucose 92 Calcium
--- NOTE | 2018-12-07 14:39 | Discharge Summary ---
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 Patient lives at home with her primarily manages medications helps with care. Patient has become notably weaker and dizzy over the past few days. Does have a history of vertigo and takes Meclizine PRN. Denies any new focal weakness, but has chronic left-sided weakness. Decreased p.o. intake. is no longer at bedside but states that she does not feel like she can care for him at home and he will need at least temporary placement. Denies any recent sickness. No fever, chills, headache, confusion, chest pain, palpitations, shortness of breath, nausea, vomiting, abdominal pain, dysuria, diarrhea or constipation. Patient notes that he has trouble swallowing sometimes and choked on his food last week and started coughing. Patient is hemodynamically stable and afebrile. No leukocytosis. Hemoglobin is 12.5 (at baseline), creatinine is elevated at 1.83 (baseline mid-ones). CT head without acute abnormalities. CXR with left basilar infiltrate concerning for infection or aspiration. UA is negative. Admission Exam Per Admitting Provider General Appearance: WD/WN, elderly frail man in no apparent distress Head: normocephalic, atraumatic Eyes: normal inspection, PERRL, EOMI ENT: hearing grossly normal, poor dentition, pharynx normal (dry mucous membranes) Neck: supple, no JVD, no adenopathy Respiratory/Chest: Coarse bibasilar crackles. No wheezes or rhonci. No respiratory distress or accessory muscle use Cardiovascular: bradycardic, regular rhythm, no murmur, normal peripheral pulses Abdomen/GI: normal bowel sounds, soft, non-tender to palpation Extremities/Musculoskelatal: normal inspection, no calf tenderness, normal capillary refill, no pedal edema Neurologic/Psych: alert, normal mood/affect, oriented x 3, dysarthria, L sided weakness (chronic). Follows commands appropriately Skin: normal color, warm/dry Principal Diagnosis ASPIRATION PNEUMONIA Discharge Exam General- oriented x 2, not in distress, speaks in sentences with no effort or accessory muscle use Eyes- anicteric Neck- no JVD Lungs- clear BS, no crackles or wheezing bilaterally Heart- normal rate, regular rhythm; no murmurs Abdomen- normal bowel sounds, nondistended, soft, nontender Extremities- no pretibial edema, no calf tenderness Neuro- alert, oriented x 3; no gross focal neurologic deficits Skin- warm & dry Discharge Data Allergies Allergy/AdvReac Type Severity Reaction Status Date / Time clindamycin Allergy Intermediate rash Verified 09/08/18 23:32 Bactrim Allergy Mild RASH Verified 02/05/17 02:49 blue dye Allergy Mild RASH Verified 09/08/18 23:32 dabigatran etexilate Allergy Mild RASH Verified 09/08/18 23:32 sulfamethoxazole Allergy Mild RASH Verified 09/08/18 23:32 trimethoprim Allergy Mild RASH Verified 09/08/18 23:32 vancomycin Allergy Mild RASH, DRY Verified 09/08/18 23:32 SKIN warfarin Allergy Mild RASH Verified 09/08/18 23:32 yellow dye Allergy Mild RASH Verified 09/08/18 23:32 Sulfa (Sulfonamide Allergy Unknown unknown Verified 09/08/18 23:32 Antibiotics) Consultations 12/03/18 17:35 ED Decision to Admit Stat 12/03/18 20:24 Consult Case Management - Discharge Planning Routine 12/04/18 07:18 Consult Urology Routine Ordered Studies 12/03/18 14:29 CT head/brain wo con Stat CT OF THE HEAD WITHOUT CONTRAST CLINICAL HISTORY: dizzy, weak COMPARISON STUDY: Head CT and CTA of the head September 08, 2018. MRI of the brain September 09, 2018. CT DOSE: 537.48 mGy.cm TECHNIQUE: Helical axial images of the head were obtained without IV contrast. Automated exposure control was utilized for the study. A dose lowering technique was utilized adhering to the principles of ALARA. FINDINGS: No acute intracranial hemorrhage, midline shift or mass effect is present. Extensive encephalomalacia within the right middle cerebral artery territory is unchanged. This represents old infarct. The ventricular system is stable. The basilar cisterns are patent. There are no extra-axial collections. There are no findings to suggest acute dural sinus thrombosis or acute territorial infarct. The appearance of the brain is unchanged. There are no significant calvarial abnormalities. Visualized portions of the sinuses and mastoid air cells are clear. IMPRESSION: 1. No acute intracranial findings. 2. 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 CXR with left basilar infiltrate concerning for infection or aspiration -Status post speech therapy evaluation Status post video swallow fluoroscopy: Positive mild to moderate oral dysphagia and severe pharyngeal dysphagia Recommendation: Soft diet with nectar thick liquids Small single sips from a cup only-no straws Oral hygiene: Clean all surfaces of mouth prior to oral intake in the morning after meals and before bed Given Augmentin twice a day Clinically improved Continue Augmentin twice daily x2 more days to complete 7-day therapy (2) Dizziness: In setting of dehydration, h/o vertigo and CVA -Orthostatic vitals ordered -CT head without evidence of acute abnormality. No new focal deficits on neuro exam -Gentle IV fluid hydration, Meclizine PRN - resolved patient denies dizziness since admission -Continue PT OT at the [facility] facility (3) Acute kidney injury superimposed on chronic kidney disease: Creatinine of 1.83, BUN of 44. Baseline Cr mid-1s -Gentle IV fluids given in ED (1 L total, will not continue due to h/o systolic HF) - crea back to baseline (4) Status post multiple cerebral infarctions: (5) Left-sided weakness: CT head without acute abnormalities -Continue 162mg aspirin, statin (6) Seizure disorder: Continue Keppra 500mg BID -[place] [facility] [place] [facility] (7) Combined systolic and diastolic heart failure: Patient dry on exam Given IV fluids - euvolemic now (8) Type 2 diabetes mellitus: Controlled with diet -Carb consistent diet -Add SSI if indicated (9) HLD (hyperlipidemia): Continue statin (10) Hypothyroidism: TSH normal. Continue levothyroxine DVT Ppx: Given SQ heparin Code status: DNR per discussion with patient. Please confirm with . PCP: Alysia Mckee [facility] Dispo: discharge to [facility] up with PCP on Wednesday, December 12, 2018, 2:55 PM Total Time Total Time Spent Total Time Spent (In Minutes): 40 minutes Discharge Plan Discharge Items Patient Disposition: Transfer [facility] Reason For Visit: LETHARGY,POSSIBLE ASPIRATION PNA,NEED FOR PLACEMEN Discharge Diagnosis: Aspiration pneumonia, dysphagia Discharge Goals: Diagnostic testing and Therapeutic intervention Activity: As commented below Activity Comment: Always with assistance, continue physical therapy and outpatient therapy Lifting: Wait until after follow-up appointment Exercise/Sports: Wait until after follow-up appointment Driving/Machine Use Comment: No driving Non-emergency contact: Primary Care Provider Call non-emergency contact if: you have any medication questions, your symptoms worsen and you have a fever Follow-up/Referrals: Miguel Mckee DO [Primary Care Provider] - 12/12/18 10:55 am Diet: Carb Consistent or DM2 and Heart Healthy Addtl Provider Instructions: PLEASE FOLLOW SPEECH THERAPY RECOMMENDATIONS: #1 soft diet with NECTAR thick liquids 2. SMALL SINGLE SIPS from a cup only-NO STRAWS 3. ORAL HYGIENE: Clean all surfaces of mouth prior to oral intake in the morning, after meals and before bed Alternate solids and liquids Supervised meals Fully alert and upright Oral hygiene Single bites/small sips/slow rate No straws Please refer to accompanying hospital discharge summary for details. Prescriptions: New amoxicillin-pot clavulanate 500-125 mg Tablet 1 tab PO BIDM 2 Days Qty: 4 RF: 0 Continued levetiracetam 500 mg tablet 500 mg PO BID RF: 0 calcium carbonate [Calcium 600] 600 mg calcium (1,500 mg) Tablet 1,200 mg PO QAM RF: 0 loratadine 10 mg tablet 10 mg PO QAM RF: 0 buspirone 5 mg Tablet 5 mg PO BID RF: 0 atorvastatin 20 mg Tablet 20 mg PO QPM RF: 0 aspirin [Aspir-81] 81 mg Tablet,Delayed Release (Dr/Ec) 162 mg PO QAM RF: 0 levothyroxine 88 mcg Tablet 88 mcg PO QAM RF: 0 meclizine 25 mg Tablet 25 mg PO TID PRN (Reason: Dizziness) RF: 0 escitalopram oxalate [Lexapro] 20 mg Tablet 20 mg PO QAM RF: 0 omega 5-[id number]-[id number]-fish oil [Fish Oil] 1,000 mg (120 mg-180 mg) Capsule 1 cap PO QAM RF: 0 Stand-Alone Forms: [facility] Discharge Orders: Discharge Order (Routine); Ordered 12/07/18 Ordered By: Elmo Tejeda Skilled Items Patient informed of condition?: Yes DNR: Yes Discharge Level of Care: Skilled Communicable Disease: No Discharge Prognosis: Stable Admission Data Admit Date/Time: 12/03/18 18:43 Attending Provider: Elmo Tejeda Admit Provider: Jaswant Acevedo Primary Care Provider: Miguel Mckee Other Providers: Jaswant Acevedo ; Aniceto Arreola ; Ankur Lockett ; Donald Sumner I. ; Fede Thornton ; Prachi Simon ; Wilton Casillas II ; Ktity De La Cruz Service: Telemetry Medical
== END 2018-12-07 16:22 | DRG 178 ==
LOC: ED 14:18 → 2N 18:43

== ENCOUNTER 2019-03-29 05:04 | Inpatient (IN) ==
[2019-03-29 05:51] LABS: Basophils # (auto) 0.04 K/uL (0-0.2); Basophils % (auto) 0.7 %; Eosinophils # (auto) 0.52 K/uL (0-0.5); Eosinophils % (auto) 8.5 %; Hematocrit (blood only) 35.8 % (42-52); Hemoglobin 11.9 g/dL (14.0-18.0); Immature Granulocytes # (auto) 0.01 K/uL (0.00-0.02); Immature Granulocytes % (auto) 0.2 %; Lymphocytes # (auto) 1.09 K/uL (1.2-3.4); Lymphocytes % (auto) 17.9 %; Mean Corpuscular Hemoglobin 30.8 pg (25-34); Mean Corpuscular Hgb Conc 33.2 g/dL (32-36); Mean Corpuscular Volume 92.7 fL (80-100); Mean Platelet Volume 9.9 fL (7.4-10.4); Monocytes # (auto) 0.63 K/uL (0.11-0.59); Monocytes % (auto) 10.3 %; Neutrophils # (auto) 3.81 K/uL (1.4-6.5); Neutrophils % (auto) 62.4 %; Platelet Count 233 K/uL (130-400); RDW Coefficient of Variation 13.6 % (11.5-14.5); RDW Standard Deviation 46.1 fL (36.4-46.3); Red Blood Count 3.86 M/uL (4.7-6.1)
[2019-03-29 05:58] LABS: BUN Creatinine Ratio 17.5 (10-20); Blood Urea Nitrogen 33 mg/dl (7-18); Calcium 8.7 mg/dl (8.5-10.1); Carbon Dioxide 27 mmol/L (21-32); Chloride 110 mmol/L (98-107); Est GFR (African American) 36.9; Est GFR (Non-African American) 31.8; Glucose 92 mg/dl (70-99); Magnesium 1.9 mg/dl (1.8-2.4); Potassium 3.5 mmol/L (3.5-5.1); Sodium 143 mmol/L (136-145)
[2019-03-29 06:05] LABS: Partial Thromboplastin Time 26.6 Seconds (21.0-31.0); Prothrombin Time 10.5 Seconds (9.0-12.0)
[2019-03-29 06:09] LABS: Alanine Aminotransferase 19 U/L (12-78); Albumin Globulin Ratio 0.8 (0.9-2); Alkaline Phosphatase 52 U/L (45-117); Aspartate Aminotransferase 16 U/L (15-37); Bilirubin,Total 0.4 mg/dl (0.2-1); Creatine Kinase 52 U/L (39-308); Globulin 3.7 gm/dl (2.5-4.0); Total Protein 6.7 gm/dl (6.4-8.2); Troponin I 0.017 ng/ml (0-0.045)
--- NOTE | 2019-03-29 06:54 | XRay Report ---
TWO VIEW CHEST CLINICAL HISTORY: Change in mental status. FINDINGS: AP and lateral chest radiographs are compared to study dated 12/03/2018. The AP views degrade d by patient rotation. The heart is mildly enlarged noting atherosclerotic calcification of the thora cic aorta. The pulmonary vasculature is noncongested. There are bibasilar airspace opacities. No pleu ral effusion is identified. There is no pneumothorax. The skeletal structures are osteopenic. The bon y thorax appears intact. IMPRESSION: 1. Mild cardiac enlargement without radiographic evidence of congestive failure. 2. There are bibasilar airspace opacities. This could represent atelectasis versus pneumonia/aspirati on pneumonitis. Clinical correlation will be required and radiographic follow-up to resolution is rec ommended. Electronically signed by: Ayo Wiggins M.D. 03/29/2019 6:53 AM
--- NOTE | 2019-03-29 06:55 | Emergency Department Note ---
History of Present Illness General Chief complaint: Confusion Stated complaint: CONFUSION/WEAK/DIZZY Time Seen by Provider: 03/29/19 05:23 History of Present Illness Maximum Pain Intensity: 0 This is an 88-year-old male presenting to the emergency department via ambulance for evaluation of left-sided arm weakness and leg weakness that occurred around 6 PM yesterday, roughly 10 hours prior to arrival. The patient has a history of cardiac disease as well as previous stroke. He states that he had about a 1 minute episode with a vague sensation in his face and left side extremities. The patient did not tell his about this for several hours, and when he did she called EMS. EMS did report the patient has had worsening confusion over the past 2 days, where he has been walking into closets to use the bathroom. He has been walking into hernandez and his balance has been worse than normal. The patient has not had any new medication changes and does not have any reported fever or chills. Evidently the will be arriving later in the morning, and can help divide more history at that time. The patient does not report any pain including chest pain, chest tightness, shortness of breath, or abdominal pain. No difficulty using the bathroom. No new medications. Home Medications Home Medications Medication Instructions Recorded Confirmed Type aspirin [Aspir-81] 162 mg PO QAM 09/08/18 03/29/19 History atorvastatin 20 mg PO QPM 09/08/18 03/29/19 History buspirone 5 mg PO BID 09/08/18 03/29/19 History escitalopram oxalate [Lexapro] 20 mg PO QAM 09/08/18 03/29/19 History levothyroxine 88 mcg PO QAM 09/08/18 03/29/19 History meclizine 25 mg PO TID PRN 09/08/18 03/29/19 History omega [id number]-fish oil [Fish Oil] 1 cap PO QAM 09/08/18 03/29/19 History calcium carbonate [Calcium 600] 1,200 mg PO QAM 12/03/18 03/29/19 History levetiracetam 1,000 mg PO BID 12/03/18 03/29/19 History loratadine 10 mg PO QAM 12/03/18 03/29/19 History Allergies Allergy/AdvReac Type Severity Reaction Status Date / Time clindamycin Allergy Intermediate rash Verified 03/29/19 05:16 Bactrim Allergy Mild RASH Verified 02/05/17 02:49 blue dye Allergy Mild RASH Verified 03/29/19 05:16 dabigatran etexilate Allergy Mild RASH Verified 03/29/19 05:16 sulfamethoxazole Allergy Mild RASH Verified 03/29/19 05:16 trimethoprim Allergy Mild RASH Verified 03/29/19 05:16 vancomycin Allergy Mild RASH, DRY Verified 03/29/19 05:16 SKIN warfarin Allergy Mild RASH Verified 03/29/19 05:16 yellow dye Allergy Mild RASH Verified 03/29/19 05:16 Sulfa (Sulfonamide Allergy Unknown unknown Verified 03/29/19 05:16 Antibiotics) Past Med/Surg History Medical History CKD (chronic kidney disease), stage III (Chronic) 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: No Beliefs That Will Affect Care: None marital status: Current Living Situation: Spouse Other Information That Helps Us Care for You: No Feels Safe at Home: Yes Safety Concerns: Feels Safe At This Time Smoking Status: Former smoker Hx Alcohol Use: No Hx Substance Use: No Review of Systems A total of 10 systems reviewed and were otherwise negative Physical Exam Vital Signs Vital Signs - 24 hr 03/29/19 05:15 03/29/19 05:34 03/29/19 05:58 Temperature 36.5 C Temperature Source Oral Sepsis Recent Fever Within 48 Hours No Sepsis New/Unexplained Change in Mental Status No Sepsis Action Taken by Nursing No Action Required Pulse Rate 49 L 49 L Pulse Rate [Finger] Pulse Rate from SpO2 Sensor 49 L Respiratory Rate 20 13 Respiratory Effort / Characteristics Non-Labored Spontaneous Respiratory Depth Normal Blood Pressure 150/73 H 154/65 H Blood Pressure [Left Arm] Blood Pressure Mean 98 94 Blood Pressure Mean [Left Arm] Pulse Oximetry 94 95 Oxygen Delivery Method Room Air Room Air Room Air 03/29/19 06:30 03/29/19 06:31 03/29/19 07:04 Temperature Temperature Source Sepsis Recent Fever Within 48 Hours Sepsis New/Unexplained Change in Mental Status Sepsis Action Taken by Nursing Pulse Rate 46 L 46 L Pulse Rate [Finger] 48 L Pulse Rate from SpO2 Sensor 46 L 46 L Respiratory Rate 19 12 18 Respiratory Effort / Characteristics Non-Labored Respiratory Depth Normal Blood Pressure 120/87 149/69 H Blood Pressure [Left Arm] 119/72 Blood Pressure Mean 98 95 Blood Pressure Mean [Left Arm] 87 Pulse Oximetry 97 95 97 Oxygen Delivery Method Room Air Room Air Room Air 03/29/19 07:41 Temperature Temperature Source Sepsis Recent Fever Within 48 Hours Sepsis New/Unexplained Change in Mental Status Sepsis Action Taken by Nursing Pulse Rate Pulse Rate [Finger] 54 L Pulse Rate from SpO2 Sensor Respiratory Rate 16 Respiratory Effort / Characteristics Respiratory Depth Normal Blood Pressure Blood Pressure [Left Arm] 144/75 H Blood Pressure Mean Blood Pressure Mean [Left Arm] 98 Pulse Oximetry 96 Oxygen Delivery Method Room Air VITALS: Vitals are noted on the nurse's note and reviewed by myself. Vital signs stable. GENERAL: Well-developed, well-nourished, white male, who is in no acute distress and resting comfortably. Patient is cooperative with the examination. HEAD: Normocephalic atraumatic. NECK: Supple without nuchal rigidity. No lymphadenopathy. No thyromegaly. HEART: Regular rate and rhythm LUNGS: Clear to auscultation bilaterally without wheezes, rales or rhonchi. No retractions or accessory muscle use. ABDOMEN: Positive normal bowel sounds x 4. Soft, nontender, without masses or organomegaly. No guarding or rebound tenderness. MUSCULOSKELETAL: No muscle atrophy, erythema, or edema noted. NEURO: Patient was alert and oriented to person place and time. CN II through XII grossly intact Course Administered Medications Atorvastatin Calcium (Lipitor) 40 mg PO HS [facility] Stop: 04/28/19 20:59 Last Admin: 03/29/19 21:19 Dose: 40 mg Documented by: [id number] Buspirone HCl (Buspar) 5 mg PO BID [facility] Stop: 04/28/19 10:16 Last Admin: 03/29/19 21:20 Dose: 5 mg Documented by: [id number] Admin: 03/29/19 16:10 Dose: Not Given Documented by: [id number] Carbamide Peroxide (Earwax Removal Soln) 10 drops OTL BID [facility] Stop: 04/02/19 20:59 Last Admin: 03/29/19 22:12 Dose: 10 drops Documented by: [id number] Clopidogrel Bisulfate (Plavix) 75 mg PO QAM [facility] Stop: 04/28/19 12:29 Last Admin: 03/29/19 16:10 Dose: 75 mg Documented by: [id number] Escitalopram Oxalate (Lexapro Tab) 20 mg PO QAM [facility] Stop: 04/28/19 10:16 Last Admin: 03/29/19 16:09 Dose: 20 mg Documented by: [id number] Gadobutrol (Gadavist 7.5ml) 7 ml IV ONCE PRN PRN Reason: Interaction Checking Stop: 04/02/19 15:28 Last Admin: 03/29/19 15:30 Dose: 7 ml Documented by: [id number] Heparin Sodium (Porcine) (Heparin Sodium (Porcine)) 5,000 units SQ Q8 [facility] Stop: 04/28/19 13:59 Last Admin: 03/29/19 21:11 Dose: 5,000 units Documented by: [id number] Cosigned by: [id number] Admin: 03/29/19 16:12 Dose: 5,000 units Documented by: [id number] Cosigned by: [id number] Sodium Chloride (Nss 1000ml) 1,000 mls @ 60 mls/hr IV .[id number] [facility] Stop: 04/28/19 08:29 Last Infusion: 03/29/19 21:45 Dose: 60 mls/hr Documented by: [id number] Infusion: 03/29/19 21:15 Dose: 0 mls/hr Documented by: [id number] Admin: 03/29/19 11:04 Dose: 60 mls/hr Documented by: [id number] Ampicillin Sodium/Sulbactam Sodium 3,000 mg/ Sodium Chloride 108 mls @ 216 mls/hr IV Q12H [facility]; Protocol Stop: 04/05/19 19:59 Last Infusion: 03/29/19 21:45 Dose: 0 mls/hr Documented by: [id number] Admin: 03/29/19 21:15 Dose: 216 mls/hr Documented by: [id number] Levetiracetam (Keppra) 1,000 mg PO BID [facility] Stop: 04/28/19 10:16 Last Admin: 03/29/19 21:19 Dose: 1,000 mg Documented by: [id number] Admin: 03/29/19 16:07 Dose: Not Given Documented by: [id number] Levothyroxine Sodium (Synthroid) 88 mcg PO DAILYBB [facility] Stop: 04/28/19 06:29 Last Admin: 03/29/19 16:08 Dose: Not Given Documented by: [id number] [facility] Stop: 04/28/19 10:16 Last Admin: 03/29/19 16:09 Dose: 10 mg Documented by: [id number] Discontinued Medications Aspirin (Ecotrin Ectab) [facility] [place] Stop: 04/28/19 10:16 Last Admin: 03/29/19 16:09 Dose: Not Given Documented by: [id number] Ampicillin Sodium/Sulbactam Sodium 3,000 mg/ Sodium Chloride 108 mls @ 216 mls/hr IV 0900 [facility] Stop: 03/29/19 09:29 Last Infusion: 03/29/19 09:24 Dose: 0 mls/hr Documented by: [id number] Admin: 03/29/19 08:53 Dose: 216 mls/hr Documented by: [id number] Medical Decision Making Differential Diagnosis Differential includes acute coronary syndrome, myocardial infarction, CVA, TIA, anemia, infection, pneumonia, UTI, pyelonephritis, poor nutrition, dehydration, electrolyte disturbance,hypoglycemia. Laboratory Data Result diagrams: 03/29/19 05:00 03/29/19 05:00 Lab Results 03/29/19 03/29/19 03/29/19 Range/Units 05:00 05:00 05:00 WBC 6.10 (4.8-10.8) K/uL RBC 3.86 L (4.7-6.1) M/uL Hgb 11.9 L (14.0-18.0) g/dL Hct 35.8 L (42-52) % MCV 92.7 (80-100) fL MCH 30.8 (25-34) pg MCHC 33.2 (32-36) g/dL RDW Std Deviation 46.1 (36.4-46.3) fL RDW Coeff of Marti 13.6 (11.5-14.5) % Plt Count 233 (130-400) K/uL MPV 9.9 (7.4-10.4) fL Immature Gran % (Auto) 0.2 % Neut % (Auto) 62.4 % Lymph % (Auto) 17.9 % Toombs % (Auto) 10.3 % Eos % (Auto) 8.5 % Baso % (Auto) 0.7 % Immature Gran # (Auto) 0.01 (0.00-0.02) K/uL Neut # (Auto) 3.81 (1.4-6.5) K/uL Lymph # (Auto) 1.09 L (1.2-3.4) K/uL [place]ombs # (Auto) 0.63 H (0.11-0.59) K/uL Eos # (Auto) 0.52 H (0-0.5) K/uL Baso # (Auto) 0.04 (0-0.2) K/uL PT 10.5 (9.0-12.0) Seconds INR 1.0 (0.9-1.1) APTT 26.6 (21.0-31.0) Seconds PTT Ratio 1.0 Sodium 143 (136-145) mmol/L Potassium 3.5 (3.5-5.1) mmol/L Chloride 110 H (98-107) mmol/L Carbon Dioxide 27 (21-32) mmol/L Anion Gap 6.0 (3-11) BUN 33 H (7-18) mg/dl Creatinine 1.87 H (0.6-1.4) mg/dl Est Cr Clr Drug Dosing Not Reportable Est GFR ( Amer) 36.9 Est GFR (Non-Af Amer) 31.8 BUN/Creatinine Ratio 17.5 (10-20) Glucose 92 (70-99) mg/dl Calcium 8.7 (8.5-10.1) mg/dl Magnesium 1.9 (1.8-2.4) mg/dl Total Bilirubin 0.4 (0.2-1) mg/dl AST 16 (15-37) U/L ALT 19 (12-78) U/L Alkaline Phosphatase 52 (45-117) U/L Total Creatine Kinase 52 (39-308) U/L Troponin I 0.017 (0-0.045) ng/ml Total Protein 6.7 (6.4-8.2) gm/dl Albumin 3.0 L (3.4-5.0) gm/dl Globulin 3.7 (2.5-4.0) gm/dl Albumin/Globulin Ratio 0.8 L (0.9-2) TSH 1.150 (0.300-4.500) uIu/ml Imaging Data Radiologist's Impression: TWO VIEW CHEST CLINICAL HISTORY: Change in mental status. FINDINGS: AP and lateral chest radiographs are compared to study dated 12/03/2018. The AP views degraded by patient rotation. The heart is mildly enlarged noting atherosclerotic calcification of the thoracic aorta. The pulmonary vasculature is noncongested. There are bibasilar airspace opacities. No pleural effusion is identified. There is no pneumothorax. The skeletal structures are osteopenic. The bony thorax appears intact. IMPRESSION: 1. Mild cardiac enlargement without radiographic evidence of congestive failure. 2. There are bibasilar airspace opacities. This could represent atelectasis versus pneumonia/aspiration pneumonitis. Clinical correlation will be required and radiographic follow-up to resolution is recommended. ECG Data Additional Comments: Sinus bradycardia @52bpm Left ventricular hypertrophy with QRS widening and repolarization abnormality Abnormal ECG When compared with ECG of 03-DEC-2018 14:33, Premature atrial complexes are no longer Present T wave inversion more evident in Lateral leads MDM Narrative Physical exam and history were performed. Nursing notes, EMR, and Medication List were personally reviewed. Patient appears to have had possible TIA symptoms earlier today. The patient may have some persistent old left-sided deficit, however he is able to move his extremities at this time. He does not seem significantly confused, however there has been concern for some altered mental status recently. IV access was established and labs were obtained. CT scan of the head was performed as well as chest x-ray. EKG was performed as above, and he may have some subtle differences from previous EKGs. He does not have acute ST elevation. He was placed on the regional sales representative. The patient's blood work is as above and was reviewed. He does not have a significantly elevated white blood cell count, gross anemia, bandemia, or significant electrolyte imbalance. Transaminases are not diagnostic. Troponin is negative x1. He remained in sinus rhythm on the regional sales representative. CT scan does not show any new findings per my and radiology's interpretation. Chest x- ray shows questionable pneumonitis versus pneumonia, which could be related to an aspiration event. Overall the patient does not appear well for discharge home. There is concern for possible TIA and pneumonia versus pneumonitis. The case was discussed with the on-call hospitalist, who will evaluate the patient here in the ER. We will defer additional treatment pending their evaluation. Please see the hospitalist dictation for further patient course, plan, and disposition. The chart was completed utilizing [employer] Voice Recognition Software. Grammatical errors, random word insertions, pronoun errors, and incomplete sentences are an occasional consequence of this system due to software limitations, ambient noise, and hardware issues. Any formal questions or concerns about the content, text, or information contained within the body of this dictation should be directly addressed to the provider for clarification. . Impression & Plan Stroke-like symptom, Left-sided weakness, Aspiration pneumonia Discharge Plan Visit Data *Final* Discharge Date/Time: 03/29/19 09:01 Chief Complaint: Confusion Stated Complaint: CONFUSION/WEAK/DIZZY Other Complaint: Dizziness Weakness ED Provider: Bonita Grimaldo ED Midlevel Provider: Edgardo Alcantar Discharge Problem: Stroke-like symptom, Left-sided weakness, Aspiration pneumonia Patient Disposition: Admitted As Inpatient Discharge Instructions Interventions: ED Discharge Assessment Last Done: 03/29/19 09:01
--- NOTE | 2019-03-29 08:16 | History & Physical Report ---
Date of Service March 29, 2019 Assessment & Plan (1) Stroke-like symptom: New left hand numbness with difficulty moving left hand. 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 Uncertain if these are chronic, however, patient is oriented and saying the numbness is new since yesterday. CT the head is negative for acute intracranial abnormality. We will proceed with MRI of the brain without contrast. To complete the work-up we will monitor on telemetry, obtain carotid ultrasound, and TTE with bubble study. Neurology was consulted. Dysphasia screen and PT/OT consulted. Please perform dysphasia screen prior to administering any medications. (2) Orthostasis: Patient became orthostatic with sitting up. He is bradycardic at rest and pulse increased to the high 60s. He states this is chronic and prior notes reflect this, so this does not appear to be new, however clearly is more of a problem in the last month for him. Multiple contributing factors here including new questionable strokelike symptoms, known right occlusion of carotid artery, bradycardia not on AV kalina camille, age-related autonomic dysfunction, copious cerumen in the left external auditory canal, questionable pneumonia infection with new cough for the past month, multiple possible medication side effects. He denies any new medications and has been taking his current list for a long period of time. Will monitor on telemetry to watch for heart arrhythmias or rate abnormalities. He does not appear hypovolemic or dehydrated and has been tolerating p.o. without issue. Will give a small amount of IV fluids until dysp hagia screen can be performed and patient can eat, likely later today. Work-up stroke per #1. With respect to his peripheral vascular disease, he was on Plavix in the past. Uncertain when this was stopped and for what reason. May consider re-addition of this now. PT/OT to assess him. Nursing to record orthostatic vital signs every shift. (3) Pneumonia: Reports new dry cough over the last month. Of note has a history of aspiration that is known and was in this hospital 3 months ago for aspiration pneumonia. Blood cultures ordered and empiric Unasyn started. Speech eval pending period (4) Peripheral vascular disease: Known carotid disease with complete occlusion on the right. Continue aspirin 162 mg daily. Consideration should be given to addition of Plavix. He was taking this in the past, however, uncertain why this was stopped. He was notably here with similar symptoms in November and Plavix was not on his list at that point or though to be necesary at discharge. (5) Leg erythema: Exam consistent with an irritant contact dermatitis. Possibly secondary to new socks, however, patient reports washed these. May be a reaction related to the detergent used. Uncertain at this time. We will continue to avoid those socks and monitor for improvement. (6) Seizure disorder: No recent seizures, continue Keppra, Ativan as needed seizures, seizure precautions. (7) CKD (chronic kidney disease), stage III: Around baseline. Renally dose medications and avoid nephrotoxic substances. 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 He is not on a beta-camille but is bradycardic and would not tolerate that. He does take aspirin daily and a statin. LELA inhibitor likely contraindicated in setting of CKD. Defer to primary care doctor for changes of medical management. Prior echo revealed a slightly depressed EF at 45%. No known history of CAD or stents. (9) Hypothyroidism: TSH within normal limits, continue home Synthroid per (10) DVT prophylaxis: Heparin Full code as discussed with patient on admission. Disposition-med/surg for work-up of strokelike symptoms. Vicenta Sanchez DO [facility] Hospitalist History of Present Illness Chief Complaint: Left hand numbness and confusion x24 to 48 hours. Primary Care Provider: Miguel Mckee DO 88-year-old man who is in the ER alone without family members present who is a currently alert and oriented x3 presented via EMS for confusion and lightheadedness this morning. Additionally he reports left hand numbness that is new in the past 24 hours. The patient states that for the last month he is woken up and felt lightheaded and confused, walking into closets, and experiencing disequilibrium mostly in the morning. This is short-lived and seems to dissipate as the day progresses. He also reports waking up with headaches in the morning. He also reports having a new dry cough for the past month. He denies any fevers or chills, nausea, vomiting, diarrhea, abdominal pain, blood in his stool or changes in bowel movements. He denies any other strokelike symptoms including no headache, visual changes, difficulties moving arms or legs that are new, difficulty speaking or swallowing. At baseline he does have a history of aspirating and uses thickeners in his liquids. 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 He denies any weakness on his left side, however, on exam he was having difficulties making coordinated movements with his left hand. He lives at home with his and denies any other issues. He is a non-smoker. He does report that his L ear feels full and exam reveals extensive cerumen blocking this area. Allergies Allergy/AdvReac Type Severity Reaction Status Date / Time clindamycin Allergy Intermediate rash Verified 03/29/19 05:16 Bactrim Allergy Mild RASH Verified 02/05/17 02:49 blue dye Allergy Mild RASH Verified 03/29/19 05:16 dabigatran etexilate Allergy Mild RASH Verified 03/29/19 05:16 sulfamethoxazole Allergy Mild RASH Verified 03/29/19 05:16 trimethoprim Allergy Mild RASH Verified 03/29/19 05:16 vancomycin Allergy Mild RASH, DRY Verified 03/29/19 05:16 SKIN warfarin Allergy Mild RASH Verified 03/29/19 05:16 yellow dye Allergy Mild RASH Verified 03/29/19 05:16 Sulfa (Sulfonamide Allergy Unknown unknown Verified 03/29/19 05:16 Antibiotics) Home Medications Home Medications Medication Instructions Recorded Confirmed Type aspirin [Aspir-81] 162 mg PO QAM 09/08/18 03/29/19 History atorvastatin 20 mg PO QPM 09/08/18 03/29/19 History buspirone 5 mg PO BID 09/08/18 03/29/19 History escitalopram oxalate [Lexapro] 20 mg PO QAM 09/08/18 03/29/19 History levothyroxine 88 mcg PO QAM 09/08/18 03/29/19 History meclizine 25 mg PO TID PRN 09/08/18 03/29/19 History omega 4-waf-orh-fish oil [Fish Oil] 1 cap PO QAM 09/08/18 03/29/19 History calcium carbonate [Calcium 600] 1,200 mg PO QAM 12/03/18 03/29/19 History levetiracetam 1,000 mg PO BID 12/03/18 03/29/19 History loratadine 10 mg PO QAM 12/03/18 03/29/19 History Past Med/Surg History Medical History CKD (chronic kidney disease), stage III (Chronic) 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 Beliefs That Will Affect Care: None marital status: Current Living Situation: Spouse Feels Safe at Home: Yes Smoking Status: Former smoker Hx Alcohol Use: No Hx Substance Use: No Review of Systems Review of Systems: All systems reviewed & are unremarkable except as noted in HPI & below Physical Exam Physical Exam: CONSTITUTIONAL: WNWD, vitals as above, generally well- appearing EYES: EOMI bilaterally, PERRL, normal conjunctivae, no scleral icterus ENT: external ear and nose normal, oropharynx clear, +TMs were not visualized as there is extensive cerumen blocking external canal RESPIRATORY: clear to auscultation bilaterally, no crackles, rales or wheezes, normal respiratory effort CARDIOVASCULAR: regular rate and rhythm, S1 and 2 heard without murmurs, gallops or rubs, no JVD, no peripheral edema GASTROINTESTINAL: soft, nontender, nondistended MUSCULOSKELETAL: strength 5/5 throughout, head is normocephalic and atraumatic, difficulty with motor coordination in L hand-cannot perform finger spread, 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 The erythema is symmetric and no wounds are present. NEUROLOGIC: patellar DTR 2+ on R, however, patient was tensing his left leg so reflexes could not be elicited, no facial palsy, no dysarthria. CN 2-12 grossly intact, no gross sensory deficit, normal cognition, normal speech, no tremor PSYCHIATRIC: alert cooperative and oriented to person, place and time. Results & Data Vital Signs (Past 12 Hours) Vital Signs Temp Pulse Pulse Resp BP BP Pulse Ox 03/29/19 07:41 54 L 16 144/75 H 96 03/29/19 07:04 48 L 18 119/72 97 03/29/19 06:31 46 L 12 149/69 H 95 03/29/19 06:30 46 L 19 120/87 97 03/29/19 05:58 49 L 13 154/65 H 95 03/29/19 05:15 36.5 C 49 L 20 150/73 H 94 Laboratory Results Short CBC 03/29/19 Range/Units 05:00 WBC 6.10 (4.8-10.8) K/uL Hgb 11.9 L (14.0-18.0) g/dL Hct 35.8 L (42-52) % Plt Count 233 (130-400) K/uL BMP 03/29/19 05:00 Sodium 143 Potassium 3.5 Chloride 110 H Carbon Dioxide 27 BUN 33 H Creatinine 1.87 H Glucose 92 Calcium 8.7 Cardiac Enzymes 03/29/19 Range/Units 05:00 Total Creatine Kinase 52 (39-308) U/L Troponin I 0.017 (0-0.045) ng/ml Liver Function 03/29/19 Range/Units 05:00 Total Bilirubin 0.4 (0.2-1) mg/dl AST 16 (15-37) U/L ALT 19 (12-78) U/L Alkaline Phosphatase 52 (45-117) U/L Albumin 3.0 L (3.4-5.0) gm/dl Diagnostic Findings TWO VIEW CHEST CLINICAL HISTORY: Change in mental status. FINDINGS: AP and lateral chest radiographs are compared to study dated 12/03/2018. The AP views degraded by patient rotation. The heart is mildly enlarged noting atherosclerotic calcification of the thoracic aorta. The pulmonary vasculature is noncongested. There are bibasilar airspace opacities. No pleural effusion is identified. There is no pneumothorax. The skeletal structures are osteopenic. The bony thorax appears intact. IMPRESSION: 1. Mild cardiac enlargement without radiographic evidence of congestive failure. 2. There are bibasilar airspace opacities. This could represent atelectasis versus pneumonia/aspiration pneumonitis. Clinical correlation will be required and radiographic follow-up to resolution is recommended. CT head wo contrast reveals no acute intracranial abnormalities with evidence of prior R MCA stroke. Medications Administered Current Inpatient Medications Heparin Sodium (Porcine) (Heparin Sodium (Porcine)) 5,000 units SQ Q8 [facility] Stop: 04/28/19 13:59 Sodium Chloride (Nss 1000ml) 1,000 mls @ 60 mls/hr IV .[id number] [facility] Stop: 04/28/19 08:29 Ampicillin Sodium/Sulbactam Sodium 3,000 mg/ Sodium Chloride 108 mls @ 216 mls/hr IV 0900 ONE Stop: 03/29/19 09:29 Miscellaneous Information (Ampicillin/Sulbactam Consult) 1 ea N/A UD PRN PRN Reason: Consult Stop: 04/28/19 08:34 Code Status & VTE Plan Code Status Full VTE Prophylaxis Plan VTE Prophylaxis will be ordered: Yes Critical Care Time Critical Care Time: No
[2019-03-29] MEDS ORDERED: AMPICILLIN/SULBACTAM CONSULT ACTIVE PRN (08:35)
[2019-03-29] MEDS ORDERED: LORazepam 1 MG/2 ML VIAL IV PRN (08:54)
[2019-03-29] MEDS ORDERED: AMPICILLIN/SULBACTAM SOD 3,000 MG in 0.9 % SODIUM CHLORIDE 100 ML IV ONE (09:00)
--- NOTE | 2019-03-29 09:08 | CT Scan Report ---
CT SCAN OF THE BRAIN WITHOUT IV CONTRAST CLINICAL HISTORY: Change in mental status. COMPARISON STUDY: CT of the brain dated 12/03/2018. TECHNIQUE: Unenhanced axial CT scan of the brain is performed from the vertex to the skull base. A do se lowering technique was utilized adhering to the principles of ALARA. CT DOSE: 537.48 mGy.cm FINDINGS: Brain parenchyma: Right MCA territory encephalomalacia is consistent with a remote infarct. There are age-related involutional changes noting mild to moderate subcortical and periventricular microangio pathic change. There is no hemorrhage, mass effect, or evidence of acute territorial ischemia by CT c riteria. Faria-white matter differentiation is preserved. No extra-axial fluid collection is seen. Ventricles, sulci, cisterns: Prominent secondary to involutional change. Intracranial vasculature: There is atherosclerotic calcification of the cavernous carotid and vertebr al arteries. Calvarium: Unremarkable. Sinuses and mastoids: The visualized paranasal sinuses are clear. There are small mastoid effusions. Orbits: The bony orbits are grossly intact. There are bilateral ocular lens implants. IMPRESSION: 1. There is no hemorrhage, mass effect, or evidence of acute territorial ischemia by CT criteria. 2. Senescent changes and remote right MCA territory infarct as above. Electronically signed by: Ayo Wiggins M.D. 03/29/2019 9:07 AM
[2019-03-29] MEDS ORDERED: PHARMACIST DISCHARGE MED REC CONSULT PRN (10:17)
[2019-03-29] MEDS ORDERED: ASPIRIN 81 MG ECTAB PO SCH (10:17)
[2019-03-29] MEDS: SODIUM CHLORIDE 0.9% 1000ML 1,000 ML IV SCH (11:04)
--- NOTE | 2019-03-29 12:59 | Progress Note ---
DATE: 03/29/2019 REASON FOR CONSULTATION: Possible stroke. HISTORY OF PRESENT ILLNESS: Mr. Franz is an 88-year-old presumed right-handed male with a history of chronic kidney disease, hypertension, hyperlipidemia, history of multiple cerebral infarctions, right carotid occlusion and a history of seizure, which I would assume is secondary to his stroke and status post bladder surgery for a tumor. On this background, the patient was in his usual state of health, noted this morning when he was standing that he had some right posterior head pain which was unusual for him and then developed numbness in the left face, arm, and leg which lasted about 1 hour. There was no alteration of consciousness, weakness or jerking. There was no change in vision, speech. He did note that when he stood up, he felt lightheaded and that occurs occasionally when he initially gets out of bed, but not usually later in the day. He has otherwise been well. He has not had any generally have any headaches, fevers, chills, sweats. He has had a cough for about a month. None of his medicines were new or changed in dose. He has not had any head or neck injury. It sounds as if his prior seizure was perhaps a focal motor seizure. PAST MEDICAL HISTORY: As above. History of subdural hematoma. PAST SURGICAL HISTORY: Revisions of the left hip, residual numbness of the left hip, history of bladder surgery. FAMILY HISTORY: Hypertension. The patient does not recall if he has a family history of stroke. SOCIAL HISTORY: He does not smoke or drink. He lives with his . 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 HOME MEDICATIONS: Aspirin 162 mg daily, atorvastatin, buspirone, calcium carbonate, Lexapro, Keppra 1000 b.i.d., levothyroxine, loratadine, meclizine, omega 3 fish oil. ALLERGIES: INCLUDE CLINDAMYCIN, BACTRIM, BLUE DYE, DABIGATRAN, SULFAMETHOXAZOLE, TRIMETHOPRIM, VANCOMYCIN, WARFARIN, YELLOW DYE, SULFA. IMAGING: CT of the head shows a large old right MCA infarction. LABORATORY DATA: White count 6.1, H&H 11.9/35, platelet count 233. PT 10.5, INR 1.0. Chemistry: BUN and creatinine 33/1.87. Sodium 143, albumin 3. Urinalysis trace ketones. REVIEW OF SYSTEMS: In addition to above, the patient notes some restlessness of his legs at night and some generalized anxiety at the same time. In the Emergency Room, the patient was orthostatic with sitting upright. He is also chronically mildly bradycardic. PHYSICAL EXAMINATION: VITAL SIGNS: 137/76, pulse 49, respiration 18. GENERAL: The patient is awake and alert, oriented to person and place. He is incorrect about the month and the year. No right/left confusion. There is some finger agnosia. Speech is dysarthric. NECK: There are no carotid bruits. HEART: No heart murmurs. Heart is regular rate and rhythm. EXTREMITIES: His legs are erythematous from mid calf to the ankle and then mid foot distally. He indicates this is old. NEUROLOGIC: His pupils are postsurgical but reactive. I did not reliably visualize the optic nerves. Cardenas were full, motility, normal facial sensation. There is a flattened left nasolabial fold. Speech is dysarthric. Tongue is midline. Gag reduced on the left. There is marginal left-sided weakness. Rapid alternating movements even seemed symmetric. Reflexes are symmetric. Toes are downgoing. Sensation is intact to light touch and temperature. [id number] and [id number] are normal. IMPRESSION: This patient has a history of a right MCA infarction, right carotid occlusion. CTA earlier in the year confirming the same with reconstitution of the right supraclinoid ICA. The differential includes transient ischemic attack, seizure, simple partial, aggravation of underlying neurologic deficit related to infection, increased neurologic symptoms associated with orthostasis causing selective hypoperfusion in the already compromised distribution of the right internal carotid. PLAN: MRI of the brain with and without contrast, carotid ultrasound echo. Follow blood pressure orthostatic and pulse, switch to aspirin and Plavix, aspirin 81 mg, Plavix 75. Recommend EEG, although doubt seizure. Continue current dose of Keppra. The patient may have restless legs. Consider the addition of low dose gabapentin 100 mg in the evening. We will follow with you. [facility]
[2019-03-29] MEDS ORDERED: INFLUENZA VIRUS QUAD VACCINE 0.5 ML SYR IM ONE (14:15)
[2019-03-29] MEDS ORDERED: INFLUENZA ADMINISTRATION CHARGE ONE (14:15)
[2019-03-29] MEDS ORDERED: GADOBUTROL 7.5ML VIAL IV PRN (15:29)
--- NOTE | 2019-03-29 16:06 | Magnetic Resonance Report ---
MRI OF THE BRAIN COMBO CLINICAL HISTORY: Left-sided numbness. COMPARISON STUDY: CT of the brain dated 03/29/2019. MRI of the brain dated 09/09/2018. TECHNIQUE: MRI of the brain was performed utilizing various T1 and T2-weighted sequences in the axial , sagittal, and coronal planes. Contrast-enhanced sequences were acquired following the administratio n of 7 cc of Gadavist. The examination is compromised by motion artifact. FINDINGS: Brain parenchyma: Right MCA territory encephalomalacia is unchanged and consistent with a remote infa rct. There is age-related involutional change noting moderate subcortical and periventricular microan giopathic disease. There is no hemorrhage or mass effect. There is no restricted diffusion to suggest acute ischemia. No enhancing mass lesion is identified on the postcontrast images. Faria-white matter differentiation is preserved. No extra-axial fluid collection is seen. The cerebellar tonsils are no rmal in configuration. Ventricles, sulci, and cisterns: Prominent secondary to involutional change. Pituitary and sella: Unremarkable. Intracranial vasculature: There is loss of the right internal carotid artery flow-void at the skull b ase, unchanged from previous. The left carotid artery flow void in the vertebral artery flow voids ar e preserved. Orbits: The bony orbits are grossly intact. Orbital contents are normal in appearance noting bilatera l ocular lens implants. Sinuses and mastoids: There is a left mastoid effusion. The right mastoid air cells and the paranasal sinuses are clear. Calvarium: Unremarkable. Cervical cord: Partially visualized cervical spinal cord is normal in morphology and signal intensity . IMPRESSION: 1. There is no hemorrhage, enhancing mass, or evidence of acute ischemia. 2. Right MCA territory encephalomalacia is unchanged and consistent with a remote infarct. 3. Loss of the right internal carotid artery flow-void at the skull base is unchanged from previous. Electronically signed by: Ayo Wiggins M.D. 03/29/2019 4:05 PM
[2019-03-29] MEDS: levETIRAcetam 500 MG TAB PO SCH ×2 (16:07→21:19)
[2019-03-29] MEDS: LEVOTHYROXINE SODIUM 88 MCG TABLET PO SCH (16:08)
[2019-03-29] MEDS: LORATADINE 10 MG TAB PO SCH (16:09)
[2019-03-29] MEDS: ESCITALOPRAM OXALATE 20 MG TAB PO SCH (16:09)
[2019-03-29] MEDS: CLOPIDOGREL BISULFATE 75 MG TAB PO SCH (16:10)
[2019-03-29] MEDS: HEPARIN SOD 5,000 UNIT/0.5 ML VIAL SQ SCH ×2 (16:12→21:11)
--- NOTE | 2019-03-29 17:04 | Ultrasound Report ---
ULTRASOUND OF THE CAROTID ARTERIES CLINICAL HISTORY: Strokelike symptoms. COMPARISON STUDY: CT angiogram of the neck dated 09/08/2018. TECHNIQUE: Real-time, grayscale, and color Doppler sonography of the carotid arteries is performed. I mages are reviewed in the transverse and longitudinal planes. FINDINGS: Blood pressures were not assessed due to the presence of IV catheters. The right internal carotid artery is thrombosed, similar appearance to previous. The right common car otid artery and the left carotid arteries are patent and demonstrate antegrade flow. Advanced atheros clerotic plaque is noted in the right carotid bulb. Moderate plaque is seen on the left. Normal doppl er arterial waveforms are seen throughout the patent vessels. Velocity measurements are listed below. Common carotid peak systolic velocity (cm/sec): RIGHT: 46 LEFT: 62 ICA proximal peak systolic velocity (cm/sec): RIGHT: XX LEFT: 103 ICA mid peak systolic velocity (cm/sec): RIGHT: XX LEFT: 157 ICA distal peak systolic velocity (cm/sec): RIGHT: XX LEFT: 123 ICA/CC peak systolic ratio: RIGHT: LEFT: 2.5 Antegrade flow was shown in the vertebral arteries. The external carotid arteries are patent bilatera lly. IMPRESSION: 1. 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 2. There is evidence of 50-69% stenosis of the proximal left internal carotid artery by velocity noé maravilla. This is also unchanged. 3. Antegrade flow is shown in the vertebral arteries. Electronically signed by: Ayo Wiggins M.D. 03/29/2019 5:02 PM
[2019-03-29] MEDS: AMPICILLIN/SULBACTAM SOD 3,000 MG in 0.9 % SODIUM CHLORIDE 100 ML IV SCH (21:15)
[2019-03-29] MEDS: ATORVASTATIN 40 MG TAB PO SCH (21:19)
[2019-03-29] MEDS: CARBAMIDE PEROXIDE 6.5% 15 ML BTL OTL SCH (22:12)
[2019-03-29 22:26] LABS: Appearance Urine Clear (Clear); Bilirubin Urine Negative (Negative); Blood Urine Negative (Negative); Color Urine Yellow; Glucose Urine UA Negative (Negative); Ketones Urine Negative (Negative); Leukocyte Esterase Urine Negative (Negative); Nitrite Urine Negative (Negative); Protein Urine Negative (Negative); Specific Gravity Urine 1.025 (1.000-1.030); Urobilinogen Urine Negative (Negative); pH Urine 5.5 (4.5-7.5)
[2019-03-30] MEDS: SODIUM CHLORIDE 0.9% 1000ML 1,000 ML IV SCH (03:20)
[2019-03-30] MEDS: HEPARIN SOD 5,000 UNIT/0.5 ML VIAL SQ SCH ×2 (05:53→14:50)
[2019-03-30] MEDS: LEVOTHYROXINE SODIUM 88 MCG TABLET PO SCH (05:53)
[2019-03-30 06:16] LABS: Basophils # (auto) 0.07 K/uL (0-0.2); Basophils % (auto) 1.1 %; Eosinophils % (auto) 8.1 %; Hematocrit (blood only) 36.8 % (42-52); Hemoglobin 12.3 g/dL (14.0-18.0); Immature Granulocytes # (auto) 0.01 K/uL (0.00-0.02); Immature Granulocytes % (auto) 0.2 %; Lymphocytes # (auto) 0.93 K/uL (1.2-3.4); Lymphocytes % (auto) 15.1 %; Mean Corpuscular Hgb Conc 33.4 g/dL (32-36); Mean Corpuscular Volume 92.7 fL (80-100); Mean Platelet Volume 9.3 fL (7.4-10.4); Monocytes # (auto) 0.48 K/uL (0.11-0.59); Monocytes % (auto) 7.8 %; Neutrophils # (auto) 4.16 K/uL (1.4-6.5); Neutrophils % (auto) 67.7 %; Platelet Count 222 K/uL (130-400); RDW Coefficient of Variation 13.3 % (11.5-14.5); RDW Standard Deviation 45.4 fL (36.4-46.3); Red Blood Count 3.97 M/uL (4.7-6.1); White Blood Count 6.15 K/uL (4.8-10.8)
[2019-03-30 06:29] LABS: Estimated Average Glucose 117 mg/dl; Hemoglobin A1C 5.7 % (4.5-5.6)
[2019-03-30 06:42] LABS: BUN Creatinine Ratio 16.8 (10-20); Calcium 8.8 mg/dl (8.5-10.1); Creatinine Clr Calc Pharmacy 32.8 ml/min; Est GFR (African American) 47.8; Est GFR (Non-African American) 41.2; Potassium 3.4 mmol/L (3.5-5.1)
[2019-03-30] MEDS: CARBAMIDE PEROXIDE 6.5% 15 ML BTL OTL SCH ×2 (08:47→21:02)
[2019-03-30] MEDS: levETIRAcetam 500 MG TAB PO SCH ×2 (08:47→21:01)
[2019-03-30] MEDS: LORATADINE 10 MG TAB PO SCH (08:51)
[2019-03-30] MEDS: ASPIRIN 81 MG CHEW PO SCH (08:51)
[2019-03-30] MEDS: ESCITALOPRAM OXALATE 20 MG TAB PO SCH (08:51)
[2019-03-30] MEDS: CLOPIDOGREL BISULFATE 75 MG TAB PO SCH (08:51)
[2019-03-30] MEDS: AMPICILLIN/SULBACTAM SOD 3,000 MG in 0.9 % SODIUM CHLORIDE 100 ML IV SCH (08:59)
[2019-03-30] MEDS ORDERED: ACETAMINOPHEN 325 MG TAB PO PRN (10:55)
[2019-03-30] MEDS ORDERED: ACETAMINOPHEN 500 MG TAB PO SCH (11:00)
--- NOTE | 2019-03-30 14:38 | XRay Report ---
XR hip LT 2V w pelvis CLINICAL HISTORY: Left hip pain status post trauma COMPARISON: 06/19/2013 DISCUSSION: There are postsurgical changes of a total left hip arthroplasty. There is heterotopic oss ification adjacent the greater trochanter. This remain similar to the prior study. There are no acute fractures or dislocations. Cortical irregularity involving the lateral aspect of the proximal femur, likely relates to a old healed fracture. This appears improved compared the preceding study. Degener ative changes are present within the lower lumbar spine. There is no SI joint diastases. There is no symphysis diastases. IMPRESSION: 1. Postsurgical changes of a prior total left hip arthroplasty 2. No acute fractures identified Electronically signed by: Dawit Roque M.D. 03/30/2019 2:37 PM
--- NOTE | 2019-03-30 14:51 | Neurology Progress Note ---
Date of Service March 30, 2019 Assessment & Plan (1) Stroke-like symptom: 1. MRI no new acute findings 2. carotid doppler - known complete thrombus R ICA, 50-69% stenosis of L ICA 3. continue aspirin 81 mg and plavix 75 mg daily 4. optimize HTN, HLD, DM LDL <70 consider patients age 5. confusion - hospital psychosis on confusion 6. fall precautions 7. PT/OT speech for discharge needs 8. keppra 1000 mg BID - seizure prevention 9. would limit any medication that may increase confusion 10. treat pneumonia to culture Supervising Physician Co-Signing Physician Notes I have seen and discussed above patient with Dr Darling Longoria, neurology. Pt seen and examined. MRI brain no acute infarct Carotid US CHRISTINA occluded, LICA 50- 69%. Pt noted to have mild confusion earlier. Exam mild dysarthria, mild flattening L nlf. No obvious UE drift. IMP TIA vs exacerbation of stroke residua related to hypotension. Dual antiplt x 3 weeks then Plavix alone. Could try gabapentin for restless legs but may want to wait until pt dc and back to baseline (re pble mild delirium) BOOGIE Longoria MD Aung Greco is a 88 year old male with PMH CKD, HTN, HLD, history of multiple cerebral infarctions, right carotid,occlusion and a history of seizure, secondary to his stroke and status post bladder surgery for a tumor. He is currently confused. He reported waking up with headaches, and left face, arm and leg numbness which lasted 1 hour. At baseline he does have a history of aspirating and uses thickeners in his liquids. 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 He lives at home with his and denies any other issues. He is a non- smoker. Entering room he has no clothes on and states he is looking for his shoes. He fell getting out of bed but no hip fracture on xray. denies CP, SOB, abdominal pain, current headache Physical Exam Physical Exam: Gen: alert with voice command lungs course breath sounds CV RRR abdomen: soft non tender finger to nose right intact left unable to touch finger strength right 5/5 hand distribution superintendent biceps triceps left 4/5 lift legs at hip bilaterally 5/5 skin mid glass to ankle erythema sensation intact to light touch unable to say where he is, doesn't know why he is in hospital, does know his him address and lives with Results & Data Vital Signs (Past 12 Hours) Vital Signs Temp Pulse Pulse Resp BP Pulse Ox 03/30/19 14:02 36.3 C L 63 16 179/89 H 96 03/30/19 11:29 36.5 C 61 16 155/74 H 96 03/30/19 07:45 36.7 C 71 16 163/77 H 93 03/30/19 07:24 53 L 03/30/19 04:00 36.4 C L 55 L 20 150/73 H 93 Laboratory Results Abnormal lab results 03/29/19 03/30/19 03/30/19 Range/Units 05:00 05:47 05:47 RBC 3.97 L (4.7-6.1) M/uL Hgb 12.3 L (14.0-18.0) g/dL Hct 36.8 L (42-52) % Lymph # (Auto) 0.93 L (1.2-3.4) K/uL Potassium 3.4 L (3.5-5.1) mmol/L Chloride 111 H (98-107) mmol/L BUN 25 H (7-18) mg/dl Creatinine 1.51 H D (0.6-1.4) mg/dl POC Glucose (70-99) Hemoglobin A1c 5.7 H (4.5-5.6) % 03/30/19 Range/Units 11:37 RBC (4.7-6.1) M/uL Hgb (14.0-18.0) g/dL Hct (42-52) % Lymph # (Auto) (1.2-3.4) K/uL Potassium (3.5-5.1) mmol/L Chloride (98-107) mmol/L BUN (7-18) mg/dl Creatinine (0.6-1.4) mg/dl POC Glucose 101 H (70-99) Hemoglobin A1c (4.5-5.6) % Diagnostic Findings MRI brain-here is no hemorrhage, enhancing mass, or evidence of acute ischemia. Right MCA territory encephalomalacia is unchanged and consistent with a remote infarct. Loss of the right internal carotid artery flow-void at the skull base is unchanged from previous. carotid doppler- here is complete thrombosis of the right internal carotid artery, unchanged from the 09/08/2018 CT angiogram. There is evidence of 50-69% stenosis of the proximal left internal carotid artery by velocity criteria. This is also unchanged. Antegrade flow is shown in the vertebral arteries. TTE 60-70% no ASD
[2019-03-30] MEDS ORDERED: AMPICILLIN/SULBACTAM SOD 3,000 MG in 0.9 % SODIUM CHLORIDE 100 ML IV SCH (15:00)
--- NOTE | 2019-03-30 17:25 | Hospitalist Progress Note ---
Date of Service March 30, 2019 Assessment & Plan (1) Stroke-like symptom: New left hand numbness with difficulty moving left hand that has resolved. 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 MRI brain is unchanged. Carotid ultrasound revealed chronic occlusion on the right that is known. Negative bubble study. Possible TIA vs seizure vs other. Appreciate Neuro recommendations and will cont with ASA, Plavix and statin for secondary stroke prevention. He isn't moving well and had a fall today in his room. SNF vs 24 hr home care is recommended. Appreciate Case Management assistance with setting this up. (2) Orthostasis: Chronic and present now. Cont fall risk precautions and PT/OT. (3) Pneumonia: Reports new dry cough over the last month. Of note has a history of aspiration that is known and was in this hospital 3 months ago for aspiration pneumonia. Blood cultures ordered and empiric Unasyn started. Will transition him to Augmentin. Speech eval reveals that he is high risk for aspiration. Will get palliative involved to discuss goals of care with the patient and the family. (4) Peripheral vascular disease: Known carotid disease with complete occlusion on the right. Continue aspirin 162 mg daily. Consideration should be given to addition of Plavix. He was taking this in the past, however, uncertain why this was stopped. He was notably here with similar symptoms in November and Plavix was not on his list at that point or though to be necessary at discharge. (5) Leg erythema: Exam consistent with an irritant contact dermatitis. Possibly secondary to new socks, however, patient reports washed these. May be a reaction related to the detergent used. Uncertain at this time. We will continue to avoid those socks and monitor for improvement. Erythema persists today. (6) Seizure disorder: No recent seizures, continue Keppra, Ativan as needed seizures, seizure precautions. (7) CKD (chronic kidney disease), stage III: Around baseline. Renally dose medications and avoid nephrotoxic substances. 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 He is not on a beta-camille but is bradycardic and would not tolerate that. He does take aspirin daily and a statin. LELA inhibitor likely contraindicated in setting of CKD. Defer to primary care doctor for changes of medical management. Prior echo revealed a slightly depressed EF at 45%. No known history of CAD or stents. (9) Hypothyroidism: TSH within normal limits, continue home Synthroid (10) DVT prophylaxis: Heparin Full code as discussed with patient on admission. Disposition-med/surg for work-up of strokelike symptoms. Vicenta Sanchez DO [facility] Hospitalist I received a call from the nurse this afternoon that patient has some minor blood sseen at the tip of the penis after Lowe removal. He is on heparin, ASA and Plavix. Held heparin and will plan to hold pressure to the area. Consider Urology evaluation if bleeding doesn't stop. Subjective pt reports some L hip pain which is chronic in setting of prior hip surgeries and known arthritis. Controlled with Tylenol He then fell from a standing position and landed on it. Xrays reveal arthritis without fracture. Otherwise he denies any numbness in his hand today and appears to be moving it better We briefly discussed the fact that he is aspirating chronically, and the pros/ cons of continuing to eat by mouth. Review of Systems Review of Systems: All systems reviewed & are unremarkable except as noted in HPI & below Physical Exam Physical Exam: CONSTITUTIONAL: WNWD, vitals as above, generally well-appeari ng EYES: EOMI bilaterally, PERRL, normal conjunctivae, no scleral icterus ENT: external ear and nose normal, oropharynx clear, +TMs were not visualized as there is extensive cerumen blocking external canal RESPIRATORY: clear to auscultation bilaterally, no crackles, rales or wheezes, normal respiratory effort CARDIOVASCULAR: regular rate and rhythm, S1 and 2 heard without murmurs, gallops or rubs, no JVD, no peripheral edema GASTROINTESTINAL: soft, nontender, nondistended MUSCULOSKELETAL: strength 5/5 throughout, head is normocephalic and atraumatic, difficulty with motor coordination in L hand-cannot perform finger spread, hand matcher is easier for him but still not performed with ease SKIN: warm and dry, bright red erythema across the tops of his feet and from the proximal ankle to midway up the leg. The erythema is symmetric and no wounds are present. NEUROLOGIC: patellar DTR 2+ on R, however, patient was tensing his left leg so reflexes could not be elicited, no facial palsy, no dysarthria. CN 2-12 grossly intact, no gross sensory deficit, normal cognition, normal speech, no tremor PSYCHIATRIC: alert cooperative and oriented to person, place and time. Results & Data Vital Signs (Past 12 Hours) Vital Signs Temp Pulse Pulse Resp BP Pulse Ox 03/30/19 15:16 58 L 03/30/19 15:00 36.4 C L 60 18 163/79 H 98 03/30/19 14:02 36.3 C L 63 16 179/89 H 96 03/30/19 11:29 36.5 C 61 16 155/74 H 96 03/30/19 07:45 36.7 C 71 16 163/77 H 93 03/30/19 07:24 53 L Laboratory Results Short CBC 03/30/19 Range/Units 05:47 WBC 6.15 (4.8-10.8) K/uL Hgb 12.3 L (14.0-18.0) g/dL Hct 36.8 L (42-52) % Plt Count 222 (130-400) K/uL BMP 03/30/19 05:47 Sodium 143 Potassium 3.4 L Chloride 111 H Carbon Dioxide 25 BUN 25 H Creatinine 1.51 H D Glucose 86 Calcium 8.8 Urine 03/29/19 Range/Units Unknown Urine Color Yellow Urine Appearance Clear (Clear) Urine pH 5.5 (4.5-7.5) Ur Specific Cowan 1.025 (1.000-1.030) Urine Protein Negative (Negative) Urine Glucose (UA) Negative (Negative) Medications Administered Current Inpatient Medications Acetaminophen (Tylenol) 650 mg PO Q6H PRN PRN Reason: Pain Stop: 04/29/19 10:54 Acetaminophen (Tylenol) 1,000 mg PO NOW RAY Stop: 04/29/19 10:59 Last Admin: 03/30/19 11:16 Dose: 1,000 mg Documented by: Aspirin (Aspirin Chew) 81 mg PO DAILY RAY Stop: 04/29/19 08:59 Last Admin: 03/30/19 08:51 Dose: 81 mg Documented by: Atorvastatin Calcium (Lipitor) 40 mg PO HS RAY Stop: 04/28/19 20:59 Last Admin: 03/29/19 21:19 Dose: 40 mg Documented by: Buspirone HCl (Buspar) 5 mg PO BID RAY Stop: 04/28/19 10:16 Last Admin: 03/30/19 08:47 Dose: 5 mg Documented by: Carbamide Peroxide (Earwax Removal Soln) 10 drops OTL BID [facility] Stop: 04/02/19 20:59 Last Admin: 03/30/19 08:47 Dose: 10 drops Documented by: Clopidogrel Bisulfate (Plavix) 75 mg PO QAM [facility] Stop: 04/28/19 12:29 Last Admin: 03/30/19 08:51 Dose: 75 mg Documented by: Escitalopram Oxalate (Lexapro Tab) 20 mg PO QAM [facility] Stop: 04/28/19 10:16 Last Admin: 03/30/19 08:51 Dose: 20 mg Documented by: Gadobutrol (Gadavist 7.5ml) 7 ml IV ONCE PRN PRN Reason: Interaction Checking Stop: 04/02/19 15:28 Last Admin: 03/29/19 15:30 Dose: 7 ml Documented by: Heparin Sodium (Porcine) (Heparin Sodium (Porcine)) 5,000 units SQ Q8 [facility] Stop: 04/28/19 13:59 Last Admin: 03/30/19 14:50 Dose: Not Given Documented by: Lorazepam (Ativan) 1 mg in 2 mls @ 0.5 mls/min IV UD PRN PRN Reason: seizure Ampicillin Sodium/Sulbactam Sodium 3,000 mg/ Sodium Chloride 108 mls @ 216 mls/hr IV Q6H [facility]; Protocol Stop: 04/05/19 19:59 Last Infusion: 03/30/19 17:22 Dose: Infused Documented by: Levetiracetam (Keppra) 1,000 mg PO BID [facility] Stop: 04/28/19 10:16 Last Admin: 03/30/19 08:47 Dose: 1,000 mg Documented by: Levothyroxine Sodium (Synthroid) 88 mcg PO DAILYBB [facility] Stop: 04/28/19 06:29 Last Admin: 03/30/19 05:53 Dose: 88 mcg Documented by: Loratadine (Claritin) 10 mg PO QAM [facility] Stop: 04/28/19 10:16 Last Admin: 03/30/19 08:51 Dose: 10 mg Documented by: Miscellaneous Information (Ampicillin/Sulbactam Consult) 1 ea N/A UD PRN PRN Reason: Consult Stop: 04/28/19 08:34 Miscellaneous Information (Pharmacist Discharge Med Rec Consult) 1 ea N/A UD PRN PRN Reason: Consult Stop: 04/28/19 10:16
[2019-03-30] MEDS: ATORVASTATIN 40 MG TAB PO SCH (21:00)
[2019-03-31] MEDS ORDERED: POLYETHYLENE (MIRALAX) 17 GM PACK PO STA (05:27)
[2019-03-31] MEDS: LEVOTHYROXINE SODIUM 88 MCG TABLET PO SCH (05:46)
[2019-03-31 06:46] LABS: Basophils # (auto) 0.06 K/uL (0-0.2); Basophils % (auto) 1.3 %; Eosinophils # (auto) 0.62 K/uL (0-0.5); Eosinophils % (auto) 13.1 %; Hematocrit (blood only) 36.7 % (42-52); Hemoglobin 11.9 g/dL (14.0-18.0); Lymphocytes # (auto) 0.67 K/uL (1.2-3.4); Lymphocytes % (auto) 14.2 %; Mean Corpuscular Hemoglobin 29.8 pg (25-34); Mean Corpuscular Hgb Conc 32.4 g/dL (32-36); Mean Corpuscular Volume 91.8 fL (80-100); Mean Platelet Volume 9.4 fL (7.4-10.4); Monocytes # (auto) 0.54 K/uL (0.11-0.59); Monocytes % (auto) 11.4 %; Neutrophils # (auto) 2.84 K/uL (1.4-6.5); Platelet Count 220 K/uL (130-400); RDW Coefficient of Variation 13.4 % (11.5-14.5); RDW Standard Deviation 44.5 fL (36.4-46.3); White Blood Count 4.73 K/uL (4.8-10.8)
[2019-03-31 07:21] LABS: BUN Creatinine Ratio 17.2 (10-20); Calcium 9.1 mg/dl (8.5-10.1); Creatinine Clr Calc Pharmacy 31.5 ml/min; Est GFR (African American) 50.2; Est GFR (Non-African American) 43.3; Potassium 3.2 mmol/L (3.5-5.1)
[2019-03-31] MEDS ORDERED: DOCUSATE SODIUM/SENNA 50/8.6MG TAB PO SCH (09:00)
--- NOTE | 2019-03-31 10:05 | Palliative Care Consultation ---
Date of Consultation March 31, 2019 Assessment & Plan (1) Goals of care, counseling/discussion: -88 year old male patient with PMH CKD stage III, right carotid artery occlusion, CVA with residual left hemiparesis, HLD, htn, hypothyroidism, heart failure, dysphagia and aspiration, presented to the hospital with stroke-like symptoms. Heat CT and brain MRI negative for acute changes, showed chronic changes. CXR showed possible pneumonia and patient is known aspirator since his CVA. Patient has left sided weakness and is a high fall risk-- in fact he fell in his hospital room yesterday and fortunately had no fractures. Patient has known orthostatic hypotension as well. His pneumonia is being appropriately treated and patient is stable, but discussion about goals of care in the setting of chronic aspiration, weakness and other medical problems. Palliative care team is consulted. -Met with patient in room 261 this morning. He is AA&O x4. Speech is very slightly slurred which is apparently his baseline. -Discussed his medical conditions at length. Patient stated that his goal is to be at home and he does not want to continue coming to the hospital. He said, "I'd rather just be let go," when asked what he would want to happen if he has another bout of pneumonia or if his heart stopped/stopped breathing. -Discussed CODE STATUS, and based on his wishes, he wants to be a DNR/DNI. -With patient's permission, called his Jo-Ann, on phone and discussed with the both of them. She is in agreement with patient's wishes to be DNR and avoid further hospitalizations. We talked about home hospice care, and both are in agreement with that plan. Referral to [facility] at 's request (had [facility] in the past). They are not interested in continuing PT/OT/ST at home. -Therapy is recommending 24-hour supervision-- patient's is there and their niece also lives in the basement of their home. is comfortable bringing him home and this is patient's preference. -No current symptom management needs. No need for equipment delivery at home prior to discharge. -Patient will likely discharge home today and have hospice see him either tonight or tomorrow morning to be admitted to their service. Given patient's neurovascular disease, chronic and recurrent aspiration and aspiration pneumonia, wishes to not be hospitalized, I do believe he is hospice appropriate. -PPS 50%. (2) Aspiration pneumonia: (3) Status post multiple cerebral infarctions: (4) Left-sided weakness: Supervising Physician Co-Signing Physician Notes Chart reviewed, patient seen and examined. Collaborated with JENAE Suarez PE: Patient awake, alert, no acute distress HEENT: EOMI Respirations: Clear breath sounds CV: Regular rate, no edema Abdomen: Not distended Neuro: Left-sided weakness lower extremity greater than upper extremity Agree with above note, assessment and plan as per JENAE Suarez. Plan is for discharge home with hospice care. History of Present Illness Reason for Consultation: Goals of care Requesting Physician: Dr. Sanchez Attending Physician: Vicenta Sanchez DO History of Present Illness This 88 year old male patient with PMH CKD stage III, right carotid artery occlusion, CVA with residual left hemiparesis, HLD, htn, hypothyroidism, heart failure, dysphagia and aspiration, presented to the hospital with stroke-like symptoms. Heat CT and brain MRI negative for acute changes, showed chronic changes. CXR showed possible pneumonia and patient is known aspirator since his CVA. Patient has left sided weakness and is a high fall risk-- in fact he fell in his hospital room yesterday and fortunately had no fractures. Patient has known orthostatic hypotension as well. His pneumonia is being appropriately treated and patient is stable, but discussion about goals of care in the setting of chronic aspiration, weakness and other medical problems. Palliative care team is consulted. Thank you kindly for this consult. Allergies Allergy/AdvReac Type Severity Reaction Status Date / Time clindamycin Allergy Intermediate rash Verified 03/29/19 05:16 Bactrim Allergy Mild RASH Verified 02/05/17 02:49 blue dye Allergy Mild RASH Verified 03/29/19 05:16 dabigatran etexilate Allergy Mild RASH Verified 03/29/19 05:16 sulfamethoxazole Allergy Mild RASH Verified 03/29/19 05:16 trimethoprim Allergy Mild RASH Verified 03/29/19 05:16 vancomycin Allergy Mild RASH, DRY Verified 03/29/19 05:16 SKIN warfarin Allergy Mild RASH Verified 03/29/19 05:16 yellow dye Allergy Mild RASH Verified 03/29/19 05:16 Sulfa (Sulfonamide Allergy Unknown unknown Verified 03/29/19 05:16 Antibiotics) Home Medications Home Medications Medication Instructions Recorded Confirmed Type buspirone 5 mg PO BID 09/08/18 03/29/19 History escitalopram oxalate [Lexapro] 20 mg PO QAM 09/08/18 03/29/19 History levothyroxine 88 mcg PO QAM 09/08/18 03/29/19 History meclizine 25 mg PO TID PRN 09/08/18 03/29/19 History omega 3-fac-xfh-fish oil [Fish Oil] 1 cap PO QAM 09/08/18 03/29/19 History calcium carbonate [Calcium 600] 1,200 mg PO QAM 12/03/18 03/29/19 History levetiracetam 1,000 mg PO BID 12/03/18 03/29/19 History loratadine 10 mg PO QAM 12/03/18 03/29/19 History amoxicillin-pot clavulanate 1 tab PO BIDM 7 Days #14 tab 03/31/19 Rx aspirin 81 mg PO DAILY #90 tab 03/31/19 Rx atorvastatin 40 mg PO HS #30 tab 03/31/19 Rx clopidogrel 75 mg PO QAM #30 tab 03/31/19 Rx Patient History Medical History CKD (chronic kidney disease), stage III (Chronic) 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 History of bladder surgery (Resolved) Family History Other Hypertension Social History Preferred Language: Monegasque Communication Ability: Effective Test Grader Required: No Beliefs That Will Affect Care: None marital status: Current Living Situation: Spouse Other Information That Helps Us Care for You: No Feels Safe at Home: Yes Safety Concerns: Feels Safe At This Time Smoking Status: Former smoker Hx Alcohol Use: No Hx Substance Use: No Review of Systems Review of Systems: Const: + weakness ENMT: +aspiration/coughing at times Resp: No SOB, no cough Cardio: No chest pain, no edema GI: No abdominal pain, no N/V MS: No musculoskeletal pain Neuro: No confusion Psych: No anxiety Physical Exam Constitutional: well developed and well nourished; no acute distress ENMT: external ear and nose normal, oropharynx normal Neck: normal visual inspection Respiratory: normal respiratory effort, lungs clear to auscultation Cardiovascular: RRR, no murmur, no edema Gastrointestinal (Abdomen): Inspection/Auscultation: abdomen normal to inspection and normal bowel sounds; abdomen not distended Percussion/Palpation: abdomen soft; abdomen nontender Neurologic: moves all extremities and awake Psychiatric: A+Ox3, euthymic affect Results & Data Vital Signs (Past 12 Hours) Vital Signs Temp Pulse Pulse Resp BP Pulse Ox 03/31/19 07:24 44 L 03/31/19 07:14 36.2 C L 50 L 18 148/71 H 97 03/31/19 03:45 54 L 03/31/19 03:31 36.8 C 51 L 18 165/72 H 98 03/30/19 23:56 36.7 C 54 L 20 164/85 H 96 Time Spent Midlevel 70 minutes with >50% of the time spent at bedside with patient and family discussing condition and GOC.
[2019-03-31] MEDS: CLOPIDOGREL BISULFATE 75 MG TAB PO SCH (10:06)
[2019-03-31] MEDS: levETIRAcetam 500 MG TAB PO SCH (10:07)
[2019-03-31] MEDS: LORATADINE 10 MG TAB PO SCH (10:07)
[2019-03-31] MEDS: AMOXICILLIN/CLAVULANATE 875 MG TAB PO SCH ×2 (10:07→17:51)
[2019-03-31] MEDS: ASPIRIN 81 MG CHEW PO SCH (10:08)
[2019-03-31] MEDS: CARBAMIDE PEROXIDE 6.5% 15 ML BTL OTL SCH (10:09)
[2019-03-31] MEDS: ESCITALOPRAM OXALATE 20 MG TAB PO SCH (10:09)
--- NOTE | 2019-03-31 15:12 | Neurology Progress Note ---
Date of Service March 31, 2019 Assessment & Plan (1) Stroke-like symptom: 1. MRI no new acute findings 2. carotid doppler - known complete thrombus R ICA, 50-69% stenosis of L ICA 3. continue aspirin 81 mg and plavix 75 mg daily 4. optimize HTN, HLD, DM LDL <70 consider patients age 5. confusion - hospital psychosis on confusion - seems much better today 6. fall precautions 7. PT/OT speech for discharge needs 8. keppra 1000 mg BID - seizure prevention 9. would limit any medication that may increase confusion 10. treat pneumonia to culture discharge when medically stable. Supervising Physician Co-Signing Physician Notes I have seen and discussed above patient with Dr Darling Longoria, neurology. Discussed with Aydin Valdez. Pt has returned to baseline. Poss TIA v hypoperfusion. Dual anti-plt tx for 21 d then Plavix 75 mg daily. Pt should see us in follow-up post dc. Aung Greco is a 88 year old male with PMH CKD, HTN, HLD, history of multiple cerebral infarctions, right carotid,occlusion and a history of seizure, secondary to his stroke and status post bladder surgery for a tumor. He is currently confused. He reported waking up with headaches, and left face, arm and leg numbness which lasted 1 hour. At baseline he does have a history of aspirating and uses thickeners in his liquids. 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 He lives at home with his and denies any other issues. He is a non- smoker. When entering room patient is sleeping. He states he is tired and not sleep well. Palliative medicine is currently in room also. 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 sensation intact to light touch Results & Data Vital Signs (Past 12 Hours) Vital Signs Temp Pulse Pulse Resp BP BP Pulse Ox 03/31/19 14:57 63 03/31/19 11:27 36.3 C L 55 L 16 138/89 96 03/31/19 07:24 44 L 03/31/19 07:14 36.2 C L 50 L 18 148/71 H 97 03/31/19 03:45 54 L 03/31/19 03:31 36.8 C 51 L 18 165/72 H 98
[2019-03-31] MEDS ORDERED: STROKE PATIENT DISCHARGE STA (15:29)
--- NOTE | 2019-03-31 15:32 | Discharge Summary ---
Date of Service March 31, 2019 Admission HPI Per Admitting Provider 88-year-old man who is in the ER alone without family members present who is a currently alert and oriented x3 presented via EMS for confusion and lightheadedness this morning. Additionally he reports left hand numbness that is new in the past 24 hours. The patient states that for the last month he is woken up and felt lightheaded and confused, walking into closets, and experiencing disequilibrium mostly in the morning. This is short-lived and seems to dissipate as the day progresses. He also reports waking up with headaches in the morning. He also reports having a new dry cough for the past month. He denies any fevers or chills, nausea, vomiting, diarrhea, abdominal pain, blood in his stool or changes in bowel movements. He denies any other strokelike symptoms including no headache, visual changes, difficulties moving arms or legs that are new, difficulty speaking or swallowing. At baseline he does have a history of aspirating and uses thickeners in his liquids. 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 He denies any weakness on his left side, however, on exam he was having difficulties making coordinated movements with his left hand. He lives at home with his and denies any other issues. He is a non-smoker. He does report that his L ear feels full and exam reveals extensive cerumen blocking this area. Admission Exam Per Admitting Provider CONSTITUTIONAL: WNWD, vitals as above, generally well-appearing EYES: EOMI bilaterally, PERRL, normal conjunctivae, no scleral icterus ENT: external ear and nose normal, oropharynx clear, +TMs were not visualized as there is extensive cerumen blocking external canal RESPIRATORY: clear to auscultation bilaterally, no crackles, rales or wheezes, normal respiratory effort CARDIOVASCULAR: regular rate and rhythm, S1 and 2 heard without murmurs, gallops or rubs, no JVD, no peripheral edema GASTROINTESTINAL: soft, nontender, nondistended MUSCULOSKELETAL: strength 5/5 throughout, head is normocephalic and atraumatic, difficulty with motor coordination in L hand-cannot perform finger spread, hand instrument calibrator is easier for him but still not performed with ease SKIN: warm and dry, bright red erythema across the tops of his feet and from the proximal ankle to midway up the leg. The erythema is symmetric and no wounds are present. NEUROLOGIC: patellar DTR 2+ on R, however, patient was tensing his left leg so reflexes could not be elicited, no facial palsy, no dysarthria. CN 2-12 grossly intact, no gross sensory deficit, normal cognition, normal speech, no tremor PSYCHIATRIC: alert cooperative and oriented to person, place and time. Principal Diagnosis Strokelike symptom poss TIA Acute Urinary Retention Orthostatic Hypotension Pneumonia possibly secondary to chronic aspiration issues Peripheral vascular disease (carotid disease) Leg erythema Seizure disorder Discharge Data Allergies Allergy/AdvReac Type Severity Reaction Status Date / Time clindamycin Allergy Intermediate rash Verified 03/29/19 05:16 Bactrim Allergy Mild RASH Verified 02/05/17 02:49 blue dye Allergy Mild RASH Verified 03/29/19 05:16 dabigatran etexilate Allergy Mild RASH Verified 03/29/19 05:16 sulfamethoxazole Allergy Mild RASH Verified 03/29/19 05:16 trimethoprim Allergy Mild RASH Verified 03/29/19 05:16 vancomycin Allergy Mild RASH, DRY Verified 03/29/19 05:16 SKIN warfarin Allergy Mild RASH Verified 03/29/19 05:16 yellow dye Allergy Mild RASH Verified 03/29/19 05:16 Sulfa (Sulfonamide Allergy Unknown unknown Verified 03/29/19 05:16 Antibiotics) Consultations 03/29/19 06:57 ED Decision to Admit Stat 03/29/19 08:16 Consult Neurology Routine 03/29/19 08:21 Consult Case Management - Discharge Planning Routine 03/30/19 17:25 Consult Palliative Care Routine Ordered Studies 03/29/19 05:31 CT head/brain wo con Urgent 03/29/19 10:17 US carotid doppler BI Routine 03/29/19 14:08 MR brain wo/w con Urgent Hospital Course (1) Stroke-like symptom: New left hand numbness with difficulty moving left hand that has resolved. 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 MRI brain is unchanged. Carotid ultrasound revealed chronic occlusion on the right that is known. Negative bubble study. Possible TIA vs seizure vs other. Appreciate Neuro recommendations and will cont with ASA, Plavix and statin for secondary stroke prevention. Has ambulatory dysfunction at baseline and had a fall in his hospital room without subsequent fracture. SNF vs 24 hr home care is recommended. Palliative was consulted and the patient and decided he would go home with Hospice. He also participates in [facility] who is coming to see him tomorrow. (2) Orthostasis: Chronic and present this admission. Cont fall risk precautions and PT/OT, which was declined by patient and at time of discharge. (3) Acute urinary retention: Acute urinary retention found during this hospitalization in the absence of urinary infection. He failed an initial trial of void and was sent home with a urinary catheter in place. Follow-up was set up with [facility] group urology who will contact the patient to set up a 10 to 14-day follow-up trial of void in the office. (4) Pneumonia: Cough improved, blood cultures are negative. Unasyn was given for the first couple days transition to Augmentin and he will continue Augmentin at home. As a chronic aspirator per speech therapy evaluation, he is at high risk for recurrent pneumonia. The patient and his are aware of this and the patient is elected to go home with hospice. He will continue to eat by mouth for comfort. (5) Peripheral vascular disease: Known carotid disease with complete occlusion on the right. Continue DAPT. (6) Leg erythema: Exam consistent with an irritant contact dermatitis. Possibly secondary to new socks, however, patient reports washed these. May be a reaction related to the detergent used, but etiology is not clear. Appreicate PCP follow-up at time of follow-up. (7) Seizure disorder: No recent seizures, continue Keppra, Ativan as needed seizures, seizure precautions. (8) CKD (chronic kidney disease), stage III: Around baseline. 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 He was tolerating p.o. Neuro exam revealed no changes from day prior. Gait was not assessed, however, patient is a fall risk. Heart and lung exam were normal and he was euvolemic. Abdomen was soft, nontender nondistended. Erythema to lower legs were still present. He was sent home in stable condition with close primary care follow-up recommended on home hospice. Total Time Total Time Spent Total Time Spent (In Minutes): 60 Total Time Includes: Examination of the Patient, Discharge Planning, Medication Reconciliation, Communication With Other Providers and Other (arranged followup with outpatient Urology) Discharge Plan Discharge Items Patient Disposition: Hospice - Home Reason For Visit: CONFUSION, PNEUMONIA, NUMBNESS Discharge Diagnosis: Strokelike symptom poss TIA Acute Urinary Retention Orthostatic Hypotension Pneumonia possibly secondary to chronic aspiration issues Peripheral vascular disease (carotid disease) Leg erythema Seizure disorder Condition on Discharge: Good Health Concerns: You were found to be retaining urine close to discharge from the hospital and are being sent home with a urinary catheter in place. Someone from [facility] will be contacting you to see you back in the office in the next 10-14 days for another voiding trial. Goals: Home with Hospice-avoid future hospitalizations/maximize quality of life at home in familiar environment. Activity: Resume your previous activity Driving/Machine Use: No driving Non-emergency contact: Primary Care Provider Call non-emergency contact if: you have any medication questions, your symptoms worsen, your pain is not controlled, your pain is worsening, your pain is unusual for you, your pain is concerning for you and you have a fever Follow-up/Referrals: Wilton Casillas II, DO [Physician] - Miguel Mckee DO [Primary Care Provider] - Diet: Carb Consistent or DM2 and Heart Healthy Addtl Attending Provider Instructions: Please take all medications as instructed on discharge list below. You are going home with a urinary catheter in place and will need to follow-up with Dr. Wilton Casillas from [facility] in 1-2 weeks for a repeat trial of void. It is recommended that you avoid driving. Please continue to work with your Hospice agency regarding equipment or other medications that may be helpful in keeping you comfortable away from the hospital. It is recommended that you follow-up with your primary care physician (PCP) in one week. You have been scheduled with [facility] tomorrow: 04/01/2019 2:00 PM RUKHSANA Matias AT [facility] It was a pleasure taking care of you! Please call if you have any questions or problems. You can reach a [facility] hospitalist on duty at 24 hours a day by calling [phone]. Take care of yourself. Vicenta Sanchez DO [facility] P[facility] Studies at Discharge: No Stand-Alone Forms: My [facility] Medications and DC Order Prescriptions: New amoxicillin-pot clavulanate 875-125 mg Tablet 1 tab PO BIDM 7 Days Qty: 14 RF: 0 clopidogrel 75 mg Tablet 75 mg PO QAM Qty: 30 RF: 1 atorvastatin 40 mg Tablet 40 mg PO HS Qty: 30 RF: 1 aspirin 81 mg tablet,delayed release (DR/EC) 81 mg PO DAILY Qty: 90 RF: 1 Continued levetiracetam 500 mg tablet 1,000 mg PO BID RF: 0 calcium carbonate [Calcium 600] 600 mg calcium (1,500 mg) Tablet 1,200 mg PO QAM RF: 0 loratadine 10 mg tablet 10 mg PO QAM RF: 0 buspirone 5 mg Tablet 5 mg PO BID RF: 0 levothyroxine 88 mcg Tablet 88 mcg PO QAM RF: 0 meclizine 25 mg Tablet 25 mg PO TID PRN (Reason: Dizziness) RF: 0 escitalopram oxalate [Lexapro] 20 mg Tablet 20 mg PO QAM RF: 0 omega 4-wqc-ozd-fish oil [Fish Oil] 1,000 mg (120 mg-180 mg) Capsule 1 cap PO QAM RF: 0 Discontinued atorvastatin 20 mg Tablet 20 mg PO QPM RF: 0 aspirin [Aspir-81] 81 mg Tablet,Delayed Release (Dr/Ec) 162 mg PO QAM RF: 0 Discharge Orders: Discharge Order (Routine); Ordered 03/31/19 Ordered By: Vicenta Sanchez Admission Data Admit Date/Time: 03/29/19 08:16 Attending Provider: Vicenta Sanchez Admit Provider: Vicenta Sanchez Primary Care Provider: Miguel Mckee Other Providers: Peng Mclean ; Darling Longoria ; Rosie Wheeler
== END 2019-03-31 20:09 | disposition hospice, home (50) | DRG 69 ==
LOC: ED 05:04 → 2W 08:16